=== PATIENT | male | born 1950 | race Two or more races ===

== ENCOUNTER 2021-01-03 12:56 | Emergency (ER) | payer MEDICARE, MEDICAID, SELFPAY ==
--- NOTE | 2021-01-03 | ECG_ITS ---
Test Reason : TACHY Blood Pressure : / mmHG Vent. Rate : 117 BPM Atrial Rate : 117 BPM P-R Int : 200 ms QRS Dur : 070 ms QT Int : 304 ms P-R-T Axes : 096 -73 033 degrees QTc Int : 424 ms Sinus tachycardia Left axis deviation Inferior-posterior infarct , age undetermined Anterolateral infarct , age undetermined Abnormal ECG No previous ECGs available Referred By: Shilpi Nielsen Electronically Signed By:CLEVELAND HARRIS
[2021-01-03 13:01] VITALS: BP 101/65; BP 124/78; PULSE 124; PULSE 125; RESP 18; TEMP 36.6; O2SAT 100; O2SAT 98; BMI 21.3
--- NOTE | 2021-01-03 13:14 | PC.NURSE ---
BG on arrival to ED 104. Patient Alert and oriented x 4. Some left sided weakness and some slurred speech at baseline from previous stroke per EMS. HR tachycardic. VSS.
[2021-01-03 13:18] LABS: Glucose, Whole Blood 104 mg/dL (60-115)
--- NOTE | 2021-01-03 13:43 | PC.NURSE ---
PT SENT HERE FROM [facility] DUE TO AMS, FOUND TO HAVE LOW BG FROM EMS GIVEN D10 BG HERE 94, PT IS AOX3 HERE KNOWS WHERE HE IS KNOW HIS NAME AND WAS SPEAKING TO DR MILES IN [place]. PT STATES HE HASN'T HAD ANY FOOD IN 4 DAYS AND WANTS TO EAT. DR MILES IS FINE WITH THAT PLAN
--- NOTE | 2021-01-03 13:58 | ED.AMS ---
HPI - Altered Mental Status General Chief Complaint: Altered Mental Status Stated Complaint: ams, poc 61 Time Seen by Provider: 01/03/21 13:38 History of Present Illness HPI narrative: Patient is a 70-year-old male with a history of stroke. Which left patient with left-sided weakness. Patient has slurred speech baseline. Presented today with having altered mental status. Patient was noted by EMS to have a low sugar in the 60s. Per him he had a sugar in the 50s with the group home. The EMS crew gave patient some D10 subsequently on arrival patient is able to speak to this provider without any difficulties. Patient is awake alert oriented. No distress. Patient remembers the events of today. Claims he has not been eating well the last few days. Unsure about his medications. Patient from group home. No coughing or congestion or upper respiratory symptoms. No diaphoresis. Related Data Allergies Allergy/AdvReac Type Severity Reaction Status Date / Time No Known Allergies Allergy Verified 01/03/21 13:38 Review of Systems Review of Systems: No fever no chills no nausea no vomiting. No chest pain All systems reviewed otherwise negative [facility] Past Medical History Attestation statement: The following information was validated with the patient. Social History Social History Advance Directives: No Advance Directives Information Provided: No Physical Exam Vital Signs: Vital Signs: Last Vital Signs Temp 98 F 01/03/21 13:01 Pulse 125 H 01/03/21 13:01 Resp 18 01/03/21 13:01 BP 101/65 01/03/21 13:01 Pulse Ox 100 01/03/21 13:01 Body Mass Index 21.3 Appearance: Alert. Oriented X3. No acute distress. Eyes: Pupils equal, round and reactive to light. ENT: Pharynx normal. Neck: Normal inspection. Neck supple. No lymph nodes noted. No crepitus CVS: Normal heart rate and rhythm. Pulses normal. Normal S1 and S2 Respiratory: No respiratory distress. Breath sounds normal. No Wheezing. No rales Abdomen: Soft and nontender. No rigidity. No distention. good BS x4 Skin: Skin warm and dry. Normal skin color. Normal skin turgor. Extremities: No lower extremity edema. Neurovascular intact to all extremities. No Lacerations. No Rash Neuro: Oriented X 3. Positive weakness in the left upper and left lower extremity. Unable to squeeze my hand unable to lift up against gravity. No sensory deficit. Positive slurred speech. MDM - Altered Mental Status MDM Narrative Medical decision making narrative: Patient's symptoms likely secondary to hypoglycemia. Will check patient's baseline electrolytes. Will discuss the case with the group home about medication changes. Patient is hungry and eating in the emergency department no distress. Lab Data Result diagrams: 01/03/21 13:59 01/03/21 13:59 Labs: Lab Results 01/03/21 01/03/21 01/03/21 Range/Units 13:13 13:59 13:59 WBC 5.8 (4.8-10.8) X10*3/uL RBC 5.04 (4.60-5.80) X10*6/uL Hgb 14.1 (14.0-18.0) g/dl Hct 42.7 (42-52) % MCV 84.7 (80-98) fL MCH 28.0 (27.0-33.0) pg MCHC 33.0 (31.0-36.0) g/dl RDW 12.2 (11.0-16.0) % Plt Count 213 (160-400) X10*3/uL MPV 8.5 L (9.4-12.4) fL Immature Gran % (Auto) 0.3 (0.0-0.4) % Neut % (Auto) 67.1 (45-73) % Lymph % (Auto) 26.3 (20-40) % Mills % (Auto) 5.7 (2-11) % Eos % (Auto) 0.3 (0-4) % Baso % (Auto) 0.3 (0-2) % Lymph # (Auto) 1.5 (1.2-4.9) X10*3/uL Mills # (Auto) 0.3 (0.1-1.2) X10*3/uL Eos # (Auto) 0.0 (0.0-0.4) X10*3/uL Baso # (Auto) 0.0 (0.0-0.2) X10*3/uL Abs Immat Gran (auto) 0.02 (0.00-0.03) X10*3/uL Absolute Neuts (auto) 3.9 (2.0-8.3) X10*3/uL Absolute Nucleated RBC 0.000 (0.0-0.012) X10*3/uL Nucleated RBC % (auto) 0.0 (0.0-0.2) /100WBC Sodium 142 (135-145) mmol/L Potassium 3.9 (3.3-5.1) mmol/L Chloride 104 (96-108) mmol/L Carbon Dioxide 24 (22-29) mmol/L Anion Gap 18 (12-20) BUN 26 H (9-16) mg/dL Creatinine 0.77 (0.5-1.4) mg/dL Estim Creat Clear Calc 87.4 Estimated GFR > 60 POC Glucose 104 (60-115) mg/dL Random Glucose 97 (60-115) mg/dL Calcium 9.3 (8.4-10.2) mg/dL Discharge Plan Discharge Clinical Impression: Hypoglycemia Patient Disposition: Home, Self-Care Referrals: Fabrice Marino DO [Primary Care Provider] - 2 days
[2021-01-03 14:00] VITALS: BP 121/80; PULSE 130
[2021-01-03 14:03] LABS: Basophils Percent Auto 0.3 % (0-2); Eosinophils Percent Auto 0.3 % (0-4); Hematocrit 42.7 % (42-52); Hemoglobin 14.1 g/dl (14.0-18.0); Imm Gran Abs Auto 0.02 X10*3/uL (0.00-0.03); Imm Gran Pct Auto 0.3 % (0.0-0.4); Lymphocytes Absolute Auto 1.5 X10*3/uL (1.2-4.9); Lymphocytes Percent Auto 26.3 % (20-40); MANUAL DIFF FLAG NO; Mean Corpuscular Volume 84.7 fL (80-98); Mean Platelet Volume 8.5 fL (9.4-12.4); Monocytes Absolute Auto 0.3 X10*3/uL (0.1-1.2); Monocytes Percent Auto 5.7 % (2-11); Neutrophils Absolute Auto 3.9 X10*3/uL (2.0-8.3); Neutrophils Percent Auto 67.1 % (45-73); Platelet Count 213 X10*3/uL (160-400); Red Blood Count 5.04 X10*6/uL (4.60-5.80); Red Cell Distribution Width 12.2 % (11.0-16.0); White Blood Count 5.8 X10*3/uL (4.8-10.8)
[2021-01-03 14:24] LABS: Anion Gap 18 (12-20); Blood Urea Nitrogen 26 mg/dL (9-16); Calcium 9.3 mg/dL (8.4-10.2); Carbon Dioxide 24 mmol/L (22-29); Chloride 104 mmol/L (96-108); Creatinine Clr Calc Pharmacy 87.4; Estimated Glomerular Filt Rate > 60; Glucose Random 97 mg/dL (60-115); Potassium 3.9 mmol/L (3.3-5.1); Sodium 142 mmol/L (135-145)
--- NOTE | 2021-01-03 15:09 | PC.NURSE ---
attempted to call report to [facility], was left on hold for 10 mins
[2021-01-03 15:14] VITALS: BP 152/86; PULSE 124; RESP 16; O2SAT 98
[2021-01-03 15:23] LABS: Glucose, Whole Blood 94 mg/dL (60-115)
--- NOTE | 2021-01-03 15:30 | PC.NURSE ---
PT TOLERATED PO, GIVING SOME IVF FOR TACHYCARDIA. WILL RECHECK BG IN 30 MINS
[2021-01-03 15:38] LABS: Appearance Urine CLEAR; Color Urine YELLOW; Glucose Urine UA NEG (NEG); Leukocyte Esterase Urine NEG (NEG); Nitrite Urine NEG (NEG); Specific Gravity - Urine >= 1.030 (1.005-1.025); Urine Blood NEG (NEG); Urine Ketones >=80 MG/DL (NEG); Urine Protein TRACE MG/DL (NEG-TRACE)
[2021-01-03] MEDS: 0.9 % Sodium Chloride 1,000 ML 999 ML IV (16:59)
== END 2021-01-03 18:13 | disposition home or self-care (01) ==
PROVIDERS: Emergency Provider Emergency Medicine Emergency Medical Services; PCP Hospitalist
DX: E11.649 Type 2 diabetes mellitus with hypoglycemia without coma (principal); Z79.899 Other long term (current) drug therapy
CPT/HCPCS: 36415; 80048; 81003; 82947; 85025; 93005; 96360; 99284

== ENCOUNTER 2021-10-29 13:07 | Inpatient (IN) | payer OTHER, MEDICAID, SELFPAY ==
--- NOTE | ~2021-10-29 | CT_ITS ---
EXAMINATION: CT ANGIOGRAM HEAD CT ANGIOGRAM NECK CLINICAL INFORMATION: Reason for Exam stroke eval , right upper extremity weakness COMPARISON: CT head without contrast 10/29/2021 TECHNIQUE: Initial noncontrast alteration tailor imaging of the head and neck was performed. Noncontrast head CT was also performed. Test bolus sequences followed by intravenous administration 70 mL of Omnipaque 350. Helical imaging was performed in the axial plane from the aortic arch to the skull vertex. Delayed postcontrast imaging of the head was also performed. The data was processed at the geospatial information technologist's workstation for generation of MIP sequences. Angled MIPs and volume rendered reformatted images were also generated at an offline 3D workstation. Stenoses are assessed in accordance with NASCET criteria unless otherwise indicated. DLP: 2448 mGy-cm This CT examination was performed using dose optimization techniques as appropriate, variously including the following: *Automated exposure control. *Adjustment of mA and/or kV according to patient size (this includes techniques or standardized protocols for targeted exams where dose is matched to indication/reason for exam; i.e. extremities or head). *Use of iterative reconstruction technique. FINDINGS: CT Head: There is a significant burden of chronic appearing infarct and white matter gliosis in the right MCA territory with mild ex vacuo dilatation of the right lateral ventricle. This is on a background of moderate microvascular ischemic white matter hypodensity as well as some lacunar infarcts involving the right amaya radiata and central sivakumar. Encephalomalacia involving the left greater than right anterior inferior frontal and anterior temporal lobes is likely posttraumatic in origin. There is no evidence of acute intracranial hemorrhage or edematous territorial infarction. No evidence for obstructive hydrocephalus. No abnormal mass effect or midline shift. No extra-axial fluid collections. No pathologic intra-axial enhancement or regional oligemia. No acute soft tissue or osseous abnormalities. The mastoid air cells and paranasal sinuses are clear. CT Neck: Multinodular thyroid. The remaining cervical soft tissues are within normal limits. Moderate multilevel cervical spondylosis. There are large bulky bridging anterior osteophytes throughout the cervical and upper thoracic spine, likely reflecting diffuse idiopathic skeletal hyperostosis. CT Upper Chest: The visualized lung apices and upper mediastinum are within normal limits. Neck CTA: Aortic Arch: Normal contour and caliber. Two vessel branching pattern of the arch with left common carotid artery arising from the brachiocephalic trunk. Great Vessel Origins: No significant stenosis of the branch origins. Right Common Carotid Artery: No focal stenosis or occlusion. Cervical Right Internal Carotid Artery: Severe stenosis of the right ICA origin (approximately 80% luminal narrowing), predominantly on the basis of soft atherosclerotic plaque. The remaining cervical right ICA is widely patent. Left Common Carotid Artery: No focal stenosis or occlusion. Cervical Left Internal Carotid Artery: Atherosclerotic disease of the carotid bulb and proximal internal carotid artery without significant stenosis Cervical Right Vertebral Artery: No focal stenosis or occlusion. Cervical Left Vertebral Artery: No focal stenosis or occlusion. Brain CTA: Intracranial Internal Carotid Arteries: Calcific atherosclerotic disease of the intracranial internal carotid arteries without occlusion or flow-limiting stenosis. Right Anterior Cerebral Artery: Normal A1 segment. Normal opacification of the distal TRA segments. Left Anterior Cerebral Artery: Normal A1 segment. Normal opacification of the distal TRA segments. Anterior Communicating Artery: Normal. Right Middle Cerebral Artery: Normal M1 segment of the MCA without focal stenosis or occlusion. Normal arborization of the distal segments. Left Middle Cerebral Artery: Normal M1 segment of the MCA without focal stenosis or occlusion. Normal arborization of the distal segments. Intradural vertebral arteries: Right greater than left calcified atherosclerotic disease with multifocal mild stenosis. Basilar Artery: Normal without focal stenosis or occlusion. Normal appearance of the proximal superior cerebellar arteries. Right Posterior Cerebral Artery: Normal P1 segment. Normal opacification of the distal RESEARCH EDITOR segments. Left Posterior Cerebral Artery: Normal P1 segment. Normal opacification of the distal RESEARCH EDITOR segments. There is a filling defect in the distal transverse and sigmoid sinus, which may reflect thrombus. The remaining dural venous sinuses opacify normally. CT/CT angio head neck IMPRESSION: 1. No acute intracranial hemorrhage, mass effect, hydrocephalus, or extra-axial collection. Evaluation for acute ischemia is somewhat limited given the presence of multiple lacunar infarcts, burden of microvascular ischemic white matter hypodensity, and chronic appearing right MCA territory infarct 2. Filling defect in the distal left transverse and sigmoid sinuses which may represent a dural sinus thrombosis. Recommend further evaluation with contrast-enhanced MRI of the brain and MRV. 3. Severe stenosis of the right ICA origin related to lipid rich atherosclerotic plaque. There is no other significant arterial high-grade stenosis or large vessel occlusion in the head or neck. Above impression was communicated to Danie ROBLEDO on 10/31/2021 at 1:30 PM.
--- NOTE | ~2021-10-29 | CT_ITS ---
EXAMINATION: CT HEAD WITHOUT CONTRAST (STROKE PROTOCOL) CLINICAL INFORMATION: Stroke protocol. Confusion/mental status change. COMPARISON: None. TECHNIQUE: Contiguous axial imaging was performed from the skull base to vertex without intravenous administration of contrast. This CT examination was performed using dose optimization techniques as appropriate, variously including the following: *Automated exposure control *Adjustment of mA and/or kV according to patient size (this includes techniques or standardized protocols for targeted exams where dose is matched to indication/reason for exam; i.e. extremities or head) *Use of iterative reconstruction technique DLP: 726 mGy-cm FINDINGS: There is no evidence of an extra-axial collection. There is no evidence of intra or extra-axial hemorrhage. Ventricles and extra-axial CSF spaces are prominent suggestive of generalized atrophy. There is nonspecific periventricular white matter disease. There is evidence of a left frontal subcortical white matter infarct. There is evidence of a right frontoparietal infarct. There is a right basal ganglia or internal capsule lacuna infarct. There is question of an infarct in the sivakumar. No mass or mass effect is seen. There is evidence of atherosclerotic disease. Review of bone windows is normal. No skull fracture is seen. Paranasal sinuses, mastoid air cells and middle ears are clear. CT/CT head for stroke IMPRESSION: Multiple infarcts. There are no old exams are available for comparison and these are age indeterminate. Generalized atrophy and nonspecific periventricular white matter disease. This critical result was discussed with Dr. You at 1325 hours on 10/29/2021. It was ascertained that the content and urgency of the report was understood at the time of direct communication.
--- NOTE | ~2021-10-29 | MR_ITS ---
EXAMINATION: MR BRAIN WITHOUT AND WITH CONTRAST CLINICAL INFORMATION: Possible sigmoid sinus thrombosis COMPARISON: Same day CTA head and neck TECHNIQUE: Multiplanar multisequence MR imaging of the brain was obtained on the high field 1.5 [facility] MRI unit without and following the administration of 10 mL Gadavist intravenous contrast. FINDINGS: Motion degraded examination There is no acute infarct on diffusion-weighted imaging. There is no hydrocephalus, extra-axial collection, or herniation. Confluent periventricular, deep white matter, and brainstem T2 FLAIR hyperintensities consistent with moderate to severe underlying microangiopathy. Chronic right MCA territory infarct with mild ex vacuo dilatation of the right lateral ventricle. Mild chronic hemosiderin staining in the right parietal lobe. Chronic lacunar infarct involving the right basal ganglia and posterior limb of the internal capsule. There is some wallerian degeneration along the right corticospinal tract with atrophy of the right cerebral peduncle. Chronic lacunar infarct in the right central sivakumar. Mild to moderate generalized cerebral volume loss with commensurate sulcal and ventricular prominence. Encephalomalacia involving the anterior inferior frontal and temporal lobes, likely posttraumatic. No abnormal parenchymal or extra-axial enhancement. The major flow voids at the skull base are preserved. The midline structures are normal. The cerebellar tonsils are normally positioned. The cerebellum and brainstem are normal. The craniocervical junction is normal. Marrow signal is within normal limits. The visualized soft tissues are without significant abnormality. No signal abnormality within the paranasal sinuses or within the mastoid air cells. Absent flow void and flow related enhancement in the distal left transverse and sigmoid sinus, concerning for thrombosis. The remaining dural venous sinuses appear patent. MR/MR venography head wo/w con IMPRESSION: 1. Absent flow void and flow related enhancement involving the distal left transverse and sigmoid sinuses, concerning for venous sinus thrombosis. No evidence of parenchymal edema or venous ischemia in this drainage territory. 2. No evidence of acute infarct or other acute intracranial abnormality. 3. Chronic findings including moderate to severe burden of microangiopathic white matter disease, chronic right MCA territory infarct, lacunar infarcts in the right posterior limb of the internal capsule and central sivakumar, and Wallerian degeneration along the right corticospinal tract
--- NOTE | 2021-10-29 13:14 | ECG_ITS ---
Test Reason : STROKE Blood Pressure : / mmHG Vent. Rate : 098 BPM Atrial Rate : 098 BPM P-R Int : 174 ms QRS Dur : 074 ms QT Int : 348 ms P-R-T Axes : 060 -11 027 degrees QTc Int : 444 ms Normal sinus rhythm Inferior infarct (cited on or before 03-JAN-2021) Abnormal ECG When compared with ECG of 03-JAN-2021 15:22, Criteria for Anterior infarct are no longer Present Criteria for Anterolateral infarct are no longer Present Nonspecific T wave abnormality no longer evident in Anterior leads Referred By: Yousuf You Electronically Signed By:LANETTE RAMIREZ MD
--- NOTE | 2021-10-29 13:17 | ED.AMS ---
HPI - Altered Mental Status General Chief Complaint: Stroke Stated Complaint: SUDDEN AMS,SLUR SPEECH,LKWT 30MIN,DBL VISION,+SA Time Seen by Provider: 10/29/21 13:13 Source: EMS Mode of arrival: EMS Limitations: altered mental status History of Present Illness HPI narrative: 70-year-old male came in for evaluation of sudden onset change mental status with slurred speech and possible stroke, patient last known normal was 30 minutes ago, patient with a history of stroke with residual of left-sided weakness, patient also has slurred speech baseline, presented with sudden onset of altered mental status noted by the nursing staff and the right upper extremities weakness as reported by EMS at the [place] [facility], patient had blood sugar of 88 by EMS, on arrival patient talking bizarre with slurred speech patient appear very emotional and cries and laughs for no clear reason. Related Data Allergies Allergy/AdvReac Type Severity Reaction Status Date / Time No Known Allergies Allergy Verified 01/03/21 13:38 Review of Systems Review of Systems: Yes Unobtainable due to mental status [facility] Social History Social History Advance Directives: No Advance Directives Information Provided: No Physical Exam ED Vital Signs: Vital Signs - 24 hr 10/29/21 14:23 Temperature 98.4 F Pulse Rate 97 Respiratory Rate 16 Blood Pressure 123/74 Pulse Oximetry 96 Oxygen Delivery Method Room Air Vital signs have been reviewed as appeared to be correct. Blood pressure normal. Heart rate normal. Respiration rate normal. Temperature normal. Oxygen saturation normal. Appearance: Alert. No acute distress. Head: Normal external exam. Normocephalic. Atraumatic. No Monzon signs noted. No raccoon eyes noted Eyes: PERRLA. EOMI. Conjunctiva and sclera normal. Eyelids normal. ENT: TM's Normal. Pharynx normal. Uvula midline. Moist mucous membranes. No trismus noted. No drooling noted. No muffled voice noted. Neck: Normal inspection. Neck supple. FROM. No adenopathy. Thyroid Normal. No meningeal signs. No neck mass noted. CVS: Normal heart rate and rhythm. Heart sound normal. No murmurs noted. Pulses normal throughout. Respiratory: No respiratory distress. Painless inspiration. Breath sounds normal. No wheezes/rales/rhonchi noted. Chest nontender. No accessory muscle usage noted or decreased air movement noted. Abdomen: Soft and nontender. Bowel sounds normal in all 4 quadrants. No distention noted. No organomegaly noted. No visible injury noted. Back: No CVA tenderness. Full range of motion noted. Skin: Skin warm and dry. Normal skin color. Normal skin turgor. No rashes/lesions/lacerations noted. Extremities: No lower extremity edema. Extremities exhibit normal range of motion. Extremities nontender. Neuro: Awake but disoriented due to change mental status. Cranial nerve exam: II-XII are grossly intact No motor deficit. No sensory deficit. Reflexes normal. NIH Stroke Scale Internal: Initial- Upon Arrival Time: 13:22 Level of Consciousness: Alert Level of Consciousness Questions: Answers neither question correctly Level of Consciousness Commands: Performs neither task correctly Best Gaze: Normal Visual: No visual loss Facial Palsy: Normal Motor Arm (Right): No drift Motor Arm (Left): No effort against gravity (Old, and spastic) Motor Leg (Right): No drift Motor Leg (Left): No movement (Old and spastic) Limb Ataxia: Absent Sensory: Normal Best Language: Mild to moderate aphasia Dysarthia: Mild to moderate dysarthria Extinction and Inattention: No abnormality Score: 13 Course Course Course Narrative: A 70-year-old male with history of stroke with residual left hemiparesis presented with TIA like symptoms of acute mental status change, slurred speech, right upper extremity weakness, patient's symptoms is resolving while he is in the emergency department, patient at his baseline now with baseline slurred speech. Patient is a DNR/DNI, ambiguous exam for acute stroke finding are mostly old, and patient clinically is improving making patient not a candidate for thrombolysis. Case was discussed with Dr. Christine who agreed on the plan. MDM - Altered Mental Status Lab Data Attestation: I reviewed the patient's lab results. Result diagrams: 10/29/21 13:52 10/29/21 14:09 Labs: Lab Results 10/29/21 10/29/21 10/29/21 Range/Units 13:16 13:23 13:50 WBC (4.8-10.8) X10*3/uL RBC (4.60-5.80) X10*6/uL Hgb (14.0-18.0) g/dl Hct (42.0-52.0) % MCV (80.0-98.0) fL MCH (27.0-33.0) pg MCHC (31.0-36.0) g/dl RDW (11.0-16.0) % Plt Count (160-400) X10*3/uL MPV (9.4-12.4) fL Immature Gran % (Auto) (0.0-0.4) % Neut % (Auto) (45-73) % Lymph % (Auto) (20-40) % Camp % (Auto) (2-11) % Eos % (Auto) (0-4) % Baso % (Auto) (0-2) % Lymph # (Auto) (1.2-4.9) X10*3/uL Camp # (Auto) (0.1-1.2) X10*3/uL Eos # (Auto) (0.0-0.4) X10*3/uL Baso # (Auto) (0.0-0.2) X10*3/uL Abs Immat Gran (auto) (0.00-0.03) X10*3/uL Absolute Neuts (auto) (2.0-8.3) x10*3/uL Absolute Nucleated RBC (0.0-0.012) X10*3/uL Nucleated RBC % (auto) (0.0-0.2) /100WBC PT (10.0-13.1) SEC Whole Blood PT 14.0 H (11.1-13.5) sec INR (0.9-1.1) Whole Blood INR 1.2 H (0.9-1.1) APTT (24.1-38.0) SEC Sodium (135-145) mmol/L Potassium (3.3-5.1) mmol/L Chloride (96-108) mmol/L Carbon Dioxide (22-29) mmol/L Anion Gap (12-20) BUN (9-16) mg/dL Creatinine (0.5-1.4) mg/dL Estim Creat Clear Calc Estimated GFR POC Glucose 84 (60-115) mg/dL Random Glucose (60-115) mg/dL Calcium (8.4-10.2) mg/dL Total Creatine Kinase (38-174) U/L Troponin I High Sens 6.4 (<3.5-35.0) ng/L 10/29/21 10/29/21 10/29/21 Range/Units 13:52 14:09 14:09 WBC 6.2 (4.8-10.8) X10*3/uL RBC 4.86 (4.60-5.80) X10*6/uL Hgb 13.7 L (14.0-18.0) g/dl Hct 41.1 L (42.0-52.0) % MCV 84.6 (80.0-98.0) fL MCH 28.2 (27.0-33.0) pg MCHC 33.3 (31.0-36.0) g/dl RDW 12.5 (11.0-16.0) % Plt Count 243 (160-400) X10*3/uL MPV 8.7 L (9.4-12.4) fL Immature Gran % (Auto) 0.2 (0.0-0.4) % Neut % (Auto) 62.2 (45-73) % Lymph % (Auto) 29.4 (20-40) % Camp % (Auto) 7.1 (2-11) % Eos % (Auto) 0.8 (0-4) % Baso % (Auto) 0.3 (0-2) % Lymph # (Auto) 1.8 (1.2-4.9) X10*3/uL Camp # (Auto) 0.4 (0.1-1.2) X10*3/uL Eos # (Auto) 0.1 (0.0-0.4) X10*3/uL Baso # (Auto) 0.0 (0.0-0.2) X10*3/uL Abs Immat Gran (auto) 0.01 (0.00-0.03) X10*3/uL Absolute Neuts (auto) 3.9 (2.0-8.3) x10*3/uL Absolute Nucleated RBC 0.000 (0.0-0.012) X10*3/uL Nucleated RBC % (auto) 0.0 (0.0-0.2) /100WBC PT 12.8 (10.0-13.1) SEC Whole Blood PT (11.1-13.5) sec INR 1.1 (0.9-1.1) Whole Blood INR (0.9-1.1) APTT 30.0 (24.1-38.0) SEC Sodium 142 (135-145) mmol/L Potassium 4.4 (3.3-5.1) mmol/L Chloride 105 (96-108) mmol/L Carbon Dioxide 27 (22-29) mmol/L Anion Gap 14 (12-20) BUN 15 (9-16) mg/dL Creatinine 0.75 (0.5-1.4) mg/dL Estim Creat Clear Calc TNP Estimated GFR > 60 POC Glucose (60-115) mg/dL Random Glucose 91 (60-115) mg/dL Calcium 9.3 (8.4-10.2) mg/dL Total Creatine Kinase 59 (38-174) U/L Troponin I High Sens (<3.5-35.0) ng/L Imaging Data CT scan - head: Attestation: I personally reviewed and interpreted this imaging study as follows: Radiologist's impression: Multiple infarcts. There are no old exams are available for comparison and these are age indeterminate. Generalized atrophy and nonspecific periventricular white matter disease. ? ECG Data ECG #1: Attestation: I personally reviewed and interpreted this ECG as follows: Interpretation: Normal sinus rhythm at 98 beats per minutes, normal intervals, no ST-T changes. Discharge Plan Discharge Clinical Impression: Transient cerebral ischemia Patient Disposition: Admitted As Inpatient
[2021-10-29 13:20] LABS: Glucose, Whole Blood 84 mg/dL (60-115)
[2021-10-29 13:26] LABS: ~PT, ~INR - Anti Coag Clinic 1.2 (0.9-1.1)
[2021-10-29 14:04] LABS: Basophils Percent Auto 0.3 % (0-2); Eosinophils Absolute Auto 0.1 X10*3/uL (0.0-0.4); Eosinophils Percent Auto 0.8 % (0-4); Hematocrit 41.1 % (42.0-52.0); Hemoglobin 13.7 g/dl (14.0-18.0); Imm Gran Abs Auto 0.01 X10*3/uL (0.00-0.03); Imm Gran Pct Auto 0.2 % (0.0-0.4); Lymphocytes Absolute Auto 1.8 X10*3/uL (1.2-4.9); Lymphocytes Percent Auto 29.4 % (20-40); Mean Corpuscular HGB Conc 33.3 g/dl (31.0-36.0); Mean Corpuscular Hemoglobin 28.2 pg (27.0-33.0); Mean Corpuscular Volume 84.6 fL (80.0-98.0); Mean Platelet Volume 8.7 fL (9.4-12.4); Monocytes Absolute Auto 0.4 X10*3/uL (0.1-1.2); Monocytes Percent Auto 7.1 % (2-11); Neutrophils Absolute Auto 3.9 x10*3/uL (2.0-8.3); Neutrophils Percent Auto 62.2 % (45-73); Platelet Count 243 X10*3/uL (160-400); Red Blood Count 4.86 X10*6/uL (4.60-5.80); Red Cell Distribution Width 12.5 % (11.0-16.0); White Blood Count 6.2 X10*3/uL (4.8-10.8)
[2021-10-29 14:14] LABS: Troponin-I High Sensitivity 6.4 ng/L (<3.5-35.0)
[2021-10-29 14:15] LABS: MANUAL DIFF FLAG NO
[2021-10-29 14:23] VITALS: BP 123/74; PULSE 97; RESP 16; TEMP 36.9; O2SAT 96
--- NOTE | 2021-10-29 14:26 | PC.NURSE ---
Pt used urinal, urinated 250 ml. sg
[2021-10-29 14:29] LABS: INTERNATIONAL NORM RATIO 1.1 (0.9-1.1); Prothrombin Time 12.8 SEC (10.0-13.1)
[2021-10-29 14:32] LABS: Anion Gap 14 (12-20); Blood Urea Nitrogen 15 mg/dL (9-16); Calcium 9.3 mg/dL (8.4-10.2); Carbon Dioxide 27 mmol/L (22-29); Chloride 105 mmol/L (96-108); Estimated Glomerular Filt Rate > 60; Glucose Random 91 mg/dL (60-115); Potassium 4.4 mmol/L (3.3-5.1); Sodium 142 mmol/L (135-145); Stroke Lab Use COMPLETE
--- NOTE | 2021-10-29 15:06 | MHC.STROKE ---
Addendum entered by Cecille Quintero RN 10/29/21 15:40: I performed Nursing Swallow Screen prior to any po, Patient passed although he holds his mouth open and will not close his lips, he wanted to hold the cup which he was able to do and he swallowed fine with only a slight delay. Original Note: 1302 EMS called in a Stroke Alert onset of AMS and Slurred speech. at approx, 1230. Patient arrived at 1307, examined and sent directly to CT, no bleed, prior strokes initial NIHSS = 13 although patient has residual symptoms on the left from from 2 prior strokes. I saw patient at 1345 and he was speaking clearly, speech difficulties almost resolved, he is very teary and emotional from prior right sided stroke, I tried to provide reassurance. he could tell me his daughters name, that he had 2 prior strokes. He is a DNR/DNI, discussed exclusions for tpa-alteplase with Dr. You: improvement of symptoms with multiple co-morbidities is the determination for no tpa. He also spoke with Dr. Christine.
[2021-10-29 15:15] VITALS: BP 120/80; PULSE 93; RESP 14; O2SAT 99
--- NOTE | 2021-10-29 15:19 | PHA.MEDREC ---
Pharmacy Consult ? Medication Reconciliation Pharmacy has completed the medication reconciliation.
[2021-10-29 15:37] LABS: COVID-19 Test Negative (Negative); IDNOW Serial# 16C4AD1C
[2021-10-29] MEDS: Aspirin Enteric Coated 81 MG TABLET.DR PO (15:42)
--- NOTE | 2021-10-29 16:34 | P.HPHOSP_ITS ---
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 The patient himself reports that he was sitting in his wheelchair and awaiting his lunch to arrive at which point he passed out. Per the ED provider there was sudden onset of altered mental status by the nursing staff at the nursing home facility as well as right upper extremity weakness as reported by the EMS. By the time the patient had come to the emergency room his mental status was reportedly at his baseline. Last given his prior stroke he will be admitted for further workup. The patient seen examined in the emergency room. He denies any weakness. He reports that he was not slurring his speech, any differently than he normally does. He reports that he ?passed out but does not how long. Review of Systems Review of Systems: negative except HPI PMFSH Social History Advance Directives: No Advance Directives Information Provided: No Meds Allergies Allergy/AdvReac Type Severity Reaction Status Date / Time No Known Allergies Allergy Verified 01/03/21 13:38 Active Medications: Current Medications Acetaminophen (Acetaminophen 325 Mg Tablet) 650 mg PO Q6H PRN PRN Reason: Pain, Mild (Pain Scale 1-3) Ondansetron HCl (Ondansetron Hcl 4 Mg/2 Ml Vial) 4 mg IVPUSH Q8H PRN PRN Reason: Nausea and Vomiting Pharmacy Consult (Consult Rx Perform Med Rec) 1 each MISCELLANE ONCE PRN PRN Reason: Consult order Sodium Chloride (0.9 % Sodium Chloride Flush 3 Ml Syringe) 3 ml IVFLUSH [facility] Home Medications Medication Instructions Recorded Confirmed Last Taken Type aspirin 325 mg tablet 325 mg PO DAILY 10/29/21 10/29/21 10/29/21 History atorvastatin 40 mg tablet 40 mg PO DAILY 10/29/21 10/29/21 10/29/21 History escitalopram oxalate 20 mg tablet 20 mg PO DAILY 10/29/21 10/29/21 10/29/21 History (Lexapro) lidocaine 4 % topical patch 1 patch topical DAILY PRN left 10/29/21 10/29/21 Unknown History shoulder pain multivitamin 1 tab PO DAILY 10/29/21 10/29/21 10/29/21 History polyethylene glycol 3350 17 gram 17 g PO DAILY PRN Constipation 10/29/21 10/29/21 Unknown History oral powder packet (Miralax) sennosides 8.6 mg tablet (senna) 8.6 mg PO DAILY PRN Constipation 10/29/21 0 10/29/21 Unknown History vitamin B complex 1 tab PO DAILY 10/29/21 10/29/21 10/29/21 History Physical Exam Vital Signs and Narrative: Vital Signs: Last Vital Signs Temp 98.4 F 10/29/21 14:23 Pulse 93 10/29/21 15:15 Resp 14 10/29/21 15:15 BP 120/80 10/29/21 15:15 Pulse Ox 99 10/29/21 15:15 O2 Del Method 10/29/21 15:15 Const: Other: Constitutional - Awake and Alert, No apparent distress Eyes - PERRLA, EOMI Cardiovascular - S1S2, RRR, No edema Respiratory - Normal lung expansion, Normal respiratory effort, No respiratory distress, CTA bilaterally Gastrointestinal - NT / ND; +BS; No rebound or guarding - No CVA tenderness Extremities - no calf tenderness bilaterally, no swelling Musculoskeletal - Normal inspection, normal ROM Skin - Warm/Dry Neurological - left hemiplegia, right upper extremity strength normal, no facial asymmetry, speech is slightly slurred but the patient reports that this is his baseline. Psychological - Appropriate affect Results Labs CBC and Chem 7: 10/29/21 13:52 10/29/21 14:09 Labs: Laboratory Results - last 24 hr 10/29/21 10/29/21 10/29/21 13:16 13:23 13:50 MCV MCH MCHC RDW Plt Count MPV Immature Gran % (Auto) Neut % (Auto) Lymph % (Auto) Porter % (Auto) Eos % (Auto) Baso % (Auto) Lymph # (Auto) Porter # (Auto) Eos # (Auto) Baso # (Auto) Abs Immat Gran (auto) Absolute Neuts (auto) Absolute Nucleated RBC Nucleated RBC % (auto) PT Whole Blood PT 14.0 H INR Whole Blood INR 1.2 H APTT Anion Gap Estim Creat Clear Calc Estimated GFR POC Glucose 84 Random Glucose Calcium Total Creatine Kinase Troponin I High Sens 6.4 COVID-19 (ANEL) COVID-19 Clin Com 10/29/21 10/29/21 10/29/21 13:52 14:09 14:09 MCV 84.6 MCH 28.2 MCHC 33.3 RDW 12.5 Plt Count 243 MPV 8.7 L Immature Gran % (Auto) 0.2 Neut % (Auto) 62.2 Lymph % (Auto) 29.4 Porter % (Auto) 7.1 Eos % (Auto) 0.8 Baso % (Auto) 0.3 Lymph # (Auto) 1.8 Porter # (Auto) 0.4 Eos # (Auto) 0.1 Baso # (Auto) 0.0 Abs Immat Gran (auto) 0.01 Absolute Neuts (auto) 3.9 Absolute Nucleated RBC 0.000 Nucleated RBC % (auto) 0.0 PT 12.8 Whole Blood PT INR 1.1 Whole Blood INR APTT 30.0 Anion Gap 14 Estim Creat Clear Calc TNP Estimated GFR > 60 POC Glucose Random Glucose 91 Calcium 9.3 Total Creatine Kinase 59 Troponin I High Sens COVID-19 (ANEL) COVID-19 Clin Com 10/29/21 15:16 MCV MCH MCHC RDW Plt Count MPV Immature Gran % (Auto) Neut % (Auto) Lymph % (Auto) Porter % (Auto) Eos % (Auto) Baso % (Auto) Lymph # (Auto) Porter # (Auto) Eos # (Auto) Baso # (Auto) Abs Immat Gran (auto) Absolute Neuts (auto) Absolute Nucleated RBC Nucleated RBC % (auto) PT Whole Blood PT INR Whole Blood INR APTT Anion Gap Estim Creat Clear Calc Estimated GFR POC Glucose Random Glucose Calcium Total Creatine Kinase Troponin I High Sens COVID-19 (ANEL) Negative COVID-19 Clin Com See Note Imaging Radiologist's Impressions: Impressions Head CT 10/29/21 13:20 IMPRESSION: Multiple infarcts. There are no old exams are available for comparison and these are age indeterminate. Generalized atrophy and nonspecific periventricular white matter disease. This critical result was discussed with Dr. You at 1325 hours on 10/29/2021. It was ascertained that the content and urgency of the report was understood at the time of direct communication. Assessment and Plan (1) Transient cerebral ischemia: Status: Acute Plan This is a 70-year-old male with multiple prior strokes who presents with sudden onset of neurological changes report at the nursing home facility versus syncope. It appears that he is now at baseline, however given his prior history he will be is admitted with Neurology consult. 1. TIA/Syncope Patient now at his baseline Will monitor on telemetry Continue his baseline aspirin and statin Neurology consult CT head with multiple infarcts, age undetermined 2. Mood continue lexapro DNR/DNI (per MOLST in chart) DVT pptx -- lovenox Quality Stroke Does the patient have a stroke diagnosis?: No VTE Prior VTE?: No VTE Risk Level:: Medical - moderate - high VTE Device Contraindication: N/A - Device Ordered VTE Drug Contraindication: N/A - Med Ordered
[2021-10-29 17:05] VITALS: BMI 20.5
[2021-10-29] MEDS: Enoxaparin Sodium 40 MG/0.4 ML SYRINGE SUBCUT (17:56)
--- NOTE | 2021-10-29 17:59 | PC.NURSE ---
pt difficult to understand when speaking. pt did report pain to his coccyx - repositioned with a pillow onto his left side.
--- NOTE | 2021-10-29 19:09 | PC.NURSE ---
Addendum entered by Jillian Clement 10/30/21 06:56: report given to BALBIR Schaefer Addendum entered by Jillian Clement 10/29/21 19:41: pt is alert and oriented. resting in bed. no signs of acute distress notice. breathing equally unlabored. pt on continuos cardiac monitoring Original Note: report received from BALBIR Gupta.
[2021-10-29 19:40] VITALS: BP 128/76; PULSE 76; RESP 20; TEMP 36.6; O2SAT 99
[2021-10-30 03:45] VITALS: BP 128/63; PULSE 68; RESP 12; O2SAT 96
[2021-10-30 06:01] VITALS: BP 111/60; PULSE 60; RESP 12; TEMP 36.4; O2SAT 98
[2021-10-30 07:04] LABS: Hematocrit 38.5 % (42.0-52.0); Hemoglobin 12.7 g/dl (14.0-18.0); Mean Platelet Volume 8.7 fL (9.4-12.4); Platelet Count 201 X10*3/uL (160-400); Red Blood Count 4.53 X10*6/uL (4.60-5.80); Red Cell Distribution Width 12.4 % (11.0-16.0); White Blood Count 5.2 X10*3/uL (4.8-10.8)
[2021-10-30 07:38] LABS: Anion Gap 12 (12-20); Blood Urea Nitrogen 15 mg/dL (9-16); Calcium 9.3 mg/dL (8.4-10.2); Carbon Dioxide 28 mmol/L (22-29); Chloride 105 mmol/L (96-108); Creatinine Clr Calc Pharmacy 93.7; Estimated Glomerular Filt Rate > 60; Glucose Random 89 mg/dL (60-115); Potassium 4.1 mmol/L (3.3-5.1); Sodium 141 mmol/L (135-145)
[2021-10-30] MEDS: Aspirin 325 MG TABLET PO (08:11)
[2021-10-30] MEDS: Multivitamin TABLET 1 TAB PO (08:12)
[2021-10-30] MEDS: Atorvastatin Calcium 40 MG TABLET PO (08:12)
[2021-10-30] MEDS: 0.9 % Sodium Chloride Flush 3 ML SYRINGE IVFLUSH ×2 (08:12→15:40)
[2021-10-30] MEDS: Escitalopram Oxalate 20 MG TABLET PO (08:12)
[2021-10-30 08:23] VITALS: BP 109/59; PULSE 87; RESP 16; O2SAT 100
--- NOTE | 2021-10-30 08:24 | PC.NURSE ---
Pt alert/oriented. Baseline neuros per pt, right sided weakness. Positioned to right side in position of comfort. NSR on tele. Ate 100% of breakfast
--- NOTE | 2021-10-30 10:26 | MHC.CM.PN ---
CM was unable to reach Brother/Guardian/Moy at listed # but was able to speak with Niece/Roxy @ [phone].Patient is a LTC Resident at [facility] and the goal is to return there once Patient is medically cleared. LA has initiated and will follow for dc planning. BAH addressed with Roxy and will mailed to Guardian, and a copy will be placed on the chart.
--- NOTE | 2021-10-30 11:54 | PM.EVENT ---
Event Note Date of Service: 10/30/21 Event Note: No further seizure/syncopal episode since arrival to the ED. Remained stable. Await Neurology input but if no further workup recommended, likely discharge back to [facility].
[2021-10-30 14:11] VITALS: BP 124/73; PULSE 77; RESP 16; O2SAT 97
[2021-10-30] MEDS: Enoxaparin Sodium 40 MG/0.4 ML SYRINGE SUBCUT (18:10)
[2021-10-31] MEDS: 0.9 % Sodium Chloride Flush 3 ML SYRINGE IVFLUSH ×3 (01:32→16:20)
[2021-10-31 09:53] VITALS: BP 122/58; PULSE 66; TEMP 36.5; O2SAT 97
[2021-10-31] MEDS: Multivitamin TABLET 1 TAB PO (09:55)
[2021-10-31] MEDS: Escitalopram Oxalate 20 MG TABLET PO (09:55)
[2021-10-31] MEDS: Atorvastatin Calcium 40 MG TABLET PO (09:55)
[2021-10-31] MEDS: Aspirin 325 MG TABLET PO (09:55)
--- NOTE | 2021-10-31 11:07 | P.CNNE_ITS ---
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 His exact past medical history or details were not known to us. Apparently he had left hemiparesis and he was noted to be either unresponsive or passed out. There was no witnessing of any convulsion. When I talked to him he said that he passed out. He said that he might have passed out in the past. His workup did not reveal any obvious reason for passing out. Review of Systems Review of Systems: No recent cold or flu-like illness PMFSH Social History Social History Advance Directives: No Advance Directives Information Provided: No service: No Current occupational status: disabled Meds Allergies Allergy/AdvReac Type Severity Reaction Status Date / Time No Known Allergies Allergy Verified 01/03/21 13:38 Active Medications: Current Medications Acetaminophen (Acetaminophen 325 Mg Tablet) 650 mg PO Q6H PRN PRN Reason: Pain, Mild (Pain Scale 1-3) Aspirin (Aspirin 325 Mg Tablet) 325 mg PO DAILY [facility] Last Admin: 10/31/21 09:55 Dose: 325 mg Atorvastatin Calcium (Atorvastatin Calcium 40 Mg Tablet) 40 mg PO DAILY [facility] Last Admin: 10/31/21 09:55 Dose: 40 mg Enoxaparin Sodium (Enoxaparin Sodium 40 Mg/0.4 Ml Syringe) 40 mg SUBCUT Q24H [facility] Last Admin: 10/30/21 18:10 Dose: 40 mg Escitalopram Oxalate (Escitalopram Oxalate 20 Mg Tablet) 20 mg PO DAILY [facility] Last Admin: 10/31/21 09:55 Dose: 20 mg Multivitamins/Vitamin C (Multivitamin Tablet) 1 tab PO DAILY [facility] Last Admin: 10/31/21 09:55 Dose: 1 tab Multivitamins/Vitamin C (Multivitamin Tablet) 1 tab PO DAILY [facility] Last Admin: 10/31/21 09:59 Dose: Not Given Ondansetron HCl (Ondansetron Hcl 4 Mg/2 Ml Vial) 4 mg IVPUSH Q8H PRN PRN Reason: Nausea and Vomiting Pharmacy Consult (Consult Rx Perform Med Rec) 1 each MISCELLANE ONCE PRN PRN Reason: Consult order Polyethylene Glycol (Polyethylene Glycol 3350 17 Gm Powd.Pack) 17 gm PO DAILY PRN PRN Reason: Constipation Senna (Sennosides 8.6 Mg Tablet) 8.6 mg PO DAILY PRN PRN Reason: Constipation Sodium Chloride (0.9 % Sodium Chloride Flush 3 Ml Syringe) 3 ml IVFLUSH [facility] Last Admin: 10/31/21 09:55 Dose: 3 ml Home Medications Medication Instructions Recorded Confirmed Last Taken Type aspirin 325 mg tablet 325 mg PO DAILY 10/29/21 10/29/21 10/29/21 History atorvastatin 40 mg tablet 40 mg PO DAILY 10/29/21 10/29/21 10/29/21 History escitalopram oxalate 20 mg tablet 20 mg PO DAILY 10/29/21 10/29/21 10/29/21 History (Lexapro) lidocaine 4 % topical patch 1 patch topical DAILY PRN left 10/29/21 10/29/21 Unknown History shoulder pain multivitamin 1 tab PO DAILY 10/29/21 10/29/21 10/29/21 History polyethylene glycol 3350 17 gram 17 g PO DAILY PRN Constipation 10/29/21 10/29/21 Unknown History oral powder packet (Miralax) sennosides 8.6 mg tablet (senna) 8.6 mg PO DAILY PRN Constipation 10/29/21 10/29/21 Unknown History vitamin B complex 1 tab PO DAILY 10/29/21 10/29/21 10/29/21 History Physical Exam Vital Signs: Vital Signs: Last Vital Signs Temp 97.7 F 10/31/21 09:53 Pulse 66 10/31/21 09:53 Resp 16 10/30/21 14:11 BP 122/58 L 10/31/21 09:53 Pulse Ox 97 10/31/21 09:53 O2 Del Method 10/31/21 09:53 BMI result Body Mass Index 20.5 Neuro: Other: He was alert and awake with normal spontaneity of speech fluency comprehension and affect. He has moderate to severe left hemiparesis. He also could not lift his right leg against gravity. He was moving his right hand and arm without difficulty. There was mild left-sided facial weakness. There was also left partial hemianopsia. There was no neglect. Plantars were bilaterally extensor Results Labs CBC & Chem 7: 10/30/21 06:57 10/30/21 06:57 Labs: His noncontrast head CT revealed extensive microvascular ischemic disease but also relatively large right middle cerebral artery chronic ischemic lesion. Hypodense signal abnormalities extended into frontal and temporal lobes. There was moderate atrophy. Assessment and Plan (1) Seizure: Status: Acute 70 years old man whose past medical in a specially neurological history is not known to us presented with underlying left hemiparesis attributed apparently to an old stroke with an episode of passing out or unresponsiveness. At this time he was alert and awake with reasonably good mental status and with left hemiparesis. His head CT revealed extensive abnormalities predominantly affecting white matter more so on the right side. He was not that much hypertensive. His exact cardiac status or cardiac output was not known at this time. If this was ischemic injury to his brain, its etiology was unclear. Severe cardiomyopathy or cardiac source of embolism can be considered but overall imaging picture was suggestive of an alternate etiology. Even intracranial atherosclerotic disease may not fully explain it. More likely cause was a genetic predisposition to microvascular disease. An example of that was CADASIL. Unless we have access to his previous medical records to clarify these issues, I recommend obtaining an MRI of brain with and without contrast and echocardiogram to assess his cardiac output. CTA of brain and neck are also recommended. Passing out episode was likely a seizure and a complication of underlying vascular pathology. An EEG is recommended. Procedures Date of Service Date of Service: 10/31/21
--- NOTE | 2021-10-31 11:36 | P.PNIM_ITS ---
Subjective Subjective Date of Service: 10/31/21 Interval History: seen and examined this AM has his sheets over his head denies any complaints, feels fine Review of Systems negative except HPI Physical Exam Vital Signs: Vital Signs: Last Vital Signs Temp 97.7 F 10/31/21 09:53 Pulse 66 10/31/21 09:53 Resp 16 10/30/21 14:11 BP 122/58 L 10/31/21 09:53 Pulse Ox 97 10/31/21 09:53 O2 Del Method 10/31/21 09:53 BMI result Body Mass Index 20.5 Const: Other: Constitutional - Awake and Alert, No apparent distress Eyes -? PERRLA, EOMI Cardiovascular -? S1S2, RRR, No edema Respiratory - Normal lung expansion, Normal respiratory effort, No respiratory distress, CTA bilaterally Gastrointestinal -? NT / ND; +BS; No rebound or guarding - No CVA tenderness Extremities - no calf tenderness bilaterally, no swelling Musculoskeletal - Normal inspection, normal ROM Skin - Warm/Dry Neurological -? left hemiplegia, right upper extremity strength normal, no facial asymmetry, speech is slightly slurred but the patient reports that this is his baseline. Psychological - Appropriate affect Objective Data Active Medications Acetaminophen (Acetaminophen 325 Mg Tablet) 650 mg PO Q6H PRN PRN Reason: Pain, Mild (Pain Scale 1-3) Aspirin (Aspirin 325 Mg Tablet) 325 mg PO DAILY [facility] Last Admin: 10/31/21 09:55 Dose: 325 mg Documented By: OJ Atorvastatin Calcium (Atorvastatin Calcium 40 Mg Tablet) 40 mg PO DAILY [facility] Last Admin: 10/31/21 09:55 Dose: 40 mg Documented By: OJ Enoxaparin Sodium (Enoxaparin Sodium 40 Mg/0.4 Ml Syringe) 40 mg SUBCUT Q24H [facility] Last Admin: 10/30/21 18:10 Dose: 40 mg Documented By: MARY Escitalopram Oxalate (Escitalopram Oxalate 20 Mg Tablet) 20 mg PO DAILY [facility] Last Admin: 10/31/21 09:55 Dose: 20 mg Documented By: OJ Multivitamins/Vitamin C (Multivitamin Tablet) 1 tab PO DAILY [facility] Last Admin: 10/31/21 09:55 Dose: 1 tab Documented By: OJ Multivitamins/Vitamin C (Multivitamin Tablet) 1 tab PO DAILY [facility] Last Admin: 10/31/21 09:59 Dose: Not Given Documented By: OJ Non-Admin Reason: Duplicate Order Ondansetron HCl (Ondansetron Hcl 4 Mg/2 Ml Vial) 4 mg IVPUSH Q8H PRN PRN Reason: Nausea and Vomiting Pharmacy Consult (Consult Rx Perform Med Rec) 1 each MISCELLANE ONCE PRN PRN Reason: Consult order Polyethylene Glycol (Polyethylene Glycol 3350 17 Gm Powd.Pack) 17 gm PO DAILY PRN PRN Reason: Constipation Senna (Sennosides 8.6 Mg Tablet) 8.6 mg PO DAILY PRN PRN Reason: Constipation Sodium Chloride (0.9 % Sodium Chloride Flush 3 Ml Syringe) 3 ml IVFLUSH [facility] Last Admin: 10/31/21 09:55 Dose: 3 ml Documented By: OJ Labs CBC & Chem 7: 11/01/21 07:36 10/30/21 06:57 Assessment and Plan (1) Transient cerebral ischemia: Status: Acute Plan This is a 70-year-old male with multiple prior strokes who presents with sudden onset of neurological changes report at the snf facility versus syncope.? It appears that he is now at baseline, however given his prior history he will be is admitted with Neurology consult. 1. TIA/Syncope seen by Neuro -- recommended to evaluate with MRI with and without contrast, CTA head and neck, 2D echo and EEG; all ordered 2. Mood continue lexapro DNR/DNI (per MOLST in chart) DVT pptx -- lovenox Quality Stroke Does the patient have a stroke diagnosis?: No VTE Prior VTE?: No VTE Risk Level:: Medical - moderate - high VTE Device Contraindication: N/A - Device Ordered VTE Drug Contraindication: N/A - Med Ordered
[2021-10-31] MEDS: iohexoL 350 MG/ML 100 ML INFUS..BTL IV (12:13)
--- NOTE | 2021-10-31 14:52 | PC.NURSE ---
pt of to mri
[2021-10-31 16:17] VITALS: BP 135/63; PULSE 63; O2SAT 98
--- NOTE | 2021-10-31 17:13 | PC.NURSE ---
pt had a large bowel movement, pt cleaned up and transferred in to the hospital bed pt denies pain at this, respirations even and unlabored, vs stable, pt at baseline has upper extremities contractions and wheelchair bound. no new neuro deficits at this
[2021-10-31] MEDS: Enoxaparin Sodium 40 MG/0.4 ML SYRINGE SUBCUT (18:44)
--- NOTE | 2021-10-31 18:53 | PM.EVENT ---
Event Note Date of Service: 10/31/21 Event Note: CTA and MRV demonstrate distal cerebral venous sinus thrombosis of left transverse and sigmoid sinuses. Will switch prophylactic enoxaparin to therapeutic dosing, 1 mg/kg q12h.
--- NOTE | 2021-10-31 19:29 | PC.NURSE ---
report received by Marybel borjas. pt sitting up comfortably on stecther eating dinner. no apparent distress. vital signs stable, call troncoso within reach. will continue to monitor
[2021-10-31] MEDS: Enoxaparin Sodium 30 MG/0.3 ML SYRINGE SUBCUT (20:15)
[2021-10-31 20:17] VITALS: BP 137/72; PULSE 80; RESP 16; TEMP 36.7; O2SAT 97
[2021-11-01 02:43] VITALS: PULSE 85; RESP 15; O2SAT 98
[2021-11-01] MEDS: 0.9 % Sodium Chloride Flush 3 ML SYRINGE IVFLUSH ×4 (05:01→19:32)
[2021-11-01 05:57] VITALS: BP 129/71; PULSE 64; RESP 16; O2SAT 97
[2021-11-01] MEDS: Enoxaparin Sodium 80 MG/0.8 ML SYRINGE 70 MG SUBCUT ×2 (06:56→18:30)
--- NOTE | 2021-11-01 07:00 | CA_ITS ---
Transthoracic Echocardiogram Patient (Last, First, Middle): Malachi Bullock, Gender: Male Date of : 1950 Age: 70 Procedure Date: 11/01/2021 Procedure Type: Transthoracic Echocardiogram Location: [facility] [place] Height: 182.88 cm Weight: 68.49 kg BSA: 1.89 m2 Heart Rate: bpm BP: 115 / 56 mmHg Lead Teacher: Referring MD: Skip Molina MD Symptoms: syncope Study Quality: Fair ECG Rhythm: Sinus Conclusions: - Normal left ventricular size and systolic function. There is mildly increased left ventricular wall thickness. The visually estimated ejection fraction is between 60-65%. - E/E prime ratio is between 8 and 15 consistent with indeterminate filling pressures. - Normal right ventricular cavity size and systolic function. - The left atrium is likely dilated. - There is no evidence of pericardial effusion. Findings Left Ventricle Normal left ventricular size and systolic function. There is mildly increased left ventricular wall thickness. The visually estimated ejection fraction is between 60-65%. There is no evidence of regional wall motion abnormalities. Abnormal diastolic function is noted. Spectral Doppler is indicative of an impaired relaxation filling pattern. E/E prime ratio is between 8 and 15 consistent with indeterminate filling pressures. Right Ventricle Normal right ventricular cavity size and systolic function. Atria The left atrium is likely dilated. Aortic Valve The aortic valve was not well visualized. There is mild calcification of the aortic valve. There is mild thickening of the aortic valve. There is no aortic valve stenosis. There is no aortic valve regurgitation. Mitral Valve There is mild anterior mitral leaflet thickening. There is no mitral valve regurgitation. There is no mitral valve stenosis. Mild calcification of the anterior mitral valve leaflet. Pulmonic Valve The pulmonic valve is likely normal. Tricuspid Valve Normal tricuspid valve structure and function. There is trace tricuspid valve regurgitation. Tricuspid regurgitation envelope is inadequate for calculation of right ventricular systolic pressure. Indeterminate right atrial pressure. Great Vessels The aorta was not well visualized. The pulmonary artery was not well visualized. Venous The inferior vena cava was not well visualized. Pericardium/Pleural There is no evidence of pericardial effusion. Prior Study Comparison No prior study available for comparison. Measurements 2D Linear Measurements IVSd: 1.16 0.6-0.9/0.6-1.0 cm LVIDd: 4.09 3.9-5.3/4.2-5.9 cm LVIDd Index: 2.16 2.4-3.2/2.2-3.1 cm/m2 LVIDs: 2.55 2.0-3.6 cm LVPWd: 1.13 0.7-1.1 cm Ao Root: 3.50 2.1-3.5 cm LA Diam: 3.10 2.7-3.8/3.0-4.0 cm LAIDs Index: 1.64 1.5-2.3 cm/m2 LV Mass: 198.93 67-162/88-224 g LV Mass Index: 105.25 43-95/49-115 g/m2 LVOT Diam: 2.10 3.0+(-)1.3 cm Mitral Valve MV VTI: 0.31 MV Pk Rod: 0.89 MV Mn Rod: 0.47 MV Pk Grad: 3.00 MV Mn Grad: 1.00 MV Pk E: 0.60 MV PK A: 0.83 MV Decel Time: 290.00 E/A: 0.70 E'Lateral: 6.53 E'Medial: 4.79 E/E' Med: 12.50 E/E' Lat: 9.20 PHT: 85.00 MVA PHT: 2.59 MVA Continuity: 2.48 Decel [place]: 2.07 Aortic Valve AoV Pk Rod: 1.55 AoV Mn Rod: 1.07 AoV VTI: 0.36 AoV Pk Grad: 10.00 Aov Mn Grad: 6.00 RIGO Cont.VTI: 2.13 LVOT LVOT Pk Rod: 0.81 LVOT Mn Rod: 0.57 LVOT VTI: 0.22 LVOT Pk Grad: 3.00 LVOT Mn Grad: 2.00 LVOT Diam: 2.10 LVOT Area: 3.46 Diastolic Function MV Pk E: 0.60 MV Pk A: 0.83 E/A: 0.70 E'Medial: 4.79 E/E' Med: 12.50 E' Laterial: 6.53 E/E' Lat: 9.20 Tricuspid Valve TR Pk Rod: 1.71 TR Pk Grad: 12.00 Great Vessels Aorta Ao Root-2D: 3.50 2.0-3.7 cm Pulmonary Valve PV Pk Rod: 1.06 Peak PV Grad: 4.00 Updated in Other Vendor System with Status of Final Willem Boyd MD electronically signed on 11/03/2021 9:32:46 AM with status of Final
[2021-11-01 07:45] LABS: Hematocrit 38.9 % (42.0-52.0); Mean Corpuscular HGB Conc 33.4 g/dl (31.0-36.0); Mean Corpuscular Hemoglobin 27.5 pg (27.0-33.0); Mean Corpuscular Volume 82.2 fL (80.0-98.0); Mean Platelet Volume 8.6 fL (9.4-12.4); Platelet Count 221 X10*3/uL (160-400); Red Blood Count 4.73 X10*6/uL (4.60-5.80); White Blood Count 6.1 X10*3/uL (4.8-10.8)
[2021-11-01] MEDS: Aspirin 325 MG TABLET PO (09:20)
[2021-11-01] MEDS: Atorvastatin Calcium 40 MG TABLET PO (09:20)
[2021-11-01] MEDS: Multivitamin TABLET 1 TAB PO (09:21)
[2021-11-01] MEDS: Escitalopram Oxalate 20 MG TABLET PO (09:21)
[2021-11-01 09:23] VITALS: BP 119/68; PULSE 67; RESP 17; O2SAT 97
--- NOTE | 2021-11-01 12:38 | P.PNIM_ITS ---
Subjective Subjective Date of Service: 11/01/21 Interval History: seen and examined this AM d/w him re: sinus thrombosis and he is not sure how that happened Review of Systems negative except HPI Physical Exam Vital Signs: Vital Signs: Last Vital Signs Temp 98.1 F 10/31/21 20:17 Pulse 67 11/01/21 09:23 Resp 17 11/01/21 09:23 BP 119/68 11/01/21 09:23 Pulse Ox 97 11/01/21 09:23 O2 Del Method 11/01/21 09:23 BMI result Body Mass Index 20.5 Const: Other: Constitutional - Awake and Alert, No apparent distress Eyes -? PERRLA, EOMI Cardiovascular -? S1S2, RRR, No edema Respiratory - Normal lung expansion, Normal respiratory effort, No respiratory distress, CTA bilaterally Gastrointestinal -? NT / ND; +BS; No rebound or guarding - No CVA tenderness Extremities - no calf tenderness bilaterally, no swelling Musculoskeletal - Normal inspection, normal ROM Skin - Warm/Dry Neurological -? left hemiplegia, right upper extremity strength normal, no facial asymmetry, speech is slightly slurred but the patient reports that this is his baseline. Psychological - Appropriate affect Objective Data Active Medications Acetaminophen (Acetaminophen 325 Mg Tablet) 650 mg PO Q6H PRN PRN Reason: Pain, Mild (Pain Scale 1-3) Aspirin (Aspirin 325 Mg Tablet) 325 mg PO DAILY [facility] Last Admin: 11/01/21 09:20 Dose: 325 mg Documented By: TALA Atorvastatin Calcium (Atorvastatin Calcium 40 Mg Tablet) 40 mg PO DAILY [facility] Last Admin: 11/01/21 09:20 Dose: 40 mg Documented By: TALA Enoxaparin Sodium (Enoxaparin Sodium 80 Mg/0.8 Ml Syringe) 70 mg 1 mg/kg (70 mg) SUBCUT Q12H [facility] Last Admin: 11/01/21 06:56 Dose: 70 mg Documented By: CURLY Escitalopram Oxalate (Escitalopram Oxalate 20 Mg Tablet) 20 mg PO DAILY [facility] Last Admin: 11/01/21 09:21 Dose: 20 mg Documented By: TALA Multivitamins/Vitamin C (Multivitamin Tablet) 1 tab PO DAILY [facility] Last Admin: 11/01/21 09:21 Dose: 1 tab Documented By: TALA Multivitamins/Vitamin C (Multivitamin Tablet) 1 tab PO DAILY [facility] Last Admin: 11/01/21 09:21 Dose: Not Given Documented By: TALA Non-Admin Reason: See Note Ondansetron HCl (Ondansetron Hcl 4 Mg/2 Ml Vial) 4 mg IVPUSH Q8H PRN PRN Reason: Nausea and Vomiting Pharmacy Consult (Consult Rx Perform Med Rec) 1 each MISCELLANE ONCE PRN PRN Reason: Consult order Polyethylene Glycol (Polyethylene Glycol 3350 17 Gm Powd.Pack) 17 gm PO DAILY PRN PRN Reason: Constipation Senna (Sennosides 8.6 Mg Tablet) 8.6 mg PO DAILY PRN PRN Reason: Constipation Sodium Chloride (0.9 % Sodium Chloride Flush 3 Ml Syringe) 3 ml IVFLUSH QSHIFT [facility] Last Admin: 11/01/21 09:20 Dose: 3 ml Documented By: TALA Labs CBC & Chem 7: 11/01/21 07:36 10/30/21 06:57 Labs: Laboratory Results - last 24 hr 11/01/21 07:36 MCV 82.2 MCH 27.5 MCHC 33.4 RDW 12.0 Plt Count 221 MPV 8.6 L Absolute Nucleated RBC 0.000 Nucleated RBC % (auto) 0.0 Assessment and Plan (1) Transient cerebral ischemia: Status: Acute Plan This is a 70-year-old male with multiple prior strokes who presents with sudden onset of neurological changes report at the snf facility versus syncope.? It appears that he is now at baseline, however given his prior history he will be is admitted with Neurology consult. 1. Transverse / sigmoid sinus thrombosis Lovenox 1mg/kg BID hematology consulted d/w Dr. Christine -- he will review the images, but for now treat the clot 2. Syncope vs seizure Favor seizure given his brain imaging EEG no further such episodes in the hospital 3. Mood continue lexapro 4. Prior CVA with L hemiplegia imaging without acute CVA asa, statin DNR/DNI (per [facility] in chart) DVT pptx -- treatment dose lovenox Pt requires continued hospitalization due to #1 which requires work up, treatment and specialty consultation. Quality Stroke Does the patient have a stroke diagnosis?: No VTE Prior VTE?: No VTE Risk Level:: Medical - moderate - high VTE Device Contraindication: N/A - Device Ordered VTE Drug Contraindication: N/A - Med Ordered
--- NOTE | 2021-11-01 13:27 | P.CNHO_ITS ---
Subjective - Subjective Chief complaint: none reported Patient: new to practice Consult date: 11/01/21 Primary Care Provider: Fabrice Marino DO HPI - Consult Narrative Reason for consult: cerebral venous sinus thrombosis Narrative: Malachi Bullock is a 70 year old male past medical history of CVA who presented with mental status changes that was noticed by nursing staff at [facility]. 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 Patient is a poor historian but he is awake and alert. He states that he lives alone wants to go home and not back to the jail. He denies any acute complaints at this time such as chest pain or shortness of breath. No headache or dizziness. Review of Systems - Constitutional Reports as per HPI Oncology Screenings - ECOG Performance Status ECOG Performance Status: 3 REPLACED BY [facility] Social History: Social History (Last Reviewed 10/29/21 @ 13:21 by Yousuf You MD) Occupation Assessmet: service: No Current occupational status: disabled Home Medications and Allergies Current Medications: Current Medications Acetaminophen (Acetaminophen 325 Mg Tablet) 650 mg PO Q6H PRN PRN Reason: Pain, Mild (Pain Scale 1-3) Aspirin (Aspirin 325 Mg Tablet) 325 mg PO DAILY [facility] Last Admin: 11/01/21 09:20 Dose: 325 mg Atorvastatin Calcium (Atorvastatin Calcium 40 Mg Tablet) 40 mg PO DAILY [facility] Last Admin: 11/01/21 09:20 Dose: 40 mg Enoxaparin Sodium (Enoxaparin Sodium 80 Mg/0.8 Ml Syringe) 70 mg 1 mg/kg (70 mg) SUBCUT Q12H [facility] Last Admin: 11/01/21 06:56 Dose: 70 mg Escitalopram Oxalate (Escitalopram Oxalate 20 Mg Tablet) 20 mg PO DAILY [facility] Last Admin: 11/01/21 09:21 Dose: 20 mg Multivitamins/Vitamin C (Multivitamin Tablet) 1 tab PO DAILY [facility] Last Admin: 11/01/21 09:21 Dose: 1 tab Multivitamins/Vitamin C (Multivitamin Tablet) 1 tab PO DAILY [facility] Last Admin: 11/01/21 09:21 Dose: Not Given Ondansetron HCl (Ondansetron Hcl 4 Mg/2 Ml Vial) 4 mg IVPUSH Q8H PRN PRN Reason: Nausea and Vomiting Pharmacy Consult (Consult Rx Perform Med Rec) 1 each MISCELLANE ONCE PRN PRN Reason: Consult order Polyethylene Glycol (Polyethylene Glycol 3350 17 Gm Powd.Pack) 17 gm PO DAILY PRN PRN Reason: Constipation Senna (Sennosides 8.6 Mg Tablet) 8.6 mg PO DAILY PRN PRN Reason: Constipation Sodium Chloride (0.9 % Sodium Chloride Flush 3 Ml Syringe) 3 ml IVFLUSH QSHIFT [facility] Last Admin: 11/01/21 09:20 Dose: 3 ml Home Medications Medication Instructions Recorded Confirmed Type aspirin 325 mg tablet 325 mg PO DAILY 10/29/21 10/29/21 History atorvastatin 40 mg tablet 40 mg PO DAILY 10/29/21 10/29/21 History escitalopram oxalate 20 mg tablet 20 mg PO DAILY 10/29/21 10/29/21 History (Lexapro) lidocaine 4 % topical patch 1 patch topical DAILY PRN left 10/29/21 10/29/21 History shoulder pain multivitamin 1 tab PO DAILY 10/29/21 10/29/21 History polyethylene glycol 3350 17 gram 17 g PO DAILY PRN Constipation 10/29/21 10/29/21 History oral powder packet (Miralax) sennosides 8.6 mg tablet (senna) 8.6 mg PO DAILY PRN Constipation 10/29/21 10/29/21 History vitamin B complex 1 tab PO DAILY 10/29/21 10/29/21 History Allergies Allergy/AdvReac Type Severity Reaction Status Date / Time No Known Allergies Allergy Verified 01/03/21 13:38 Physical Exam Vital signs: Vital Signs Temp 98.1 F 10/31/21 20:17 Pulse 67 11/01/21 09:23 Resp 17 11/01/21 09:23 BP 119/68 11/01/21 09:23 Pulse Ox 97 11/01/21 09:23 O2 Del Method 11/01/21 09:23 Intake & Output 10/31/21 11/01/21 11/01/21 18:59 06:59 18:59 Output Total 600 / 1100 500 / 1100 Balance -600 / -1100 -500 / -1100 Urine Output (Average ml/kg/hr) 0.73 0.61 Output: Output, Urine Amount 600 / 1100 500 / 1100 Other: Urine Urinal Weight 68.5 kg - Constitutional Present: no acute distress, thin - Routine Neck Exam Absent: lymphadenopathy - Routine Respiratory Exam Absent: accessory muscle use - Routine Cardiovascular Exam Cardiovascular: Present: S1, S2 - Routine Extremities Exam Present: normal inspection - Routine Skin Exam Present: intact. Absent: cyanosis - Routine Neurological Exam Present: alert Hem/Onc Consult Result - Labs CBC & Chem 7: 11/01/21 07:36 10/30/21 06:57 Labs: Short CBC 11/01/21 Range/Units 07:36 WBC 6.1 (4.8-10.8) X10*3/uL Hgb 13.0 L (14.0-18.0) g/dl Hct 38.9 L (42.0-52.0) % Plt Count 221 (160-400) X10*3/uL Assessment and Plan Patient Active problem list reviewed?: Yes (1) Cerebral venous thrombosis Status: Acute Assessment and plan: 1. This is a 70-year-old male with chronic right MCA infarct and previous lacunar infarcts in the right posterior limb now presenting with venous sinus thrombosis involving left transverse and sigmoid sinus. It is unclear if this is acute or chronic. Patient appears to have some mental status changes which apparently have now resolved. Neurological consultation has been done, he has been recommended anticoagulation. He is on Lovenox 1 mg/ kg b.i.d.. He warrants thrombophilia workup. If positive, he would be a candidate for long-term anticoagulation. I would recommend continuing with Lovenox for now, he can be switched to direct oral anticoagulant after the acute phase. I thank you for the consultation. - Time Spent With Patient Time Spent with Patient (in minutes): 15
[2021-11-01 17:30] VITALS: BP 120/68; PULSE 65; RESP 18; O2SAT 98
[2021-11-01 17:40] VITALS: TEMP 36.6
[2021-11-01 18:40] VITALS: BMI 18.7
[2021-11-01 20:00] VITALS: BP 143/63; PULSE 109; RESP 16; TEMP 36.3; O2SAT 100
[2021-11-02] VITALS (7 sets, daily range): BP systolic 104–141; BP diastolic 59–69; PULSE 61–89; RESP 15–20; TEMP 36.1–37.1; O2SAT 94–99; BMI 20.5
--- NOTE | 2021-11-02 | EEG_ITS ---
Waking background activity consists of low voltage fast frequencies seen diffusely, intermixed with a poorly defined 7 to 8 hertz low-voltage theta and some slower 5 to 6 hertz theta is seen over the right hemisphere. No paroxysmal discharges were seen. Photic stimulation is without activation. Hyperventilation was omitted. IMPRESSION: This EEG is considered mildly abnormal due to mild diffuse background slowing with some greater slowing seen over the right hemisphere that may indicate an underlying structural abnormality in the right hemisphere and a diffuse encephalopathic process. No epileptiform discharges seen. MD BONNIE Rashid/ZOEY / [phone]
[2021-11-02] MEDS: Enoxaparin Sodium 80 MG/0.8 ML SYRINGE 70 MG SUBCUT ×2 (06:26→18:24)
--- NOTE | 2021-11-02 09:37 | P.PNIM_ITS ---
Subjective Subjective Date of Service: 11/02/21 Interval History: seen and examined this AM no new complaints Review of Systems negative except HPI Physical Exam Vital Signs: Vital Signs: Last Vital Signs Temp 97 F 11/02/21 07:30 Pulse 89 11/02/21 07:30 Resp 18 11/02/21 07:30 BP 104/62 11/02/21 07:30 Pulse Ox 99 11/02/21 07:30 O2 Del Method 11/02/21 07:30 BMI result Body Mass Index 18.7 Const: Other: Constitutional - Awake and Alert, No apparent distress Eyes -? PERRLA, EOMI Cardiovascular -? S1S2, RRR, No edema Respiratory - Normal lung expansion, Normal respiratory effort, No respiratory distress, CTA bilaterally Gastrointestinal -? NT / ND; +BS; No rebound or guarding - No CVA tenderness Extremities - no calf tenderness bilaterally, no swelling Musculoskeletal - Normal inspection, normal ROM Skin - Warm/Dry Neurological -? left hemiplegia, right upper extremity strength normal, no facial asymmetry, speech is slightly slurred but the patient reports that this is his baseline. Psychological - Appropriate affect Objective Data Active Medications Acetaminophen (Acetaminophen 325 Mg Tablet) 650 mg PO Q6H PRN PRN Reason: Pain, Mild (Pain Scale 1-3) Aspirin (Aspirin 325 Mg Tablet) 325 mg PO DAILY [facility] Last Admin: 11/01/21 09:20 Dose: 325 mg Documented By: TALA Atorvastatin Calcium (Atorvastatin Calcium 40 Mg Tablet) 40 mg PO DAILY [facility] Last Admin: 11/01/21 09:20 Dose: 40 mg Documented By: TALA Enoxaparin Sodium (Enoxaparin Sodium 80 Mg/0.8 Ml Syringe) 70 mg 1 mg/kg (70 mg) SUBCUT Q12H [facility] Last Admin: 11/02/21 06:26 Dose: 70 mg Documented By: JAME Escitalopram Oxalate (Escitalopram Oxalate 20 Mg Tablet) 20 mg PO DAILY [facility] Last Admin: 11/01/21 09:21 Dose: 20 mg Documented By: TALA Multivitamins/Vitamin C (Multivitamin Tablet) 1 tab PO DAILY [facility] Last Admin: 11/01/21 09:21 Dose: 1 tab Documented By: TALA Multivitamins/Vitamin C (Multivitamin Tablet) 1 tab PO DAILY [facility] Last Admin: 11/01/21 09:21 Dose: Not Given Documented By: TALA Non-Admin Reason: See Note Ondansetron HCl (Ondansetron Hcl 4 Mg/2 Ml Vial) 4 mg IVPUSH Q8H PRN PRN Reason: Nausea and Vomiting Pharmacy Consult (Consult Rx Perform Med Rec) 1 each MISCELLANE ONCE PRN PRN Reason: Consult order Polyethylene Glycol (Polyethylene Glycol 3350 17 Gm Powd.Pack) 17 gm PO DAILY PRN PRN Reason: Constipation Senna (Sennosides 8.6 Mg Tablet) 8.6 mg PO DAILY PRN PRN Reason: Constipation Sodium Chloride (0.9 % Sodium Chloride Flush 3 Ml Syringe) 3 ml IVFLUSH QSHIFT [facility] Last Admin: 11/01/21 19:32 Dose: 3 ml Documented By: JAME Labs CBC & Chem 7: 11/01/21 07:36 10/30/21 06:57 Assessment and Plan (1) Transient cerebral ischemia: Status: Acute Plan This is a 70-year-old male with multiple prior strokes who presents with sudden onset of [facility].? It appears that he is now at baseline, however given his prior history he will be is admitted with Neurology consult. 1. Transverse / sigmoid sinus thrombosis Lovenox 1mg/kg BID hematology consulted --hypercoag work up ordered d/w Dr. Christine -- he will review the images, but for now treat the clot will attempt to obtain prior records to see if this is and old or new clot 2. Syncope vs seizure Favor seizure given his brain imaging EEG pending no further such episodes in the hospital echo ordered and pending 3. Mood continue lexapro 4. Prior CVA with L hemiplegia imaging without acute CVA asa, statin DNR/DNI (per [facility] in chart) DVT pptx -- treatment dose lovenox Pt requires continued hospitalization due to #1 which requires work up, treatment and specialty consultation. Quality Stroke Does the patient have a stroke diagnosis?: No VTE Prior VTE?: No VTE Risk Level:: Medical - moderate - high VTE Device Contraindication: N/A - Device Ordered VTE Drug Contraindication: N/A - Med Ordered
[2021-11-02] MEDS: Aspirin 325 MG TABLET PO (09:41)
[2021-11-02] MEDS: 0.9 % Sodium Chloride Flush 3 ML SYRINGE IVFLUSH ×2 (09:41→17:33)
[2021-11-02] MEDS: Atorvastatin Calcium 40 MG TABLET PO (09:42)
[2021-11-02] MEDS: Multivitamin TABLET 1 TAB PO (09:42)
[2021-11-02] MEDS: Escitalopram Oxalate 20 MG TABLET PO (09:42)
[2021-11-02 12:59] LABS: Hematocrit 37.6 % (42.0-52.0); Hemoglobin 12.7 g/dl (14.0-18.0); Mean Corpuscular HGB Conc 33.8 g/dl (31.0-36.0); Mean Corpuscular Hemoglobin 27.9 pg (27.0-33.0); Mean Corpuscular Volume 82.6 fL (80.0-98.0); Mean Platelet Volume 8.7 fL (9.4-12.4); Platelet Count 215 X10*3/uL (160-400); Red Blood Count 4.55 X10*6/uL (4.60-5.80); White Blood Count 4.9 X10*3/uL (4.8-10.8)
[2021-11-02 13:20] LABS: Anion Gap 11 (12-20); Blood Urea Nitrogen 15 mg/dL (9-16); Calcium 8.9 mg/dL (8.4-10.2); Carbon Dioxide 27 mmol/L (22-29); Chloride 99 mmol/L (96-108); Creatinine Clr Calc Pharmacy 92.4; Estimated Glomerular Filt Rate > 60; Glucose Random 113 mg/dL (60-115); Potassium 4.1 mmol/L (3.3-5.1); Sodium 133 mmol/L (135-145)
--- NOTE | 2021-11-02 13:52 | MHC.CM.PN ---
emr reviewed, per hospitalist antic pt may be cleared for d/c back to [facility] tomorrow 11/03, liaison notified via [facility] and updated clinicals sent, c will cont to monitor d/c needs.
[2021-11-03 04:00] VITALS: BP 110/67; PULSE 64; RESP 18; TEMP 36.8; O2SAT 95
[2021-11-03] MEDS: Enoxaparin Sodium 80 MG/0.8 ML SYRINGE 70 MG SUBCUT (06:32)
[2021-11-03 08:00] VITALS: BP 116/69; PULSE 71; RESP 19; TEMP 36.7; O2SAT 97
[2021-11-03] MEDS: 0.9 % Sodium Chloride Flush 3 ML SYRINGE IVFLUSH (09:48)
[2021-11-03] MEDS: Escitalopram Oxalate 20 MG TABLET PO (09:48)
[2021-11-03] MEDS: Atorvastatin Calcium 40 MG TABLET PO (09:48)
[2021-11-03] MEDS: Aspirin 325 MG TABLET PO (09:49)
[2021-11-03] MEDS: Multivitamin TABLET 1 TAB PO (09:50)
[2021-11-03 12:00] VITALS: BP 112/62; PULSE 64; RESP 18; TEMP 36.5; O2SAT 98
--- NOTE | 2021-11-03 13:26 | PM.DS ---
DS: Providers Provider Date of Service: 11/03/21 Date of admission: 10/29/21 16:20 Primary care physician: Fabrice Marino DO Consults: 10/29/21 16:44 Consult to Neurology Routine Consulting Provider: [facility] Reason for consultation: stroke/tia 10/31/21 07:22 Consult to Neurology Routine Consulting Provider: [facility] Reason for consultation: tia/stroke 11/01/21 08:04 Consult to Hematology / Oncology Routine Consulting Provider: 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 The patient himself reports that he was sitting in his wheelchair and awaiting his lunch to arrive at which point he passed out.? Per the ED provider there was sudden onset of altered mental status by the nursing staff at the assisted facility as well as right upper extremity weakness as reported by the EMS.? By the time the patient had come to the emergency room his mental status was reportedly at his baseline.? Last given his prior stroke he will be admitted for further workup. The patient seen examined in the emergency room.? He denies any weakness.? He reports that he was not slurring his speech, any differently than he normally does.? He reports that he ?passed out but does not how long. Hospital course The patient was admitted to the hospital for evaluation of sudden onset of neurological changes at the nursing facility with suspicion of a syncope which resolved at time of presentation. Evaluated in the emergency by CT scan which showed multiple Chronic infarcts. urologist recommended MRI, CTA an echo. MRI showed an evidence of cerebral venous thrombosis as a CT VRE was done confirming the findings as reported above. Started on full-dose Lovenox. hematology team evaluated the patient for blood disc EF Res. Workup still pending at time of discharge. Dr. Manuel recommended anticoagulation therapy and definitely. To be followed at the office as outpatient. echo was done showing EF of 60 65% with no wall motion abnormality. there was no evidence of seizure during the hospital stay as an EEG was done showing no seizure activity. Neurology recommended against starting seizure medication at this point . Continue home medications Start Eliquis 10 mg twice daily for 1 week then 5 mg twice Daily To follow-up with Dr. Manuel for work up of blood clotting problem and to decide on the length of treatment Time Spent with Patient Time attestation: Total time spent providing and/or coordinating discharge services: Discharge coordination time: Greater than 30 minutes Quality: Safe Use of Opioids Does Pt have an Active Cancer Diagnosis on the Problem List?: No Quality: Stroke Does the patient have a stroke diagnosis?: No Physical Exam Vital Signs: Vital Signs: Last Vital Signs Temp 97.7 F 11/03/21 12:00 Pulse 64 11/03/21 12:00 Resp 18 11/03/21 12:00 BP 112/62 11/03/21 12:00 Pulse Ox 98 11/03/21 12:00 O2 Del Method 11/03/21 12:00 BMI result Body Mass Index 20.5 Const: Other: Constitutional - Awake and Alert, No apparent distress Eyes -? PERRLA, EOMI Cardiovascular -? S1S2, RRR, No edema Respiratory - Normal lung expansion, Normal respiratory effort Gastrointestinal -? No rebound or guarding - No CVA tenderness Extremities - no calf tenderness bilaterally, no swelling Musculoskeletal - Normal inspection, normal ROM Skin - Warm/Dry Neurological -? left hemiplegia, right upper extremity strength normal, no facial asymmetry, speech is slightly slurred but the patient reports that this is his baseline. Psychological - Appropriate affect DS: Data Data Completed and Pending Labs on day of discharge: Laboratory Results - last 24 hr 11/02/21 12:47 LA PTT Screen Cancelled LA Thrombin Time Cancelled dRVV Screen Cancelled dRVVT Confirm Interp Cancelled dRVVT Mixing Study Cancelled dRVVT Mix Interpret Cancelled Hexagon Phase Neutraliz Cancelled Lupus Anticoag Interp Cancelled Protein C Antigen Cancelled Protein C Activity Cancelled Protein S Activity Cancelled Total Protein S Ag Cancelled Free Protein S Antigen Cancelled Antithrombin III Ag Cancelled Factor V Leiden Cancelled Factor V Leiden Interp Cancelled Prothrombin [id number] Mut Cancelled Prothrombin Mut Interp Cancelled Imaging MRI - head: Radiologist's impression: ITS Impressions Head CT 10/29/21 13:20 IMPRESSION: Multiple infarcts. There are no old exams are available for comparison and these are age indeterminate. Generalized atrophy and nonspecific periventricular white matter disease. This critical result was discussed with Dr. You at 1325 hours on 10/29/2021. It was ascertained that the content and urgency of the report was understood at the time of direct communication. Head/Neck CTA 10/31/21 12:31 IMPRESSION: 1. No acute intracranial hemorrhage, mass effect, hydrocephalus, or extra-axial collection. Evaluation for acute ischemia is somewhat limited given the presence of multiple lacunar infarcts, burden of microvascular ischemic white matter hypodensity, and chronic appearing right MCA territory infarct 2. Filling defect in the distal left transverse and sigmoid sinuses which may represent a dural sinus thrombosis. Recommend further evaluation with contrast-enhanced MRI of the brain and MRV. 3. Severe stenosis of the right ICA origin related to lipid rich atherosclerotic plaque. There is no other significant arterial high-grade stenosis or large vessel occlusion in the head or neck. Above impression was communicated to Danie ROBLEDO on 10/31/2021 at 1:30 PM. Brain MRI 10/31/21 16:15 IMPRESSION: 1. Absent flow void and flow related enhancement involving the distal left transverse and sigmoid sinuses, concerning for venous sinus thrombosis. No evidence of parenchymal edema or venous ischemia in this drainage territory. 2. No evidence of acute infarct or other acute intracranial abnormality. 3. Chronic findings including moderate to severe burden of microangiopathic white matter disease, chronic right MCA territory infarct, lacunar infarcts in the right posterior limb of the internal capsule and central sivakumar, and Wallerian degeneration along the right corticospinal tract Head/Brain Mag Res Venography 10/31/21 16:15 IMPRESSION: 1. Absent flow void and flow related enhancement involving the distal left transverse and sigmoid sinuses, concerning for venous sinus thrombosis. No evidence of parenchymal edema or venous ischemia in this drainage territory. 2. No evidence of acute infarct or other acute intracranial abnormality. 3. Chronic findings including moderate to severe burden of microangiopathic white matter disease, chronic right MCA territory infarct, lacunar infarcts in the right posterior limb of the internal capsule and central sivakumar, and Wallerian degeneration along the right corticospinal tract Discharge Plan Discharge Patient Disposition: Xfer SNF Discharge Diagnosis: cerebral venous thrombosis Syncope Referrals: [facility] [Other] - 1 Week Fabrice Marino DO [Primary Care Provider] - 1 Week Discharge Medications: New Eliquis 5 mg tablet 10 mg PO BID Qty: 14 0RF Eliquis 5 mg tablet 5 mg PO BID Qty: 60 0RF Continued atorvastatin 40 mg Tablet 40 mg PO DAILY lidocaine 4 % Adhesive Patch,Medicated 1 patch TOPICAL DAILY PRN (Reason: left shoulder pain) aspirin 325 mg Tablet 325 mg PO DAILY vitamin B complex Tablet 1 tab PO DAILY escitalopram oxalate [Lexapro] 20 mg Tablet 20 mg PO DAILY multivitamin Tablet 1 tab PO DAILY sennosides [senna] 8.6 mg Tablet 8.6 mg PO DAILY PRN (Reason: Constipation) polyethylene glycol 3350 [Miralax] 17 gram Powder In Packet 17 g PO DAILY PRN (Reason: Constipation) Discharge Orders: Discharge Order (Routine); Ordered 11/03/21 Ordered By: Manfred Fuentes Diet: Advance to usual diet Activity on Discharge: As tolerated Stand Alone Forms: Patient Portal Discharge page Care Plan Goals: Read below Health Concerns: Read below Plan of Treatment: Read below Assessment: you were admitted to the hospital for evaluation of a syncopal episode. Admitted to the hospital and evaluated by neurologist as a CT scan, MRI were done showing any evidence of chronic ischemic changes to your brain with MRI confirming clot to your venous sinus. Treated with blood thinners. Evaluated by blood doctor for blood disc ER ease. Blood work still pending at time of discharge. Continue home medications Start Eliquis 10 mg twice daily for 1 week then 5 mg twice Daily To follow-up with Dr. Manuel for work up of blood clotting problem and to decide on the length of treatment Discharge Date/Time: 11/03/21 15:30
--- NOTE | 2021-11-03 14:07 | MHC.CM.PN ---
met with pt who wants to be moves to another facility i explined to pt that the sw at [facility] can assist with finding him another facility t/w contacted dain hartley sw at [facility] who says that they have been working with family on finding another facility for him and she will alert the staff to be aware of pts distress
[2021-11-03 14:32] LABS: COVID-19 Test Negative (Negative); IDNOW Serial# 55D5AD1C
[2021-11-03 14:57] VITALS: BP 128/58; PULSE 66; RESP 18; TEMP 36.7; O2SAT 97
[2021-11-04 17:47] LABS: Cardiolipin IgG Ab <2.0 GPL-U/mL; Cardiolipin IgM Ab <2.0 MPL-U/mL
== END 2021-11-03 15:30 | disposition skilled nursing facility (03) | DRG 92 ==
LOC: HO.ED 15:16 → HO.EDOVER 10-31 17:47 → HO.IMC 11-01 15:20
PROVIDERS: Family Medicine; Admitting Provider Family Medicine; Emergency Provider Emergency Medicine; PCP Hospitalist; Visit Provider Student in an Organized Health Care Education/Training Program
DX: I67.6 Nonpyogenic thrombosis of intracranial venous system (principal); I69.354 Hemiplegia and hemiparesis following cerebral infarction affecting left non-dominant side; Z66 Do not resuscitate; Z20.822 Contact with and (suspected) exposure to COVID-19; Z87.891 Personal history of nicotine dependence; Z79.82 Long term (current) use of aspirin; Z79.899 Other long term (current) drug therapy
CPT/HCPCS: 36415; 70450; 70496; 70498; 70546; 70553; 80048; 81240; 81241; 82550; 82947; 83090; 84484; 85025; 85027; 85301; 85302; 85303; 85305; 85306; 85597; 85610; 85613; 85730; 86147; 87635; 93005; 93306; 95816; 96374; 99219; 99285; A9585; J1650; Q9967

== ENCOUNTER → 2022-05-09 10:12 | Outpatient (BNVA) | payer OTHER, MEDICAID, SELFPAY | PROVIDERS: PCP Hospitalist; Visit Provider Nurse Practitioner Family | DX: Z13.89 Encounter for screening for other disorder (principal) ==

== ENCOUNTER 2023-03-16 12:04 | Emergency (ER) | payer MEDICARE, MEDICAID, SELFPAY ==
--- NOTE | 2023-03-16 12:34 | ECG_ITS ---
Test Reason : MED CLEARENCE Blood Pressure : / mmHG Vent. Rate : 074 BPM Atrial Rate : 074 BPM P-R Int : 190 ms QRS Dur : 070 ms QT Int : 362 ms P-R-T Axes : 033 001 020 degrees QTc Int : 401 ms Normal sinus rhythm Inferior infarct , age undetermined Abnormal ECG When compared to the previous EKG of No significant changes seen Referred By: Generic ED Physician Electronically Signed By:LANETTE RAMIREZ MD
[2023-03-16 12:35] VITALS: BP 130/62; PULSE 72; O2SAT 96
--- NOTE | 2023-03-16 12:56 | ED_ITS ---
HPI - Psych General Chief Complaint: General Medical Stated Complaint: CRISIS,SI Time Seen by Provider: 03/16/23 12:53 Source: patient Mode of arrival: EMS Limitations: other (poor historian) History of Present Illness HPI Narrative: 72 yo male with PMH of CVA L sided hemiparesis, HLD, who has been at [facility] for 1 year and [facility] and [facility]. He denies SI/HI but was sent in for reported SI complaints. He states they never got him glasses so he cannot read, he is miserable there and wants a new place to live. MD complaint: feels depressed and other Onset (ago): month(s) Duration: getting worse History of same: Yes Relieving factors: none Exacerbating factors: other Context: significant life stressor Associated psychiatric symptoms: depression Associated symptoms: denies other symptoms Treatments prior to arrival: none Related Data Home Medications Medication Instructions Recorded Confirmed aspirin 325 mg tablet 325 mg PO DAILY 10/29/21 10/29/21 atorvastatin 40 mg tablet 40 mg PO DAILY 10/29/21 10/29/21 escitalopram oxalate 20 mg tablet 20 mg PO DAILY 10/29/21 10/29/21 (Lexapro) lidocaine 4 % topical patch 1 patch topical DAILY PRN left 10/29/21 10/29/21 shoulder pain multivitamin 1 tab PO DAILY 10/29/21 10/29/21 polyethylene glycol 3350 17 gram 17 g PO DAILY PRN Constipation 10/29/21 10/29/21 oral powder packet (Miralax) sennosides 8.6 mg tablet (senna) 8.6 mg PO DAILY PRN Constipation 10/29/21 10/29/21 vitamin B complex 1 tab PO DAILY 10/29/21 10/29/21 Previous Rx's Medication Instructions Recorded apixaban 5 mg tablet (Eliquis) 5 mg PO BID #60 tabs 11/03/21 apixaban 5 mg tablet (Eliquis) 10 mg (2 x 5 mg) PO BID #14 tabs 11/03/21 Allergies Allergy/AdvReac Type Severity Reaction Status Date / Time No Known Allergies Allergy Verified 05/09/22 10:25 Review of Systems 2 Review of Systems: Constitutional : No Fever, No Chills ENT/Mouth : No Ear Pain, No Nasal Congestion, No sore throat Eyes: No Eye Pain, No Swelling, No Redness Cardiovascular : No Chest Pain, No SOB Respiratory : No Cough, No Sputum, No Dyspnea Gastrointestinal : No Nausea, No Vomiting, No Diarrhea, No Hematochezia, No Melena Genitourinary : No Dysuria, No Urinary Frequency, No Hematuria Musculoskeletal : No Myalgias Skin : No Skin Lesions, No rash Neuro : No Weakness, No Numbness, No Paresthesias, No Dizziness, No Headache Psych : no Anxiety, positive Depression, no SI/HI Heme/Lymph: No Lymphadenopathy Endocrine : No Polyuria, No Polydipsia All other systems reviewed and are negative [facility] Past Medical History Attestation statement: The following information was validated with the patient. Source: old records reviewed Medical History Cerebral venous thrombosis Transient cerebral ischemia Social History Social History Household Members: Caregiver Housing: Assisted Living Facility Patient Tobacco Use Status: Former Tobacco user Quit Date: 1981 Tobacco use type: Cigarette Advance Directives: No Advance Directives Information Provided: No service: No Current occupational status: disabled Physical Exam 2 Vital Signs: Vital Signs: Last Vital Signs Temp 98.1 F 03/16/23 13:28 Pulse 74 03/16/23 13:28 Resp 18 03/16/23 13:28 BP 103/53 L 03/16/23 13:28 Pulse Ox 100 03/16/23 13:28 O2 Del Method Room Air 03/16/23 13:28 BMI result Body Mass Index 18.3 Appearance: Alert. Oriented X3. No acute distress. Eyes: Pupils equal, round and reactive to light. ENT: Pharynx normal. Neck: Normal inspection. Neck supple. CVS: Normal heart rate and rhythm. Pulses normal. Respiratory: No respiratory distress. Breath sounds normal. Abdomen: Soft and nontender. Skin: Skin warm and dry. Normal skin color. Normal skin turgor. Extremities: No lower extremity edema. No calf ttp Neuro: Oriented X 3. L sided hemiparesis No sensory deficit. Course Course Course Narrative: Physician observation started at 248pm. Patient placed in physician observation because the patient needed more time for CM to help with his complaint about SNF. At the time observation was started the patient's vitals were stable, patient is alert and at baseline. Neuro: l sided hemiparesis CV RRR, Lungs clear Reevaluation(s) Reevaluation #1: Physician observation ended at 7pm Patient seen and cleared by CARE team. Plan is to follow up with provider at [facility]. Disposition is for home. Medical Decision Making Medical Decision Making [facility] Narrative: 72 yo male with PMH of CVA L sided hemiparesis, HLD, who has been at [facility] for 1 year here with c/o hating living at [facility] and asking for new placement - he denies medical complaints or concerns. will involve CM at this time. He denies SI/HI. Differential Diagnosis Differential Diagnoses: The differential diagnosis associated with the presentation includes depression, poor social situation Admission/Observation Consideration of admission/observation: Escalation of care including admission/observation considered discussed with [facility] will DC back at 7pm Consult Healthcare Provider Management of the patient was discussed with: Lace Tearing Supervisor ([place]) Lab Data [facility] Lab Attestation statement: I reviewed the patient's lab results. 03/16/23 13:49 03/16/23 13:49 Labs: Lab Results 03/16/23 Range/Units 13:49 WBC 6.2 (4.8-10.8) X10*3/uL RBC 4.80 (4.60-5.80) X10*6/uL Hgb 13.8 L (14.0-18.0) g/dl Hct 41.7 L (42.0-52.0) % MCV 86.9 (80.0-98.0) fL MCH 28.8 (27.0-33.0) pg MCHC 33.1 (31.0-36.0) g/dl RDW 13.0 (11.0-16.0) % Plt Count 193 (160-400) X10*3/uL MPV 9.0 L (9.4-12.4) fL Immature Gran % (Auto) 0.2 (0.0-0.4) % Neut % (Auto) 70.2 (45-73) % Lymph % (Auto) 18.2 L (20-40) % [place] % (Auto) 8.9 (2-11) % Eos % (Auto) 2.0 (0-4) % Baso % (Auto) 0.5 (0-2) % Lymph # (Auto) 1.1 L (1.2-4.9) X10*3/uL [place] # (Auto) 0.6 (0.1-1.2) X10*3/uL Eos # (Auto) 0.1 (0.0-0.4) X10*3/uL Baso # (Auto) 0.0 (0.0-0.2) X10*3/uL Abs Immat Gran (auto) 0.01 (0.00-0.03) X10*3/uL Absolute Neuts (auto) 4.3 (2.0-8.3) x10*3/uL Absolute Nucleated RBC 0.000 (0.0-0.012) X10*3/uL Nucleated RBC % (auto) 0.0 (0.0-0.2) /100WBC Sodium 139 (135-145) mmol/L Potassium 3.8 (3.3-5.1) mmol/L Chloride 106 (96-108) mmol/L Carbon Dioxide 27 (22-29) mmol/L Anion Gap 10 L (12-20) BUN 17 H (9-16) mg/dL Creatinine 0.68 (0.5-1.4) mg/dL Estim Creat Clear Calc 82.5 Estimated GFR > 60 Random Glucose 110 (60-115) mg/dL Calcium 9.5 D (8.4-10.2) mg/dL Independent Interpretation I performed an independent interpretation of an: EKG Interpretation: Rate: 74 Rhythm: NSR [place]: left Normal P waves. Normal MADAY. Normal QRS complex. ST T wave : normal no SHRAVAN qTC: normal prior studies: no acute ischemia The study has been interpreted contemporaneously by me. . Independent Historian Clinical information obtained from an independent historian. History obtained from or confirmed by: EMS External Record Review External record reviewed: Inpatient record Discharge Plan Discharge Clinical Impression: Depression Qualifiers: Depression Type: unspecified Qualified Code(s): F32.A - Depression, unspecified Patient Disposition: Home, Self-Care Instructions: Depression (ED) Additional Instructions: return for worsening symptoms or any other concerns. Prescriptions: No Action atorvastatin 40 mg Tablet 40 mg PO DAILY lidocaine 4 % Adhesive Patch,Medicated 1 patch TOPICAL DAILY PRN (Reason: left shoulder pain) aspirin 325 mg Tablet 325 mg PO DAILY vitamin B complex Tablet 1 tab PO DAILY escitalopram oxalate [Lexapro] 20 mg Tablet 20 mg PO DAILY multivitamin Tablet 1 tab PO DAILY sennosides [senna] 8.6 mg Tablet 8.6 mg PO DAILY PRN (Reason: Constipation) polyethylene glycol 3350 [Miralax] 17 gram Powder In Packet 17 g PO DAILY PRN (Reason: Constipation) Eliquis 5 mg tablet 10 mg PO BID Qty: 14 0RF Eliquis 5 mg tablet 5 mg PO BID Qty: 60 0RF Referrals: [facility] [Outside]
[2023-03-16 13:28] VITALS: BP 103/53; PULSE 74; RESP 18; TEMP 36.7; O2SAT 100; BMI 18.3
[2023-03-16 13:54] LABS: MANUAL DIFF FLAG NO
[2023-03-16 13:58] LABS: Basophils Percent Auto 0.5 % (0-2); Eosinophils Absolute Auto 0.1 X10*3/uL (0.0-0.4); Hematocrit 41.7 % (42.0-52.0); Hemoglobin 13.8 g/dl (14.0-18.0); Imm Gran Abs Auto 0.01 X10*3/uL (0.00-0.03); Imm Gran Pct Auto 0.2 % (0.0-0.4); Lymphocytes Absolute Auto 1.1 X10*3/uL (1.2-4.9); Lymphocytes Percent Auto 18.2 % (20-40); Mean Corpuscular HGB Conc 33.1 g/dl (31.0-36.0); Mean Corpuscular Hemoglobin 28.8 pg (27.0-33.0); Mean Corpuscular Volume 86.9 fL (80.0-98.0); Monocytes Absolute Auto 0.6 X10*3/uL (0.1-1.2); Monocytes Percent Auto 8.9 % (2-11); Neutrophils Absolute Auto 4.3 x10*3/uL (2.0-8.3); Neutrophils Percent Auto 70.2 % (45-73); Platelet Count 193 X10*3/uL (160-400); White Blood Count 6.2 X10*3/uL (4.8-10.8)
[2023-03-16 14:08] LABS: Anion Gap 10 (12-20); Blood Urea Nitrogen 17 mg/dL (9-16); Calcium 9.5 mg/dL (8.4-10.2); Carbon Dioxide 27 mmol/L (22-29); Chloride 106 mmol/L (96-108); Creatinine Clr Calc Pharmacy 82.5; Estimated Glomerular Filt Rate > 60; Glucose Random 110 mg/dL (60-115); Potassium 3.8 mmol/L (3.3-5.1); Sodium 139 mmol/L (135-145)
--- NOTE | 2023-03-16 15:35 | MHC.CM.ED ---
Received case management consult from Dr Watt. Patient is a assisted care resident of [facility]. Patient has a guardian, Saba Anna. Patient states he doesn't want to live at [facility] and [facility] . Work up is negative. Patient will return to [facility] via BLS at 7pm. Patient is upset that he only has over the counter cheater eye glasses, not prescription glasses. Dr Marino is patient's provider at [facility]. He is aware of patient's visit. He mentioned that their eye doctor tried to see patient and he refused. Dr Marino will meet with patient at the facility. Dr Watt aware. Saba Anna, guardian, aware and agreeable to d/c back to [facility]. Continue to monitor for d/c needs.
[2023-03-16 21:18] VITALS: BP 111/87; PULSE 101; RESP 16; TEMP 36.7; O2SAT 96
--- NOTE | 2023-03-16 21:19 | PC.NURSE ---
ems at bedside to transport pt back to [facility].
--- NOTE | 2023-03-16 21:21 | PC.NURSE ---
report given to [facility] nurse.
== END 2023-03-16 21:23 | disposition home or self-care (01) ==
PROVIDERS: Emergency Provider Emergency Medicine
DX: F33.1 Major depressive disorder, recurrent, moderate (principal); R45.851 Suicidal ideations; R94.31 Abnormal electrocardiogram [ECG] [EKG]; Z79.899 Other long term (current) drug therapy
CPT/HCPCS: 36415; 80048; 85025; 93005; 99284

== ENCOUNTER → 2023-03-16 12:34 | Outpatient (BNV) | payer MEDICARE, MEDICAID, SELFPAY | PROVIDERS: Emergency Provider Emergency Medicine; Visit Provider Internal Medicine Cardiovascular Disease | DX: R94.31 Abnormal electrocardiogram [ECG] [EKG] (principal) | CPT/HCPCS: 93010 ==

== ENCOUNTER 2023-05-10 14:49 | Outpatient (REF) | payer MEDICARE, MEDICAID, SELFPAY ==
--- NOTE | ~2023-05-10 | XR_ITS ---
EXAMINATION: XR FOOT, LEFT CLINICAL INFORMATION: Pain COMPARISON: None available. TECHNIQUE: AP, lateral, and oblique views of the left foot. FINDINGS: No periosteal new bone formation grossly. No deformity. Bones appear mottled consistent with presumably osteopenia. Monckeberg calcifications suggesting diabetes. Calcaneal plantar spurring. Degeneration of the first metatarsophalangeal joint. Dorsal talar beaking without evidence for any osseous coalition. XR/XR foot LT min 3V IMPRESSION: No evidence of any focal lesion acutely. Chronic findings as above..
== END 2023-05-10 14:50 | disposition home or self-care (01) ==
LOC: HO.XRAY 14:49
PROVIDERS: PCP Hospitalist; Visit Provider Hospitalist
DX: M79.672 Pain in left foot (principal)
CPT/HCPCS: 73630

== ENCOUNTER 2023-05-30 16:29 | Inpatient (IN) | payer OTHER, MEDICARE, MEDICAID, SELFPAY ==
--- NOTE | ~2023-05-30 | NM_ITS ---
EXAMINATION: THREE PHASE BONE SCAN CLINICAL INFORMATION: 72-year-old male with suspected left great toe osteomyelitis.. COMPARISON: Radiographs of the left foot done on 05/10/2023 and 05/30/2023.. TECHNIQUE: Initial rapid sequence images were obtained over the feet during the bolus injection of 25 mCi Tc-99m MDP. Static images of the feet and both legs were then obtained 2 hours post injection. FINDINGS: Left foot: Asymmetric increased flow and blood pool activity centering over the left great toe and corresponding linear increased tracer avidity on the delayed images are suspicious for left great toe osteomyelitis. Incidental note is made of mild increased tracer avidity within the left mid foot and around left ankle likely represent degenerative arthritic changes. The right foot appears unremarkable.. NM/NM bone 3 phase IMPRESSION: Abnormal three-phase bone scan centering over the left great toe, suspicious for osteomyelitis. Follow-up MRI and/or limited F-18 FDG PET/CT study as appropriate may be considered for further clarification.
--- NOTE | ~2023-05-30 | US_ITS ---
EXAMINATION: US ARTERIAL DUPLEX LEFT LOWER EXTREMITY CLINICAL INFORMATION: Nonhealing left foot ulcer. COMPARISON: Radiographs of the foot from 05/30/2023. TECHNIQUE: Grayscale and duplex Doppler imaging of the major left lower extremity arteries is performed from the level of the common femoral artery to the dorsalis pedis artery. FINDINGS: There is atherosclerotic calcification of femoral, popliteal and lower leg arteries. Common femoral artery is widely patent with normal systolic upstroke and peak systolic velocity of 111 cm/s. The visualized proximal profunda femoris artery is widely patent with peak systolic velocity of 101 cm cm/s. There is no sonographic evidence of any focal high-grade stenosis in the femoral or popliteal arteries. Proximal, mid and distal SFA have biphasic to triphasic waveforms with peak systolic velocities of 45 cm/s, 56 cm/s and 47 cm/s respectively. Popliteal artery also exhibits biphasic to triphasic waveforms with normal systolic upstroke and peak systolic velocities of 49 cm/s proximally and 65 cm/s, distally. Within the examined mid leg, the peroneal artery has abnormal, predominantly above baseline monophasic flow pattern, peak velocity of 48 cm/s. Although mild flow is detected within some of the posterior tibial artery, there is also vessel occlusion without any perceptible flow in the mid to lower third of the posterior tibial artery. The anterior tibial artery has an abnormal monophasic waveform, peak velocity of 77 cm/s. Dorsalis pedis artery has an abnormal monophasic waveform with delayed systolic upstroke and peak velocity of 60 cm/s. US/US arterial duplex LE LT IMPRESSION: There is Doppler imaging evidence of hemodynamically significant atherosclerotic peripheral vascular disease. This is primarily observed below the level of the knee. The most significant Doppler imaging finding is occlusion of the posterior tibial artery in the [id number] third of the leg. The anterior tibial, dorsalis pedis and peroneal arteries have abnormal monophasic waveforms.
--- NOTE | ~2023-05-30 | XR_ITS ---
EXAMINATION: XR FOOT, LEFT CLINICAL INFORMATION: Possible Osteo COMPARISON: None available. TECHNIQUE: 2 views of frontal and lateral of the left foot. FINDINGS: Mild cortical irregularity of the tuft of the distal phalanx great toe raising the possibility of erosion, cannot rule out osteomyelitis. There is soft tissue swelling of the great toe. Interphalangeal joint is intact. There are degenerative osteoarthritic changes of the first metatarsophalangeal joint. There is a small posterior calcaneal spur, there are heavy vascular calcifications. Degenerative arthritic changes of the intertarsal and tarsometatarsal level. XR/XR foot LT 2V IMPRESSION: 1. Mild cortical irregularity of the tuft of the distal phalanx great toe raising the possibility of mild early erosion, in the setting of cellulitis, cannot rule out osteomyelitis. Please correlate with area of tenderness. This can be confirmed by bone scan or MRI with contrast. 2. Underlying degenerative osteoarthritis. 3. Heavy vascular calcifications.
[2023-05-30 16:32] VITALS: BP 148/50; PULSE 86; O2SAT 96
[2023-05-30 16:58] VITALS: BP 98/59; PULSE 96; RESP 18; TEMP 36.9; O2SAT 99; BMI 21.0
--- NOTE | 2023-05-30 16:59 | ED_ITS ---
HPI - General Adult General Chief complaint: Wound/Laceration Stated complaint: wound of L big toe becoming infected & necrotic Time Seen by Provider: 05/30/23 16:37 Source: patient and EMS Mode of arrival: EMS Limitations: no limitations History of Present Illness HPI narrative: Patient comes to the emergency room complaining of left toes infection. Patient states he does not know how long it has been going on, patient estimates a few days but does not know exactly. Patient states that the pain in his toes is gradually getting worse. Patient states that he has been applying Betadine to his foot. However, his family became more concerned today as the toes are starting to turn black. Patient denies fever or chills. Patient complaining only of localized pain. Related Data Home Medications Medication Instructions Recorded Confirmed aspirin 325 mg tablet 325 mg PO DAILY 10/29/21 05/30/23 sennosides 8.6 mg tablet (senna) 8.6 mg PO DAILY PRN Constipation 10/29/21 05/30/23 acetaminophen 325 mg tablet 650 mg PO Q6H PRN Pain 05/30/23 05/30/23 ibuprofen 200 mg tablet 800 mg PO Q6H PRN Pain (Scale 05/30/23 05/30/23 Score 4-6) oxycodone-acetaminophen 5 mg-325 1 tab PO Q6H PRN Severe Pain 05/30/23 05/30/23 mg tablet (Scale Score 7-10) tramadol 50 mg tablet 50 mg PO Q8H PRN Severe Pain 05/30/23 05/30/23 (Scale Score 7-10) Allergies Allergy/AdvReac Type Severity Reaction Status Date / Time No Known Allergies Allergy Verified 05/09/22 10:25 Review of Systems 2 Review of Systems: Constitutional : No Weight loss, No Fever, No Chills, No Night Sweats, No Fatigue, No Malaise ENT/Mouth : No Hearing loss, No Ear Pain, No Nasal Congestion, No Sinus Pain, No Hoarseness, No sore throat, No Rhinorrhea, No Swallowing Difficulty Eyes: No Eye Pain, No Swelling, No Redness, No Foreign Body, No Discharge, No Vision Changes Cardiovascular : No Chest Pain, No SOB, No Dyspnea on Exertion, No Orthopnea, No Edema, No Palpitations Respiratory : No Cough, No Sputum, No Wheezing, No Smoke Exposure, No Dyspnea Gastrointestinal : No Nausea, No Vomiting, No Diarrhea, No Constipation, No abdominal Pain, No Hematochezia, No Melena Genitourinary : no irregular bleeding, No Dysuria, No Urinary Frequency, No Hematuria, No Urinary Incontinence, No Urgency, No Flank Pain, No Urinary Flow Changes, No Hesitancy Musculoskeletal : No joint pain, No Myalgias, No Joint Swelling Skin : Complaining of blackening skin around the 1st and 2nd toes on the left foot Neuro : No Weakness, No Numbness, No Paresthesias, No Loss of Consciousness, No Dizziness, No Headache Psych : No Anxiety/Panic, No Depression, No SI/HI/AH/VH, No Social Issues, Heme/Lymph: No Bruising, No Bleeding,No Lymphadenopathy Endocrine : No Polyuria, No Polydipsia, No Temperature Intolerance [facility] Past Medical History Medical History (Updated 05/30/23 @ 17:15 by Criselda Jason MD) 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 Oriented X3. No acute distress. Eyes: Pupils equal, round and reactive to light. ENT: Pharynx normal. Neck: Normal inspection. Neck supple. No lymph nodes noted. No crepitus CVS: Normal heart rate and rhythm. Pulses normal. Normal S1 and S2 Respiratory: No respiratory distress. Breath sounds normal. No Wheezing. No rales Abdomen: Soft and nontender. No rigidity. No distention. Skin: Skin warm and dry. Normal skin color. Normal skin turgor. See extremities below Extremities: No lower extremity edema. No Lacerations. No Rash, patient has necrotic toes on the dorsal aspect of the toes 1st and 2nd toe of the left foot. See pictures below Neuro: Oriented X 3. No motor deficit. No sensory deficit. Moving all extremities. No slurred speech. CN 2 through 12 grossly intact Psych: calm, cooperative, normal affect Course Course Course Narrative: -labs and imaging pending -patient receiving IV fluids, Zosyn and vancomycin. -vital stable, sepsis not suspected Medications Administered Discontinued Medications Generic Name Dose Route Start Last Admin Trade Name Freq PRN Reason Stop Dose Admin Sodium Chloride 1,000 mls @ 999 mls/hr 05/30/23 16:49 05/30/23 18:05 Ns IVCONT 05/30/23 17:49 999 mls/hr .Q1H1M ONE Administration Piperacillin Sod/Tazobactam 50 mls @ 100 mls/hr 05/30/23 17:12 05/30/23 18:04 Sod 3.375 gm/ Sodium Chloride IV 05/30/23 17:41 100 mls/hr ONCE ONE Administration Medical Decision Making Medical Decision Making [facility] Narrative: -my interpretation of x-ray of the foot: No obvious abnormality. Radiology report: Early erosion of the distal phalanx, can not rule out osteomyelitis -my interpretation of labs: Normal hematology, ESR slightly elevated, minimal, chemistry within normal limits -patient's vital stable, sepsis not suspected -patient has fluids and antibiotics running. -discussed the patient with Dr. Hudson from the medicine team, patient being admitted Differential Diagnosis Differential Diagnoses: The differential diagnosis associated with the presentation includes (Osteomyelitis, cellulitis, onychomycosis) Admission/Observation Consideration of admission/observation: Escalation of care including admission/observation considered Consult Healthcare Provider Management of the patient was discussed with: Hospitalist Lab Data [facility] Lab Attestation statement: I reviewed the patient's lab results. 05/30/23 17:35 05/30/23 17:35 Labs: Lab Results 05/30/23 Range/Units 17:35 WBC 7.0 (4.8-10.8) X10*3/uL RBC 4.85 (4.60-5.80) X10*6/uL Hgb 13.8 L (14.0-18.0) g/dl Hct 41.2 L (42.0-52.0) % MCV 84.9 (80.0-98.0) fL MCH 28.5 (27.0-33.0) pg MCHC 33.5 (31.0-36.0) g/dl RDW 12.8 (11.0-16.0) % Plt Count 233 (160-400) X10*3/uL MPV 9.3 L (9.4-12.4) fL Immature Gran % (Auto) 0.4 (0.0-0.4) % Neut % (Auto) 68.9 (45-73) % Lymph % (Auto) 21.6 (20-40) % Imperial % (Auto) 7.3 (2-11) % Eos % (Auto) 1.1 (0-4) % Baso % (Auto) 0.7 (0-2) % Lymph # (Auto) 1.5 (1.2-4.9) X10*3/uL Imperial # (Auto) 0.5 (0.1-1.2) X10*3/uL Eos # (Auto) 0.1 (0.0-0.4) X10*3/uL Baso # (Auto) 0.1 (0.0-0.2) X10*3/uL Abs Immat Gran (auto) 0.03 (0.00-0.03) X10*3/uL Absolute Neuts (auto) 4.8 (2.0-8.3) x10*3/uL Absolute Nucleated RBC 0.000 (0.0-0.012) X10*3/uL Nucleated RBC % (auto) 0.0 (0.0-0.2) /100WBC ESR 17 H (0-15) MM/HR Sodium 139 (135-145) mmol/L Potassium 4.9 (3.3-5.1) mmol/L Chloride 106 (96-108) mmol/L Carbon Dioxide 26 (22-29) mmol/L Anion Gap 12 (12-20) BUN 16 (9-16) mg/dL Creatinine 0.76 (0.5-1.4) mg/dL Estim Creat Clear Calc 84.9 Estimated GFR > 60 Random Glucose 99 (60-115) mg/dL Lactic Acid 1.3 (0.5-2.0) mmol/L Calcium 9.3 (8.4-10.2) mg/dL Total Bilirubin 0.3 (0.0-1.0) mg/dL Direct Bilirubin 0.1 (0.0-0.5) mg/dL AST 24 (5-37) U/L ALT 20 (0-40) U/L Alkaline Phosphatase 107 (39-117) U/L C-Reactive Protein 0.44 (< or = 0.50) mg/dL Total Protein 7.5 (6.5-8.0) g/dL Albumin 3.6 (3.5-5.0) g/dL Independent Interpretation I performed an independent interpretation of an: Plain X-Ray Radiology Impression Discussion of test interpretation with radiology: I have reviewed the radiologist's reading. Radiologist Impression: Mild cortical irregularity of the tuft of the distal phalanx great toe raising the possibility of erosion, cannot rule out osteomyelitis. There is soft tissue swelling of the great toe. Interphalangeal joint is intact. There are degenerative osteoarthritic changes of the first metatarsophalangeal joint. There is a small posterior calcaneal spur, there are heavy vascular calcifications. Degenerative arthritic changes of the intertarsal and tarsometatarsal level. XR/XR foot LT 2V IMPRESSION: 1. Mild cortical irregularity of the tuft of the distal phalanx great toe raising the possibility of mild early erosion, in the setting of cellulitis, cannot rule out osteomyelitis. Please correlate with area of tenderness. This can be confirmed by bone scan or MRI with contrast. 2. Underlying degenerative osteoarthritis. 3. Heavy vascular calcifications. Critical Care Time Critical Care Time Critical Care Time: Yes Total Critical Care Time: 60 Attestation: I have personally provided critical care time. Time includes review of lab data, radiology results, discussion with consultants, and monitoring for potential decompensation. Intervention performed as documented. Discharge Plan Discharge Clinical Impression: Necrosis of toe Patient Disposition: Admitted As Inpatient
[2023-05-30 17:41] LABS: MANUAL DIFF FLAG NO
[2023-05-30 17:51] LABS: Lactic Acid 1.3 mmol/L (0.5-2.0)
[2023-05-30 17:57] LABS: Alanine Aminotransferase 20 U/L (0-40); Albumin Level 3.6 g/dL (3.5-5.0); Alkaline Phosphatase 107 U/L (39-117); Anion Gap 12 (12-20); Aspartate Amino Transferase 24 U/L (5-37); Bilirubin Direct 0.1 mg/dL (0.0-0.5); Bilirubin Total 0.3 mg/dL (0.0-1.0); Blood Urea Nitrogen 16 mg/dL (9-16); C Reactive Protein 0.44 mg/dL (< or = 0.50); Calcium 9.3 mg/dL (8.4-10.2); Carbon Dioxide 26 mmol/L (22-29); Chloride 106 mmol/L (96-108); Creatinine Clr Calc Pharmacy 84.9; Estimated Glomerular Filt Rate > 60; Glucose Random 99 mg/dL (60-115); Potassium 4.9 mmol/L (3.3-5.1); Sodium 139 mmol/L (135-145); Total Protein 7.5 g/dL (6.5-8.0)
[2023-05-30 18:01] LABS: Basophils Absolute Auto 0.1 X10*3/uL (0.0-0.2); Basophils Percent Auto 0.7 % (0-2); Eosinophils Absolute Auto 0.1 X10*3/uL (0.0-0.4); Eosinophils Percent Auto 1.1 % (0-4); Hematocrit 41.2 % (42.0-52.0); Hemoglobin 13.8 g/dl (14.0-18.0); Imm Gran Abs Auto 0.03 X10*3/uL (0.00-0.03); Imm Gran Pct Auto 0.4 % (0.0-0.4); Lymphocytes Absolute Auto 1.5 X10*3/uL (1.2-4.9); Lymphocytes Percent Auto 21.6 % (20-40); Mean Corpuscular HGB Conc 33.5 g/dl (31.0-36.0); Mean Corpuscular Hemoglobin 28.5 pg (27.0-33.0); Mean Corpuscular Volume 84.9 fL (80.0-98.0); Mean Platelet Volume 9.3 fL (9.4-12.4); Monocytes Absolute Auto 0.5 X10*3/uL (0.1-1.2); Monocytes Percent Auto 7.3 % (2-11); Neutrophils Absolute Auto 4.8 x10*3/uL (2.0-8.3); Neutrophils Percent Auto 68.9 % (45-73); Platelet Count 233 X10*3/uL (160-400); Red Blood Count 4.85 X10*6/uL (4.60-5.80); Red Cell Distribution Width 12.8 % (11.0-16.0)
--- NOTE | 2023-05-30 18:01 | PHA.MEDREC ---
Pharmacy Consult ? Medication Reconciliation Pharmacy has completed the medication reconciliation. Patient came with list from [facility]. Rochelle Riley, JohnnyD
[2023-05-30] MEDS: Piperacillin Sodium/Tazobactam 3.375 GM in 0.9 % Sodium Chloride 50 ML IV (18:04)
[2023-05-30] MEDS: 0.9 % Sodium Chloride 1,000 ML 999 ML IVCONT (18:05)
[2023-05-30 18:29] LABS: Erythrocyte Sedimentation Rate 17 MM/HR (0-15)
[2023-05-30] MEDS: vancomycin HCL 1,000 MG, vancomycin HCL 750 MG in 0.9 % Sodium Chloride 500 ML 267.5 MG IV (18:47)
[2023-05-30 18:50] VITALS: BP 129/57; PULSE 81; RESP 16; TEMP 37; O2SAT 97
--- NOTE | 2023-05-30 19:39 | P.HPHOSP_ITS ---
History of Present Illness Date of Service: 05/30/23 Attending physician on admission: Sarahy Gallegos Chief Complaint: foot infection 72-year-old male with history of cerebral venous thrombosis, history of CVA with sequela of left-sided hemiparesis, unspecified mood disorder with history of suicidal ideation, repeated falls, [id number]-[id number] type 2 diabetes, unspecified cognitive impairment secondary to CVA, spastic hemiplegia, osteopenia who is a former smoker who quit about 30 years ago presents to the ED via EMS from [facility] for evaluation of infection of the left toes. He reports he has had wounds on the left toes ongoing for about 2 weeks. Denies any injury. Per [facility] staff, there was concern for necrosis and he was initially treated with oral antibiotics at the facility was transferred to the ED for further evaluation. He has been afebrile. He is complaining of pain in the left foot as well as swelling. On arrival, VSS. Hematology studies unremarkable. Renal function normal, electrolyte levels normal. Lactic acid 1.3. Hepatic function normal. CRP 0.44, ESR 17. X-ray of the left foot shows mild cortical irregularity of the tuft of the distal phalanx of the great toe raising concern for possible early erosion, possibly osteomyelitis. There is also heavy vascular calcifications. In the ED, has been given 1 L IV NS, 3.375 g Zosyn, and 1 g vancomycin. Review of Systems 2 Review of Systems: General: No fevers, malaise, unintentional weight loss HEENT: No blurred vision, diplopia. No sore throat, nasal congestion, rhinorrhea, sinus pain, ear pain Cardiovascular: No chest pain, palpitations, or leg edema Respiratory: No shortness of breath, wheezing, cough GI: No abdominal pain, nausea, vomiting, diarrhea, constipation, melena, hematochezia : No dysuria, hematuria, increased urinary frequency, decreased urinary output MSK: No myalgia, back pain Neuro: No headaches, weakness, paresthesias Skin: No rashes or lesions. 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 Cerebral venous thrombosis Transient cerebral ischemia Social History Household Members: Caregiver Housing: Assisted Living Facility Patient Tobacco Use Status: Former Tobacco user Quit Date: 1981 Tobacco use type: Cigarette Smoked in Last 30 Days: No Use of substances other than those prescribed or required for medical reasons: No Advance Directives: No Advance Directives Information Provided: No service: No Current occupational status: disabled Meds Allergies Allergy/AdvReac Type Severity Reaction Status Date / Time No Known Allergies Allergy Verified 05/09/22 10:25 Active Medications: Current Medications Acetaminophen (Acetaminophen 325 Mg Tablet) 650 mg PO Q6H PRN PRN Reason: Pain, Mild (Pain Scale 1-3) Heparin Sodium (Porcine) (Heparin Sodium,Porcine 5,000 Unit/Ml Vial) 5,000 unit SUBCUT Q12H REPLACED BY [facility] Piperacillin Sod/Tazobactam (Sod 3.375 gm/ Sodium Chloride) 50 mls @ 100 mls/hr IV Q6H REPLACED BY [facility] Insulin Human Lispro (Insulin Lispro 100 Unit/Ml 3 Ml Vial) 0 unit SUBCUT QIDACHS REPLACED BY [facility]; Protocol Ondansetron HCl (Ondansetron Hcl 4 Mg/2 Ml Vial) 4 mg IVPUSH Q8H PRN PRN Reason: Nausea and Vomiting Pharmacy Consult (Consult Rx Vancomycin Dosing) 1 each MISCELLANE DAILY PRN PRN Reason: Consult order Senna (Sennosides 8.6 Mg Tablet) 17.2 mg PO BEDTIME PRN PRN Reason: Constipation Sodium Chloride (0.9 % Sodium Chloride Flush 3 Ml Syringe) 3 ml IVFLUSH [facility] Home Medications Medication Instructions Recorded Confirmed Last Taken Type aspirin 325 mg tablet 325 mg PO DAILY 10/29/21 05/30/23 10/29/21 History sennosides 8.6 mg tablet (senna) 8.6 mg PO DAILY PRN Constipation 10/29/21 05/30/23 Unknown History acetaminophen 325 mg tablet 650 mg PO Q6H PRN Pain 05/30/23 05/30/23 Unknown History ibuprofen 200 mg tablet 800 mg PO Q6H PRN Pain (Scale 05/30/23 05/30/23 Unknown History Score 4-6) oxycodone-acetaminophen 5 mg-325 1 tab PO Q6H PRN Severe Pain 05/30/23 05/30/23 Unknown History mg tablet (Scale Score 7-10) tramadol 50 mg tablet 50 mg PO Q8H PRN Severe Pain 05/30/23 05/30/23 Unknown History (Scale Score 7-10) Physical Exam 2 Vital Signs and Narrative: Vital Signs: Last Vital Signs Temp 98.6 F 05/30/23 18:50 Pulse 81 05/30/23 18:50 Resp 16 05/30/23 18:50 BP 129/57 L 05/30/23 18:50 Pulse Ox 97 05/30/23 18:50 O2 Del Method Room Air 05/30/23 18:50 BMI result Body Mass Index 21.0 Constitutional - Awake and Alert, No apparent distress Eyes - PERRLA, EOMI Cardiovascular - S1S2, RRR, No edema Respiratory - Normal lung expansion, Normal respiratory effort, No respiratory distress, CTA bilaterally Gastrointestinal - NT / ND; +BS; No rebound or guarding Extremities - no calf tenderness bilaterally, no swelling Skin - Warm/Dry. shallow ulceration of distal tuft of great toe with necrosis of skin and lifting of nail bed. There is also a shallow necrotic ulceration of the dorsal aspect of the left 2nd toe Neurological - Alert & oriented x3 Psychological - Appropriate affect Results Labs 05/30/23 17:35 05/30/23 17:35 Labs: Laboratory Results - last 24 hr 05/30/23 17:35 MCV 84.9 MCH 28.5 MCHC 33.5 RDW 12.8 Plt Count 233 MPV 9.3 L Immature Gran % (Auto) 0.4 Neut % (Auto) 68.9 Lymph % (Auto) 21.6 [place]eman % (Auto) 7.3 Eos % (Auto) 1.1 Baso % (Auto) 0.7 Lymph # (Auto) 1.5 [place]eman # (Auto) 0.5 Eos # (Auto) 0.1 Baso # (Auto) 0.1 Abs Immat Gran (auto) 0.03 Absolute Neuts (auto) 4.8 Absolute Nucleated RBC 0.000 Nucleated RBC % (auto) 0.0 ESR 17 H Anion Gap 12 Estim Creat Clear Calc 84.9 Estimated GFR > 60 Random Glucose 99 Lactic Acid 1.3 Calcium 9.3 Total Bilirubin 0.3 Direct Bilirubin 0.1 AST 24 ALT 20 Alkaline Phosphatase 107 C-Reactive Protein 0.44 Total Protein 7.5 Albumin 3.6 Imaging Radiologist's Impressions: Impressions Foot X-Ray 05/30/23 17:12 IMPRESSION: 1. Mild cortical irregularity of the tuft of the distal phalanx great toe raising the possibility of mild early erosion, in the setting of cellulitis, cannot rule out osteomyelitis. Please correlate with area of tenderness. This can be confirmed by bone scan or MRI with contrast. 2. Underlying degenerative osteoarthritis. 3. Heavy vascular calcifications. Assessment and Plan (1) Necrosis of toe: Status: Acute (2) Cellulitis of left toe: Status: Acute Plan 72-year-old male with history of cerebral venous thrombosis, history of CVA with sequela of left-sided hemiparesis, unspecified mood disorder with history of suicidal ideation, repeated falls, rid-fwhwwlf-ehywpsqnx type 2 diabetes, unspecified cognitive impairment secondary to CVA, spastic hemiplegia, osteopenia who is a former smoker who quit about 30 years ago admitted for further management of cellulitis of left great toe with necrotic wounds of the left great and 2nd toes. #Acute cellulitis and necrotic ulceration left toes -Xr shows possible early osteomyelitis -no leukocytosis, no sepsis. CRP 0.44, ESR 17 -MRI foot ordered -arterial duplex LUE pending -IV vancomycin and Zosyn (initiated 05/30) -vascular surgery consult -admit to med/surg # [id number] type 2 diabetes -hemoglobin A1c pending -POC glucose, diabetic diet -Humalog on sliding scale # history of CVA/cerebral venous thrombosis -no longer on Eliquis. Continue aspirin 325 mg daily # chronic normocytic anemia -H/H baseline, above transfusion threshold DVT prophylaxis-heparin DNR/DNI per [facility], confirmed with [facility] patient- Saba Anna [phone] Patient requires inpatient stay at least 2 midnights for management of acute cellulitis with necrotic ulceration of the toes requiring IV antibiotics, further imaging studies, expert consultation, possible amputation versus long- term antibiotics if confirmed osteomyelitis Quality Stroke Does the patient have a stroke diagnosis?: No VTE Prior VTE?: Yes VTE Risk Level:: Medical - moderate - high VTE Device Contraindication: Treatment Not Indicated VTE Drug Contraindication: N/A - Med Ordered
--- NOTE | 2023-05-30 19:52 | PHA.PROG ---
Admission Date/Time: May 30, 2023 19:29 Indication: Nectrotic toe Weight in k.4 kg Adjusted body weight in K kg Economy body weight in K.6 kg Obesity Dosing Indication % IBW: n/a Serum Creatinine - Last 168 Hours 05/30/23 17:35 Creatinine 0.76 Estimated CrCl and GFR - Last 168 Hours 05/30/23 17:35 Estim Creat Clear Calc 84.9 Estimated GFR > 60 Vancomycin Loading Dose: 1750 mg Current Vancomycin Dosing Regimen: 1000 mg Q12H Date and Time for next Vancomycin Level to be drawn: 06/01 @ 0500 Pharmacist Comments on Vancomycin Plan: Patient received an adequate load dose in the ER on 05/30 @ 1847 Maintenance dose vancomycin 1000 mg Q12H is scheduled to start 05/31 @ 0700. Predicted AUC 579 with a trough of 18.4. Level will be drawn prior to 4th dose Pharmacy will monitor renal function daily. Rochelle Riley, Luna Vancomycin dosing will take advantage of [employer] as a clinical decision support tool that uses Bayesian modeling to calculate individual patient's pharmacokinetic parameters and forecast the patient's drug concentration time course with the target goal AUC 24 range of 400 - 600 mg/L/hr.
[2023-05-30 20:00] VITALS: BP 119/62; PULSE 91
[2023-05-30 21:58] LABS: Glucose, Whole Blood 97 mg/dL (60-115)
--- NOTE | 2023-05-31 00:10 | PC.NURSE ---
this rn assumed care of pt @ 1900. pt brought down to mri. mri called back stating pt in too much pain for mri. mri staff brought pt back to room. this rn attempted to medicated pt with oxycodone. pt refused medication states I want ibuprofen this rn discussed with eric reyes about placing prn order for ibuprofen per pt request. this rn attempted to medicate pt with ibuprofen per request. pt refused medication because [facility] [place]up[place]fen [place] and ibuprofen pt has at home is brown.
--- NOTE | 2023-05-31 00:20 | PC.NURSE ---
pt noted to have self removed iv placed in R FA. when this rn asked pt how this happened pt states I don't want it thiss rn educated pt on need for IV placement due to admission status. replacement iv placed in R FA 20g. pt notes to be verbally aggressive with this rn during pt education process
[2023-05-31] MEDS: 0.9 % Sodium Chloride Flush 3 ML SYRINGE IVFLUSH ×3 (03:01→20:02)
[2023-05-31] MEDS: Piperacillin Sodium/Tazobactam 3.375 GM in 0.9 % Sodium Chloride 50 ML IV ×4 (03:01→20:01)
[2023-05-31 05:19] LABS: Estimated Average Glucose 100 mg/dL; Hemoglobin A1c % 5.1 % (<6.0)
[2023-05-31 06:00] VITALS: BP 135/81; PULSE 91; TEMP 36.7; O2SAT 98
[2023-05-31 07:48] LABS: Glucose, Whole Blood 83 mg/dL (60-115)
--- NOTE | 2023-05-31 08:09 | PM.HPGS ---
History of Present Illness History of Present Illness Date of Service: 06/06/23 Chief complaint: infected foot ulcer Narrative: Malachi Streeter is a 72 year old male, with multiple medical problems including previous CVA, with left-sided hemiparesis, mood is order with tidal ideations, diabetes, cognitive impairment, ex-smoker, [facility] because of cellulitis with ulcers of the 1st and 2nd toes. He also says that he has had pain on these toes for 2-3 weeks now. He had been recently on antibiotics because of redness on the area. He is generally nonambulatory and is bed-bound. He denies any trauma to the area. Review of Systems Constitutional: Constitutional: Denies fever(s) Cardiovascular: Cardiovascular: Denies chest pain Respiratory: Respiratory: Denies cough Gastrointestinal: Gastrointestinal: Denies abdominal pain Genitourinary: Genitourinary: Denies difficulty urinating Musculoskeletal: Comments: Bed-bound, with hemiplegia Neurologic: Comments: Hemiplegic PMFSH Past Medical History Medical History Toe ulcer Spastic hemiplegia Cognitive impairment Type 2 diabetes mellitus CVA (cerebral vascular accident) Hemiparesis affecting left side as late effect of cerebrovascular accident Hx of prison use of blood thinners Cerebral venous thrombosis Transient cerebral ischemia Social History Social History Household Members: None Housing: Senior Living Do you presently have visiting nurse or other home services: No Patient Tobacco Use Status: Former Tobacco user Quit Date: 1981 Tobacco use type: Cigarette service: Yes Current occupational status: disabled Meds Allergies Allergy/AdvReac Type Severity Reaction Status Date / Time No Known Allergies Allergy Verified 05/09/22 10:25 Active Medications: Current Medications Acetaminophen (Acetaminophen 325 Mg Tablet) 650 mg PO Q6H PRN PRN Reason: Pain, Mild (Pain Scale 1-3) Aspirin (Aspirin 325 Mg Tablet) 325 mg PO DAILY [facility] Dextrose (Dextrose 50 % 25 Gm/50 Ml Syringe) 25 gm IVPUSH Q15M PRN; Protocol PRN Reason: per Hypoglycemia Standing Ord. Glucose (Glucose Gel 15 Gm Gel..Gram.) 15 gm PO Q15M PRN; Protocol PRN Reason: per Hypoglycemia Standing Ord. Heparin Sodium (Porcine) (Heparin Sodium,Porcine 5,000 Unit/Ml Vial) 5,000 unit SUBCUT Q12H [facility] Last Admin: 05/30/23 21:45 Dose: Not Given Vancomycin HCl 1,000 mg/ (Sodium Chloride) 270 mls @ 270 mls/hr IV Q12H [facility] Piperacillin Sod/Tazobactam (Sod 3.375 gm/ Sodium Chloride) 50 mls @ 100 mls/hr IV Q6H [facility] Ibuprofen (Ibuprofen 600 Mg Tablet) 600 mg PO Q6H PRN PRN Reason: Pain (Scale Score 4-6) Insulin Human Lispro (Insulin Lispro 100 Unit/Ml 3 Ml Vial) 0 unit SUBCUT QIDACHS [facility]; Protocol Last Admin: 05/30/23 22:22 Dose: Not Given Ondansetron HCl (Ondansetron Hcl 4 Mg/2 Ml Vial) 4 mg IVPUSH Q8H PRN PRN Reason: Nausea and Vomiting Oxycodone HCl (Oxycodone Hcl Immed Release 5 Mg Tablet) 5 mg PO Q6H PRN PRN Reason: Severe Pain (Scale Score 7-10) Pharmacy Consult (Consult Rx Vancomycin Dosing) 1 each MISCELLANE DAILY PRN PRN Reason: Consult order Senna (Sennosides 8.6 Mg Tablet) 17.2 mg PO BEDTIME PRN PRN Reason: Constipation Sodium Chloride (0.9 % Sodium Chloride Flush 3 Ml Syringe) 3 ml IVFLUSH QSHIFT [facility] Last Admin: 05/31/23 03:01 Dose: 3 ml Home Medications Medication Instructions Recorded Confirmed Last Taken Type aspirin 325 mg tablet 325 mg PO DAILY 10/29/21 05/30/23 10/29/21 History sennosides 8.6 mg tablet (senna) 8.6 mg PO DAILY PRN Constipation 10/29/21 05/30/23 Unknown History acetaminophen 325 mg tablet 650 mg PO Q6H PRN Pain 05/30/23 05/30/23 Unknown History ibuprofen 200 mg tablet 800 mg PO Q6H PRN Pain (Scale 05/30/23 05/30/23 Unknown History Score 4-6) oxycodone-acetaminophen 5 mg-325 1 tab PO Q6H PRN Severe Pain 05/30/23 05/30/23 Unknown History mg tablet (Scale Score 7-10) tramadol 50 mg tablet 50 mg PO Q8H PRN Severe Pain 05/30/23 05/30/23 Unknown History (Scale Score 7-10) Physical Exam Vital Signs: Vital Signs: Last Vital Signs Temp 98.0 F 05/31/23 06:00 Pulse 91 05/31/23 06:00 Resp 16 05/30/23 18:50 BP 135/81 05/31/23 06:00 Pulse Ox 98 05/31/23 06:00 O2 Del Method Room Air 05/31/23 06:00 BMI result Body Mass Index 21.0 Const: Other: Answers questions General: comfortable and no acute distress Resp: Effort & Inspection: normal respiratory effort Cardio: Rate: regular rate GI: Palpation (GI): Soft to palpation, not firm and nontender Extrem: Other: Chronic trophic changes on both legs; superficial ulceration on the tip of the toe on the left, about 1 x 1.5 cm, dry, mild cellulitis; on the 2nd toe dorsal aspect is a similar superficial ulcer, dry, about 1 x 2 cm, also with mild cellulitic surrounding skin Results Results Labs: Short CBC 05/30/23 Range/Units 17:35 WBC 7.0 (4.8-10.8) X10*3/uL Hgb 13.8 L (14.0-18.0) g/dl Hct 41.2 L (42.0-52.0) % Plt Count 233 (160-400) X10*3/uL BMP 05/30/23 17:35 Sodium 139 Potassium 4.9 Chloride 106 Carbon Dioxide 26 BUN 16 Creatinine 0.76 Calcium 9.3 Liver Function 05/30/23 Range/Units 17:35 Total Bilirubin 0.3 (0.0-1.0) mg/dL Direct Bilirubin 0.1 (0.0-0.5) mg/dL AST 24 (5-37) U/L ALT 20 (0-40) U/L Alkaline Phosphatase 107 (39-117) U/L Albumin 3.6 (3.5-5.0) g/dL Laboratory Results WBC 7.0 X10*3/uL (4.8-10.8) 05/30/23 17:35 RBC 4.85 X10*6/uL (4.60-5.80) 05/30/23 17:35 Hgb 13.8 g/dl (14.0-18.0) L 05/30/23 17:35 Hct 41.2 % (42.0-52.0) L 05/30/23 17:35 MCV 84.9 fL (80.0-98.0) 05/30/23 17:35 MCH 28.5 pg (27.0-33.0) 05/30/23 17:35 MCHC 33.5 g/dl (31.0-36.0) 05/30/23 17:35 RDW 12.8 % (11.0-16.0) 05/30/23 17:35 Plt Count 233 X10*3/uL (160-400) 05/30/23 17:35 MPV 9.3 fL (9.4-12.4) L 05/30/23 17:35 Immature Gran % (Auto) 0.4 % (0.0-0.4) 05/30/23 17:35 Neut % (Auto) 68.9 % (45-73) 05/30/23 17:35 Lymph % (Auto) 21.6 % (20-40) 05/30/23 17:35 [place] % (Auto) 7.3 % (2-11) 05/30/23 17:35 Eos % (Auto) 1.1 % (0-4) 05/30/23 17:35 Baso % (Auto) 0.7 % (0-2) 05/30/23 17:35 Lymph # (Auto) 1.5 X10*3/uL (1.2-4.9) 05/30/23 17:35 [place] # (Auto) 0.5 X10*3/uL (0.1-1.2) 05/30/23 17:35 Eos # (Auto) 0.1 X10*3/uL (0.0-0.4) 05/30/23 17:35 Baso # (Auto) 0.1 X10*3/uL (0.0-0.2) 05/30/23 17:35 Abs Immat Gran (auto) 0.03 X10*3/uL (0.00-0.03) 05/30/23 17:35 Absolute Neuts (auto) 4.8 x10*3/uL (2.0-8.3) 05/30/23 17:35 Absolute Nucleated RBC 0.000 X10*3/uL (0.0-0.012) 05/30/23 17:35 Nucleated RBC % (auto) 0.0 /100WBC (0.0-0.2) 05/30/23 17:35 ESR 17 MM/HR (0-15) H 05/30/23 17:35 Sodium 139 mmol/L (135-145) 05/30/23 17:35 Potassium 4.9 mmol/L (3.3-5.1) 05/30/23 17:35 Chloride 106 mmol/L (96-108) 05/30/23 17:35 Carbon Dioxide 26 mmol/L (22-29) 05/30/23 17:35 Anion Gap 12 (12-20) 05/30/23 17:35 BUN 16 mg/dL (9-16) 05/30/23 17:35 Creatinine 0.76 mg/dL (0.5-1.4) 05/30/23 17:35 Estim Creat Clear Calc 84.9 05/30/23 17:35 Estimated GFR > 60 05/30/23 17:35 POC Glucose 83 mg/dL (60-115) 05/31/23 07:42 Random Glucose 99 mg/dL (60-115) 05/30/23 17:35 Estimat Average Glucose 100 mg/dL 05/30/23 17:35 Hemoglobin A1c % 5.1 % (<6.0) 05/30/23 17:35 Lactic Acid 1.3 mmol/L (0.5-2.0) 05/30/23 17:35 Calcium 9.3 mg/dL (8.4-10.2) 05/30/23 17:35 Total Bilirubin 0.3 mg/dL (0.0-1.0) 05/30/23 17:35 Direct Bilirubin 0.1 mg/dL (0.0-0.5) 05/30/23 17:35 AST 24 U/L (5-37) 05/30/23 17:35 ALT 20 U/L (0-40) 05/30/23 17:35 Alkaline Phosphatase 107 U/L (39-117) 05/30/23 17:35 C-Reactive Protein 0.44 mg/dL (< or = 0.50) 05/30/23 17:35 Total Protein 7.5 g/dL (6.5-8.0) 05/30/23 17:35 Albumin 3.6 g/dL (3.5-5.0) 05/30/23 17:35 Impressions Foot X-Ray 05/30/23 17:12 IMPRESSION: 1. Mild cortical irregularity of the tuft of the distal phalanx great toe raising the possibility of mild early erosion, in the setting of cellulitis, cannot rule out osteomyelitis. Please correlate with area of tenderness. This can be confirmed by bone scan or MRI with contrast. 2. Underlying degenerative osteoarthritis. 3. Heavy vascular calcifications. Duplex Scan Lower Extremity Artery 05/30/23 20:03 IMPRESSION: There is Doppler imaging evidence of hemodynamically significant atherosclerotic peripheral vascular disease. This is primarily observed below the level of the knee. The most significant Doppler imaging finding is occlusion of the posterior tibial artery in the [id number] third of the leg. The anterior tibial, dorsalis pedis and peroneal arteries have abnormal monophasic waveforms. Assessment and Plan (1) Toe ulcer: Status: Acute Plan He has toe ulcers described above, on the 1st and 2nd toes of the left foot. These are dry without any pus. Doppler studies does confirm presence of peripheral vascular disease with occlusion of the posterior tibial artery mid to distal leg, with monophasic waveforms on the anterior tibial, dorsalis pedis and peroneal arteries. He does have cellulitic changes on both toes. I agree with IV antibiotic coverage for now. He has a MOLST form stating a DNR DNI order. He may need an angiogram to define extent of arterial disease so goals and extend of treatment have to be discussed with him. He may benefit with pain management for now. Dr. Davidson is out of town but I will let him know about the case as soon as he gets back. Quality Stroke Does the patient have a stroke diagnosis?: No VTE Prior VTE?: Yes VTE Risk Level:: Medical - moderate - high VTE Device Contraindication: Treatment Not Indicated VTE Drug Contraindication: N/A - Med Ordered Procedures Date of Service Date of Service: 06/06/23
--- NOTE | 2023-05-31 08:48 | MHC.CM.PN ---
Patient is a LTC Resident of [facility] and returning there is the goal. CM has initiated and will follow for dc planning.
[2023-05-31] MEDS: vancomycin HCL 1,000 MG in 0.9 % Sodium Chloride 250 ML 270 MG IV ×2 (08:53→18:06)
[2023-05-31] MEDS: Aspirin 325 MG TABLET PO (09:59)
--- NOTE | 2023-05-31 11:02 | PC.NURSE ---
Pt spilled while using urinal. Rossy care provided, pt changed into clean linens and repositioned.
--- NOTE | 2023-05-31 11:30 | HE.PHANOTE ---
METHADONE CONFIRMATION FORM PATIENT TAKE 145 MG FROM [facility] LAST DOSE 05/29
--- NOTE | 2023-05-31 12:00 | HO.PM.IMPN ---
Subjective Subjective Date of Service: 05/31/23 Review of Systems Follow up toe necrosis c/o pain to right foot/great toe Physical Exam Vital Signs: Vital Signs: Last Vital Signs Temp 98.0 F 05/31/23 06:00 Pulse 91 05/31/23 06:00 Resp 16 05/30/23 18:50 BP 135/81 05/31/23 06:00 Pulse Ox 98 05/31/23 06:00 O2 Del Method Room Air 05/31/23 06:00 BMI result Body Mass Index 21.0 Objective Data Active Medications Acetaminophen (Acetaminophen 325 Mg Tablet) 650 mg PO Q6H PRN PRN Reason: Pain, Mild (Pain Scale 1-3) Aspirin (Aspirin 325 Mg Tablet) 325 mg PO DAILY [facility] Last Admin: 05/31/23 09:59 Dose: 325 mg Documented By: NEY Dextrose (Dextrose 50 % 25 Gm/50 Ml Syringe) 25 gm IVPUSH Q15M PRN; Protocol PRN Reason: per Hypoglycemia Standing Ord. Glucose (Glucose Gel 15 Gm Gel..Gram.) 15 gm PO Q15M PRN; Protocol PRN Reason: per Hypoglycemia Standing Ord. Heparin Sodium (Porcine) (Heparin Sodium,Porcine 5,000 Unit/Ml Vial) 5,000 unit SUBCUT Q12H [facility] Last Admin: 05/31/23 09:58 Dose: Not Given Documented By: NEY Non-Admin Reason: Patient Refused Vancomycin HCl 1,000 mg/ (Sodium Chloride) 270 mls @ 270 mls/hr IV Q12H [facility] Last Infusion: 05/31/23 10:56 Dose: Infused Documented By: ALIA Piperacillin Sod/Tazobactam (Sod 3.375 gm/ Sodium Chloride) 50 mls @ 100 mls/hr IV Q6H [facility] Last Admin: 05/31/23 10:30 Dose: 100 mls/hr Documented By: MAUREEN Ibuprofen (Ibuprofen 600 Mg Tablet) 600 mg PO Q6H PRN PRN Reason: Pain (Scale Score 4-6) Insulin Human Lispro (Insulin Lispro 100 Unit/Ml 3 Ml Vial) 0 unit SUBCUT QIDACHS [facility]; Protocol Last Admin: 05/31/23 08:41 Dose: Not Given Documented By: MAUREEN Non-Admin Reason: See Note Comments: Glucose 83, below sliding scale. Insulin not given. Ondansetron HCl (Ondansetron Hcl 4 Mg/2 Ml Vial) 4 mg IVPUSH Q8H PRN PRN Reason: Nausea and Vomiting Oxycodone HCl (Oxycodone Hcl Immed Release 5 Mg Tablet) 5 mg PO Q6H PRN PRN Reason: Severe Pain (Scale Score 7-10) Pharmacy Consult (Consult Rx Vancomycin Dosing) 1 each MISCELLANE DAILY PRN PRN Reason: Consult order Senna (Sennosides 8.6 Mg Tablet) 17.2 mg PO BEDTIME PRN PRN Reason: Constipation Sodium Chloride (0.9 % Sodium Chloride Flush 3 Ml Syringe) 3 ml IVFLUSH QSHIFT [facility] Last Admin: 05/31/23 09:58 Dose: Not Given Documented By: NEY Non-Admin Reason: IV Running Labs 05/30/23 17:35 05/30/23 17:35 Labs: Laboratory Results - last 24 hr 05/30/23 05/30/23 05/31/23 17:35 21:54 07:42 MCV 84.9 MCH 28.5 MCHC 33.5 RDW 12.8 Plt Count 233 MPV 9.3 L Immature Gran % (Auto) 0.4 Neut % (Auto) 68.9 Lymph % (Auto) 21.6 [place] % (Auto) 7.3 Eos % (Auto) 1.1 Baso % (Auto) 0.7 Lymph # (Auto) 1.5 [place] # (Auto) 0.5 Eos # (Auto) 0.1 Baso # (Auto) 0.1 Abs Immat Gran (auto) 0.03 Absolute Neuts (auto) 4.8 Absolute Nucleated RBC 0.000 Nucleated RBC % (auto) 0.0 ESR 17 H Anion Gap 12 Estim Creat Clear Calc 84.9 Estimated GFR > 60 POC Glucose 97 83 Random Glucose 99 Estimat Average Glucose 100 Hemoglobin A1c % 5.1 Lactic Acid 1.3 Calcium 9.3 Total Bilirubin 0.3 Direct Bilirubin 0.1 AST 24 ALT 20 Alkaline Phosphatase 107 C-Reactive Protein 0.44 Total Protein 7.5 Albumin 3.6 Assessment and Plan (1) Toe ulcer: Status: Acute (2) Cellulitis of left toe: Status: Acute Plan 72-year-old male with history of cerebral venous thrombosis, history of CVA with sequela of left-sided hemiparesis, unspecified mood disorder with history of suicidal ideation, repeated falls, [id number] type 2 diabetes, unspecified cognitive impairment secondary to CVA, spastic hemiplegia, osteopenia who is a former smoker who quit about 30 years ago admitted for further management of cellulitis of left great toe with necrotic wounds of the left great and 2nd toes. Acute cellulitis and necrotic ulceration left toes Xr shows possible early osteomyelitis no leukocytosis, no sepsis. CRP 0.44, ESR 17 MRI foot ordered but unable to keep still, bone scan tomorrow Seen by general surgery>arterial duplex LUE PVD with occlusion to post tibial artery, ? angiogram when vascular surgeon available IV vancomycin and Zosyn (initiated 05/30) History of CVA/cerebral venous thrombosis no longer on Eliquis. Continue aspirin 325 mg daily Diabetes mellitus 2 A1C 5.1 no need for POC or ss at this time chronic normocytic anemia H/H baseline above transfusion threshold DVT prophylaxis-heparin Attending Dr. Molina DNR/DNI per [facility], confirmed with [facility] patient- Saba Anna [phone] continued inpatient stay for management of acute cellulitis with necrotic ulceration of the toes requiring IV antibiotics, further imaging studies, expert consultation, possible amputation versus long-term antibiotics if confirmed osteomyelitis Quality Stroke Does the patient have a stroke diagnosis?: No VTE Prior VTE?: Yes VTE Risk Level:: Medical - moderate - high VTE Device Contraindication: Treatment Not Indicated VTE Drug Contraindication: N/A - Med Ordered
[2023-05-31 12:16] VITALS: BP 131/63; PULSE 80; RESP 16; TEMP 36.6; O2SAT 94
[2023-05-31] MEDS: Acetaminophen 325 MG TABLET 650 MG PO (12:50)
--- NOTE | 2023-05-31 12:52 | PC.NURSE ---
this RN resumed care of pt at this time. vss and up to date. pt c/o 12/25 left toe pain. pt denying all forms of medication aside from tylenol. prn tylenol administered per provider order. pt transitioned to hospital bed to provide comfort. new 20gIV placed in the left right forearm/wrist d/t previous IV not being patent. IV abx completely infused/administered at this time. repositioned in bed. no sob/wob noted. respirations even and unlabored. pt waiting for bed upstairs at this time. call troncoso placed within reach.
[2023-05-31 13:43] LABS: Glucose, Whole Blood 96 mg/dL (60-115)
--- NOTE | 2023-05-31 13:52 | PC.NURSE ---
POC obtained = 96mg/dL. no insulin coverage needed at this time. pt sitting upright eating lunch at this time. pt verbalizes Tylenol administration was slightly effective - states that his pain decreased to an 8/10 at this time. respirations remain even and unlabored. call troncoso placed within reach.
--- NOTE | 2023-05-31 14:16 | PC.NURSE ---
admission worksheet complete. transport notified.
--- NOTE | 2023-05-31 14:23 | PC.NURSE ---
pt being transported upstairs at this time.
[2023-05-31 14:45] VITALS: BP 122/59; PULSE 76; RESP 16; TEMP 36.1; O2SAT 96
[2023-05-31 14:46] VITALS: BMI 20.8
[2023-05-31 15:31] VITALS: BP 100/53; PULSE 72; RESP 18; TEMP 36.2; O2SAT 98
[2023-05-31 16:06] LABS: Glucose, Whole Blood 129 mg/dL (60-115)
[2023-05-31 19:14] VITALS: BP 128/79; PULSE 76; RESP 16; TEMP 36.6; O2SAT 97
[2023-05-31] MEDS: Heparin Sodium,Porcine 5,000 UNIT/ML VIAL 5000 UNIT SUBCUT (20:00)
[2023-05-31] MEDS: Ibuprofen 600 MG TABLET PO (20:00)
[2023-05-31 21:34] LABS: Glucose, Whole Blood 86 mg/dL (60-115)
--- NOTE | 2023-05-31 22:02 | PC.NURSE ---
pt has been refusing labs all day, attempted again tonight and he refused again, Dr. Gallegos aware.
--- NOTE | 2023-06-01 02:44 | PC.NURSE ---
pt refused 0300 scheduled IV Ted, Dr. Gallegos aware.
[2023-06-01 03:10] VITALS: BP 141/67; PULSE 71; RESP 14; TEMP 36.3; O2SAT 97
--- NOTE | 2023-06-01 06:28 | PC.NURSE ---
pt refused 0500 vanco trough and then 0700 scheduled IV vanco, Dr. Gallegos is aware.
[2023-06-01 07:19] LABS: Glucose, Whole Blood 78 mg/dL (60-115)
[2023-06-01 07:21] VITALS: BP 121/66; PULSE 69; RESP 16; TEMP 36; O2SAT 97
[2023-06-01] MEDS: Aspirin 325 MG TABLET PO (07:47)
[2023-06-01] MEDS: Piperacillin Sodium/Tazobactam 3.375 GM in 0.9 % Sodium Chloride 50 ML IV ×3 (07:49→20:29)
[2023-06-01] MEDS: Heparin Sodium,Porcine 5,000 UNIT/ML VIAL 5000 UNIT SUBCUT ×2 (07:50→19:26)
[2023-06-01] MEDS: 0.9 % Sodium Chloride Flush 3 ML SYRINGE IVFLUSH ×3 (07:52→19:26)
[2023-06-01 07:55] LABS: Vancomycin Trough 13.4 mcg/mL (10.0-20.0)
[2023-06-01 07:58] LABS: Creatinine Clr Calc Pharmacy 98.1; Estimated Glomerular Filt Rate > 60
--- NOTE | 2023-06-01 08:19 | HE.PHANOTE ---
Vanco Dosing Based on SCr and trough of 13.4, current dose is continued at 1,000mg Q12H, next trough 06/02 at 0500.
[2023-06-01 11:49] LABS: Glucose, Whole Blood 102 mg/dL (60-115)
[2023-06-01] MEDS: traMADoL HCL 50 MG TABLET PO (11:55)
--- NOTE | 2023-06-01 12:44 | PM.PNGS ---
Subjective Subjective Date of Service: 06/06/23 Interval history: Says he feels well today Denies foot pain Denies other complaints Physical Exam Vital Signs: Vital Signs: Last Vital Signs Temp 96.8 F 06/01/23 07:21 Pulse 69 06/01/23 07:21 Resp 16 06/01/23 07:21 BP 121/66 06/01/23 07:21 Pulse Ox 97 06/01/23 07:21 O2 Del Method Room Air 06/01/23 07:21 BMI result Body Mass Index 20.8 Const: Other: Alert General: comfortable and no acute distress Resp: Effort & Inspection: normal respiratory effort Cardio: Rate: regular rate GI: Palpation (GI): Soft to palpation Extrem: Other: Ulcers on the 1st toe and the 2nd toe, dry, cellulitis much improved Objective Data Active Medications Acetaminophen (Acetaminophen 325 Mg Tablet) 650 mg PO Q6H PRN PRN Reason: Pain, Mild (Pain Scale 1-3) Last Admin: 05/31/23 12:50 Dose: 650 mg Documented By: SEAN Aspirin (Aspirin 325 Mg Tablet) 325 mg PO DAILY [facility] Last Admin: 06/01/23 07:47 Dose: 325 mg Documented By: KAREN Dextrose (Dextrose 50 % 25 Gm/50 Ml Syringe) 25 gm IVPUSH Q15M PRN; Protocol PRN Reason: per Hypoglycemia Standing Ord. Glucose (Glucose Gel 15 Gm Gel..Gram.) 15 gm PO Q15M PRN; Protocol PRN Reason: per Hypoglycemia Standing Ord. Heparin Sodium (Porcine) (Heparin Sodium,Porcine 5,000 Unit/Ml Vial) 5,000 unit SUBCUT Q12H [facility] Last Admin: 06/01/23 07:50 Dose: 5,000 unit Documented By: KAREN Vancomycin HCl 1,000 mg/ (Sodium Chloride) 270 mls @ 270 mls/hr IV Q12H [facility] Last Admin: 06/01/23 06:30 Dose: Not Given Documented By: JANE Non-Admin Reason: Patient Refused Piperacillin Sod/Tazobactam (Sod 3.375 gm/ Sodium Chloride) 50 mls @ 100 mls/hr IV Q6H [facility] Last Infusion: 06/01/23 08:43 Dose: Infused Documented By: KAREN Insulin Human Lispro (Insulin Lispro 100 Unit/Ml 3 Ml Vial) 0 unit SUBCUT QIDACHS [facility]; Protocol Last Admin: 06/01/23 11:52 Dose: Not Given Documented By: KAREN Non-Admin Reason: No Insulin Coverage Ondansetron HCl (Ondansetron Hcl 4 Mg/2 Ml Vial) 4 mg IVPUSH Q8H PRN PRN Reason: Nausea and Vomiting Oxycodone HCl (Oxycodone Hcl Immed Release 5 Mg Tablet) 5 mg PO Q6H PRN PRN Reason: Severe Pain (Scale Score 7-10) Pharmacy Consult (Consult Rx Vancomycin Dosing) 1 each MISCELLANE DAILY PRN PRN Reason: Consult order Senna (Sennosides 8.6 Mg Tablet) 17.2 mg PO BEDTIME PRN PRN Reason: Constipation Sodium Chloride (0.9 % Sodium Chloride Flush 3 Ml Syringe) 3 ml IVFLUSH [facility] Last Admin: 06/01/23 07:52 Dose: 3 ml Documented By: KAREN Tramadol HCl (Tramadol Hcl 50 Mg Tablet) 50 mg PO Q4H PRN PRN Reason: Pain, Moderate(Pain Scale 4-6) Last Admin: 06/01/23 11:55 Dose: 50 mg Documented By: KAREN Labs 06/02/23 10:08 06/03/23 11:13 Labs: Laboratory Results - last 24 hr 05/31/23 05/31/23 05/31/23 13:40 16:02 21:30 Estim Creat Clear Calc Estimated GFR POC Glucose 96 129 H 86 Vancomycin Trough 06/01/23 06/01/23 06/01/23 07:10 07:12 11:45 Estim Creat Clear Calc 98.1 Estimated GFR > 60 POC Glucose 78 102 Vancomycin Trough 13.4 Microbiology Microbiology Results: Microbiology 05/30/23 17:56 Blood Culture - Preliminary Blood - Venous No growth after 24 hours. 05/30/23 17:35 Blood Culture - Preliminary Blood - Venous No growth after 24 hours. Procedures Date of Service Date of Service: 06/06/23 Progress Note: A&P Assessment and plan (1) Toe ulcer: Status: Acute Assessment and Plan: Toe ulcers with significant peripheral arterial disease [id number] Cellulitis much improved Pain has resolved Await input from Dr. Davidson - he will be back tomorrow Goals of care and treatment should be defined as the patient has DNR DNI order in effect Time Spent With Patient Time: Total time managing care of this patient today ____ minutes. Quality Stroke Does the patient have a stroke diagnosis?: No VTE Prior VTE?: Yes VTE Risk Level:: Medical - moderate - high VTE Device Contraindication: Treatment Not Indicated VTE Drug Contraindication: N/A - Med Ordered
--- NOTE | 2023-06-01 13:37 | P.PNIM_ITS ---
Subjective Subjective Date of Service: 06/01/23 Interval History: seen and examined this morning follow up for foot wound no fever or chills mild pain in right foot Review of Systems Review of Systems: Yes all other systems are reviewed and are negative Constitutional Constitutional: Denies chills and Denies fever(s) Cardiovascular Cardiovascular: Denies chest pain Physical Exam 2 Vital Signs: Vital Signs: Last Vital Signs Temp 96.8 F 06/01/23 07:21 Pulse 69 06/01/23 07:21 Resp 16 06/01/23 07:21 BP 121/66 06/01/23 07:21 Pulse Ox 97 06/01/23 07:21 O2 Del Method Room Air 06/01/23 07:21 BMI result Body Mass Index 20.8 Const: General: cooperative, comfortable, no acute distress, alert and awake Nutritional Appearance: thin Orientation/consciousness: patient oriented x3 Resp: Effort & Inspection: normal respiratory effort, able to speak in complete sentences, no respiratory distress and no use of accessory muscles Cardio: Rate: regular rate GI: Inspection: No distended Palpation (GI): Soft to palpation and nontender Skin: Other: left foot Neuro: Other: left arm contracture General: patient oriented x3 Extrem: General: Yes no pedal edema Objective Data Active Medications Acetaminophen (Acetaminophen 325 Mg Tablet) 650 mg PO Q6H PRN PRN Reason: Pain, Mild (Pain Scale 1-3) Last Admin: 05/31/23 12:50 Dose: 650 mg Documented By: SEAN Aspirin (Aspirin 325 Mg Tablet) 325 mg PO DAILY [facility] Last Admin: 06/01/23 07:47 Dose: 325 mg Documented By: KAREN Dextrose (Dextrose 50 % 25 Gm/50 Ml Syringe) 25 gm IVPUSH Q15M PRN; Protocol PRN Reason: per Hypoglycemia Standing Ord. Glucose (Glucose Gel 15 Gm Gel..Gram.) 15 gm PO Q15M PRN; Protocol PRN Reason: per Hypoglycemia Standing Ord. Heparin Sodium (Porcine) (Heparin Sodium,Porcine 5,000 Unit/Ml Vial) 5,000 unit SUBCUT Q12H [facility] Last Admin: 06/01/23 07:50 Dose: 5,000 unit Documented By: KAREN Vancomycin HCl 1,000 mg/ (Sodium Chloride) 270 mls @ 270 mls/hr IV Q12H [facility] Last Admin: 06/01/23 06:30 Dose: Not Given Documented By: GIANFRANCOQC Non-Admin Reason: Patient Refused Piperacillin Sod/Tazobactam (Sod 3.375 gm/ Sodium Chloride) 50 mls @ 100 mls/hr IV Q6H [facility] Last Infusion: 06/01/23 08:43 Dose: Infused Documented By: KAREN Insulin Human Lispro (Insulin Lispro 100 Unit/Ml 3 Ml Vial) 0 unit SUBCUT QIDACHS [facility]; Protocol Last Admin: 06/01/23 11:52 Dose: Not Given Documented By: KAREN Non-Admin Reason: No Insulin Coverage Ondansetron HCl (Ondansetron Hcl 4 Mg/2 Ml Vial) 4 mg IVPUSH Q8H PRN PRN Reason: Nausea and Vomiting Oxycodone HCl (Oxycodone Hcl Immed Release 5 Mg Tablet) 5 mg PO Q6H PRN PRN Reason: Severe Pain (Scale Score 7-10) Pharmacy Consult (Consult Rx Vancomycin Dosing) 1 each MISCELLANE DAILY PRN PRN Reason: Consult order Senna (Sennosides 8.6 Mg Tablet) 17.2 mg PO BEDTIME PRN PRN Reason: Constipation Sodium Chloride (0.9 % Sodium Chloride Flush 3 Ml Syringe) 3 ml IVFLUSH QSHIFT [facility] Last Admin: 06/01/23 07:52 Dose: 3 ml Documented By: KAREN Tramadol HCl (Tramadol Hcl 50 Mg Tablet) 50 mg PO Q4H PRN PRN Reason: Pain, Moderate(Pain Scale 4-6) Last Admin: 06/01/23 11:55 Dose: 50 mg Documented By: KAREN Labs 05/30/23 17:35 06/01/23 07:12 Labs: Laboratory Results - last 24 hr 05/31/23 05/31/23 05/31/23 13:40 16:02 21:30 Estim Creat Clear Calc Estimated GFR POC Glucose 96 129 H 86 Vancomycin Trough 06/01/23 06/01/23 06/01/23 07:10 07:12 11:45 Estim Creat Clear Calc 98.1 Estimated GFR > 60 POC Glucose 78 102 Vancomycin Trough 13.4 Microbiology Microbiology Results: Microbiology 05/30/23 17:56 Blood Culture - Preliminary Blood - Venous No growth after 24 hours. 05/30/23 17:35 Blood Culture - Preliminary Blood - Venous No growth after 24 hours. Assessment and Plan (1) Cellulitis of left toe: Status: Acute Plan 72-year-old male with history of cerebral venous thrombosis, history of CVA with sequela of left-sided hemiparesis, unspecified mood disorder with history of suicidal ideation, repeated falls, [id number] type 2 diabetes, unspecified cognitive impairment secondary to CVA, spastic hemiplegia, osteopenia who is a former smoker who quit about 30 years ago admitted for further management of cellulitis of left great toe with necrotic wounds of the left great and 2nd toes. Acute cellulitis and necrotic ulceration left toes Xr shows possible early osteomyelitis no leukocytosis, no sepsis. 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 angiogram when vascular surgeon available IV vancomycin and Zosyn (initiated 05/30) History of CVA/cerebral venous thrombosis no longer on Eliquis. Continue aspirin 325 mg daily Diabetes mellitus 2 A1C 5.1 diabetic diet no need for POC or ss at this time chronic normocytic anemia H/H baseline above transfusion threshold DVT prophylaxis-heparin Attending Dr. Molina DNR/DNI per [facility], confirmed with [facility] patient- Saba Anna [phone] continued inpatient stay for management of acute cellulitis with necrotic ulceration of the toes requiring IV antibiotics, further imaging studies, expert consultation, possible amputation versus long-term antibiotics if confirmed osteomyelitis Quality Stroke Does the patient have a stroke diagnosis?: No VTE Prior VTE?: Yes VTE Risk Level:: Medical - moderate - high VTE Device Contraindication: Treatment Not Indicated VTE Drug Contraindication: N/A - Med Ordered
--- NOTE | 2023-06-01 13:48 | HO.WOUND ---
Wound Consult: Initial 72yr old?M admitted to [facility] [place] on 05/30 - See progress notes and H&P for detailed history.? Wound consult placed for Left Foot / Toes.? Arrival to bedside patient was off unit will attempt assessment at future date and or time.
[2023-06-01 15:10] VITALS: BP 130/66; PULSE 65; RESP 18; TEMP 36.2; O2SAT 98
[2023-06-01 16:14] LABS: Glucose, Whole Blood 84 mg/dL (60-115)
[2023-06-01] MEDS: vancomycin HCL 1,000 MG in 0.9 % Sodium Chloride 250 ML 270 MG IV (19:25)
[2023-06-01 19:34] VITALS: BP 154/78; PULSE 71; RESP 19; TEMP 36.4; O2SAT 98
[2023-06-01 20:33] LABS: Glucose, Whole Blood 101 mg/dL (60-115)
[2023-06-02] MEDS: Piperacillin Sodium/Tazobactam 3.375 GM in 0.9 % Sodium Chloride 50 ML IV ×4 (03:56→20:30)
[2023-06-02 03:57] VITALS: BP 132/65; PULSE 70; RESP 18; TEMP 36.3; O2SAT 92
--- NOTE | 2023-06-02 06:08 | PC.NURSE ---
Addendum entered by Linda Huertas RN 06/02/23 06:12: per pharmacist - because pt refused labs, 0700 Vanco not given. Original Note: pt refused morning labs including Vanco trough, Dr. Gallegos aware.
[2023-06-02 07:32] VITALS: BP 113/57; PULSE 78; RESP 16; TEMP 36.2; O2SAT 96
[2023-06-02 08:02] LABS: Glucose, Whole Blood 75 mg/dL (60-115)
[2023-06-02] MEDS: Aspirin 325 MG TABLET PO (09:22)
[2023-06-02] MEDS: 0.9 % Sodium Chloride Flush 3 ML SYRINGE IVFLUSH ×3 (09:22→20:31)
[2023-06-02] MEDS: Heparin Sodium,Porcine 5,000 UNIT/ML VIAL 5000 UNIT SUBCUT ×2 (09:22→20:31)
--- NOTE | 2023-06-02 09:26 | HO.WOUND ---
Wound Consult: Initial 72yr old? M admitted to [facility] [place] on 05/30/23 - See progress notes and H&P for detailed history.? Wound consult placed for Left Great and 2nd toe wounds.? Patient agreeable to assessment and photo documentation.? Chart review reveals patient was seen by Dr. Montero and following up with Dr. Davidson. Imaging suggestive of Osteo and will continue follow up with appropriate medical / surgical teams. Left Great toe and 2nd Toe Etiology: ??Suspect Arterial Wounds - Present on Admission Measurements: Great Toe 2cm x 0.8cm x 0.1cm 2nd Toe 1.6cm x 1cm x 0.1cm Wound Bed: dry stable black necrotic tissue Drainage / Odor: None Edges: ? defined and irregular [place] wound: ?-DP found, Cool to touch, erythema noted, thickened toe nails, hairless toes and legs, No Induration, Fluctuance noted Pain: Pain present and spasms noted Goals of Treatment: ? [place] with Betadine and defer to Dr. Davidson. Bilateral Heels are red and tender - they remain intact and are slow to sandy. Preventative measure should be in place as patient is at risk for pressure injury development. Recommendations: 1. Turn and Reposition every 2 hours and as needed for patient comfort.? Use pillows or wedges to support off loading positions. 2. Off Load all bony prominences with use of pillows and heel boots if needed.? Apply Preventative foams where needed. ? 3. Monitor for incontinence and moisture control, use barrier creams when needed for prevention and treatment. 4. Provide adequate and supplemental nutrition.? Nutrition consult in place. 5. Order low air loss mattress. 6. When applicable maintain blood glucose levels per Providers order. 7. Bilateral Heels - Elevate off of surface of bed with pillows or heel boot protectors. Apply Foam dressing to protect from friction and aid in pressure redistribution. Peel back and assess Q shift and change every 3 days. 8. Left Great toe and 2nd Toe - Cleanse with Betadine swab allow to dry. Cover with dry gauze wrap. Change daily. Re-consult wound care Nurse for wound deterioration or wound changes.
[2023-06-02 10:15] LABS: Hematocrit 40.4 % (42.0-52.0); Hemoglobin 13.6 g/dl (14.0-18.0); Mean Corpuscular HGB Conc 33.7 g/dl (31.0-36.0); Mean Corpuscular Hemoglobin 28.1 pg (27.0-33.0); Mean Corpuscular Volume 83.5 fL (80.0-98.0); Mean Platelet Volume 8.6 fL (9.4-12.4); Platelet Count 244 X10*3/uL (160-400); Red Blood Count 4.84 X10*6/uL (4.60-5.80); Red Cell Distribution Width 12.8 % (11.0-16.0); White Blood Count 6.1 X10*3/uL (4.8-10.8)
--- NOTE | 2023-06-02 10:25 | P.CONGS_ITS ---
History of Present Illness Consult details Consult date: 06/02/23 Reason for consult: wound care Narrative: Very pleasant 72-year-old gentleman presents for evaluation regarding nonhealing left ulcer. He presented to the hospital a few days ago with cellulitis and pain of the left foot from [facility]. Of note he does have a prior history of CVA with left-sided hemiparesis. In addition he is a diabetic. It was difficult to ascertain his true ambulatory status but it does appear prior to this when he was at the [place] he was ambulatory. According to [facility] he is mostly in the wheelchair. Now presents to us for vascular evaluation. Review of Systems 2 Review of Systems: Yes all other systems are reviewed and are negative Constitutional: Constitutional: Reports no additional constitutional complaints ENT: Reports Normal hearing present Cardiovascular: Cardiovascular: Denies chest pain, Denies chest pain at rest, Denies chest pain with activity and Denies pedal edema Respiratory: Respiratory: Denies cough Gastrointestinal: Gastrointestinal: Denies abdominal pain Musculoskeletal: Musculoskeletal: Denies abnormal gait, Denies muscle cramps and Denies radiating pain into limb Integumentary/Breasts: Skin/Breast: Denies skin ulcer and Denies wounds Neurologic: Reports Normal hearing present and Denies abnormal gait Psychiatric: Psychiatric: Reports no additional psychiatric complaints PMFSH Past Medical History Medical History (Updated 05/31/23 @ 08:15 by Georges Montero MD) Toe ulcer Spastic hemiplegia Cognitive impairment Type 2 diabetes mellitus CVA (cerebral vascular accident) Hemiparesis affecting left side as late effect of cerebrovascular accident 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 Cerebral venous thrombosis Transient cerebral ischemia Social History Social History Household Members: None Housing: Shelter Do you presently have visiting nurse or other home services: No Patient Tobacco Use Status: Former Tobacco user Quit Date: 1981 Tobacco use type: Cigarette service: Yes Current occupational status: disabled Meds Allergies Allergy/AdvReac Type Severity Reaction Status Date / Time No Known Allergies Allergy Verified 05/09/22 10:25 Active Medications: Current Medications Acetaminophen (Acetaminophen 325 Mg Tablet) 650 mg PO Q6H PRN PRN Reason: Pain, Mild (Pain Scale 1-3) Last Admin: 05/31/23 12:50 Dose: 650 mg Aspirin (Aspirin 325 Mg Tablet) 325 mg PO DAILY [facility] Last Admin: 06/02/23 09:22 Dose: 325 mg Dextrose (Dextrose 50 % 25 Gm/50 Ml Syringe) 25 gm IVPUSH Q15M PRN; Protocol PRN Reason: per Hypoglycemia Standing Ord. Glucose (Glucose Gel 15 Gm Gel..Gram.) 15 gm PO Q15M PRN; Protocol PRN Reason: per Hypoglycemia Standing Ord. Heparin Sodium (Porcine) (Heparin Sodium,Porcine 5,000 Unit/Ml Vial) 5,000 unit SUBCUT Q12H [facility] Last Admin: 06/02/23 09:22 Dose: 5,000 unit Piperacillin Sod/Tazobactam (Sod 3.375 gm/ Sodium Chloride) 50 mls @ 100 mls/hr IV Q6H [facility] Last Admin: 06/02/23 09:22 Dose: 100 mls/hr Insulin Human Lispro (Insulin Lispro 100 Unit/Ml 3 Ml Vial) 0 unit SUBCUT QIDACHS [facility]; Protocol Last Admin: 06/02/23 08:04 Dose: Not Given Ondansetron HCl (Ondansetron Hcl 4 Mg/2 Ml Vial) 4 mg IVPUSH Q8H PRN PRN Reason: Nausea and Vomiting Oxycodone HCl (Oxycodone Hcl Immed Release 5 Mg Tablet) 5 mg PO Q6H PRN PRN Reason: Severe Pain (Scale Score 7-10) Pharmacy Consult (Consult Rx Vancomycin Dosing) 1 each MISCELLANE DAILY PRN PRN Reason: Consult order Senna (Sennosides 8.6 Mg Tablet) 17.2 mg PO BEDTIME PRN PRN Reason: Constipation Sodium Chloride (0.9 % Sodium Chloride Flush 3 Ml Syringe) 3 ml IVFLUSH QSHIFT [facility] Last Admin: 06/02/23 09:22 Dose: 3 ml Tramadol HCl (Tramadol Hcl 50 Mg Tablet) 50 mg PO Q4H PRN PRN Reason: Pain, Moderate(Pain Scale 4-6) Last Admin: 06/01/23 11:55 Dose: 50 mg Home Medications Medication Instructions Recorded Confirmed Last Taken Type aspirin 325 mg tablet 325 mg PO DAILY 10/29/21 05/30/23 10/29/21 History sennosides 8.6 mg tablet (senna) 8.6 mg PO DAILY PRN Constipation 10/29/21 05/30/23 Unknown History acetaminophen 325 mg tablet 650 mg PO Q6H PRN Pain 02/13/24 02/13/24 Unknown History ibuprofen 200 mg tablet 800 mg PO Q6H PRN Pain (Scale 05/30/23 05/30/23 Unknown History Score 4-6) oxycodone-acetaminophen 5 mg-325 1 tab PO Q6H PRN Severe Pain 05/30/23 05/30/23 Unknown History mg tablet (Scale Score 7-10) tramadol 50 mg tablet 50 mg PO Q8H PRN Severe Pain 05/30/23 05/30/23 Unknown History (Scale Score 7-10) Physical Exam 2 Vital Signs: Vital Signs: Last Vital Signs Temp 97.2 F 06/02/23 07:32 Pulse 78 06/02/23 07:32 Resp 16 06/02/23 07:32 BP 113/57 L 06/02/23 07:32 Pulse Ox 96 06/02/23 07:32 O2 Del Method Room Air 06/02/23 07:32 BMI result Body Mass Index 20.8 Const: General: cooperative, healthy appearing and comfortable O rientation/consciousness: oriented to person, oriented to place and oriented to time HEENT: Head: Yes normal to inspection Neck: Neck: Yes normal visual inspection Carotids: no bruits Chest: Chest palpation & inspection: normal inspection of the chest Resp: Effort & Inspection: normal respiratory effort and able to speak in complete sentences Auscultation: clear to auscultation bilaterally, no crackles, no rales, no rhonchi and no wheezes Cardio: Other: Bilateral DP signals Rate: regular rate Rhythm: regular rhythm Heart sounds: S1 normal heart sound present and S2 normal heart sound present Bruits: no carotid bruits Peripheral pulses: Peripheral pulses 2+ throughout GI: Inspection: Yes normal to inspection Skin: Other: Left great toe and 2nd toe ulcer Wounds: no wounds Hair: normal Neuro: General: oriented to person, oriented to place and oriented to time Cranial nerves: Yes CN's II-XII intact bilaterally and Yes Normal hearing present Cognition (Neuro): normal cognition Motor exam (neuro): 5/5 motor strength present throughout Extrem: Other: venous exam: No significant superficial varicosities or spider telangiectasias, minimal edema General: No clubbing, No cyanosis and No edema Psych: Appearance: grossly normal Mental Status: mental status grossly normal Speech and movement: Normal speech and movement present Results Labs 06/02/23 10:08 06/01/23 07:12 Labs: Abnormal lab results 06/02/23 Range/Units 10:08 Hgb 13.6 L (14.0-18.0) g/dl Hct 40.4 L (42.0-52.0) % MPV 8.6 L (9.4-12.4) fL Short CBC 06/02/23 Range/Units 10:08 WBC 6.1 (4.8-10.8) X10*3/uL Hgb 13.6 L (14.0-18.0) g/dl Hct 40.4 L (42.0-52.0) % Plt Count 244 (160-400) X10*3/uL All other labs normal. Assessment and Plan (1) Cellulitis of left toe: Status: Acute Plan In short patient has nonhealing left foot ulcers. I do believe some of this may be secondary to his diabetes. He does have an element of below-knee vessel disease. The question becomes how ambulatory is it really and how much of an intervention would really be required. At the current time would like to treat this as conservatively as possible with antibiotics. If it continues to be nonhealing may need endovascular intervention. We can schedule that as an outpatient. Thank you for allowing us to assist in his care. If there are any questions or concerns please do not hesitate to contact us Procedures Date of Service Date of Service: 06/02/23
[2023-06-02 10:35] LABS: Anion Gap 11 (12-20); Blood Urea Nitrogen 13 mg/dL (9-16); Calcium 9.6 mg/dL (8.4-10.2); Carbon Dioxide 27 mmol/L (22-29); Chloride 106 mmol/L (96-108); Creatinine Clr Calc Pharmacy 88.6; Estimated Glomerular Filt Rate > 60; Glucose Random 106 mg/dL (60-115); Potassium 3.9 mmol/L (3.3-5.1); Sodium 140 mmol/L (135-145)
[2023-06-02] MEDS: Acetaminophen 325 MG TABLET 650 MG PO ×2 (10:38→20:37)
--- NOTE | 2023-06-02 11:02 | HE.PHANOTE ---
Mary Patient has refused two doses and one trough. Spoke with Catracho about considering to switch to daptomycin or linezolid, she will consult with ID. Patient's level returned today 11.0, five hours late. Continue 1,000mg q12h with predicted AUC 523, 16.7. Next level at 19:00.
[2023-06-02] MEDS: vancomycin HCL 1,000 MG in 0.9 % Sodium Chloride 250 ML 270 MG IV ×2 (11:18→23:01)
--- NOTE | 2023-06-02 11:30 | PC.NURSE ---
after dressing applied to left foot by cold mill operator Winnie Reece. Pt complaining of increased pain. PRN pain medication given. Pt stated it didn't help and it still hurt. Pt removed dressing and boot and threw across room. telemetry technician made aware.
[2023-06-02 11:49] LABS: Glucose, Whole Blood 112 mg/dL (60-115)
--- NOTE | 2023-06-02 15:29 | P.PNIM_ITS ---
Subjective Subjective Date of Service: 06/02/23 Interval History: seen and examined this morning follow up for foot wound - bone scan + for osteo patient upset about new dressing, wants the boot removed. otherwise doing well Review of Systems Review of Systems: Yes all other systems are reviewed and are negative Constitutional Constitutional: Denies chills and Denies fever(s) Physical Exam 2 Vital Signs: Vital Signs: Last Vital Signs Temp 97.2 F 06/02/23 07:32 Pulse 78 06/02/23 07:32 Resp 16 06/02/23 07:32 BP 113/57 L 06/02/23 07:32 Pulse Ox 96 06/02/23 07:32 O2 Del Method Room Air 06/02/23 07:32 BMI result Body Mass Index 20.8 Const: General: cooperative, comfortable, no acute distress, alert and awake Nutritional Appearance: thin Orientation/consciousness: patient oriented x3 Resp: Effort & Inspection: normal respiratory effort, able to speak in complete sentences, no respiratory distress and no use of accessory muscles Cardio: Rate: regular rate GI: Inspection: No distended Palpation (GI): Soft to palpation and nontender Skin: Other: left foot c/d/i dressing with offloading boot Neuro: Other: left arm contracture General: patient oriented x3 Extrem: General: Yes no pedal edema Objective Data Active Medications Acetaminophen (Acetaminophen 325 Mg Tablet) 650 mg PO Q6H PRN PRN Reason: Pain, Mild (Pain Scale 1-3) Last Admin: 06/02/23 10:38 Dose: 650 mg Documented By: ANGELY Aspirin (Aspirin 325 Mg Tablet) 325 mg PO DAILY [facility] Last Admin: 06/02/23 09:22 Dose: 325 mg Documented By: KATJA Dextrose (Dextrose 50 % 25 Gm/50 Ml Syringe) 25 gm IVPUSH Q15M PRN; Protocol PRN Reason: per Hypoglycemia Standing Ord. Glucose (Glucose Gel 15 Gm Gel..Gram.) 15 gm PO Q15M PRN; Protocol PRN Reason: per Hypoglycemia Standing Ord. Heparin Sodium (Porcine) (Heparin Sodium,Porcine 5,000 Unit/Ml Vial) 5,000 unit SUBCUT Q12H [facility] Last Admin: 06/02/23 09:22 Dose: 5,000 unit Documented By: KATJA Piperacillin Sod/Tazobactam (Sod 3.375 gm/ Sodium Chloride) 50 mls @ 100 mls/hr IV Q6H [facility]CLUD[facility] Last Infusion: 06/02/23 10:35 Dose: Infused Documented By: ANGELY Vancomycin HCl 1,000 mg/ (Sodium Chloride) 270 mls @ 270 mls/hr IV Q12H COUNT [facility]CLUD[facility] Last Infusion: 06/02/23 12:53 Dose: Infused Documented By: KATJA Insulin Human Lispro (Insulin Lispro 100 Unit/Ml 3 Ml Vial) 0 unit SUBCUT QIDACHS [facility]; Protocol Last Admin: 06/02/23 11:58 Dose: Not Given Documented By: KATJA Non-Admin Reason: No Insulin Coverage Ondansetron HCl (Ondansetron Hcl 4 Mg/2 Ml Vial) 4 mg IVPUSH Q8H PRN PRN Reason: Nausea and Vomiting Oxycodone HCl (Oxycodone Hcl Immed Release 5 Mg Tablet) 5 mg PO Q6H PRN PRN Reason: Severe Pain (Scale Score 7-10) Pharmacy Consult (Consult Rx Vancomycin Dosing) 1 each MISCELLANE DAILY PRN PRN Reason: Consult order Senna (Sennosides 8.6 Mg Tablet) 17.2 mg PO BEDTIME PRN PRN Reason: Constipation Sodium Chloride (0.9 % Sodium Chloride Flush 3 Ml Syringe) 3 ml IVFLUSH [facility] Last Admin: 06/02/23 09:22 Dose: 3 ml Documented By: KATJA Tramadol HCl (Tramadol Hcl 50 Mg Tablet) 50 mg PO Q4H PRN PRN Reason: Pain, Moderate(Pain Scale 4-6) Last Admin: 06/01/23 11:55 Dose: 50 mg Documented By: ABIGAILA Labs 06/02/23 10:08 06/02/23 10:08 Labs: Laboratory Results - last 24 hr 06/01/23 06/01/23 06/02/23 16:11 20:29 07:58 MCV MCH MCHC RDW Plt Count MPV Absolute Nucleated RBC Nucleated RBC % (auto) Anion Gap Estim Creat Clear Calc Estimated GFR POC Glucose 84 101 75 Random Glucose Calcium Random Vancomycin 06/02/23 06/02/23 06/02/23 10:08 10:12 11:44 MCV 83.5 MCH 28.1 MCHC 33.7 RDW 12.8 Plt Count 244 MPV 8.6 L Absolute Nucleated RBC 0.000 Nucleated RBC % (auto) 0.0 Anion Gap 11 L Estim Creat Clear Calc 88.6 Estimated GFR > 60 POC Glucose 112 Random Glucose 106 Calcium 9.6 Random Vancomycin 11.0 L Microbiology Microbiology Results: Microbiology 05/30/23 17:56 Blood Culture - Preliminary Blood - Venous No growth after 48 hours. 05/30/23 17:35 Blood Culture - Preliminary Blood - Venous No growth after 48 hours. Assessment and Plan (1) Osteomyelitis: Status: Acute Plan 72-year-old male with history of cerebral venous thrombosis, history of CVA with sequela of left-sided hemiparesis, unspecified mood disorder with history of suicidal ideation, repeated falls, [id number] type 2 diabetes, unspecified cognitive impairment secondary to CVA, spastic hemiplegia, osteopenia who is a former smoker who quit about 30 years ago admitted for further management of cellulitis of left great toe with necrotic wounds of the left great and 2nd toes. 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 Continue aspirin 325 mg daily Diabetes mellitus 2 A1C 5.1 diabetic diet no need for POC or ss at this time chronic normocytic anemia H/H baseline above transfusion threshold DVT prophylaxis-heparin Attending Dr. Molina DNR/DNI per [facility], confirmed with [facility] patient- Saba Anna [phone] continued inpatient stay for management of acute cellulitis with necrotic ulceration of the toes requiring IV antibiotics, further imaging studies, expert consultation, long-term antibiotics for osteomyelitis Quality Stroke Does the patient have a stroke diagnosis?: No VTE Prior VTE?: Yes VTE Risk Level:: Medical - moderate - high VTE Device Contraindication: Treatment Not Indicated VTE Drug Contraindication: N/A - Med Ordered
--- NOTE | 2023-06-02 15:49 | P.PICC_ITS ---
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 Following completion of [place] Protocol the skin and soft tissues were anesthetized with 1% Lidocaine plain. Using ultrasound guidance, RIGHT BRACHIAL vein access was obtained by JOSE ROBLEDO. Over an 0.018 wire through peel-away sheath, a 4FR SINGLE PASV PICC line was positioned. Catheter length is 38CM internal length, 0CM external length, for a total trimmed length of 38CM. The procedure was performed in RM 272. Tip verification was performed by Yadi Parker with Sherlock 3CG. Tip located in SVC. Ultrasound was used to document vein patency and for needle entry. A formal ul trasound picture and cardiac rhythm strip was recorded. Vascular [employer] Dry Press Helper has released the line for use and it is currently dressed with a StatLock, Tegaderm, and CHG disc. Verification has been performed for blood return and line patency. Arm Circumference: 27CM Equipment: [email or web address] SOLO CATHETER WITH SHERLOCK 3CG TIP Catheter Type: 4FR SINGLE LUMEN PASV PICC LINE Lot #: [id number]
[2023-06-02 16:00] VITALS: BP 138/71; PULSE 77; RESP 16; TEMP 36.7; O2SAT 97
--- NOTE | 2023-06-02 16:25 | MHC.CM.PN ---
PT WILL NEED ERTEPENEM AT DC PICC LINE NOW IN PLACE UPDATES SENT TO [facility] [place], THEY HAVE NOT YET RESPONDED PT WILL DC BACK TO SNF TOMORROW MORNING VIA BLS
--- NOTE | 2023-06-02 16:27 | W.PM.IDCN ---
History of Present Illness Data of Consult Service Date: 06/02/23 Requesting physician: Madeline Hayden Primary Care Provider: Fabrice Marino DO HPI Reason for consult: OM left foot He presents with left foot redness for last week. He had wound with left great toe infected/necrotic He has no fever or chills. 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 Cerebral venous thrombosis Transient cerebral ischemia Family History Family history: reviewed and not pertinent Social History Social History Household Members: None Housing: Half-Way Do you presently have visiting nurse or other home services: No Patient Tobacco Use Status: Former Tobacco user Quit Date: 1981 Tobacco use type: Cigarette service: Yes Current occupational status: disabled Meds Allergies Allergy/AdvReac Type Severity Reaction Status Date / Time No Known Allergies Allergy Verified 05/09/22 10:25 Active Medications: Current Medications Acetaminophen (Acetaminophen 325 Mg Tablet) 650 mg PO Q6H PRN PRN Reason: Pain, Mild (Pain Scale 1-3) Last Admin: 06/02/23 10:38 Dose: 650 mg Aspirin (Aspirin 325 Mg Tablet) 325 mg PO DAILY COUNTS INCLUDE 234 BEDS AT THE [facility] Last Admin: 06/02/23 09:22 Dose: 325 mg Dextrose (Dextrose 50 % 25 Gm/50 Ml Syringe) 25 gm IVPUSH Q15M PRN; Protocol PRN Reason: per Hypoglycemia Standing Ord. Glucose (Glucose Gel 15 Gm Gel..Gram.) 15 gm PO Q15M PRN; Protocol PRN Reason: per Hypoglycemia Standing Ord. Heparin Sodium (Porcine) (Heparin Sodium,Porcine 5,000 Unit/Ml Vial) 5,000 unit SUBCUT Q12H COUNTS INCLUDE 234 BEDS AT THE [facility] Last Admin: 06/02/23 09:22 Dose: 5,000 unit Piperacillin Sod/Tazobactam (Sod 3.375 gm/ Sodium Chloride) 50 mls @ 100 mls/hr IV Q6H COUNTS INCLUDE 234 BEDS AT THE [facility] Last Admin: 06/02/23 15:56 Dose: 100 mls/hr Vancomycin HCl 1,000 mg/ (Sodium Chloride) 270 mls @ 270 mls/hr IV Q12H COUNTS INCLUDE 234 BEDS AT THE [facility] Last Infusion: 06/02/23 12:53 Dose: Infused Insulin Human Lispro (Insulin Lispro 100 Unit/Ml 3 Ml Vial) 0 unit SUBCUT QIDACHS COUNTS INCLUDE 234 BEDS AT THE [facility]; Protocol Last Admin: 06/02/23 11:58 Dose: Not Given Ondansetron HCl (Ondansetron Hcl 4 Mg/2 Ml Vial) 4 mg IVPUSH Q8H PRN PRN Reason: Nausea and Vomiting Oxycodone HCl (Oxycodone Hcl Immed Release 5 Mg Tablet) 5 mg PO Q6H PRN PRN Reason: Severe Pain (Scale Score 7-10) Pharmacy Consult (Consult Rx Vancomycin Dosing) 1 each MISCELLANE DAILY PRN PRN Reason: Consult order Senna (Sennosides 8.6 Mg Tablet) 17.2 mg PO BEDTIME PRN PRN Reason: Constipation Sodium Chloride (0.9 % Sodium Chloride Flush 3 Ml Syringe) 3 ml IVFLUSH QSHIFT COUNTS INCLUDE 234 BEDS AT THE [facility] Last Admin: 06/02/23 15:59 Dose: 3 ml Sodium Chloride (0.9 % Sodium Chloride Flush 10 Ml Syringe) 5 ml IVFLUSH TID SENIA Tramadol HCl (Tramadol Hcl 50 Mg Tablet) 50 mg PO Q4H PRN PRN Reason: Pain, Moderate(Pain Scale 4-6) Last Admin: 06/01/23 11:55 Dose: 50 mg Home Medications Medication Instructions Recorded Confirmed Last Taken Type aspirin 325 mg tablet 325 mg PO DAILY 10/29/21 05/30/23 10/29/21 History sennosides 8.6 mg tablet (senna) 8.6 mg PO DAILY PRN Constipation 10/29/21 05/30/23 Unknown History acetaminophen 325 mg tablet 650 mg PO Q6H PRN Pain 05/30/23 05/30/23 Unknown History ibuprofen 200 mg tablet 800 mg PO Q6H PRN Pain (Scale 05/30/23 05/30/23 Unknown History Score 4-6) oxycodone-acetaminophen 5 mg-325 1 tab PO Q6H PRN Severe Pain 05/30/23 05/30/23 Unknown History mg tablet (Scale Score 7-10) tramadol 50 mg tablet 50 mg PO Q8H PRN Severe Pain 05/30/23 05/30/23 Unknown History (Scale Score 7-10) Physical Exam Vital Signs: Vital Signs: Last Vital Signs Temp 97.2 F 06/02/23 07:32 Pulse 78 06/02/23 07:32 Resp 16 06/02/23 07:32 BP 113/57 L 06/02/23 07:32 Pulse Ox 96 06/02/23 07:32 O2 Del Method Room Air 06/02/23 07:32 BMI result Body Mass Index 20.8 Extrem: Other: tip left great toe necrotic appearing Results Labs 06/02/23 10:08 06/02/23 10:08 Labs: Short CBC 06/02/23 Range/Units 10:08 WBC 6.1 (4.8-10.8) X10*3/uL Hgb 13.6 L (14.0-18.0) g/dl Hct 40.4 L (42.0-52.0) % Plt Count 244 (160-400) X10*3/uL BMP 06/02/23 10:08 Sodium 140 Potassium 3.9 D Chloride 106 Carbon Dioxide 27 BUN 13 Creatinine 0.72 Calcium 9.6 Microbiology Microbiology Results: Microbiology 05/30/23 17:56 Blood - Venous Blood Culture - Preliminary No growth after 48 hours. 05/30/23 17:35 Blood - Venous Blood Culture - Preliminary No growth after 48 hours. Assessment and Plan (1) Osteomyelitis: Status: Acute No MRSA seen OM great toe,left (2) Toe ulcer: Status: Acute Plan Six weeks IV Ertapenem Weekly CBC,creatinine. Goal to close wound,not likely curative. Follow Surgery or Wound Care
[2023-06-02 16:36] LABS: Glucose, Whole Blood 103 mg/dL (60-115)
[2023-06-02 19:36] VITALS: BP 123/66; PULSE 76; RESP 17; TEMP 36.3; O2SAT 98
[2023-06-02 20:34] LABS: Glucose, Whole Blood 114 mg/dL (60-115)
[2023-06-02] MEDS: 0.9 % Sodium Chloride Flush 10 ML SYRINGE 5 ML IVFLUSH (23:00)
[2023-06-03] MEDS: Piperacillin Sodium/Tazobactam 3.375 GM in 0.9 % Sodium Chloride 50 ML IV ×2 (02:56→08:29)
[2023-06-03 04:00] VITALS: BP 122/73; PULSE 77; RESP 19; TEMP 36.7; O2SAT 95
[2023-06-03 07:19] VITALS: BP 129/72; PULSE 80; RESP 17; TEMP 36.4; O2SAT 97
--- NOTE | 2023-06-03 07:22 | P.DS_ITS ---
DS: Providers Provider Date of Service: 06/03/23 Date of admission: 05/30/23 19:29 Primary care physician: Fabrice Marino DO Consults: 05/30/23 19:49 Consult to Vascular Surgery Routine Consulting Provider[place] [facility] Reason for consultation: necrotic ulcers L great and 2nd toes 05/31/23 07:34 Consult to General Surgery Routine Consulting Provider: Georges Montero Reason for consultation: necrotic ulcers L great and 2nd toes 05/31/23 15:37 Consult to Wound Care Routine Reason for consultation: left foot , black tissue to toes Has provider been notified: Yes 05/31/23 16:25 Consult to Infectious Diseases Routine Consulting Provider: [facility] Reason for consultation: osteomyelitis DS: Diagnosis Discharge Diagnosis (1) Osteomyelitis: Status: Acute (2) Toe ulcer: Status: Acute DS: Summary Hospital Course Hospital Course: Physical as per admitting provider. 72-year-old male with history of cerebral venous thrombosis, history of CVA with sequela of left-sided hemiparesis, unspecified mood disorder with history of suicidal ideation, repeated falls, [id number] type 2 diabetes, unspecified cognitive impairment secondary to CVA, spastic hemiplegia, osteopenia who is a former smoker who quit about 30 years ago [facility] evaluation of infection of the left toes. He reports he has had wounds on the left toes ongoing for about 2 weeks. Denies any injury. Per [facility] staff, there was concern for necrosis and he was initially treated with oral antibiotics at the facility was transferred to the ED for further evaluation. He has been afebrile. He is complaining of pain in the left foot as well as swelling. On arrival, VSS. Hematology studies unremarkable. Renal function normal, electrolyte levels normal. Lactic acid 1.3. Hepatic function normal. CRP 0.44, ESR 17. X-ray of the left foot shows mild cortical irregularity of the tuft of the distal phalanx of the great toe raising concern for possible early erosion, possibly osteomyelitis. There is also heavy vascular calcifications. In the ED, has been given 1 L IV NS, 3.375 g Zosyn, and 1 g vancomycin. 72-year-old man treated for acute cellulitis and necrotic ulceration to left toe and osteomyelitis. Initially treated with vancomycin and Zosyn, seen and evaluated by Infectious Disease provider with recommendation to start ertapenem for 6 weeks, end date 07/04/2023. PICC line was placed during hospitalization. Blood cultures have remained negative. Plan [facility] urine Wound care Recommendations: 1. Turn and Reposition every 2 hours and as needed for patient comfort.? Use pillows or wedges to support off loading positions. 2. Off Load all bony prominences with use of pillows and heel boots if needed.? Apply Preventative foams where needed. ? 3. Monitor for incontinence and moisture control, use barrier creams when needed for prevention and treatment. 4. Provide adequate and supplemental nutrition. 5. Order low air loss mattress. 6. When applicable maintain blood glucose levels per Providers order. 7. Bilateral Heels - Elevate off of surface of bed with pillows or heel boot protectors. Apply Foam dressing to protect from friction and aid in pressure redistribution. Peel back and assess Q shift and change every 3 days. 8. Left Great toe and 2nd Toe - Cleanse with Betadine swab allow to dry. Cover with dry gauze wrap. Change daily. Diabetes mellitus type 2. A1c 5.1. Did not require a point of care sliding scale insulin during hospitalization Chronic normocytic anemia. H&H remained at baseline and above transfusion threshold Time Attestation Discharge coordination time: Greater than 30 minutes Quality: Safe Use of Opioids Does Pt have an Active Cancer Diagnosis on the Problem List?: No Quality: Stroke Does the patient have a stroke diagnosis?: No Physical Exam Vital Signs: Vital Signs: Last Vital Signs Temp 97.5 F 06/03/23 07:19 Pulse 80 06/03/23 07:19 Resp 17 06/03/23 07:19 BP 129/72 06/03/23 07:19 Pulse Ox 97 06/03/23 07:19 O2 Del Method Room Air 06/03/23 07:19 BMI result Body Mass Index 20.8 Appearing in no acute distress head is normocephalic atraumatic eyes pupils are PERRLA sclera is anicteric mouth throat mucous membranes are intact and moist neck is supple no lymphadenopathy, no JVD noted lung sounds are clear to auscultation heart regular rate rhythm, clear S1, S2 positive bowel sounds, abdomen is soft, nontender neuro patient is alert x3, no focal deficits Necrotic right great toe, follow wound daughters DS: Data Data Completed and Pending Labs on day of discharge: Laboratory Results - last 24 hr 06/02/23 06/02/23 06/02/23 07:58 10:08 10:12 WBC 6.1 RBC 4.84 Hgb 13.6 L Hct 40.4 L MCV 83.5 MCH 28.1 MCHC 33.7 RDW 12.8 Plt Count 244 MPV 8.6 L Absolute Nucleated RBC 0.000 Nucleated RBC % (auto) 0.0 Sodium 140 Potassium 3.9 D Chloride 106 Carbon Dioxide 27 Anion Gap 11 L BUN 13 Creatinine 0.72 Estim Creat Clear Calc 88.6 Estimated GFR > 60 POC Glucose 75 Random Glucose 106 Calcium 9.6 Random Vancomycin 11.0 L 06/02/23 06/02/23 06/02/23 11:44 16:27 20:30 WBC RBC Hgb Hct MCV MCH MCHC RDW Plt Count MPV Absolute Nucleated RBC Nucleated RBC % (auto) Sodium Potassium Chloride Carbon Dioxide Anion Gap BUN Creatinine Estim Creat Clear Calc Estimated GFR POC Glucose 112 103 114 Random Glucose Calcium Random Vancomycin Preliminary micro results at discharge 05/30/23 17:56 Blood Culture - Preliminary Blood - Venous No growth after 48 hours. 05/30/23 17:35 Blood Culture - Preliminary Blood - Venous No growth after 48 hours. Discharge Plan Discharge Anticipated Discharge Date/Time: 06/03/23 10:57 Patient Disposition: Xfer [facility] Discharge Diagnosis: osteomyelitis cellulitis left toe necrosis Referrals: Fabrice Marino DO [Primary Care Provider] - 1 Week Discharge Medications: New ertapenem 1 gram recon soln 1 g IM DAILY 42 Days Qty: 5 0RF Continued aspirin 325 mg Tablet 325 mg PO DAILY sennosides [senna] 8.6 mg Tablet 8.6 mg PO DAILY PRN (Reason: Constipation) acetaminophen 325 mg Tablet 650 mg PO Q6H PRN (Reason: Pain) tramadol 50 mg Tablet 50 mg PO Q8H PRN (Reason: Severe Pain (Scale Score 7-10)) oxycodone-acetaminophen 5-325 mg Tablet 1 tab PO Q6H PRN (Reason: Severe Pain (Scale Score 7-10)) ibuprofen 200 mg Tablet 800 mg PO Q6H PRN (Reason: Pain (Scale Score 4-6)) Discharge Orders: Discharge Order (Routine); Ordered 06/03/23 Ordered By: Becca Ferdinand Diet: Advance to usual diet Activity on Discharge: As tolerated Stand Alone Forms: Patient Portal Discharge page Care Plan Goals: Ertapenem for 6 weeks, end date 07/04/23. RN to remove PICC line after last dose Wound care Recommendations: 1. Turn and Reposition every 2 hours and as needed for patient comfort.? Use pillows or wedges to support off loading positions. 2. Off Load all bony prominences with use of pillows and heel boots if needed.? Apply Preventative foams where needed. ? 3. Monitor for incontinence and moisture control, use barrier creams when needed for prevention and treatment. 4. Provide adequate and supplemental nutrition. 5. Order low air loss mattress. 6. When applicable maintain blood glucose levels per Providers order. 7. Bilateral Heels - Elevate off of surface of bed with pillows or heel boot protectors. Apply Foam dressing to protect from friction and aid in pressure redistribution. Peel back and assess Q shift and change every 3 days. 8. Left Great toe and 2nd Toe - Cleanse with Betadine swab allow to dry. Cover with dry gauze wrap. Change daily. Health Concerns: Osteomyelitis cellulitis left toe necrosis Plan of Treatment: Follow up with vascular surgery as needed Take all medications as prescribed Assessment: See discharge summary
[2023-06-03 07:28] LABS: Glucose, Whole Blood 95 mg/dL (60-115)
[2023-06-03] MEDS: Heparin Sodium,Porcine 5,000 UNIT/ML VIAL 5000 UNIT SUBCUT (08:28)
[2023-06-03] MEDS: 0.9 % Sodium Chloride Flush 3 ML SYRINGE IVFLUSH (08:28)
[2023-06-03] MEDS: Aspirin 325 MG TABLET PO (08:31)
[2023-06-03] MEDS: 0.9 % Sodium Chloride Flush 10 ML SYRINGE 5 ML IVFLUSH (08:31)
[2023-06-03 11:16] LABS: Glucose, Whole Blood 102 mg/dL (60-115)
[2023-06-03] MEDS: vancomycin HCL 1,000 MG in 0.9 % Sodium Chloride 250 ML 270 MG IV (11:32)
[2023-06-03 11:41] LABS: Creatinine Clr Calc Pharmacy 89.8; Estimated Glomerular Filt Rate > 60
--- NOTE | 2023-06-03 12:45 | MHC.CM.PN ---
PT CLEARED TO DC TODAY, BACK [facility] LEFT FOR PTS GUARDIAN, BREONNA LASSITER [phone] MEDICARE RIGHTS FAXED TO HER AT [phone] [facility] TRANSPORT ARRANGED VIA [facility]
--- NOTE | 2023-06-06 15:15 | P.CONGS_ITS ---
History of Present Illness Consult details Consult date: 05/31/23 Narrative: Malachi Streeter is a 72 year old male, with multiple medical problems including previous CVA, with left-sided hemiparesis, mood is order with tidal ideations, diabetes, cognitive impairment, ex-smoker, brought to the ER from the [facility] because of cellulitis with ulcers of the 1st and 2nd toes. He also says that he has had pain on these toes for 2-3 weeks now. He had been recently on antibiotics because of redness on the area. He is generally nonambulatory and is bed-bound. He denies any trauma to the area. Review of Systems 2 Constitutional: Constitutional: Denies chills and Denies fever(s) Cardiovascular: Cardiovascular: Denies chest pain, Denies dyspnea and Denies dyspnea on exertion Respiratory: Respiratory: Denies cough, Denies dyspnea and Denies dyspnea on exertion Gastrointestinal: Gastrointestinal: Denies hematochezia and Denies change in bowel habits Genitourinary: Genitourinary: Denies hematuria and Denies difficulty urinating Musculoskeletal: Musculoskeletal: Denies back pain and Denies limited range of motion Neurologic: Denies focal weakness and Denies convulsions Psychiatric: Psychiatric: Denies depression and Denies mood swings PMFSH Past Medical History Medical History Toe ulcer Spastic hemiplegia Cognitive impairment Type 2 diabetes mellitus CVA (cerebral vascular accident) Hemiparesis affecting left side as late effect of cerebrovascular accident 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 Cerebral venous thrombosis Transient cerebral ischemia Family History Family history: reviewed and not pertinent Social History Social History Household Members: None Housing: [facility] Do you presently have visiting nurse or other home services: No Patient Tobacco Use Status: Former Tobacco user Quit Date: 1981 Tobacco use type: Cigarette service: Yes Current occupational status: disabled Meds Allergies Allergy/AdvReac Type Severity Reaction Status Date / Time No Known Allergies Allergy Verified 05/09/22 10:25 Home Medications Medication Instructions Recorded Confirmed Last Taken Type aspirin 325 mg tablet 325 mg PO DAILY 10/29/21 05/30/23 10/29/21 History sennosides 8.6 mg tablet (senna) 8.6 mg PO DAILY PRN Constipation 10/29/21 05/30/23 Unknown History acetaminophen 325 mg tablet 650 mg PO Q6H PRN Pain 05/30/23 05/30/23 Unknown History ibuprofen 200 mg tablet 800 mg PO Q6H PRN Pain (Scale 05/30/23 05/30/23 Unknown History Score 4-6) oxycodone-acetaminophen 5 mg-325 1 tab PO Q6H PRN Severe Pain 05/30/23 05/30/23 Unknown History mg tablet (Scale Score 7-10) tramadol 50 mg tablet 50 mg PO Q8H PRN Severe Pain 05/30/23 05/30/23 Unknown History (Scale Score 7-10) Physical Exam 2 Vital Signs: Vital Signs: Last Vital Signs Temp 97.5 F 06/03/23 07:19 Pulse 80 06/03/23 07:19 Resp 17 06/03/23 07:19 BP 129/72 06/03/23 07:19 Pulse Ox 97 06/03/23 07:19 O2 Del Method Room Air 06/03/23 07:19 BMI result Body Mass Index 20.8 Extrem: Other: Chronic trophic changes on both legs; superficial ulceration on the tip of the toe on the left, about 1 x 1.5 cm, dry, mild cellulitis; on the 2nd toe dorsal aspect is a similar superficial ulcer, dry, about 1 x 2 cm, also with mild cellulitic surrounding skin Results Labs 06/02/23 10:08 06/03/23 11:13 Labs: All other labs normal. Laboratory Results WBC 6.1 X10*3/uL (4.8-10.8) 06/02/23 10:08 RBC 4.84 X10*6/uL (4.60-5.80) 06/02/23 10:08 Hgb 13.6 g/dl (14.0-18.0) L 06/02/23 10:08 Hct 40.4 % (42.0-52.0) L 06/02/23 10:08 MCV 83.5 fL (80.0-98.0) 06/02/23 10:08 MCH 28.1 pg (27.0-33.0) 06/02/23 10:08 MCHC 33.7 g/dl (31.0-36.0) 06/02/23 10:08 RDW 12.8 % (11.0-16.0) 06/02/23 10:08 Plt Count 244 X10*3/uL (160-400) 06/02/23 10:08 MPV 8.6 fL (9.4-12.4) L 06/02/23 10:08 Immature Gran % (Auto) 0.4 % (0.0-0.4) 05/30/23 17:35 Neut % (Auto) 68.9 % (45-73) 05/30/23 17:35 Lymph % (Auto) 21.6 % (20-40) 05/30/23 17:35 [place] % (Auto) 7.3 % (2-11) 05/30/23 17:35 Eos % (Auto) 1.1 % (0-4) 05/30/23 17:35 Baso % (Auto) 0.7 % (0-2) 05/30/23 17:35 Lymph # (Auto) 1.5 X10*3/uL (1.2-4.9) 05/30/23 17:35 [place] # (Auto) 0.5 X10*3/uL (0.1-1.2) 05/30/23 17:35 Eos # (Auto) 0.1 X10*3/uL (0.0-0.4) 05/30/23 17:35 Baso # (Auto) 0.1 X10*3/uL (0.0-0.2) 05/30/23 17:35 Abs Immat Gran (auto) 0.03 X10*3/uL (0.00-0.03) 05/30/23 17:35 Absolute Neuts (auto) 4.8 x10*3/uL (2.0-8.3) 05/30/23 17:35 Absolute Nucleated RBC 0.000 X10*3/uL (0.0-0.012) 06/02/23 10:08 Nucleated RBC % (auto) 0.0 /100WBC (0.0-0.2) 06/02/23 10:08 ESR 17 MM/HR (0-15) H 05/30/23 17:35 Sodium 140 mmol/L (135-145) 06/02/23 10:08 Potassium 3.9 mmol/L (3.3-5.1) D 06/02/23 10:08 Chloride 106 mmol/L (96-108) 06/02/23 10:08 Carbon Dioxide 27 mmol/L (22-29) 06/02/23 10:08 Anion Gap 11 (12-20) L 06/02/23 10:08 BUN 13 mg/dL (9-16) 06/02/23 10:08 Creatinine 0.71 mg/dL (0.5-1.4) 06/03/23 11:13 Estim Creat Clear Calc 89.8 06/03/23 11:13 Estimated GFR > 60 06/03/23 11:13 POC Glucose 102 mg/dL (60-115) 06/03/23 11:13 Random Glucose 106 mg/dL (60-115) 06/02/23 10:08 Estimat Average Glucose 100 mg/dL 05/30/23 17:35 Hemoglobin A1c % 5.1 % (<6.0) 05/30/23 17:35 Lactic Acid 1.3 mmol/L (0.5-2.0) 05/30/23 17:35 Calcium 9.6 mg/dL (8.4-10.2) 06/02/23 10:08 Total Bilirubin 0.3 mg/dL (0.0-1.0) 05/30/23 17:35 Direct Bilirubin 0.1 mg/dL (0.0-0.5) 05/30/23 17:35 AST 24 U/L (5-37) 05/30/23 17:35 ALT 20 U/L (0-40) 05/30/23 17:35 Alkaline Phosphatase 107 U/L (39-117) 05/30/23 17:35 C-Reactive Protein 0.44 mg/dL (< or = 0.50) 05/30/23 17:35 Total Protein 7.5 g/dL (6.5-8.0) 05/30/23 17:35 Albumin 3.6 g/dL (3.5-5.0) 05/30/23 17:35 Vancomycin Trough 13.4 mcg/mL (10.0-20.0) 06/01/23 07:12 Random Vancomycin 11.0 mcg/mL (15-20) L 06/02/23 10:12 Impressions Foot X-Ray 05/30/23 17:12 IMPRESSION: 1. Mild cortical irregularity of the tuft of the distal phalanx great toe raising the possibility of mild early erosion, in the setting of cellulitis, cannot rule out osteomyelitis. Please correlate with area of tenderness. This can be confirmed by bone scan or MRI with contrast. 2. Underlying degenerative osteoarthritis. 3. Heavy vascular calcifications. Duplex Scan Lower Extremity Artery 05/30/23 20:03 IMPRESSION: There is Doppler imaging evidence of hemodynamically significant atherosclerotic peripheral vascular disease. This is primarily observed below the level of the knee. The most significant Doppler imaging finding is occlusion of the posterior tibial artery in the [id number] third of the leg. The anterior tibial, dorsalis pedis and peroneal arteries have abnormal monophasic waveforms. Bone Scan Nuclear Medicine 06/01/23 14:30 IMPRESSION: Abnormal three-phase bone scan centering over the left great toe, suspicious for osteomyelitis. Follow-up MRI and/or limited F-18 FDG PET/CT study as appropriate may be considered for further clarification. Procedures Date of Service Date of Service: 06/06/23
== END 2023-06-03 13:06 | DRG 300 ==
LOC: HO.ED 17:47 → HO.EDOVER 19:47 → HO.S3 05-31 13:54
PROVIDERS: Physician Assistant Medical; Student in an Organized Health Care Education/Training Program; Admitting Provider Physician Assistant; Emergency Provider Emergency Medicine; PCP Hospitalist; Visit Provider Nurse Practitioner Acute Care
PROC: 02HV33Z Insertion of Infusion Device into Superior Vena Cava, Percutaneous Approach (ICD-10-PCS; principal; 2023-06-02 13:30)
DX: E11.52 Type 2 diabetes mellitus with diabetic peripheral angiopathy with gangrene (principal); I69.354 Hemiplegia and hemiparesis following cerebral infarction affecting left non-dominant side; I70.262 Atherosclerosis of native arteries of extremities with gangrene, left leg; M86.9 Osteomyelitis, unspecified; L97.529 Non-pressure chronic ulcer of other part of left foot with unspecified severity; E11.69 Type 2 diabetes mellitus with other specified complication; Z66 Do not resuscitate; L03.032 Cellulitis of left toe; D64.9 Anemia, unspecified; F39 Unspecified mood [affective] disorder; I69.319 Unspecified symptoms and signs involving cognitive functions following cerebral infarction; Z87.891 Personal history of nicotine dependence; Z79.82 Long term (current) use of aspirin; Z79.899 Other long term (current) drug therapy
CPT/HCPCS: 36415; 36573; 73620; 78315; 80048; 80076; 80202; 82565; 82947; 83036; 83605; 85025; 85027; 85652; 86140; 87040; 93926; 99285; A9503; C1751; C1894; J1644; J2543; J3370

== ENCOUNTER → 2023-05-30 19:29 | Outpatient (BNV) | payer OTHER, SELFPAY | PROVIDERS: Admitting Provider Physician Assistant; Emergency Provider Emergency Medicine; PCP Hospitalist; Visit Provider Internal Medicine | DX: M86.9 Osteomyelitis, unspecified (principal); L97.509 Non-pressure chronic ulcer of other part of unspecified foot with unspecified severity | CPT/HCPCS: 99222 ==

== ENCOUNTER → 2023-05-30 19:29 | Outpatient (BNV) | payer OTHER, SELFPAY | PROVIDERS: Admitting Provider Physician Assistant; Emergency Provider Emergency Medicine; PCP Hospitalist; Visit Provider Surgery | DX: L97.509 Non-pressure chronic ulcer of other part of unspecified foot with unspecified severity (principal) | CPT/HCPCS: 99222; 99232 ==

== ENCOUNTER → 2023-05-30 19:29 | Outpatient (BNV) | payer OTHER, SELFPAY | PROVIDERS: Admitting Provider Physician Assistant; Emergency Provider Emergency Medicine; PCP Hospitalist; Visit Provider Surgery Vascular Surgery | DX: L03.032 Cellulitis of left toe (principal) | CPT/HCPCS: 99222 ==

== ENCOUNTER → 2023-05-30 19:29 | Outpatient (BNV) | payer OTHER, MEDICAID, SELFPAY | PROVIDERS: Admitting Provider Physician Assistant; Emergency Provider Emergency Medicine; Visit Provider Physician Assistant | DX: M86.172 Other acute osteomyelitis, left ankle and foot (principal); L97.524 Non-pressure chronic ulcer of other part of left foot with necrosis of bone; E11.69 Type 2 diabetes mellitus with other specified complication | CPT/HCPCS: 99223; 99232; 99233; 99238 ==

== ENCOUNTER 2023-07-11 14:22 | Outpatient (AMB) | payer OTHER, MEDICAID, SELFPAY ==
--- NOTE | 2023-07-11 14:27 | A.OFFVIS_ITS ---
Intake Vital Signs 07/11/23 14:29 Height 6 ft Weight 163 lb BMI 22.1 Intake Visit Reasons: Hospital F/U toe cellulitis Intake Note: Pt here for Hospital Follow up left toe cellulitis. 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 Currently a resident at [facility]. He has a prior history of CVA with left-sided hemiparesis. In addition he is a diabetic. For the most part it appears that he is nonambulatory. He now presents to us for follow-up evaluation. Of note he has had noninvasive arterial testing. [facility] Medical History Toe ulcer Spastic hemiplegia Cognitive impairment Type 2 diabetes mellitus CVA (cerebral vascular accident) Hemiparesis affecting left side as late effect of cerebrovascular accident Hx of group home use of blood thinners Cerebral venous thrombosis Transient cerebral ischemia Social History Household Members: None Housing: Care Home Do you presently have visiting nurse or other home services: No Patient Tobacco Use Status: Former Tobacco user Quit Date: 1981 Tobacco use type: Cigarette service: Yes Current occupational status: disabled Review of Systems Const All systems reviewed & are unremarkable except as noted in HPI and below Reports no additional complaints ENT Reports Normal hearing present Card Denies chest pain, Denies chest pain at rest, Denies chest pain with activity and Denies pedal edema Resp Denies cough GI Denies abdominal pain Musc Denies abnormal gait, Denies muscle cramps and Denies radiating pain into limb Skin/Breast Denies skin ulcer and Denies wounds Neuro Reports Normal hearing present and Denies abnormal gait Psych Reports no additional complaints Physical Exam Vital Signs: BMI result Body Mass Index 22.1 Const General: cooperative, healthy appearing and comfortable Orientation/consciousness: oriented to person, oriented to place and oriented to time HEENT Head: Yes normal to inspection Neck Neck: Yes normal visual inspection Carotids: no bruits Chest Chest palpation & inspection: normal inspection of the chest Resp Effort & Inspection: normal respiratory effort and able to speak in complete sentences Auscultation: clear to auscultation bilaterally, no crackles, no rales, no rhonchi and no wheezes Cardio Rate: regular rate Rhythm: regular rhythm Heart sounds: S1 normal heart sound present and S2 normal heart sound present Bruits: no carotid bruits Peripheral pulses: Peripheral pulses 2+ throughout GI Inspection: Yes normal to inspection Skin Wounds: no wounds Hair: normal Neuro General: oriented to person, oriented to place and oriented to time Cranial nerves: Yes CN's II-XII intact bilaterally and Yes Normal hearing present Cognition (Neuro): normal cognition Motor exam (neuro): 5/5 motor strength present throughout Extrem Other: venous exam: No significant superficial varicosities or spider telangiectasias, minimal edema General: No clubbing, No cyanosis and No edema Psych Appearance: grossly normal Mental Status: mental status grossly normal Speech and movement: Normal speech and movement present Results Reviewed Results Reviewed: Noninvasive arterial testing dated 05/30/2023 demonstrates significant peripheral vascular disease with the majority of disease being below-knee. Written report and images were reviewed. Assessment & Plan Assessment & Plan (1) Toe ulcer: Code(s): L97.509 - Non-pressure chronic ulcer of other part of unspecified foot with unspecified severity Qualifiers: Laterality: unspecified laterality Non-pressure ulcer stage: unspecified non-pressure ulcer stage Qualified Code(s): L97.509 - Non-pressure chronic ulcer of other part of unspecified foot with unspecified severity Plan: In short patient has nonhealing ulcer. At the current time it looks dry and stable. I would not intervene on this gentleman. He is mostly nonambulatory. Should this progress are go further would recommend amputations only. Will follow up with us on an as-needed basis. Thank you for allowing us to assist in his care. Coding Level of Care Code Est Pt Level 4 (71605) Diagnoses Ulcer of toe, unspecified laterality, unspecified ulcer stage L97.509 Laterality: unspecified laterality Non-pressure ulcer stage: unspecified non-pressure ulcer stage
[2023-07-11 14:29] VITALS: BMI 22.1
== END 2023-07-11 15:16 | disposition home or self-care (01) ==
PROVIDERS: PCP Hospitalist; Visit Provider Surgery Vascular Surgery
DX: E11.621 Type 2 diabetes mellitus with foot ulcer (principal); L97.509 Non-pressure chronic ulcer of other part of unspecified foot with unspecified severity
CPT/HCPCS: 99213

== ENCOUNTER → 2023-07-11 14:22 | Outpatient (BNVA) | payer OTHER, MEDICARE, MEDICAID, SELFPAY | PROVIDERS: PCP Hospitalist; Visit Provider Surgery Vascular Surgery | DX: E11.621 Type 2 diabetes mellitus with foot ulcer (principal); L97.529 Non-pressure chronic ulcer of other part of left foot with unspecified severity; E11.51 Type 2 diabetes mellitus with diabetic peripheral angiopathy without gangrene | CPT/HCPCS: 99212 ==

== ENCOUNTER 2023-07-15 01:39 | Inpatient (IN) | payer OTHER, MEDICARE, MEDICAID, SELFPAY ==
[2023-07-15] VITALS (7 sets, daily range): BP systolic 109–149; BP diastolic 50–76; PULSE 69–125; RESP 12–19; TEMP 36.2–37.2; O2SAT 95–97; BMI 20.7
--- NOTE | ~2023-07-15 | CT_ITS ---
EXAMINATION: CT abdomen pelvis w IV con CLINICAL INFORMATION: Reason for Exam abd pain, vomiting, leukocytosis COMPARISON: No prior CT available for comparison. TECHNIQUE: Multidetector volumetric imaging was performed from the superior aspect of the liver through the pubic symphysis 85 mL of Omnipaque 350 injected Sagittal and coronal reformatted images were obtained on the technologist's workstation. This CT examination was performed using dose optimization techniques as appropriate, variously including the following: *Automated exposure control *Adjustment of mA and/or kV according to patient size (this includes techniques or standardized protocols for targeted exams where dose is matched to indication/reason for exam; i.e. extremities or head) *Use of iterative reconstruction technique DLP: 747 mGy-cm FINDINGS: LOWER THORAX: Included lung bases are clear. HEPATOBILIARY: Diffusely hypodense liver suggesting hepatic steatosis. No focal hepatic lesions. No biliary ductal dilatation. GALLBLADDER: Gallbladder unremarkable. SPLEEN: Spleen is normal in size. PANCREAS: No focal mass or ductal dilatation. STOMACH AND GASTROINTESTINAL TRACT: Stomach is distended, there is air-fluid level, Raising concern for possible gastric outlet obstruction due to mechanical and/or neoplastic process versus functional paralysis. There is excess amount of stool in the colon especially the rectum suggesting fecal impaction, constipation. No CT evidence of appendicitis. ADRENALS: No adrenal nodules. KIDNEYS/URETERS: No hydronephrosis, stones or solid mass lesions. URINARY BLADDER: Partially decompressed. PELVIC VISCERA: Prostate is enlarge 4.7 x 4.5 cm indenting on the urinary bladder floor. PERITONEUM: No free air or fluid. LYMPH NODES: No lymphadenopathy. VASCULAR:There is fusiform infrarenal abdominal aortic aneurysm 4.6 x 4.7 cm transversely and about 6.7 cm craniocaudally, the lumen of which is partially thrombosed, the patent lumen is about 6 2.4 x 1.9 cm. The wall of the aorta is heavily calcified. The aneurysm is approximately 3 cm from the aortic bifurcation and 2 cm below the origin of the renal arteries. BONES, ABDOMINAL WALL AND SOFT TISSUES: Advanced degenerative disease of the lumbar spine, dextroscoliosis, degenerative arthritis of hip joints, symphysis pubis and SI joints. CT/CT abdomen pelvis w IV con IMPRESSION: 1. Markedly dilated distended gastric lumen, there is air-fluid level, Raising concern for possible gastric outlet obstruction, this could be due to mechanical and/or neoplastic process causing obstruction versus neurological functional paralysis. I do not see large obstructing mass, consider GI consultation, Gastrografin and/or upper GI barium study could be useful for further assessment. 2. Excess amount of stool in the colon especially the rectum suggesting fecal impaction, constipation. 3. Fusiform infrarenal abdominal aortic aneurysm 4.6 x 4.7 cm transversely and 6.7 cm craniocaudally, the lumen of which is partially thrombosed, the patent lumen is about 2.4 x 1.9 cm. Based on published guidelines in J Am Cheri Radiol 2013; 10(10):789-794 and J Vasc Surg. 2018; 67:2-77, the recommendation for an abdominal aortic aneurysm with diameter 4.5-5.4 cm is vascular consultation and subsequent follow-up every 6 months. 4. Prostatomegaly. 5. Other noncritical findings as above.
--- NOTE | ~2023-07-15 | FL_ITS ---
EXAMINATION: XR FLUOROSCOPY UPPER GI CLINICAL INFORMATION: Concern for gastric outlet obstruction COMPARISON: CT scan 07/15/23 TECHNIQUE: Fluoroscopic air contrast upper GI examination was performed utilizing standard techniques with thin barium. Numerous spot images were obtained. FINDINGS: Exam extremely limited as the patient was unable to position or tilt for optimal images of the upper GI structures, due to prior stroke. Particularly, the patient could not tilt to move the barium out of the fundus of the stomach to the antrum. Limited single contrast images of the esophagus demonstrate normal caliber, contour, and mucosal pattern. No evidence of stricture, mass, or ulcerations identified. Esophageal peristalsis was normal. No obvious hiatal hernia is present. No significant gastroesophageal reflux was seen during the course of this limited examination. Evaluation of the stomach is limited due to patient's inability to tolerate additional contrast and inability to be adequately positioned due to contractures from prior stroke. The contrast remains in the fundus the stomach. Multiple films were taken 30 minutes and 60 minutes after the examination, which demonstrates the contrast still located in the fundus the stomach. Review of the recent CT examination 07/15/2023 shows no mass or definite etiology for gastric outlet obstruction. Abundant stool seen throughout the colon and rectum on that examination. Aortic aneurysm incidentally noted as previously described. FLUOROSCOPY TIME: 1 minute 41 second Number of Spot Images: 3 Number of Cine: 2 DOSE AREA PRODUCT: 693.5 uGy-m2 (microgray-meter squared) FL/FL upper GI series IMPRESSION: 1. Very limited study. Contrast remains in the fundus of the stomach 1 hour after the examination. A gastric outlet obstruction cannot be ruled out. 2. Review of recent CT abdomen and pelvis 07/15/2023 demonstrates no mass or other definite etiology for gastric outlet obstruction at that time. This procedure was performed by Pravin Smith PA-C, and supervised by Dr. Alicia
--- NOTE | ~2023-07-15 | XR_ITS ---
EXAMINATION: XR ABDOMEN KUB CLINICAL INDICATION: Gastric outlet obstruction COMPARISON: None available. TECHNIQUE: AP view of the abdomen. FINDINGS: Patient is contracted and rotated on the study. Stool and air seen throughout colon to the rectum. Scattered air-filled loops of small bowel are noted. No significant gastric distention. Prominent vascular calcification seen with abdominal aortic aneurysm better demonstrated on the recent CT scan. XR/XR KUB IMPRESSION: Scattered air-filled loops of small bowel. Stool and air seen throughout colon to the rectum.
--- NOTE | ~2023-07-15 | XR_ITS ---
EXAMINATION: XR CHEST CLINICAL INFORMATION: Leukocytosis. Vomiting. COMPARISON: None available. TECHNIQUE: Frontal view of the chest was obtained. Today's examination is mildly limited due to difficulties with patient positioning. FINDINGS: Cardiac silhouette is normal in size. Atherosclerotic disease of the aortic arch. Right upper extremity PICC line with catheter tip terminating within the mid SVC. The lungs are adequately aerated. No gross lobar consolidation. No large pleural effusion. No pneumothorax. Moderate degenerative changes of the spine. XR/XR chest 1V IMPRESSION: No acute pulmonary pathology.
--- NOTE | 2023-07-15 04:23 | ED_ITS ---
HPI - Nausea/Vomiting/Diarrhea General Chief complaint: Nausea/Vomiting/Diarrhea Stated complaint: brown vomit Time Seen by Provider: 07/15/23 04:07 Source: patient Mode of arrival: ambulatory Limitations: no limitations History of Present Illness HPI Narrative: Patient comes to the emergency room from [facility] by ambulance. According to the staff, patient vomited ?brown stuff . Patient denies any abdominal pain. Patient is currently being treated with p.o. ertapenem for osteomyelitis. Related Data Home Medications Medication Instructions Recorded Confirmed aspirin 325 mg tablet 325 mg PO DAILY 10/29/21 05/30/23 sennosides 8.6 mg tablet (senna) 8.6 mg PO DAILY PRN Constipation 10/29/21 05/30/23 acetaminophen 325 mg tablet 650 mg PO Q6H PRN Pain 05/30/23 05/30/23 ibuprofen 200 mg tablet 800 mg PO Q6H PRN Pain (Scale 05/30/23 05/30/23 Score 4-6) oxycodone-acetaminophen 5 mg-325 1 tab PO Q6H PRN Severe Pain 05/30/23 05/30/23 mg tablet (Scale Score 7-10) tramadol 50 mg tablet 50 mg PO Q8H PRN Severe Pain 05/30/23 05/30/23 (Scale Score 7-10) Previous Rx's Medication Instructions Recorded ertapenem 1 gram solution for 1 g IM DAILY 6 weeks #5 ea 06/03/23 injection ondansetron 4 mg disintegrating 4 mg PO Q6H PRN nausea and 07/15/23 tablet vomiting #14 tabs pantoprazole 40 mg tablet,delayed 40 mg PO DAILY #14 tabs 07/15/23 release (Protonix) Allergies Allergy/AdvReac Type Severity Reaction Status Date / Time No Known Allergies Allergy Verified 07/15/23 01:55 Review of Systems 2 Review of Systems: Constitutional : No Weight loss, No Fever, No Chills, No Night Sweats, No Fatigue, No Malaise ENT/Mouth : No Hearing loss, No Ear Pain, No Nasal Congestion, No Sinus Pain, No Hoarseness, No sore throat, No Rhinorrhea, No Swallowing Difficulty Eyes: No Eye Pain, No Swelling, No Redness, No Foreign Body, No Discharge, No Vision Changes Cardiovascular : No Chest Pain, No SOB, No Dyspnea on Exertion, No Orthopnea, No Edema, No Palpitations Respiratory : No Cough, No Sputum, No Wheezing, No Smoke Exposure, No Dyspnea Gastrointestinal : No Nausea, 1 episode of Vomiting, No Diarrhea, No Constipation, No abdominal Pain, No Hematochezia, No Melena Genitourinary : no irregular bleeding, No Dysuria, No Urinary Frequency, No Hematuria, No Urinary Incontinence, No Urgency, No Flank Pain, No Urinary Flow Changes, No Hesitancy Musculoskeletal : No joint pain, No Myalgias, No Joint Swelling Skin : No Skin Lesions, No rash Neuro : No Weakness, No Numbness, No Paresthesias, No Loss of Consciousness, No Dizziness, No Headache Psych : No Anxiety/Panic, No Depression, No SI/HI/AH/VH, No Social Issues, Heme/Lymph: No Bruising, No Bleeding,No Lymphadenopathy Endocrine : No Polyuria, No Polydipsia, No Temperature Intolerance PMFSH Past Medical History Medical History Toe ulcer Spastic hemiplegia Cognitive impairment Type 2 diabetes mellitus CVA (cerebral vascular accident) Hemiparesis affecting left side as late effect of cerebrovascular accident 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 Cerebral venous thrombosis Transient cerebral ischemia Social History Social History Household Members: None Housing: [facility] Do you presently have visiting nurse or other home services: No Patient Tobacco Use Status: Former Tobacco user Quit Date: 1981 Tobacco use type: Cigarette Advance Directives: Yes Advance Directives on File: Yes Advance Directives Date on File: 11/04/21 service: Yes Current occupational status: disabled Physical Exam 2 Vital Signs: Vital Signs: Last Vital Signs Temp 97.9 F 07/15/23 06:33 Pulse 108 H 07/15/23 06:33 Resp 15 07/15/23 06:33 BP 123/76 07/15/23 06:33 Pulse Ox 97 07/15/23 06:33 O2 Del Method Room Air 07/15/23 06:33 BMI result Body Mass Index 20.7 Const: Other: Appearance: Alert. Oriented X3. No acute distress. Eyes: Pupils equal, round and reactive to light. ENT: Pharynx normal. Neck: Normal inspection. Neck supple. No lymph nodes noted. No crepitus CVS: Normal heart rate and rhythm. Pulses normal. Normal S1 and S2 Respiratory: No respiratory distress. Breath sounds normal. No Wheezing. No rales Abdomen: Soft and nontender. No rigidity. No distention. Digital rectal exam shows brown stool Skin: Skin warm and dry. Normal skin color. Normal skin turgor. Healing ulcers in the feet, no signs of worsening infection Extremities: No lower extremity edema. No Lacerations. No Rash Neuro: Oriented X 3. No motor deficit. No sensory deficit. Moving all extremities. No slurred speech. CN 2 through 12 grossly intact Psych: calm, cooperative, normal affect Course Course Course Narrative: Labs and guaiac test pending Patient has no complaint Vitals stable Medications Administered Discontinued Medications Generic Name Dose Route Start Last Admin Trade Name Freq PRN Reason Stop Dose Admin Sodium Chloride 1,000 mls @ 999 mls/hr 07/15/23 05:15 07/15/23 06:40 Ns IVCONT 07/15/23 06:15 Infused .Q1H1M ONE Infusion Pantoprazole Sodium 80 mg 07/15/23 05:15 07/15/23 05:34 Pantoprazole Sodium 40 Mg/10 Ml Vial IVPUSH 07/15/23 05:16 80 mg ONCE ONE Administration Medical Decision Making Medical Decision Making [facility] Narrative: -my interpretation of EKG: Sinus tachycardia, heart rate 132, no ST segment depression or elevation, no T-wave inversion, QTC 521 -my interpretation of labs, white blood cell count 50.6, patient being currently treated for osteomyelitis, chemistry within normal limits, gastric occult test positive but blood in the stool was negative. -GI bleed likely secondary from retching. Patient has not had bright red blood vomiting in the ED. after nausea medication was given to the patient, patient has not vomited. -patient receiving IV fluids, patient came in slightly tachycardic, no fever, normal blood pressure, sepsis not suspected -we will obtain another hematology level 2 hours from the previous 1, if stable, likely to be discharged, GI bleed secondary to retching. Patient is not on blood thinners. It is expected that the hemoglobin count will be lower than the 1st 1 since patient is getting IV fluids CBC has been drawn, results pending -since patient received IV fluids, hemoglobin expected to dropped to approximately 13 -patient remained stable, no complaints, no vomiting in the ED. -sign out given to my colleage VENKAT Pappas Differential Diagnosis Differential Diagnoses: The differential diagnosis associated with the presentation includes (Medication side effect, gastritis, gastroenteritis) Admission/Observation Consideration of admission/observation: Escalation of care including admission/observation considered (Given patient's recent admissions and past medical history, admission considered) Lab Data MDM Lab Attestation statement: I reviewed the patient's lab results. 07/15/23 04:45 07/15/23 04:45 Labs: Lab Results 07/15/23 07/15/23 07/15/23 Range/Units 04:37 04:45 04:54 WBC 15.6 H (4.8-10.8) X10*3/uL RBC 5.36 (4.60-5.80) X10*6/uL Hgb 15.2 (14.0-18.0) g/dl Hct 44.8 (42.0-52.0) % MCV 83.6 (80.0-98.0) fL MCH 28.4 (27.0-33.0) pg MCHC 33.9 (31.0-36.0) g/dl RDW 12.6 (11.0-16.0) % Plt Count 212 (160-400) X10*3/uL MPV 9.1 L (9.4-12.4) fL Immature Gran % (Auto) 0.3 (0.0-0.4) % Neut % (Auto) 89.7 H (45-73) % Lymph % (Auto) 5.8 L (20-40) % [place] % (Auto) 4.0 (2-11) % Eos % (Auto) 0.1 (0-4) % Baso % (Auto) 0.1 (0-2) % Lymph # (Auto) 0.9 L (1.2-4.9) X10*3/uL [place] # (Auto) 0.6 (0.1-1.2) X10*3/uL Eos # (Auto) 0.0 (0.0-0.4) X10*3/uL Baso # (Auto) 0.0 (0.0-0.2) X10*3/uL Abs Immat Gran (auto) 0.04 H (0.00-0.03) X10*3/uL Absolute Neuts (auto) 14.0 H (2.0-8.3) x10*3/uL Absolute Nucleated RBC 0.000 (0.0-0.012) X10*3/uL Nucleated RBC % (auto) 0.0 (0.0-0.2) /100WBC Sodium 142 (135-145) mmol/L Potassium 3.9 (3.3-5.1) mmol/L Chloride 102 (96-108) mmol/L Carbon Dioxide 27 (22-29) mmol/L Anion Gap 17 (12-20) BUN 26 H (9-16) mg/dL Creatinine 0.79 (0.5-1.4) mg/dL Estim Creat Clear Calc 80.2 Estimated GFR > 60 Random Glucose 161 H (60-115) mg/dL Calcium 10.1 (8.4-10.2) mg/dL Total Bilirubin 0.6 (0.0-1.0) mg/dL Direct Bilirubin 0.3 (0.0-0.5) mg/dL AST 21 (5-37) U/L ALT 32 (0-40) U/L Alkaline Phosphatase 155 H (39-117) U/L Total Protein 7.9 (6.5-8.0) g/dL Albumin 3.7 (3.5-5.0) g/dL Lipase 15 (8-78) U/L Gastric Occult Blood POSITIVE (NEG) Stool Occult Blood NEGATIVE (NEGATIVE) Critical Care Time Critical Care Time Critical Care Time: Yes Total Critical Care Time: 45 Attestation: I have personally provided critical care time. Time includes review of lab data, radiology results, discussion with consultants, and monitoring for potential decompensation. Intervention performed as documented. Discharge Plan Discharge Clinical Impression: Vomiting Patient Disposition: Home, Self-Care Instructions: Acute Nausea and Vomiting (ED) Additional Instructions: Please follow-up with your primary care physician tomorrow. If you have any worsening or new symptoms, please return to the emergency room or call 911 Prescriptions: New ondansetron 4 mg tablet,disintegrating 4 mg PO Q6H PRN (Reason: nausea and vomiting) Qty: 14 0RF pantoprazole [Protonix] 40 mg tablet,delayed release (DR/EC) 40 mg PO DAILY Qty: 14 0RF No Action aspirin 325 mg Tablet 325 mg PO DAILY sennosides [senna] 8.6 mg Tablet 8.6 mg PO DAILY PRN (Reason: Constipation) acetaminophen 325 mg Tablet 650 mg PO Q6H PRN (Reason: Pain) tramadol 50 mg Tablet 50 mg PO Q8H PRN (Reason: Severe Pain (Scale Score 7-10)) oxycodone-acetaminophen 5-325 mg Tablet 1 tab PO Q6H PRN (Reason: Severe Pain (Scale Score 7-10)) ibuprofen 200 mg Tablet 800 mg PO Q6H PRN (Reason: Pain (Scale Score 4-6)) ertapenem 1 gram recon soln 1 g IM DAILY 42 Days Qty: 5 0RF
--- NOTE | 2023-07-15 04:27 | ECG_ITS ---
Test Reason : TACHY Blood Pressure : / mmHG Vent. Rate : 132 BPM Atrial Rate : 132 BPM P-R Int : 164 ms QRS Dur : 080 ms QT Int : 352 ms P-R-T Axes : 037 -78 000 degrees QTc Int : 521 ms Sinus tachycardia Left axis deviation Inferior-posterior infarct (cited on or before 03-JAN-2021) Anterolateral infarct , age undetermined Abnormal ECG When compared with ECG of 16-MAR-2023 13:25, Vent. rate has increased BY 58 BPM Anterior infarct is now Present Anterolateral infarct is now Present ST now depressed in Anterolateral leads Referred By: Blas Hudson Electronically Signed By:Willem Boyd
[2023-07-15 04:49] LABS: Basophils Percent Auto 0.1 % (0-2); Eosinophils Percent Auto 0.1 % (0-4); Hematocrit 44.8 % (42.0-52.0); Hemoglobin 15.2 g/dl (14.0-18.0); Imm Gran Abs Auto 0.04 X10*3/uL (0.00-0.03); Imm Gran Pct Auto 0.3 % (0.0-0.4); Lymphocytes Absolute Auto 0.9 X10*3/uL (1.2-4.9); Lymphocytes Percent Auto 5.8 % (20-40); MANUAL DIFF FLAG NO; Mean Corpuscular HGB Conc 33.9 g/dl (31.0-36.0); Mean Corpuscular Hemoglobin 28.4 pg (27.0-33.0); Mean Corpuscular Volume 83.6 fL (80.0-98.0); Mean Platelet Volume 9.1 fL (9.4-12.4); Monocytes Absolute Auto 0.6 X10*3/uL (0.1-1.2); Neutrophils Percent Auto 89.7 % (45-73); Platelet Count 212 X10*3/uL (160-400); Red Blood Count 5.36 X10*6/uL (4.60-5.80); Red Cell Distribution Width 12.6 % (11.0-16.0); White Blood Count 15.6 X10*3/uL (4.8-10.8)
[2023-07-15 04:52] LABS: OBS Int Ctl Valid YES; OBS1 NEGATIVE (NEGATIVE)
[2023-07-15 05:03] LABS: GASOB Int Neg Ctl Valid YES; GASOB Int Pos Ctl Valid YES; Occult Blood Gastric POSITIVE (NEG)
[2023-07-15 05:07] LABS: Alanine Aminotransferase 32 U/L (0-40); Albumin Level 3.7 g/dL (3.5-5.0); Alkaline Phosphatase 155 U/L (39-117); Anion Gap 17 (12-20); Aspartate Amino Transferase 21 U/L (5-37); Bilirubin Direct 0.3 mg/dL (0.0-0.5); Bilirubin Total 0.6 mg/dL (0.0-1.0); Blood Urea Nitrogen 26 mg/dL (9-16); Calcium 10.1 mg/dL (8.4-10.2); Carbon Dioxide 27 mmol/L (22-29); Chloride 102 mmol/L (96-108); Creatinine Clr Calc Pharmacy 80.2; Estimated Glomerular Filt Rate > 60; Glucose Random 161 mg/dL (60-115); Lipase 15 U/L (8-78); Potassium 3.9 mmol/L (3.3-5.1); Sodium 142 mmol/L (135-145); Total Protein 7.9 g/dL (6.5-8.0)
[2023-07-15] MEDS: Pantoprazole Sodium 40 MG/10 ML VIAL 80 MG IVPUSH (05:34)
[2023-07-15] MEDS: 0.9 % Sodium Chloride 1,000 ML 999 ML IVCONT (05:34)
[2023-07-15 07:37] LABS: Hematocrit 43.9 % (42.0-52.0); Hemoglobin 14.1 g/dl (14.0-18.0); Mean Corpuscular HGB Conc 32.1 g/dl (31.0-36.0); Mean Corpuscular Hemoglobin 27.6 pg (27.0-33.0); Mean Corpuscular Volume 85.9 fL (80.0-98.0); Mean Platelet Volume 9.1 fL (9.4-12.4); Platelet Count 186 X10*3/uL (160-400); Red Blood Count 5.11 X10*6/uL (4.60-5.80); Red Cell Distribution Width 12.5 % (11.0-16.0)
--- NOTE | 2023-07-15 08:07 | PC.NURSE ---
Assumed care of this patient at 0700, patient resting quietly in bed at this time.
[2023-07-15 09:20] LABS: Appearance Urine Clear; Color Urine Dark Yellow; Glucose Urine UA Negative (Negative); Leukocyte Esterase Urine Trace (Negative); Nitrite Urine Negative (Negative); PH 6.5 (5.0-9.0); Specific Gravity - Urine 1.025 (1.005-1.025); UMIC TRIGGER UACC YES; Urine Blood Negative (Negative); Urine Ketones Trace mg/dL (Negative); Urine Protein 30 (1+) mg/dL (Neg-Trace)
[2023-07-15 09:23] LABS: Bacteria Urine None Seen (None Seen); Hyaline Casts Urine 0-2 /LPF (0-2); RBC Urine 0-2 /HPF (0-2); Squamous Epithelial Cell Urine 0-2 /HPF (0-2); UACC Culture Trigger YES
[2023-07-15] MEDS: iohexoL 350 MG/ML 100 ML INFUS..BTL 85 ML IV (09:59)
--- NOTE | 2023-07-15 12:11 | P.HPHOSP_ITS ---
History of Present Illness Date of Service: 07/15/23 Attending physician on admission: Blas Hudson Chief Complaint: vomiting, hematemesis 72-year-old male with history of cerebral venous thrombosis, history of CVA with sequela of left-sided hemiparesis, unspecified mood disorder with history of suicidal ideation, repeated falls, ali-vtujpox-gldahwmto type 2 diabetes, unspecified cognitive impairment secondary to CVA, spastic hemiplegia, osteopenia, and osteomyelitis of the left toes on po ertapenam who is a former smoker who quit about 30 years ago presents to the ED via EMS from [facility] for evaluation of brown vomitus. The patient has no complaints. Apparently he was briefly nausea in the ED but no further episodes of vomiting. No fevers or chills. He denies abd pain. On arrival, pt initially tachycardic to 125, improved to 95 on admission following IVF. Vitals otherwise stable. There is a leukocytosis of 18 on recheck. Initial h/h 15.2/44.8 repeat 14.1/43.9%. Renal function and lytes normal. Lipase 15. UA unremarkable. CXR unremarkable. CT of the abdomen/pelvis shows markedly dilated distended gastric lumen with air-fluid level raising concern for possible gastric outlet obstruction possibly mechanical versus neoplastic in etiology versus neurological functional paralysis. No obvious obstructing mass seen. There is also excess amount of stool in the colon especially the rectum suggestive of fecal impaction. Incidentally seen is a fusiform infrarenal abdominal aortic aneurysm measuring 4.6 x 4.7 cm transversely and 6.7 cm craniocaudally the lumen of which is partially thrombosed measuring about 2.4 x 1.9 cm. In the ED, as received 1 L IV NS, 80 mg IV pantoprazole Review of Systems 2 Review of Systems: General: No fevers, malaise, unintentional weight loss GI: No abd, nausea. +vomiting, +hematemesis ROS otherwise limited, but no further complaints reported by staff [facility] Medical History Toe ulcer Spastic hemiplegia Cognitive impairment Type 2 diabetes mellitus CVA (cerebral vascular accident) Hemiparesis affecting left side as late effect of cerebrovascular accident Hx of prison use of blood thinners Cerebral venous thrombosis Transient cerebral ischemia Social History Household Members: None Housing: Other Housing Other:: [facility] [place] Do you presently have visiting nurse or other home services: No Unable to assess alcohol history related to: Unable to respond Patient Tobacco Use Status: Former Tobacco user Quit Date: 1981 Tobacco use type: Cigarette Smoked in Last 30 Days: No Use of substances other than those prescribed or required for medical reasons: No Currently Displaying Signs/Symptoms of Drug Intoxication Withdrawal: No Sabianism Healthcare Practices: Mormonism. Advance Directives: Yes Advance Directives on File: Yes Advance Directives Date on File: 11/04/21 Do you have thoughts of harming others: None Do you have a plan to hurt others: No Plan Recently lost weight without trying: Unsure Eating poorly because of decreased appetite: No Nutrition Risks: On aspiration precautions Poor oral hygiene: No service: Yes Current occupational status: [employer] Allergies Allergy/AdvReac Type Severity Reaction Status Date / Time No Known Allergies Allergy Verified 07/15/23 01:55 Active Medications: Current Medications Acetaminophen (Acetaminophen 325 Mg Tablet) 650 mg PO Q6H PRN PRN Reason: Pain, Mild (Pain Scale 1-3) Ondansetron HCl (Ondansetron Hcl 4 Mg/2 Ml Vial) 4 mg IVPUSH Q8H PRN PRN Reason: Nausea and Vomiting Senna (Sennosides 8.6 Mg Tablet) 17.2 mg PO BEDTIME PRN PRN Reason: Constipation Home Medications Medication Instructions Recorded Confirmed Last Taken Type aspirin 325 mg tablet 325 mg PO DAILY 10/29/21 07/15/23 10/29/21 History sennosides 8.6 mg tablet (senna) 8.6 mg PO DAILY PRN Constipation 10/29/21 07/15/23 Unknown History acetaminophen 325 mg tablet 650 mg PO Q6H PRN Fever Or Pain 05/30/23 07/15/23 Unknown History ibuprofen 200 mg tablet 800 mg PO Q6H PRN Pain 05/30/23 07/15/23 Unknown History oxycodone-acetaminophen 5 mg-325 1 tab PO Q6H PRN Severe Pain 05/30/23 07/15/23 Unknown History mg tablet (Scale Score 7-10) baclofen 5 mg tablet 5 mg PO TID 07/15/23 07/15/23 Unknown History ertapenem 1 gram solution for 1 g IV DAILY osteomyelitis 07/15/23 07/15/23 Unknown History injection heparin lock flush (porcine) 10 50 unit IV DAILY 07/15/23 07/15/23 Unknown History unit/mL intravenous solution heparin lock flush (porcine) 10 50 unit IV DAILY PRN IV use 07/15/23 07/15/23 Unknown History unit/mL intravenous solution heparin lock flush (porcine) 10 50 unit IV TID 07/15/23 07/15/23 Unknown History unit/mL intravenous solution sodium chloride 0.9 % (flush) 10 ml IV BID 07/15/23 07/15/23 Unknown History sodium chloride 0.9 % (flush) 10 ml IV DAILY PRN flush 07/15/23 07/15/23 Unknown History sodium chloride 0.9 % (flush) 10 ml IV TID 07/15/23 07/15/23 Unknown History Physical Exam 2 Vital Signs and Narrative: Vital Signs: Last Vital Signs Temp 98.4 F 07/15/23 09:12 Pulse 95 07/15/23 09:12 Resp 12 07/15/23 09:12 BP 109/68 07/15/23 09:12 Pulse Ox 97 07/15/23 09:12 O2 Del Method Room Air 07/15/23 09:12 BMI result Body Mass Index 20.7 Constitutional - Awake and Alert, No apparent distress Eyes - PERRLA, EOMI Cardiovascular - S1S2, RRR, No edema Respiratory - Normal lung expansion, Normal respiratory effort, No respiratory distress, CTA bilaterally Gastrointestinal - NT / ND; +BS; No rebound or guarding Extremities - no calf tenderness bilaterally, no swelling. Contracture BLE Skin - Warm/Dry Neurological - Alert & oriented to self Psychological - Appropriate affect Results Labs 07/16/23 05:06 07/16/23 05:06 Labs: Laboratory Results - last 24 hr 07/15/23 07/15/23 07/15/23 04:37 04:45 04:54 MCV 83.6 MCH 28.4 MCHC 33.9 RDW 12.6 Plt Count 212 MPV 9.1 L Immature Gran % (Auto) 0.3 Neut % (Auto) 89.7 H Lymph % (Auto) 5.8 L [place] % (Auto) 4.0 Eos % (Auto) 0.1 Baso % (Auto) 0.1 Lymph # (Auto) 0.9 L [place] # (Auto) 0.6 Eos # (Auto) 0.0 Baso # (Auto) 0.0 Abs Immat Gran (auto) 0.04 H Absolute Neuts (auto) 14.0 H Absolute Nucleated RBC 0.000 Nucleated RBC % (auto) 0.0 Anion Gap 17 Estim Creat Clear Calc 80.2 Estimated GFR > 60 Random Glucose 161 H Calcium 10.1 Total Bilirubin 0.6 Direct Bilirubin 0.3 AST 21 ALT 32 Alkaline Phosphatase 155 H Total Protein 7.9 Albumin 3.7 Lipase 15 Urine Color Urine Appearance Urine pH Ur Specific [place] Urine Protein Urine Glucose (UA) Urine Ketones Urine Blood Urine Nitrite Ur Leukocyte Esterase Urine RBC Urine WBC Ur Squamous Epith Cells Urine Bacteria Hyaline Casts Gastric Occult Blood POSITIVE Stool Occult Blood NEGATIVE 07/15/23 07/15/23 07:29 09:09 MCV 85.9 MCH 27.6 MCHC 32.1 RDW 12.5 Plt Count 186 MPV 9.1 L Immature Gran % (Auto) Neut % (Auto) Lymph % (Auto) [place] % (Auto) Eos % (Auto) Baso % (Auto) Lymph # (Auto) [place] # (Auto) Eos # (Auto) Baso # (Auto) Abs Immat Gran (auto) Absolute Neuts (auto) Absolute Nucleated RBC 0.000 Nucleated RBC % (auto) 0.0 Anion Gap Estim Creat Clear Calc Estimated GFR Random Glucose Calcium Total Bilirubin Direct Bilirubin AST ALT Alkaline Phosphatase Total Protein Albumin Lipase Urine Color Dark Yellow Urine Appearance Clear Urine pH 6.5 Ur Specific [place] 1.025 Urine Protein 30 (1+) H Urine Glucose (UA) Negative Urine Ketones Trace Urine Blood Negative Urine Nitrite Negative Ur Leukocyte Esterase Trace H Urine RBC 0-2 Urine WBC 6-10 H Ur Squamous Epith Cells 0-2 Urine Bacteria None Seen Hyaline Casts 0-2 Gastric Occult Blood Stool Occult Blood Imaging Radiologist's Impressions: Impressions Chest X-Ray 07/15/23 08:19 IMPRESSION: No acute pulmonary pathology. Abdomen/Pelvis CT 07/15/23 10:10 IMPRESSION: 1. Markedly dilated distended gastric lumen, there is air-fluid level, Raising concern for possible gastric outlet obstruction, this could be due to mechanical and/or neoplastic process causing obstruction versus neurological functional paralysis. I do not see large obstructing mass, consider GI consultation, Gastrografin and/or upper GI barium study could be useful for further assessment. 2. Excess amount of stool in the colon especially the rectum suggesting fecal impaction, constipation. 3. Fusiform infrarenal abdominal aortic aneurysm 4.6 x 4.7 cm transversely and 6.7 cm craniocaudally, the lumen of which is partially thrombosed, the patent lumen is about 2.4 x 1.9 cm. Based on published guidelines in J Am Cheri Radiol 2013; 10(10):789-794 and J Vasc Surg. 2018; 67:2-77, the recommendation for an abdominal aortic aneurysm with diameter 4.5-5.4 cm is vascular consultation and subsequent follow-up every 6 months. 4. Prostatomegaly. 5. Other noncritical findings as above. Assessment and Plan (1) Gastric outlet obstruction: Status: Acute (2) Fecal impaction: Status: Acute Plan 72-year-old male with history of cerebral venous thrombosis, history of CVA with sequela of left-sided hemiparesis, unspecified mood disorder with history of suicidal ideation, repeated falls, jaq-kjoedfu-qtarkngvb type 2 diabetes, unspecified cognitive impairment secondary to CVA, spastic hemiplegia, osteopenia, and osteomyelitis of the left toes on po ertapenam who is a former smoker who quit about 30 years ago admitted for further management of gastrict outlet obstruction with vomiting and hematemesis #Gastric outlet obstruction with hematemesis -NGT decompression per GI. Pt not tolerating NGT. No active vomiting, will continue to observe for now -Keep npo -barium swallow Monday per GI -iv ppi -GI consult -H/H slight drop hct 44.8% --> 43.9% when repeated in ED. No significant anemia -follow h/h #Osteomyelitis left toes -continue IV ertapenam 1g daily, end date 07/15 -discontinue PICC once completed #Fecal impaction -enemas prn, miralax per gi #Abdominal aortic aneurysm -4.6 x 4.7 cm transversely and 6.7cm craniocaudally with partial thrombosis -hold asa given ugib -vascular surgery consult # sup-xpfzzto-bfdecvbyo type 2 diabetes -POC glucose, npo for now, advance to diabetic diet as appropriate -Hold lispo for now while npo # history of CVA/cerebral venous thrombosis -no longer on Eliquis. Continue aspirin 325 mg daily # chronic normocytic anemia -H/H baseline, above transfusion threshold DVT prophylaxis-heparin DNR/DNI per [facility], confirmed with [facility] patient- Saba Anna [phone] Patient requires inpatient stay at least 2 midnights for management of acute cellulitis with necrotic ulceration of the toes requiring IV antibiotics, further imaging studies, expert consultation, possible amputation versus long- term antibiotics if confirmed osteomyelitis Quality Stroke Does the patient have a stroke diagnosis?: No VTE Prior VTE?: No VTE Risk Level:: Medical - moderate - high VTE Device Contraindication: N/A - Device Ordered VTE Drug Contraindication: Treatment Not Indicated
--- NOTE | 2023-07-15 13:00 | PC.NURSE ---
NGT WAS SUCCESSFULLY PLACE AFTER MULTIPLE ATTEMPTS TO INSERT, PT RESISTIVE, NOT FOLLOWING COMMANDS TO SWALLOW, PULLING AT THE TUBE. TUBE WAS EVENTUALLY INSERTED INTO R NARE, AND THROUGHLY SECURED. UPON TAKING CXR FOR CONFIRMATION OF PLACEMENT, PT PULLED THE NGT OUT. VENKAT SMITH ALERTED TO THIS, T/W RECEIVED INSTRUCTIONS TO REATTEMPT.
--- NOTE | 2023-07-15 13:25 | PHA.MEDREC ---
Pharmacy Consult ? Medication Reconciliation Pharmacy has completed the medication reconciliation. Used list from [facility]
[2023-07-15] MEDS: 0.9 % Sodium Chloride 1,000 ML 100 ML IVCONT ×2 (13:27→19:59)
--- NOTE | 2023-07-15 14:15 | PC.NURSE ---
PT REFUSING REINSERTION OF NGT AT THIS TIME. HE IS A&OX4. WAS EXPLAINED THE PURPOSE OF THE NGT, THOUGH HE CONTINUES TO REFUSE. HE HAS NOT HAD ANY EPISODES OF VOMITING SINCE 0700 THIS AM. HOSPITALIST MADE AWARE. PT TO BE TRANSPORTED UPSTAIRS SHORTLY.
[2023-07-15] MEDS: Pantoprazole Sodium 40 MG/10 ML VIAL IVPUSH (16:36)
[2023-07-15] MEDS: Baclofen 10 MG TABLET 5 MG PO (16:37)
[2023-07-15 17:32] LABS: Glucose, Whole Blood 90 mg/dL (60-115)
--- NOTE | 2023-07-15 18:32 | HO.SKINPHOTO ---
Location: Right foot Category: Stage: Length: Width: Depth: cm Location: Right foot Category: Stage: Length: Width: Depth: cm Location: Left foot Category: Stage: Length: Width: Depth: cm Location: Left foot Category: Stage: Length: Width: Depth: cm Location: Category: Stage: Length: Width: Depth: cm Location: Category: Stage: Length: Width: Depth: cm
[2023-07-15 20:27] LABS: Glucose, Whole Blood 82 mg/dL (60-115)
--- NOTE | 2023-07-16 | ECG_ITS ---
Test Reason : chest pain Blood Pressure : / mmHG Vent. Rate : 082 BPM Atrial Rate : 082 BPM P-R Int : 172 ms QRS Dur : 066 ms QT Int : 370 ms P-R-T Axes : 000 -22 000 degrees QTc Int : 432 ms Normal sinus rhythm Inferior infarct , age undetermined Possible Anterolateral infarct , age undetermined Abnormal ECG When compared to the previous EKG of Anterolateral ST depressions have improved. Referred By: Blas Hudson Electronically Signed By:Willem Boyd
[2023-07-16] MEDS: Dextrose 50 % 25 GM/50 ML SYRINGE IVPUSH ×2 (03:38→10:31)
[2023-07-16 03:46] LABS: Glucose, Whole Blood 67 mg/dL (60-115)
[2023-07-16 03:53] VITALS: BP 111/45; PULSE 100; RESP 16; TEMP 36.2; O2SAT 96
--- NOTE | 2023-07-16 03:56 | ECG_ITS ---
Test Reason : CHEST PAIN Blood Pressure : / mmHG Vent. Rate : 112 BPM Atrial Rate : 112 BPM P-R Int : 188 ms QRS Dur : 078 ms QT Int : 298 ms P-R-T Axes : 080 -03 187 degrees QTc Int : 406 ms Sinus tachycardia Inferior infarct (cited on or before 03-JAN-2021) Anterior infarct (cited on or before 03-JAN-2021) ACUTE AK / STEMI Consider right ventricular involvement in acute inferior infarct Abnormal ECG When compared with ECG of 15-JUL-2023 04:27, Inferior ST elevations present Diffuse anterolateral ST depressions present Referred By: Blas Hudson Electronically Signed By:Willem Boyd
[2023-07-16 04:00] LABS: Glucose, Whole Blood 176 mg/dL (60-115)
--- NOTE | 2023-07-16 04:58 | PC.NURSE ---
Upon assuming care of pt at 19:00, pt was agitated & upset about his current NPO diet. This RN tried to educate the pt, but the pt became more agitated and started yelling he doesn't want anything from this place. During the same time, th pt refused his SENIA bedtime medications and the PRN fleet enema that was ordered from previous shift for his fecal impaction. MD Gallegos was notified of the situation. No new orders were given. Pt did allowed this RN and CILNICAL SCIENTIST to provide incontinence care and repositioning. Will continue to monitor the pt's behavior. Pt's bed in lowest position with call troncoso within reach and bed alarm intact.
--- NOTE | 2023-07-16 05:04 | PC.NURSE ---
Approximately around 03:30, pt's POC was 67. MD Gallegos was notified of the low POC. PRN Dextrose IVPush was given to pt per MAR with good effect. Repeat POC was 176. During the same time pt complained of 9/10 chest pain. MD Gallegos was notified again and stat EKG was ordered. Pt was emotional, crying out loud about his chest hurting. No other orders were given after the EKG. Soon after the pt started to settle down and had less chest pain. Will continue to monitor the pt's POC and pain. Pt's bed in the lowest position with call troncoso within reach and bed alarm intact.
[2023-07-16] MEDS: 0.9 % Sodium Chloride 1,000 ML 100 ML IVCONT ×2 (05:32→18:43)
[2023-07-16 05:49] LABS: MANUAL DIFF FLAG NO
[2023-07-16 05:59] LABS: Basophils Percent Auto 0.3 % (0-2); Eosinophils Percent Auto 0.2 % (0-4); Hematocrit 35.9 % (42.0-52.0); Hemoglobin 11.7 g/dl (14.0-18.0); Imm Gran Abs Auto 0.06 X10*3/uL (0.00-0.03); Imm Gran Pct Auto 0.5 % (0.0-0.4); Lymphocytes Absolute Auto 0.8 X10*3/uL (1.2-4.9); Mean Corpuscular HGB Conc 32.6 g/dl (31.0-36.0); Mean Corpuscular Hemoglobin 28.1 pg (27.0-33.0); Mean Corpuscular Volume 86.3 fL (80.0-98.0); Mean Platelet Volume 8.9 fL (9.4-12.4); Monocytes Absolute Auto 0.8 X10*3/uL (0.1-1.2); Monocytes Percent Auto 6.8 % (2-11); Neutrophils Absolute Auto 10.7 x10*3/uL (2.0-8.3); Neutrophils Percent Auto 86.2 % (45-73); Platelet Count 192 X10*3/uL (160-400); Red Blood Count 4.16 X10*6/uL (4.60-5.80); Red Cell Distribution Width 12.8 % (11.0-16.0); White Blood Count 12.4 X10*3/uL (4.8-10.8)
[2023-07-16] MEDS: Pantoprazole Sodium 40 MG/10 ML VIAL IVPUSH ×2 (06:07→17:29)
[2023-07-16 06:19] LABS: Anion Gap 10 (12-20); Blood Urea Nitrogen 28 mg/dL (9-16); Calcium 8.6 mg/dL (8.4-10.2); Carbon Dioxide 25 mmol/L (22-29); Chloride 111 mmol/L (96-108); Creatinine Clr Calc Pharmacy 97.5; Estimated Glomerular Filt Rate > 60; Glucose Random 114 mg/dL (60-115); Sodium 143 mmol/L (135-145)
[2023-07-16 06:25] LABS: Troponin-I High Sensitivity 157.3 ng/L (<3.5-35.0)
--- NOTE | 2023-07-16 06:28 | PM.EVENT ---
Event Note Date of Service: 07/16/23 Event Note: Patient reported chest discomfort. Troponin was found to be elevated. Can not anticoagulate as patient presents with hematemesis. Obtaining echocardiogram and consulting Cardiology. Trend troponin Time Spent With Patient Time: Total time managing care of this patient today ____ minutes.
--- NOTE | 2023-07-16 07:03 | PC.NURSE ---
0655- patient transferred to Med-Tele by RN supervisor refining. Report given to BALBIR Treadwell.
[2023-07-16 08:00] VITALS: BP 114/48; PULSE 81; RESP 17; TEMP 36.6; O2SAT 96
--- NOTE | 2023-07-16 08:23 | MHC.CM.PN ---
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 ([facility]); returning there is the goal. CM has initiated and will follow for dc planning.CM has asked SNF to fax a copy of the HCP or Guardianship to CM .
--- NOTE | 2023-07-16 08:29 | MHC.CM.PN ---
LA spoke with Guardian/Saba Tai @ [phone] and informed her of Patient's admission.LA has requested a copy of the Guardianship from [facility].
[2023-07-16 10:06] LABS: Glucose, Whole Blood 68 mg/dL (60-115)
--- NOTE | 2023-07-16 10:31 | PM.GICN ---
History of Present Illness Data of Consult Service Date: 07/16/23 Requesting physician: Blas Hudson Primary Care Provider: Fabrice Marino DO HPI Reason for consult: abn imaging, emesis 72-year-old male with history of cerebral venous thrombosis, history of CVA with sequela of left-sided hemiparesis, unspecified mood disorder with history of suicidal ideation, repeated falls, [id number] type 2 diabetes, unspecified cognitive impairment secondary to CVA, spastic hemiplegia, osteopenia, and osteomyelitis who I am seeing for assessment of emesis Patient lives in [facility], and was noted to have an episode of nausea with brown colored emesis but this was after he ate breakfast which included coffee, toast and eggd, but after that he apparently had no other symptoms. He denies abdominal pain, diarrhea, fevers or chills. Before this isolated event he said he felt fine and had no issues CT imaging revealed dilated stomach, xs stool burden and partially thrombosed infrarenal AAA Since admission he had an episode of chest pain and troponin was markedly elevated with abn ECG with anterior lateral ischemic changes. Review of Systems Review of Systems: Constitutional : No Weight loss, No Fever, No Chills ENT/Mouth : No sore throat, No Rhinorrhea Eyes: No Swelling, No Redness Cardiovascular : + Chest Pain, No SOB, No Edema Respiratory : No Cough, No Sputum, No Wheezing Gastrointestinal : see HPI Genitourinary : NO Dysuria, No Urinary Frequency, No Hematuria, No Urgency Musculoskeletal : + joint pain, No Myalgias, No Joint Swelling Skin : No Skin Lesions, No rash Neuro : + Weakness, No Numbness, No Dizziness, No Headache Psych : No Anxiety/Panic, No Depression Heme/Lymph: No Bruising, No Lymphadenopathy Endocrine : No Polyuria, No Polydipsia All other systems reviewed and are negative. 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 Cerebral venous thrombosis Transient cerebral ischemia Family History Pertinent family history: no FH of stomah ulcers or cancer Social History Social History Household Members: None Housing: Other Housing Other:: [facility] Do you presently have visiting nurse or other home services: No Unable to assess alcohol history related to: Unable to respond Patient Tobacco Use Status: Former Tobacco user Quit Date: 1981 Tobacco use type: Cigarette Smoked in Last 30 Days: No Use of substances other than those prescribed or required for medical reasons: No Currently Displaying Signs/Symptoms of Drug Intoxication Withdrawal: No [employer] Healthcare Practices: Rastafarian. Advance Directives: Yes Advance Directives on File: Yes Advance Directives Date on File: 11/04/21 Do you have thoughts of harming others: None Do you have a plan to hurt others: No Plan Recently lost weight without trying: Unsure Eating poorly because of decreased appetite: No Nutrition Risks: On aspiration precautions Poor oral hygiene: No service: Yes Current occupational status: disabled [employer] Allergies Allergy/AdvReac Type Severity Reaction Status Date / Time No Known Allergies Allergy Verified 07/15/23 01:55 Active Medications: Current Medications Acetaminophen (Acetaminophen 325 Mg Tablet) 650 mg PO Q6H PRN PRN Reason: Pain, Mild (Pain Scale 1-3) Baclofen (Baclofen 10 Mg Tablet) 5 mg PO TID [facility] Last Admin: 07/16/23 09:14 Dose: Not Given Dextrose (Dextrose 50 % 25 Gm/50 Ml Syringe) 25 gm IVPUSH Q15M PRN; Protocol PRN Reason: per Hypoglycemia Standing Ord. Last Admin: 07/16/23 03:38 Dose: 25 gm Glucose (Glucose Gel 15 Gm Gel..Gram.) 15 gm PO Q15M PRN; Protocol PRN Reason: per Hypoglycemia Standing Ord. Heparin Sodium (Porcine) (Heparin Sodium,Porcine Flush 50 Units/5 Ml Syringe) 50 units IVFLUSH DAILY PRN PRN Reason: IV use Heparin Sodium (Porcine) (Heparin Sodium,Porcine Flush 50 Units/5 Ml Syringe) 50 units IVFLUSH DAILY [facility] Last Admin: 07/16/23 09:11 Dose: Not Given Heparin Sodium (Porcine) (Heparin Sodium,Porcine Flush 50 Units/5 Ml Syringe) 50 units IVFLUSH TID [facility] Last Admin: 07/16/23 09:11 Dose: Not Given Sodium Chloride (Ns) 1,000 mls @ 100 mls/hr IVCONT .Q10H [facility] Last Admin: 07/16/23 09:11 Dose: Not Given Ertapenem 1 gm/ Sodium (Chloride) 50 mls @ 100 mls/hr IV ONCE [facility] Stop: 07/16/23 15:14 Ondansetron HCl (Ondansetron Hcl 4 Mg/2 Ml Vial) 4 mg IVPUSH Q8H PRN PRN Reason: Nausea and Vomiting Oxycodone HCl (Oxycodone Hcl Immed Release 5 Mg Tablet) 5 mg PO Q6H PRN PRN Reason: Severe Pain (Scale Score 7-10) Pantoprazole Sodium (Pantoprazole Sodium 40 Mg/10 Ml Vial) 40 mg IVPUSH BID@0630,1630 [facility] Last Admin: 07/16/23 06:07 Dose: 40 mg Polyethylene Glycol (Polyethylene Glycol 3350 17 Gm Powd.Pack) 17 gm PO DAILY [facility] Last Admin: 07/16/23 09:16 Dose: Not Given Senna (Sennosides 8.6 Mg Tablet) 17.2 mg PO BEDTIME PRN PRN Reason: Constipation Senna (Sennosides 8.6 Mg Tablet) 8.6 mg PO DAILY PRN PRN Reason: Constipation Sodium Biphosphate/Sodium Phosphate (Sodium Phosphate,[place]-Dibasic 133 Ml Enema) 133 ml MT ONCE PRN PRN Reason: fecal impaction Home Medications Medication Instructions Recorded Confirmed Last Taken Type aspirin 325 mg tablet 325 mg PO DAILY 10/29/21 07/15/23 10/29/21 History sennosides 8.6 mg tablet (senna) 8.6 mg PO DAILY PRN Constipation 10/29/21 07/15/23 Unknown History acetaminophen 325 mg tablet 650 mg PO Q6H PRN Fever Or Pain 05/30/23 07/15/23 Unknown History ibuprofen 200 mg tablet 800 mg PO Q6H PRN Pain 05/30/23 07/15/23 Unknown History oxycodone-acetaminophen 5 mg-325 1 tab PO Q6H PRN Severe Pain 05/30/23 07/15/23 Unknown History mg tablet (Scale Score 7-10) baclofen 5 mg tablet 5 mg PO TID 07/15/23 07/15/23 Unknown History ertapenem 1 gram solution for 1 g IV DAILY osteomyelitis 07/15/23 07/15/23 Unknown History injection heparin lock flush (porcine) 10 50 unit IV DAILY 07/15/23 07/15/23 Unknown History unit/mL intravenous solution heparin lock flush (porcine) 10 50 unit IV DAILY PRN IV use 07/15/23 07/15/23 Unknown History unit/mL intravenous solution heparin lock flush (porcine) 10 50 unit IV TID 07/15/23 07/15/23 Unknown History unit/mL intravenous solution sodium chloride 0.9 % (flush) 10 ml IV BID 07/15/23 07/15/23 Unknown History sodium chloride 0.9 % (flush) 10 ml IV DAILY PRN flush 07/15/23 07/15/23 Unknown History sodium chloride 0.9 % (flush) 10 ml IV TID 07/15/23 07/15/23 Unknown History Physical Exam Vital Signs: Vital Signs: Last Vital Signs Temp 97.9 F 07/16/23 08:00 Pulse 81 07/16/23 08:00 Resp 17 07/16/23 08:00 BP 114/48 L 07/16/23 08:00 Pulse Ox 96 07/16/23 08:00 O2 Del Method Room Air 07/16/23 08:00 BMI result Body Mass Index 20.7 EXAM: GENERAL: The patient is frail. VITAL SIGNS:see workflow HEENT: Nonicteric sclerae, PERRLA, EOMI. Oropharynx clear. Moist mucous membranes. Conjunctivae appear well perfused. No thyroid mass. CHEST: Chest wall is nontender. HEART: Regular rate and rhythm without murmurs. LUNGS: Clear to auscultation bilaterally. ABDOMEN: Soft, positive bowel sounds, nontender, no organomegaly.no flank tenderness SKIN: No rash, no excessive bruising, petechiae, or purpura. NEUROLOGIC: Cranial nerves II-XII intact---left sided hemiparesis Psych: normal affect Results Labs 07/17/23 06:44 07/17/23 06:44 Labs: Short CBC 07/16/23 Range/Units 05:06 WBC 12.4 H (4.8-10.8) X10*3/uL Hgb 11.7 L (14.0-18.0) g/dl Hct 35.9 L (42.0-52.0) % Plt Count 192 (160-400) X10*3/uL BMP 07/16/23 05:06 Sodium 143 Potassium 3.0 L D Chloride 111 H Carbon Dioxide 25 BUN 28 H Creatinine 0.[address] scan - abdomen: Attestation: I personally reviewed and interpreted this imaging study as follows: (constipation, dilated stomach, aneurysm ) Assessment and Plan (1) Gastric outlet obstruction: Status: Acute (2) Fecal impaction: Status: Acute Plan 1/ anemia with isolated episode of emesis (brown but had coffee), he feels hungry, has no clinical sx of GOO at this time, now complicated by NSTEMI. HGB has been stable. PLAN: 1/ Would anticoagulate since benefits outweigh risks at this time and he has no clinical signs of active GIB. 2/ Commence PPI, nausea meds, advance diet as tolerated 3/ Ba swallow with follow thru--possible EGD if cleared by cardiology now or later date if not urgent 4/ check hematinics, hemolysis markers, Procedures Date of Service Date of Service: 07/17/23
--- NOTE | 2023-07-16 10:46 | PM.CNCAR ---
History of Present Illness History of Present Illness Date of Service: 07/16/23 Requesting physician: Blas Hudson Chief complaint: Vomiting, NSTEMI Narrative: 72-year-old gentleman presenting for vomiting and gastric outlet obstruction on CT scan. He is in [facility]. He had previous stroke with left-sided hemiparesis. He does not recall having any old infarct although his EKG at baseline has inferior Q-waves consistent with old inferior infarct. He was tachycardic on admission and his EKG did have inferior ST elevations with reciprocal changes as well as diffuse depressions the precordial leads. He is denying any chest discomfort or shortness of breath. He just wants to eat something. He previously had cerebral venous thrombosis and was on aspirin but given the fact that he has hematemesis aspirin is on hold. He also had osteomyelitis and is finishing course of ertapenem. Labs, EKG and imaging reviewed. 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 Advance Directives: Yes Advance Directives on File: Yes Advance Directives Date on File: 11/04/21 Do you have thoughts of harming others: None Do you have a plan to hurt others: No Plan Recently lost weight without trying: Unsure Eating poorly because of decreased appetite: No Nutrition Risks: On aspiration precautions Poor oral hygiene: No service: Yes Current occupational status: disabled Meds Allergies Allergy/AdvReac Type Severity Reaction Status Date / Time No Known Allergies Allergy Verified 07/15/23 01:55 Active Medications: Current Medications Acetaminophen (Acetaminophen 325 Mg Tablet) 650 mg PO Q6H PRN PRN Reason: Pain, Mild (Pain Scale 1-3) Baclofen (Baclofen 10 Mg Tablet) 5 mg PO TID [facility] Last Admin: 07/16/23 09:14 Dose: Not Given Dextrose (Dextrose 50 % 25 Gm/50 Ml Syringe) 25 gm IVPUSH Q15M PRN; Protocol PRN Reason: per Hypoglycemia Standing Ord. Last Admin: 07/16/23 10:31 Dose: 25 gm Glucose (Glucose Gel 15 Gm Gel..Gram.) 15 gm PO Q15M PRN; Protocol PRN Reason: per Hypoglycemia Standing Ord. Heparin Sodium (Porcine) (Heparin Sodium,Porcine Flush 50 Units/5 Ml Syringe) 50 units IVFLUSH DAILY PRN PRN Reason: IV use Heparin Sodium (Porcine) (Heparin Sodium,Porcine Flush 50 Units/5 Ml Syringe) 50 units IVFLUSH DAILY [facility] Last Admin: 07/16/23 09:11 Dose: Not Given Heparin Sodium (Porcine) (Heparin Sodium,Porcine Flush 50 Units/5 Ml Syringe) 50 units IVFLUSH TID [facility] Last Admin: 07/16/23 09:11 Dose: Not Given Sodium Chloride (Ns) 1,000 mls @ 100 mls/hr IVCONT .Q10H [facility] Last Admin: 07/16/23 09:11 Dose: Not Given Ertapenem 1 gm/ Sodium (Chloride) 50 mls @ 100 mls/hr IV ONCE [facility] Stop: 07/16/23 15:14 Ondansetron HCl (Ondansetron Hcl 4 Mg/2 Ml Vial) 4 mg IVPUSH Q8H PRN PRN Reason: Nausea and Vomiting Oxycodone HCl (Oxycodone Hcl Immed Release 5 Mg Tablet) 5 mg PO Q6H PRN PRN Reason: Severe Pain (Scale Score 7-10) Pantoprazole Sodium (Pantoprazole Sodium 40 Mg/10 Ml Vial) 40 mg IVPUSH BID@0630,1630 [facility] Last Admin: 07/16/23 06:07 Dose: 40 mg Polyethylene Glycol (Polyethylene Glycol 3350 17 Gm Powd.Pack) 17 gm PO DAILY [facility] Last Admin: 07/16/23 09:16 Dose: Not Given Senna (Sennosides 8.6 Mg Tablet) 17.2 mg PO BEDTIME PRN PRN Reason: Constipation Senna (Sennosides 8.6 Mg Tablet) 8.6 mg PO DAILY PRN PRN Reason: Constipation Sodium Biphosphate/Sodium Phosphate (Sodium Phosphate,[place]-Dibasic 133 Ml Enema) 133 ml IN ONCE PRN PRN Reason: fecal impaction Home Medications Medication Instructions Recorded Confirmed Last Taken Type aspirin 325 mg tablet 325 mg PO DAILY 10/29/21 07/15/23 10/29/21 History sennosides 8.6 mg tablet (senna) 8.6 mg PO DAILY PRN Constipation 10/29/21 07/15/23 Unknown History acetaminophen 325 mg tablet 650 mg PO Q6H PRN Fever Or Pain 05/30/23 07/15/23 Unknown History ibuprofen 200 mg tablet 800 mg PO Q6H PRN Pain 05/30/23 07/15/23 Unknown History oxycodone-acetaminophen 5 mg-325 1 tab PO Q6H PRN Severe Pain 05/30/23 07/15/23 Unknown History mg tablet (Scale Score 7-10) baclofen 5 mg tablet 5 mg PO TID 07/15/23 07/15/23 Unknown History ertapenem 1 gram solution for 1 g IV DAILY osteomyelitis 07/15/23 07/15/23 Unknown History injection heparin lock flush (porcine) 10 50 unit IV DAILY 07/15/23 07/15/23 Unknown History unit/mL intravenous solution heparin lock flush (porcine) 10 50 unit IV DAILY PRN IV use 07/15/23 07/15/23 Unknown History unit/mL intravenous solution heparin lock flush (porcine) 10 50 unit IV TID 07/15/23 07/15/23 Unknown History unit/mL intravenous solution sodium chloride 0.9 % (flush) 10 ml IV BID 07/15/23 07/15/23 Unknown History sodium chloride 0.9 % (flush) 10 ml IV DAILY PRN flush 07/15/23 07/15/23 Unknown History sodium chloride 0.9 % (flush) 10 ml IV TID 07/15/23 07/15/23 Unknown History Physical Exam Vital Signs: Vital Signs: Last Vital Signs Temp 97.9 F 07/16/23 08:00 Pulse 81 07/16/23 08:00 Resp 17 07/16/23 08:00 BP 114/48 L 07/16/23 08:00 Pulse Ox 96 03/31/24 08:00 O2 Del Method Room Air 07/16/23 08:00 BMI result Body Mass Index 20.7 GENERAL APPEARANCE: in no acute distress. SKIN: no suspicious lesions, warm and dry. HEART: no murmurs, regular rate and rhythm. LUNGS: clear to auscultation bilaterally. ABDOMEN: soft, nontender. EXTREMITIES: no edema. PERIPHERAL PULSES: equal. NEUROLOGIC: Left-sided hemiparesis. Awake and alert. Objective Labs and Meds 07/16/23 05:06 07/16/23 05:06 Lab results: Laboratory Results - last 24 hr 07/15/23 07/15/23 07/16/23 17:28 20:19 03:30 WBC RBC Hgb Hct MCV MCH MCHC RDW Plt Count MPV Immature Gran % (Auto) Neut % (Auto) Lymph % (Auto) [place] % (Auto) Eos % (Auto) Baso % (Auto) Lymph # (Auto) [place] # (Auto) Eos # (Auto) Baso # (Auto) Abs Immat Gran (auto) Absolute Neuts (auto) Absolute Nucleated RBC Nucleated RBC % (auto) Sodium Potassium Chloride Carbon Dioxide Anion Gap BUN Creatinine Estim Creat Clear Calc Estimated GFR POC Glucose 90 82 67 Random Glucose Calcium Troponin I High Sens 07/16/23 07/16/23 07/16/23 03:55 05:06 08:47 WBC 12.4 H RBC 4.16 L Hgb 11.7 L Hct 35.9 L MCV 86.3 MCH 28.1 MCHC 32.6 RDW 12.8 Plt Count 192 MPV 8.9 L Immature Gran % (Auto) 0.5 H Neut % (Auto) 86.2 H Lymph % (Auto) 6.0 L [place] % (Auto) 6.8 Eos % (Auto) 0.2 Baso % (Auto) 0.3 Lymph # (Auto) 0.8 L [place] # (Auto) 0.8 Eos # (Auto) 0.0 Baso # (Auto) 0.0 Abs Immat Gran (auto) 0.06 H Absolute Neuts (auto) 10.7 H Absolute Nucleated RBC 0.000 Nucleated RBC % (auto) 0.0 Sodium 143 Potassium 3.0 L D Chloride 111 H Carbon Dioxide 25 Anion Gap 10 L BUN 28 H Creatinine 0.65 Estim Creat Clear Calc 97.5 Estimated GFR > 60 POC Glucose 176 H Random Glucose 114 Calcium 8.6 D Troponin I High Sens 157.3 H* 1234.8 H* D 07/16/23 10:02 WBC RBC Hgb Hct MCV MCH MCHC RDW Plt Count MPV Immature Gran % (Auto) Neut % (Auto) Lymph % (Auto) [place] % (Auto) Eos % (Auto) Baso % (Auto) Lymph # (Auto) [place] # (Auto) Eos # (Auto) Baso # (Auto) Abs Immat Gran (auto) Absolute Neuts (auto) Absolute Nucleated RBC Nucleated RBC % (auto) Sodium Potassium Chloride Carbon Dioxide Anion Gap BUN Creatinine Estim Creat Clear Calc Estimated GFR POC Glucose 68 Random Glucose Calcium Troponin I High Sens Imaging Radiologist's impression: Impressions Abdomen/Pelvis CT 07/15/23 10:10 IMPRESSION: 1. Markedly dilated distended gastric lumen, there is air-fluid level, Raising concern for possible gastric outlet obstruction, this could be due to mechanical and/or neoplastic process causing obstruction versus neurological functional paralysis. I do not see large obstructing mass, consider GI consultation, Gastrografin and/or upper GI barium study could be useful for further assessment. 2. Excess amount of stool in the colon especially the rectum suggesting fecal impaction, constipation. 3. Fusiform infrarenal abdominal aortic aneurysm 4.6 x 4.7 cm transversely and 6.7 cm craniocaudally, the lumen of which is partially thrombosed, the patent lumen is about 2.4 x 1.9 cm. Based on published guidelines in J Am Cheri Radiol 2013; 10(10):789-794 and J Vasc Surg. 2018; 67:2-77, the recommendation for an abdominal aortic aneurysm with diameter 4.5-5.4 cm is vascular consultation and subsequent follow-up every 6 months. 4. Prostatomegaly. 5. Other noncritical findings as above. Assessment and Plan (1) NSTEMI (non-ST elevated myocardial infarction): Status: Acute (2) Gastric outlet obstruction: Status: Acute (3) Hematemesis: Status: Acute Plan [age] year gentleman with multiple medical comorbidities who presented from [facility] with hematemesis. He has been diagnosed with gastric outlet obstruction by CT scan. He previously had cerebral dural venous thrombosis and was on full-dose aspirin. Given hematemesis aspirin has been held. He can not get heparin also. He clearly had dynamic ECG changes while he was here but was quite tachycardic. His old EKGs are showing inferior infarct. Quite frequently with see ST-elevation in leads with Q-waves during stress testing when the patient gets tachycardic. It is possible that these changes are due to tachycardia. He did have dynamic ST changes in the precordial leads. He definitely has risk factors for coronary disease but unfortunately is here with hematemesis and gastric outlet obstruction at this point. Can not get heparin currently. Blood pressure reasonably controlled currently. We will check an echocardiogram tomorrow to assess LV function. I think he is not a candidate for any aggressive measures with his current medical issues. Thank you for allowing me to participate in the care of your patient. Please feel free to contact me if you have any questions. Procedures Date of Service Date of Service: 07/16/23
--- NOTE | 2023-07-16 11:11 | HO.PM.IMPN ---
Subjective Subjective Date of Service: 07/16/23 Interval History: did not tolerate NGT x 2 yesterday denies abd pain, no further vomiting episodes this AM had brief episode of chest pain. EKG showed inferior ST elevations with reciprocal ST depressions. Hs-Tn-I elevated now completely denies any chest pain. Review of Systems Review of Systems: Yes all other systems are reviewed and are negative Physical Exam Vital Signs: Vital Signs: Last Vital Signs Temp 97.9 F 07/16/23 08:00 Pulse 81 07/16/23 08:00 Resp 17 07/16/23 08:00 BP 114/48 L 07/16/23 08:00 Pulse Ox 96 07/16/23 08:00 O2 Del Method Room Air 07/16/23 08:00 BMI result Body Mass Index 20.7 Gen: in no acute distress HEENT: sclera anicteric, moist mucus membranes Neck: supple Lungs: clear to auscultation bilaterally Heart: regular rate and rhythm, no murmurs Abd: soft, non-tender, non-distended Ext: no edema, RUE PICC Skin: warm/well-perfused, ulcers on L foot in various stages of healing Neuro: alert and oriented x3, L hemiparesis Psych: appropriate affect Objective Data Active Medications Acetaminophen (Acetaminophen 325 Mg Tablet) 650 mg PO Q6H PRN PRN Reason: Pain, Mild (Pain Scale 1-3) Baclofen (Baclofen 10 Mg Tablet) 5 mg PO TID [facility] Last Admin: 07/16/23 09:14 Dose: Not Given Documented By: KAVEH Non-Admin Reason: Patient Refused Dextrose (Dextrose 50 % 25 Gm/50 Ml Syringe) 25 gm IVPUSH Q15M PRN; Protocol PRN Reason: per Hypoglycemia Standing Ord. Last Admin: 07/16/23 10:31 Dose: 25 gm Documented By: KAVEH Glucose (Glucose Gel 15 Gm Gel..Gram.) 15 gm PO Q15M PRN; Protocol PRN Reason: per Hypoglycemia Standing Ord. Heparin Sodium (Porcine) (Heparin Sodium,Porcine Flush 50 Units/5 Ml Syringe) 50 units IVFLUSH DAILY PRN PRN Reason: IV use Heparin Sodium (Porcine) (Heparin Sodium,Porcine Flush 50 Units/5 Ml Syringe) 50 units IVFLUSH DAILY [facility] Last Admin: 07/16/23 09:11 Dose: Not Given Documented By: KAVEH Non-Admin Reason: IV Running Heparin Sodium (Porcine) (Heparin Sodium,Porcine Flush 50 Units/5 Ml Syringe) 50 units IVFLUSH TID [facility] Last Admin: 07/16/23 09:11 Dose: Not Given Documented By: KAVEH Non-Admin Reason: IV Running Sodium Chloride (Ns) 1,000 mls @ 100 mls/hr IVCONT .Q10H [facility] Last Admin: 07/16/23 09:11 Dose: Not Given Documented By: KAVEH Non-Admin Reason: IV Running Ertapenem 1 gm/ Sodium (Chloride) 50 mls @ 100 mls/hr IV ONCE [facility] Stop: 07/16/23 15:14 Ondansetron HCl (Ondansetron Hcl 4 Mg/2 Ml Vial) 4 mg IVPUSH Q8H PRN PRN Reason: Nausea and Vomiting Oxycodone HCl (Oxycodone Hcl Immed Release 5 Mg Tablet) 5 mg PO Q6H PRN PRN Reason: Severe Pain (Scale Score 7-10) Pantoprazole Sodium (Pantoprazole Sodium 40 Mg/10 Ml Vial) 40 mg IVPUSH BID@0630,1630 [facility] Last Admin: 07/16/23 06:07 Dose: 40 mg Documented By: JIMENEZ Polyethylene Glycol (Polyethylene Glycol 3350 17 Gm Powd.Pack) 17 gm PO DAILY [facility] Last Admin: 07/16/23 09:16 Dose: Not Given Documented By: KAVEH Non-Admin Reason: Patient Refused Senna (Sennosides 8.6 Mg Tablet) 17.2 mg PO BEDTIME PRN PRN Reason: Constipation Senna (Sennosides 8.6 Mg Tablet) 8.6 mg PO DAILY PRN PRN Reason: Constipation Sodium Biphosphate/Sodium Phosphate (Sodium Phosphate,Vernon-Dibasic 133 Ml Enema) 133 ml UT ONCE PRN PRN Reason: fecal impaction Labs 07/16/23 05:06 07/16/23 05:06 Labs: Laboratory Results - last 24 hr 07/15/23 07/15/23 07/16/23 17:28 20:19 03:30 MCV MCH MCHC RDW Plt Count MPV Immature Gran % (Auto) Neut % (Auto) Lymph % (Auto) Vernon % (Auto) Eos % (Auto) Baso % (Auto) Lymph # (Auto) Vernon # (Auto) Eos # (Auto) Baso # (Auto) Abs Immat Gran (auto) Absolute Neuts (auto) Absolute Nucleated RBC Nucleated RBC % (auto) Anion Gap Estim Creat Clear Calc Estimated GFR POC Glucose 90 82 67 Random Glucose Calcium Troponin I High Sens 07/16/23 07/16/23 07/16/23 03:55 05:06 08:47 MCV 86.3 MCH 28.1 MCHC 32.6 RDW 12.8 Plt Count 192 MPV 8.9 L Immature Gran % (Auto) 0.5 H Neut % (Auto) 86.2 H Lymph % (Auto) 6.0 L Vernon % (Auto) 6.8 Eos % (Auto) 0.2 Baso % (Auto) 0.3 Lymph # (Auto) 0.8 L Vernon # (Auto) 0.8 Eos # (Auto) 0.0 Baso # (Auto) 0.0 Abs Immat Gran (auto) 0.06 H Absolute Neuts (auto) 10.7 H Absolute Nucleated RBC 0.000 Nucleated RBC % (auto) 0.0 Anion Gap 10 L Estim Creat Clear Calc 97.5 Estimated GFR > 60 POC Glucose 176 H Random Glucose 114 Calcium 8.6 D Troponin I High Sens 157.3 H* 1234.8 H* D 07/16/23 10:02 MCV MCH MCHC RDW Plt Count MPV Immature Gran % (Auto) Neut % (Auto) Lymph % (Auto) Vernon % (Auto) Eos % (Auto) Baso % (Auto) Lymph # (Auto) Vernon # (Auto) Eos # (Auto) Baso # (Auto) Abs Immat Gran (auto) Absolute Neuts (auto) Absolute Nucleated RBC Nucleated RBC % (auto) Anion Gap Estim Creat Clear Calc Estimated GFR POC Glucose 68 Random Glucose Calcium Troponin I High Sens Assessment and Plan (1) Hematemesis: Status: Acute Plan d2 72yo M LTC resident of [facility]. Hx cerebral venous thrombosis, CVA with L-sided hemiparesis/spastic hemiplegia, mood disorder with hx SI, repeated falls, DM2, cognitive impairment s/p CVA, osteomyelitis of L toe on IV ertapenem [end date 07/15] presenting after having brown vomitus that was occult-blood positive. Admitted for concern for gastric outlet obstruction. Had chest pain with ST changes 07/15 am. NSTEMI - per Cardiology likely old inferior Q-wave inversion with ST changes related to tachycardia. TTE pending. Not an anticoagulation candidate given UGIB. Cardiology continuing to follow. Currently free of all chest pain. gastric outlet obstruction hematemesis - did not tolerate NGT. NPO, barium swallow 07/16. IV PPI. GI consultation. Follow H+H. hypoK - replete, recheck level tomorrow osteomyelitis L toes - finish 6 wk of ertapenem today. Has PICC line. fecal impaction - enemas, Miralax partially thrombosed AAA, 4.7 cm diameter [6.7 cm long] - Vasc Surg consult though likely surveillance at this point DM2 - correction-dose lispro hx CVA/dural venous thrombosis - hold ASA for now VTE ppx - SCDs dispo - eventual return to [facility] for LTC In my clinical judgment, the patient requires continued inpatient hospitalization for the following reasons: GI bleed, NSTEMI Total time managing care of this patient today: 50 minutes. Quality Stroke Does the patient have a stroke diagnosis?: No VTE Prior VTE?: No VTE Risk Level:: Medical - moderate - high VTE Device Contraindication: N/A - Device Ordered VTE Drug Contraindication: Treatment Not Indicated
[2023-07-16 11:16] LABS: Glucose, Whole Blood 145 mg/dL (60-115)
[2023-07-16 11:44] VITALS: BP 115/53; PULSE 80; RESP 20; TEMP 36.1; O2SAT 96
[2023-07-16] MEDS: Potassium Chloride/H20 10 MEQ/100 ML PIGGYBACK 100 MEQ IV ×2 (12:01→13:05)
[2023-07-16 12:12] LABS: Magnesium 1.8 mg/dL (1.6-2.6)
[2023-07-16 12:38] VITALS: BMI 21.2
[2023-07-16 12:50] LABS: Hemoglobin 11.1 g/dl (14.0-18.0); Mean Corpuscular HGB Conc 33.6 g/dl (31.0-36.0); Mean Corpuscular Hemoglobin 28.2 pg (27.0-33.0); Mean Platelet Volume 8.5 fL (9.4-12.4); Platelet Count 178 X10*3/uL (160-400); Red Blood Count 3.93 X10*6/uL (4.60-5.80); Red Cell Distribution Width 12.5 % (11.0-16.0); White Blood Count 13.1 X10*3/uL (4.8-10.8)
[2023-07-16 12:57] LABS: INTERNATIONAL NORM RATIO 1.1 (0.9-1.1); Prothrombin Time 13.7 SEC (11.1-13.3)
[2023-07-16 12:59] LABS: PTT Heparin Drip 26.7 SEC (53-77.9)
[2023-07-16] MEDS: Aspirin 325 MG TABLET PO (14:09)
[2023-07-16] MEDS: Heparin Sodium,Porcine/1/2NS 25,000 UNIT/250 ML IV.SOLN 8.52 UNIT IVCONT (14:12)
[2023-07-16 15:23] VITALS: BP 105/60; PULSE 83; RESP 20; TEMP 36.7; O2SAT 99
[2023-07-16 16:04] LABS: Glucose, Whole Blood 90 mg/dL (60-115)
--- NOTE | 2023-07-16 18:48 | PC.NURSE ---
Patient refused all PO meds with exception of Aspirin. Patient upset that he was not able to eat breakfast, did get clear liquids tray for lunch but still would not take any PO meds.
[2023-07-16 18:53] VITALS: BP 133/60; PULSE 88; RESP 20; TEMP 36.3; O2SAT 97
[2023-07-16 19:45] LABS: Glucose, Whole Blood 74 mg/dL (60-115)
--- NOTE | 2023-07-16 21:19 | PC.NURSE ---
Went in to assess pt at shift change. Pt was very resistive to care and labs were due to be drawn at 20:00, patient refused the lab draw, then swore at me and told me to get out. Lab attempted to try again, only to be turned away again. I attempted to have a conversation with the patient to explain the importance of complying with care, he once again swore at me, swung his arm up to get me away and pulled his covers over his head. Dr. Gallegos was then notified, I was instructed to pause the heparin drip, as we need accurate bloodwork to adjust the heparin dose appropriately. Pharmacy was called and spoke to Rochelle to advise, and stated that it is not safe to just let the pump run without knowing PT/INR. Was told by Dr. Gallegos that upon reading the cardiology note it is advised against Lovenox. He told me to pause the pump for the time being and that the morning MD should be notified to reassess the situation.
[2023-07-16 23:29] VITALS: BP 129/59; PULSE 77; RESP 18; TEMP 36.9; O2SAT 96
[2023-07-17] MEDS: Pantoprazole Sodium 40 MG/10 ML VIAL IVPUSH ×2 (03:55→15:50)
[2023-07-17] MEDS: 0.9 % Sodium Chloride 1,000 ML 100 ML IVCONT (03:55)
[2023-07-17 04:00] VITALS: BP 118/57; PULSE 87; RESP 19; TEMP 36.7; O2SAT 96
[2023-07-17 04:21] LABS: Glucose, Whole Blood 84 mg/dL (60-115)
[2023-07-17 06:57] LABS: Hematocrit 33.7 % (42.0-52.0); Hemoglobin 11.4 g/dl (14.0-18.0); Mean Corpuscular HGB Conc 33.8 g/dl (31.0-36.0); Mean Corpuscular Hemoglobin 28.2 pg (27.0-33.0); Mean Corpuscular Volume 83.4 fL (80.0-98.0); Mean Platelet Volume 8.7 fL (9.4-12.4); Platelet Count 176 X10*3/uL (160-400); Red Blood Count 4.04 X10*6/uL (4.60-5.80); Red Cell Distribution Width 12.4 % (11.0-16.0); White Blood Count 9.5 X10*3/uL (4.8-10.8)
--- NOTE | 2023-07-17 07:00 | CA_ITS ---
Transthoracic Echocardiogram Patient (Last, First, Middle): Malachi Owens, Gender: Male Date of : 1950 Age: 72 Procedure Date: 07/17/2023 Procedure Type: Transthoracic Echocardiogram Location: [facility] [place] Height: 182.88 cm Weight: 70.76 kg BSA: 1.92 m2 Heart Rate: bpm BP: 118 / 57 mmHg Environmental Engineering Assistant: ARTHUR Referring MD: Sarahy Gallegos MD Control Chemist: José Luis North MD Symptoms: NSTEMI Study Quality: Adequate ECG Rhythm: Sinus Conclusions: - 1. Normal LV ejection fraction 55-60% with impaired relaxation filling pattern 2. Early mild aortic stenosis 3. No gross pericardial effusion Findings Left Ventricle Normal left ventricular size, thickness, and systolic function. The visually estimated ejection fraction is between 55-60%. Regional wall motion abnormalities can not be excluded due to suboptimal endocardial definition. Spectral Doppler is indicative of an impaired relaxation filling pattern. E/E prime ratio is between 8 and 15 consistent with indeterminate filling pressures. Right Ventricle Normal right ventricular cavity size and systolic function. Atria The left atrium is likely dilated. Interatrial shunt cannot be excluded. The right atrium is normal in size. Aortic Valve There is mild calcification of the aortic valve. There is mild thickening of the aortic valve. There is mild aortic valve stenosis. The peak aortic velocity is 1.75 m/s with a calculated peak gradient of 12 mmHg. The mean gradient is 7 mmHg. There is no aortic valve regurgitation. Mitral Valve There is moderate anterior and posterior mitral leaflet thickening. There is moderate mitral annular calcification. There is trace mitral valve regurgitation. There is no mitral valve stenosis. Pulmonic Valve The pulmonic valve was not well visualized. Tricuspid Valve Likely normal tricuspid valve structure and function. Tricuspid regurgitation envelope is inadequate for calculation of right ventricular systolic pressure. Normal right atrial pressure. Great Vessels The aorta was not well visualized. The pulmonary artery was not well visualized. Venous The inferior vena cava is normal in size and collapses greater than 50% with inspiration. Pericardium/Pleural There is no evidence of pericardial effusion. Measurements 2D Linear Measurements IVSd: 1.05 0.6-0.9/0.6-1.0 cm LVIDd: 4.65 3.9-5.3/4.2-5.9 cm LVIDd Index: 2.42 2.4-3.2/2.2-3.1 cm/m2 LVIDs: 3.42 2.0-3.6 cm LVPWd: 1.04 0.7-1.1 cm LA Diam: 3.50 2.7-3.8/3.0-4.0 cm LAIDs Index: 1.82 1.5-2.3 cm/m2 LV Mass: 213.86 67-162/88-224 g LV Mass Index: 111.39 43-95/49-115 g/m2 LVOT Diam: 2.20 3.0+(-)1.3 cm 2D Systolic Function EF 4C: 58.80 >55% EF 2C: 55.10 >55% EF BiP: 55.70 >55% Mitral Valve MV Pk E: 0.63 MV PK A: 1.11 MV Decel Time: 292.00 E/A: 0.60 E'Lateral: 6.64 E'Medial: 5.22 E/E' Med: 12.10 E/E' Lat: 9.50 PHT: 86.00 MVA PHT: 2.56 Decel Sequoyah: 2.16 Aortic Valve AoV Pk Rod: 1.75 AoV Mn Rod: 1.21 AoV VTI: 0.34 AoV Pk Grad: 12.00 Aov Mn Grad: 7.00 RIGO Cont.VTI: 2.43 LVOT LVOT Pk Rod: 1.00 LVOT Mn Rod: 0.63 LVOT VTI: 0.22 LVOT Pk Grad: 4.00 LVOT Mn Grad: 2.00 LVOT Diam: 2.20 LVOT Area: 3.80 Diastolic Function MV Pk E: 0.63 MV Pk A: 1.11 E/A: 0.60 E'Medial: 5.22 E/E' Med: 12.10 E' Laterial: 6.64 E/E' Lat: 9.50 Right Ventricle TAPSE (mm): 24.30 TVS' Rod: 14.80 Great Vessels Aorta Sinus of Valsalva: 3.76 2.0-3.[address] Ridge: 2.75 1.7-3.4 cm Updated in Other Vendor System with Status of Final José Luis North MD electronically signed on 07/17/2023 3:14:09 PM with status of Final
[2023-07-17 07:07] LABS: INTERNATIONAL NORM RATIO 1.1 (0.9-1.1); Prothrombin Time 13.9 SEC (11.1-13.3)
[2023-07-17 07:21] LABS: Anion Gap 10 (12-20); Blood Urea Nitrogen 11 mg/dL (9-16); Calcium 8.3 mg/dL (8.4-10.2); Carbon Dioxide 25 mmol/L (22-29); Chloride 111 mmol/L (96-108); Creatinine Clr Calc Pharmacy 122.7; Estimated Glomerular Filt Rate > 60; Glucose Random 73 mg/dL (60-115); Magnesium 1.8 mg/dL (1.6-2.6); Potassium 3.3 mmol/L (3.3-5.1); Sodium 143 mmol/L (135-145)
[2023-07-17 07:31] VITALS: BP 109/49; PULSE 78; RESP 20; TEMP 36.9; O2SAT 98
[2023-07-17 10:19] LABS: Glucose, Whole Blood 65 mg/dL (60-115)
[2023-07-17] MEDS: Aspirin 81 MG TAB.CHEW PO (10:20)
[2023-07-17] MEDS: Heparin Sodium,Porcine Flush 50 UNITS/5 ML SYRINGE IVFLUSH ×2 (10:22→15:50)
[2023-07-17] MEDS: Dextrose 50 % 25 GM/50 ML SYRINGE IVPUSH ×2 (10:33→16:03)
--- NOTE | 2023-07-17 10:35 | P.PNCA_ITS ---
Subjective Subjective Date of Service: 07/17/23 Principal diagnosis: Acute [place] Interval history: No symptoms reported. Review of Systems Review of Systems Yes Unobtainable due to mental status Physical Exam Vital Signs: Last Vital Signs Temp 98.5 F 07/17/23 07:31 Pulse 78 07/17/23 07:31 Resp 20 07/17/23 07:31 BP 109/49 L 07/17/23 07:31 Pulse Ox 98 07/17/23 07:31 O2 Del Method Room Air 07/17/23 07:31 BMI result Body Mass Index 21.2 GENERAL APPEARANCE: in no acute distress. SKIN: no suspicious lesions, warm and dry. HEART: no murmurs, regular rate and rhythm. LUNGS: clear to auscultation bilaterally. ABDOMEN: soft, nontender. EXTREMITIES: no edema. PERIPHERAL PULSES: equal. NEUROLOGIC: Left-sided hemiparesis. Awake and alert. Objective Labs and Meds 07/17/23 06:44 07/17/23 06:44 Lab results: Laboratory Results - last 24 hr 07/16/23 07/16/23 07/16/23 05:06 11:02 12:35 WBC 13.1 H RBC 3.93 L Hgb 11.1 L Hct 33.0 L MCV 84.0 MCH 28.2 MCHC 33.6 RDW 12.5 Plt Count 178 MPV 8.5 L Absolute Nucleated RBC 0.000 Nucleated RBC % (auto) 0.0 PT 13.7 H INR 1.1 aPTT Heparin Protocol 26.7 L Sodium Potassium Chloride Carbon Dioxide Anion Gap BUN Creatinine Estim Creat Clear Calc Estimated GFR POC Glucose 145 H Random Glucose Calcium Magnesium 1.8 07/16/23 07/16/23 07/17/23 15:59 19:40 04:05 WBC RBC Hgb Hct MCV MCH MCHC RDW Plt Count MPV Absolute Nucleated RBC Nucleated RBC % (auto) PT INR aPTT Heparin Protocol Sodium Potassium Chloride Carbon Dioxide Anion Gap BUN Creatinine Estim Creat Clear Calc Estimated GFR POC Glucose 90 74 84 Random Glucose Calcium Magnesium 07/17/23 07/17/23 06:44 10:13 WBC 9.5 RBC 4.04 L Hgb 11.4 L Hct 33.7 L MCV 83.4 MCH 28.2 MCHC 33.8 RDW 12.4 Plt Count 176 MPV 8.7 L Absolute Nucleated RBC 0.000 Nucleated RBC % (auto) 0.0 PT 13.9 H INR 1.1 aPTT Heparin Protocol Sodium 143 Potassium 3.3 Chloride 111 H Carbon Dioxide 25 Anion Gap 10 L BUN 11 Creatinine 0.53 Estim Creat Clear Calc 122.7 Estimated GFR > 60 POC Glucose 65 Random Glucose 73 Calcium 8.3 L Magnesium 1.8 Imaging Radiologist's impression: Impressions KUB X-Ray 07/16/23 13:10 IMPRESSION: Scattered air-filled loops of small bowel. Stool and air seen throughout colon to the rectum. Progress Note: A&P Assessment and plan (1) Acute myocardial infarction: Status: Acute Assessment and Plan: Acute myocardial infarction high likelihood of underlying obstructive coronary artery disease with inferior Q-waves and ST elevation. However given his overall medical condition as well as presentation with hematemesis and gastric outlet obstruction patient will be manage conservatively and medically. Blood pressure is on the low side. Continue high-intensity statin therapy. Was started on low-dose aspirin therapy after consultation with GI. Consider low- dose metoprolol 12.5 mg q.6 hours. No further interventions required from cardiac perspective. Echocardiogram can be requested. Will follow-up if need be Time Spent With Patient Time: Total time managing care of this patient today ____ minutes. Progress Note: Quality Stroke Does the patient have a stroke diagnosis?: No Procedures Date of Service Date of Service: 07/17/23
[2023-07-17 10:47] VITALS: BP 138/62; PULSE 75; RESP 20; TEMP 37; O2SAT 97
[2023-07-17 11:03] LABS: Glucose, Whole Blood 140 mg/dL (60-115)
--- NOTE | 2023-07-17 12:18 | P.CONGS_ITS ---
History of Present Illness Consult details Consult date: 07/17/23 Reason for consult: other (Abdominal aortic aneurysm without rupture) Narrative: 72-year-old gentleman with a prior history of CVA and left-sided hemiparesis was brought in and worked up for vomiting and hematemesis. There was concern of gastric outlet obstruction. And he was being worked up for that. In addition he had fecal impaction. He has been treated for that as well. Upon workup and CT scan he was discovered to have an abdominal aortic aneurysm. Now presents to us for vascular evaluation of note he had been seen in consultation on June 02 for nonhealing left foot ulcers Review of Systems 2 Review of Systems: Yes all other systems are reviewed and are negative Constitutional: Constitutional: Reports no additional constitutional complaints ENT: Reports Normal hearing present Cardiovascular: Cardiovascular: Denies chest pain, Denies chest pain at rest, Denies chest pain with activity and Denies pedal edema Respiratory: Respiratory: Denies cough Gastrointestinal: Gastrointestinal: Denies abdominal pain Musculoskeletal: Musculoskeletal: Denies abnormal gait, Denies muscle cramps and Denies radiating pain into limb Integumentary/Breasts: Skin/Breast: Denies skin ulcer and Denies wounds Neurologic: Reports Normal hearing present and Denies abnormal gait Psychiatric: Psychiatric: Reports no additional psychiatric complaints PMFSH Past Medical History Medical History Toe ulcer Spastic hemiplegia Cognitive impairment Type 2 diabetes mellitus CVA (cerebral vascular accident) Hemiparesis affecting left side as late effect of cerebrovascular accident Hx of half-way use of blood thinners Cerebral venous thrombosis Transient cerebral ischemia Social History Social History Household Members: None Housing: Other Housing Other:: [facility] [place] Do you presently have visiting nurse or other home services: No Unable to assess alcohol history related to: Unable to respond Patient Tobacco Use Status: Former Tobacco user Quit Date: 1981 Tobacco use type: Cigarette Smoked in Last 30 Days: No Use of substances other than those prescribed or required for medical reasons: No Currently Displaying Signs/Symptoms of Drug Intoxication Withdrawal: No Christianity Healthcare Practices: Oriental Orthodox. Advance Directives: Yes Advance Directives on File: Yes Advance Directives Date on File: 11/04/21 Do you have thoughts of harming others: None Do you have a plan to hurt others: No Plan Recently lost weight without trying: Unsure Eating poorly because of decreased appetite: No Nutrition Risks: On aspiration precautions Poor oral hygiene: No service: Yes Current occupational status: disabled Meds Allergies Allergy/AdvReac Type Severity Reaction Status Date / Time No Known Allergies Allergy Verified 07/15/23 01:55 Active Medications: Current Medications Acetaminophen (Acetaminophen 325 Mg Tablet) 650 mg PO Q6H PRN PRN Reason: Pain, Mild (Pain Scale 1-3) Aspirin (Aspirin 81 Mg Tab.Chew) 81 mg PO DAILY [facility] Last Admin: 07/17/23 10:20 Dose: 81 mg Atorvastatin Calcium (Atorvastatin Calcium 80 Mg Tablet) 80 mg PO DAILY [facility] Last Admin: 07/17/23 10:23 Dose: Not Given Baclofen (Baclofen 10 Mg Tablet) 5 mg PO TID [facility] Last Admin: 07/17/23 10:23 Dose: Not Given Dextrose (Dextrose 50 % 25 Gm/50 Ml Syringe) 25 gm IVPUSH Q15M PRN; Protocol PRN Reason: per Hypoglycemia Standing Ord. Last Admin: 07/17/23 10:33 Dose: 25 gm Glucose (Glucose Gel 15 Gm Gel..Gram.) 15 gm PO Q15M PRN; Protocol PRN Reason: per Hypoglycemia Standing Ord. Heparin Sodium (Porcine) (Heparin Sodium,Porcine Flush 50 Units/5 Ml Syringe) 50 units IVFLUSH DAILY PRN PRN Reason: IV use Heparin Sodium (Porcine) (Heparin Sodium,Porcine Flush 50 Units/5 Ml Syringe) 50 units IVFLUSH DAILY [facility] Last Admin: 07/17/23 10:22 Dose: Not Given Heparin Sodium (Porcine) (Heparin Sodium,Porcine Flush 50 Units/5 Ml Syringe) 50 units IVFLUSH TID [facility] Last Admin: 07/17/23 10:22 Dose: 50 units Heparin Sodium (Porcine) (Heparin Sodium,Porcine 5,000 Unit/Ml Vial) 2,800 unit 40 unit/kg (2800 unit) IVPUSH PROTOCOL BOLUS PRN; Protocol PRN Reason: 40 unit/kg - Heparin Protocol Heparin Sodium (Porcine) (Heparin Sodium,Porcine 5,000 Unit/Ml Vial) 5,700 unit 80 unit/kg (5700 unit) IVPUSH PROTOCOL BOLUS PRN; Protocol PRN Reason: 80 unit/kg - Heparin Protocol Sodium Chloride (Ns) 1,000 mls @ 100 mls/hr IVCONT .Q10H [facility] Last Admin: 07/17/23 03:55 Dose: 100 mls/hr Heparin Sodium/Sodium Chloride (Heparin Sodium,Porcine/1/2ns) 25,000 unit in 250 mls @ 0 mls/hr IVCONT .Q0M [facility]; Protocol Last Titration: 07/16/23 20:30 Dose: 0 units/kg/hr, 0 mls/hr Lactulose (Lactulose 20 Gm/30 Ml Solution) 20 gm PO BID [facility] Last Admin: 07/17/23 10:23 Dose: Not Given Ondansetron HCl (Ondansetron Hcl 4 Mg/2 Ml Vial) 4 mg IVPUSH Q8H PRN PRN Reason: Nausea and Vomiting Oxycodone HCl (Oxycodone Hcl Immed Release 5 Mg Tablet) 5 mg PO Q6H PRN PRN Reason: Severe Pain (Scale Score 7-10) Pantoprazole Sodium (Pantoprazole Sodium 40 Mg/10 Ml Vial) 40 mg IVPUSH BID@0630,1630 [facility] Last Admin: 07/17/23 03:55 Dose: 40 mg Polyethylene Glycol (Polyethylene Glycol 3350 17 Gm Powd.Pack) 17 gm PO DAILY [facility] Last Admin: 07/17/23 10:23 Dose: Not Given Senna (Sennosides 8.6 Mg Tablet) 17.2 mg PO BEDTIME PRN PRN Reason: Constipation Senna (Sennosides 8.6 Mg Tablet) 8.6 mg PO DAILY PRN PRN Reason: Constipation Sodium Biphosphate/Sodium Phosphate (Sodium Phosphate,[place]-Dibasic 133 Ml Enema) 133 ml ND ONCE PRN PRN Reason: fecal impaction Home Medications Medication Instructions Recorded Confirmed Last Taken Type aspirin 325 mg tablet 325 mg PO DAILY 10/29/21 07/15/23 10/29/21 History sennosides 8.6 mg tablet (senna) 8.6 mg PO DAILY PRN Constipation 10/29/21 07/15/23 Unknown History acetaminophen 325 mg tablet 650 mg PO Q6H PRN Fever Or Pain 05/30/23 07/15/23 Unknown History ibuprofen 200 mg tablet 800 mg PO Q6H PRN Pain 05/30/23 07/15/23 Unknown History oxycodone-acetaminophen 5 mg-325 1 tab PO Q6H PRN Severe Pain 05/30/23 07/15/23 Unknown History mg tablet (Scale Score 7-10) baclofen 5 mg tablet 5 mg PO TID 07/15/23 07/15/23 Unknown History ertapenem 1 gram solution for 1 g IV DAILY osteomyelitis 07/15/23 07/15/23 Unknown History injection heparin lock flush (porcine) 10 50 unit IV DAILY 07/15/23 07/15/23 Unknown History unit/mL intravenous solution heparin lock flush (porcine) 10 50 unit IV DAILY PRN IV use 07/15/23 07/15/23 Unknown History unit/mL intravenous solution heparin lock flush (porcine) 10 50 unit IV TID 07/15/23 07/15/23 Unknown History unit/mL intravenous solution sodium chloride 0.9 % (flush) 10 ml IV BID 07/15/23 07/15/23 Unknown History sodium chloride 0.9 % (flush) 10 ml IV DAILY PRN flush 07/15/23 07/15/23 Unknown History sodium chloride 0.9 % (flush) 10 ml IV TID 07/15/23 07/15/23 Unknown History Physical Exam 2 Vital Signs: Vital Signs: Last Vital Signs Temp 98.6 F 07/17/23 10:47 Pulse 75 07/17/23 10:47 Resp 20 07/17/23 10:47 BP 138/62 07/17/23 10:47 Pulse Ox 97 07/17/23 10:47 O2 Del Method Room Air 07/17/23 10:47 BMI result Body Mass Index 21.2 Const: General: cooperative, healthy appearing and comfortable O rientation/consciousness: oriented to person, oriented to place and oriented to time HEENT: Head: Yes normal to inspection Neck: Neck: Yes normal visual inspection Carotids: no bruits Chest: Chest palpation & inspection: normal inspection of the chest Resp: Effort & Inspection: normal respiratory effort and able to speak in complete sentences Auscultation: clear to auscultation bilaterally, no crackles, no rales, no rhonchi and no wheezes Cardio: Rate: regular rate Rhythm: regular rhythm Heart sounds: S1 normal heart sound present and S2 normal heart sound present Bruits: no carotid bruits Peripheral pulses: Peripheral pulses 2+ throughout GI: Inspection: Yes normal to inspection Skin: Other: Left foot ulcers Wounds: wounds noted Hair: normal Neuro: General: oriented to person, oriented to place and oriented to time Cranial nerves: Yes CN's II-XII intact bilaterally and Yes Normal hearing present Cognition (Neuro): normal cognition Motor exam (neuro): 5/5 motor strength present throughout Extrem: Other: venous exam: No significant superficial varicosities or spider telangiectasias, minimal edema General: No clubbing, No cyanosis and No edema Psych: Appearance: grossly normal Mental Status: mental status grossly normal Speech and movement: Normal speech and movement present Results Labs 07/17/23 06:44 07/17/23 06:44 Labs: Abnormal lab results 07/16/23 07/17/23 07/17/23 Range/Units 12:35 06:44 10:50 WBC 13.1 H (4.8-10.8) X10*3/uL RBC 3.93 L 4.04 L (4.60-5.80) X10*6/uL Hgb 11.1 L 11.4 L (14.0-18.0) g/dl Hct 33.0 L 33.7 L (42.0-52.0) % MPV 8.5 L 8.7 L (9.4-12.4) fL PT 13.7 H 13.9 H (11.1-13.3) SEC aPTT Heparin Protocol 26.7 L (53-77.9) SEC Chloride 111 H (96-108) mmol/L Anion Gap 10 L (12-20) POC Glucose 140 H (60-115) mg/dL Calcium 8.3 L (8.4-10.2) mg/dL Short CBC 07/16/23 07/17/23 Range/Units 12:35 06:44 WBC 13.1 H 9.5 (4.8-10.8) X10*3/uL Hgb 11.1 L 11.4 L (14.0-18.0) g/dl Hct 33.0 L 33.7 L (42.0-52.0) % Plt Count 178 176 (160-400) X10*3/uL BMP 07/17/23 06:44 Sodium 143 Potassium 3.3 Chloride 111 H Carbon Dioxide 25 BUN 11 Creatinine 0.53 Calcium 8.3 L Urine 07/15/23 Range/Units 09:09 Urine Color Dark Yellow Urine Appearance Clear Urine pH 6.5 (5.0-9.0) Ur Specific [place] 1.025 (1.005-1.025) Urine Protein 30 (1+) H (Neg-Trace) mg/dL Urine Glucose (UA) Negative (Negative) mg/dL All other labs normal. Assessment and Plan (1) Abdominal aortic aneurysm without rupture: Qualifiers: Abdominal aorta location: infrarenal aorta Qualified Code(s): I71.43 - Infrarenal abdominal aortic aneurysm, without rupture Status: Acute Plan In short patient has an incidental finding of an abdominal aortic aneurysm with thrombus on CT scan. I did have an opportunity to review the written report and images of CT scan. At the current time it does appear stable and not at risk of rupture. He is already on aspirin. Would not increase this at the current time for concern of GI bleed. Continue medical management for his current medical issues. He can see us as an outpatient in regards to his abdominal aortic aneurysm. Thank you for allowing us to assist in his care. If there are any questions or concerns please do not hesitate to contact us. Procedures Date of Service Date of Service: 07/17/23
[2023-07-17 15:03] VITALS: BP 131/87; PULSE 61; RESP 20; TEMP 36.7; O2SAT 98
[2023-07-17 16:02] LABS: Glucose, Whole Blood 64 mg/dL (60-115)
--- NOTE | 2023-07-17 16:03 | HO.PM.IMPN ---
Subjective Subjective Date of Service: 07/17/23 Interval History: No acute issues overnight. Appears at baseline. Sugars labile Review of Systems Unable to obtain Physical Exam Vital Signs: Vital Signs: Last Vital Signs Temp 98.1 F 07/17/23 15:03 Pulse 61 07/17/23 15:03 Resp 20 07/17/23 15:03 BP 131/87 07/17/23 15:03 Pulse Ox 98 07/17/23 15:03 O2 Del Method Room Air 07/17/23 15:03 BMI result Body Mass Index 21.2 Const: Other: Awake alert oriented x3 no acute distress Resp: Other: Clear to auscultation bilaterally no rales rhonchi or wheezes Cardio: Other: No S4; positive S1-S2; no S3 murmurs rubs or gallops GI: Other: Soft nontender nondistended normoactive bowel sounds Extrem: Other: No edema bilaterally Objective Data Active Medications Acetaminophen (Acetaminophen 325 Mg Tablet) 650 mg PO Q6H PRN PRN Reason: Pain, Mild (Pain Scale 1-3) Aspirin (Aspirin 81 Mg Tab.Chew) 81 mg PO DAILY [facility] Last Admin: 07/17/23 10:20 Dose: 81 mg Documented By: ADELINA Atorvastatin Calcium (Atorvastatin Calcium 80 Mg Tablet) 80 mg PO DAILY [facility] Last Admin: 07/17/23 10:23 Dose: Not Given Documented By: ADELINA Non-Admin Reason: Patient Refused Baclofen (Baclofen 10 Mg Tablet) 5 mg PO TID [facility] Last Admin: 07/17/23 15:51 Dose: Not Given Documented By: ADELINA Non-Admin Reason: Patient Refused Dextrose (Dextrose 50 % 25 Gm/50 Ml Syringe) 25 gm IVPUSH Q15M PRN; Protocol PRN Reason: per Hypoglycemia Standing Ord. Last Admin: 07/17/23 16:03 Dose: 25 gm Documented By: ADELINA Glucose (Glucose Gel 15 Gm Gel..Gram.) 15 gm PO Q15M PRN; Protocol PRN Reason: per Hypoglycemia Standing Ord. Heparin Sodium (Porcine) (Heparin Sodium,Porcine Flush 50 Units/5 Ml Syringe) 50 units IVFLUSH DAILY PRN PRN Reason: IV use Heparin Sodium (Porcine) (Heparin Sodium,Porcine Flush 50 Units/5 Ml Syringe) 50 units IVFLUSH DAILY [facility] Last Admin: 07/17/23 10:22 Dose: Not Given Documented By: ADELINA Non-Admin Reason: Duplicate Order Heparin Sodium (Porcine) (Heparin Sodium,Porcine Flush 50 Units/5 Ml Syringe) 50 units IVFLUSH TID [facility] Last Admin: 07/17/23 15:50 Dose: 50 units Documented By: ADELINA Heparin Sodium (Porcine) (Heparin Sodium,Porcine 5,000 Unit/Ml Vial) 2,800 unit 40 unit/kg (2800 unit) IVPUSH PROTOCOL BOLUS PRN; Protocol PRN Reason: 40 unit/kg - Heparin Protocol Heparin Sodium (Porcine) (Heparin Sodium,Porcine 5,000 Unit/Ml Vial) 5,700 unit 80 unit/kg (5700 unit) IVPUSH PROTOCOL BOLUS PRN; Protocol PRN Reason: 80 unit/kg - Heparin Protocol Heparin Sodium/Sodium Chloride (Heparin Sodium,Porcine/1/2ns) 25,000 unit in 250 mls @ 0 mls/hr IVCONT .Q0M [facility]; Protocol Last Titration: 07/16/23 20:30 Dose: 0 units/kg/hr, 0 mls/hr Documented By: VICKY Co-signed By: YAMILETH Dextrose/Lactated Ringer's (D5lr) 1,000 mls @ 100 mls/hr IVCONT .Q10H [facility] Lactulose (Lactulose 20 Gm/30 Ml Solution) 20 gm PO BID [facility] Last Admin: 07/17/23 10:23 Dose: Not Given Documented By: ADELINA Non-Admin Reason: Patient Refused Ondansetron HCl (Ondansetron Hcl 4 Mg/2 Ml Vial) 4 mg IVPUSH Q8H PRN PRN Reason: Nausea and Vomiting Oxycodone HCl (Oxycodone Hcl Immed Release 5 Mg Tablet) 5 mg PO Q6H PRN PRN Reason: Severe Pain (Scale Score 7-10) Pantoprazole Sodium (Pantoprazole Sodium 40 Mg/10 Ml Vial) 40 mg IVPUSH BID@0630,1630 [facility] Last Admin: 07/17/23 15:50 Dose: 40 mg Documented By: ADELINA Polyethylene Glycol (Polyethylene Glycol 3350 17 Gm Powd.Pack) 17 gm PO DAILY [facility] Last Admin: 07/17/23 10:23 Dose: Not Given Documented By: ADELINA Non-Admin Reason: Patient Refused Senna (Sennosides 8.6 Mg Tablet) 17.2 mg PO BEDTIME PRN PRN Reason: Constipation Senna (Sennosides 8.6 Mg Tablet) 8.6 mg PO DAILY PRN PRN Reason: Constipation Sodium Biphosphate/Sodium Phosphate (Sodium Phosphate,[place]-Dibasic 133 Ml Enema) 133 ml IA ONCE PRN PRN Reason: fecal impaction Labs 07/17/23 06:44 07/17/23 06:44 Labs: Laboratory Results - last 24 hr 07/16/23 07/16/23 07/17/23 15:59 19:40 04:05 MCV MCH MCHC RDW Plt Count MPV Absolute Nucleated RBC Nucleated RBC % (auto) PT INR Anion Gap Estim Creat Clear Calc Estimated GFR POC Glucose 90 74 84 Random Glucose Calcium Magnesium 07/17/23 07/17/23 07/17/23 06:44 10:13 10:50 MCV 83.4 MCH 28.2 MCHC 33.8 RDW 12.4 Plt Count 176 MPV 8.7 L Absolute Nucleated RBC 0.000 Nucleated RBC % (auto) 0.0 PT 13.9 H INR 1.1 Anion Gap 10 L Estim Creat Clear Calc 122.7 Estimated GFR > 60 POC Glucose 65 140 H Random Glucose 73 Calcium 8.3 L Magnesium 1.8 07/17/23 15:55 MCV MCH MCHC RDW Plt Count MPV Absolute Nucleated RBC Nucleated RBC % (auto) PT INR Anion Gap Estim Creat Clear Calc Estimated GFR POC Glucose 64 Random Glucose Calcium Magnesium Microbiology Microbiology Results: Microbiology 07/15/23 Unknown Urine Culture - Final Urine Catheterized - Straight Catheter No growth. Assessment and Plan (1) NSTEMI (non-ST elevated myocardial infarction): Status: Acute (2) Abdominal aortic aneurysm without rupture: Status: Acute (3) Gastric outlet obstruction: Status: Acute Plan 72yo M LTC resident [facility]. Hx cerebral venous thrombosis, CVA with L-sided hemiparesis/spastic hemiplegia, mood disorder with hx SI, repeated falls, DM2, cognitive impairment s/p CVA, osteomyelitis of L toe on IV ertapenem [end date 07/15] presenting after having brown vomitus that was occult-blood positive. Admitted for concern for gastric outlet obstruction. Had chest pain with ST changes 07/15 am. 1.NSTEMI - per Cardiology likely old inferior Q-wave inversion with ST changes related to tachycardia. -echo pending however given comorbidities likely conservative management at this time 2.Gastric outlet obstruction -upper GI can not rule out gastric outlet obstruction -will discuss with GI question endoscopy now or in future -does not feel this is GI bleed 3.Partially thrombosed AAA, 4.7 cm diameter [6.7 cm long] - Vasc Surg recommends conservative therapy -appreciate GI recommendation for anticoagulation given no obvious GI bleed however given fall risk. . . Risk far outweighs benefit at this stage 4.DM2 with hypoglycemia - correction-dose lispro if needed -D5 LR until taking orals 5.HxCVA/dural venous thrombosis - hold ASA for now SCDs DNR DNI dispo - eventual return to [facility] for LTC Needs ongoing hospitalization for IV volume repletion pending workup for gastric outlet obstruction Quality Stroke Does the patient have a stroke diagnosis?: No VTE Prior VTE?: No VTE Risk Level:: Medical - moderate - high VTE Device Contraindication: N/A - Device Ordered VTE Drug Contraindication: Treatment Not Indicated
[2023-07-17] MEDS: Dextrose 5 % and Lactated Ring 1,000 ML 100 ML IVCONT (16:05)
--- NOTE | 2023-07-17 16:21 | MHC.CM.PN ---
Pt is not yet ready for DC, his DC plan is to return to [facility] [place].
[2023-07-17 16:24] LABS: Glucose, Whole Blood 171 mg/dL (60-115)
[2023-07-17 20:00] VITALS: BP 142/63; PULSE 87; RESP 20; TEMP 37; O2SAT 96
[2023-07-17 20:54] LABS: Glucose, Whole Blood 97 mg/dL (60-115)
[2023-07-17 23:38] VITALS: BP 153/67; PULSE 80; RESP 20; TEMP 36.6; O2SAT 96
[2023-07-18] MEDS: Dextrose 5 % and Lactated Ring 1,000 ML 100 ML IVCONT (03:55)
[2023-07-18 04:00] VITALS: BP 140/63; PULSE 80; RESP 20; TEMP 36.7; O2SAT 93
[2023-07-18 05:10] LABS: Glucose, Whole Blood 102 mg/dL (60-115)
[2023-07-18 06:07] LABS: Alanine Aminotransferase 19 U/L (0-40); Albumin Level 2.8 g/dL (3.5-5.0); Alkaline Phosphatase 101 U/L (39-117); Anion Gap 10 (12-20); Aspartate Amino Transferase 23 U/L (5-37); Bilirubin Total 0.7 mg/dL (0.0-1.0); Blood Urea Nitrogen 5 mg/dL (9-16); Calcium 8.6 mg/dL (8.4-10.2); Carbon Dioxide 26 mmol/L (22-29); Chloride 109 mmol/L (96-108); Creatinine Clr Calc Pharmacy 122.7; Estimated Glomerular Filt Rate > 60; Glucose Fasting 115 mg/dL (60-99); Potassium 2.9 mmol/L (3.3-5.1); Sodium 142 mmol/L (135-145); Total Protein 6.1 g/dL (6.5-8.0)
[2023-07-18 07:40] VITALS: BP 130/56; PULSE 82; RESP 20; TEMP 36.8; O2SAT 95
[2023-07-18] MEDS: KCl 40 mEq in 5% Dex/0.45% Sod 40 MEQ/1,000 ML IV.SOLN 125 MEQ IVCONT (08:14)
[2023-07-18] MEDS: Aspirin 81 MG TAB.CHEW PO (08:19)
--- NOTE | 2023-07-18 08:46 | PC.NURSE ---
Pt can refused repo and pillows at times despite education on importance and wound prevention. Cont to re-edu
--- NOTE | 2023-07-18 10:18 | P.CDIM_ITS ---
PROVIDER RESPONSE TEXT: To clarify, the appropriate diagnosis supported by the clinical indicators: Subacute osteomyelitis QUERY TEXT: PHYSICIAN'S DOCUMENTATION REQUEST Date of Query: 07/18/2023 07:38 AM EDT Patient Name: Malachi Owens Admit Date: 07/15/2023 Dear Fabrice Marino, A review of the medical record indicates additional documentation may be needed. Please review below and update the documentation accordingly. Clinical Indicators: Progress note dated 07/15 - Ulcers on left foot in various stages of healing. Osteomyelitis left toes, finish 6 weeks of ertapenem today. Has PICC line. Based on the above, please clarify in the Progress Notes further specificity regarding the acuity of the documented Osteomyelitis. Acute osteomyelitis left toes Subacute osteomyelitis Chronic osteomyelitis Chronic multifocal osteomyelitis Other (explain) Clinically unable to determine (explain) Thank you, Eugenie House, CCS, CDIS Use of terms such as suspected, likely, concern for, or probable (associated with a specific diagnosi s that is being evaluated, monitored, or treated as if it exists) are acceptable and can be coded in the inpatient se tting, when documented at the time of discharge. Please use your independent medical judgment in providing your response. THIS QUERY IS PART OF THE PERMANENT MEDICAL RECORD
[2023-07-18 10:33] LABS: Glucose, Whole Blood 136 mg/dL (60-115)
[2023-07-18 11:34] VITALS: BP 147/64; PULSE 83; RESP 20; TEMP 36.8; O2SAT 95
--- NOTE | 2023-07-18 11:53 | HO.WOUND ---
Wound Consult: Initial 72yr old? M admitted to [facility] on 07/15/23 - See progress notes and H&P for detailed history.? Wound consult placed for Great and 2nd toe wounds.? Patient agreeable to assessment and photo documentation.? Chart review reveals patient was seen by Dr. Davidson and follows with him outpatient. Imaging suggestive of Osteo and will continue follow up with appropriate medical / surgical teams. Left 2nd toe Left Great Toe Right great and 2nd Toe Great toe and 2nd Toe Etiology: ??Diabetic Wounds Wound Bed: dry stable black necrotic tissue Drainage / Odor: None Edges: ? defined and irregular [place] wound: ?No PP found, Cool to touch, thickened toe nails, hairless toes and legs, No Induration, Fluctuance noted Pain: Pain present and spasms noted Goals of Treatment: ? [place] with Betadine and defer to Dr. Davidson. Recommendations: 1. Turn and Reposition every 2 hours and as needed for patient comfort.? Use pillows or wedges to support off loading positions. 2. Off Load all bony prominences with use of pillows and heel boots if needed.? Apply Preventative foams where needed. ? 3. Monitor for incontinence and moisture control, use barrier creams when needed for prevention and treatment. 4. Provide adequate and supplemental nutrition.? Nutrition consult in place. 5. Order low air loss mattress. 6. When applicable maintain blood glucose levels per Providers order. 7. Great toes and 2nd Toes - Cleanse with Betadine swab allow to dry. Cover with dry gauze wrap. Change daily. Re-consult wound care Nurse for wound deterioration or wound changes.
--- NOTE | 2023-07-18 12:56 | MHC.CM.PN ---
Per MD, Patient is medically cleared for dc to return to LTC today. Patient will return to LTC @ [facility] today at 4PM, via [facility]. [place] spoke with Guardian/Saba @ [phone] and informed her of the dc plan.
--- NOTE | 2023-07-18 13:54 | PM.DS ---
DS: Providers Provider Date of Service: 07/18/23 Date of admission: 07/15/23 12:08 Date of discharge: 07/18/23 Primary care physician: Fabrice Marino DO Consults: 07/15/23 11:49 Consult to Gastroenterology Stat Consulting Provider: Ted Garsia Reason for consultation: goo Has provider been notified: Yes 07/15/23 12:07 Consult to Gastroenterology Routine Consulting Provider: Ted Garsia Reason for consultation: ugib, hematemesis 07/15/23 12:10 Consult to Vascular Surgery Routine Consulting Provider: [facility] [place] Vascular Services Reason for consultation: abd aortic aneurysm with thrombosis 07/16/23 01:46 Consult to Wound Care Routine Reason for consultation: osteo to R & L toes Has provider been notified: Yes 07/16/23 06:29 Consult to Cardiology Routine Consulting Provider: [facility] [place] Cardiovascular Services Reason for consultation: Elevated troponin Has provider been notified: Yes DS: Diagnosis Discharge Diagnosis (1) NSTEMI (non-ST elevated myocardial infarction): Status: Acute (2) Abdominal aortic aneurysm without rupture: Status: Acute (3) Gastric outlet obstruction: Status: Acute DS: Summary Hospital Course Hospital Course: 72-year-old male with history of cerebral venous thrombosis, history of CVA with sequela of left-sided hemiparesis, unspecified mood disorder with history of suicidal ideation, repeated falls, [id number] type 2 diabetes, unspecified cognitive impairment secondary to CVA, spastic hemiplegia, osteopenia, and osteomyelitis of the left toes on po ertapenam who is a former smoker who quit about 30 years ago presents to the ED via EMS from [facility] for evaluation of brown vomitus. The patient has no complaints. Apparently he was briefly nausea in the ED but no further episodes of vomiting. No fevers or chills. He denies abd pain. On arrival, pt initially tachycardic to 125, improved to 95 on admission following IVF. Vitals otherwise stable. There is a leukocytosis of 18 on recheck. Initial h/h 15.2/44.8 repeat 14.1/43.9%. Renal function and lytes normal. Lipase 15. UA unremarkable. CXR unremarkable. CT of the abdomen/pelvis shows markedly dilated distended gastric lumen with air-fluid level raising concern for possible gastric outlet obstruction possibly mechanical versus neoplastic in etiology versus neurological functional paralysis. No obvious obstructing mass seen. There is also excess amount of stool in the colon especially the rectum suggestive of fecal impaction. Incidentally seen is a fusiform infrarenal abdominal aortic aneurysm measuring 4.6 x 4.7 cm transversely and 6.7 cm craniocaudally the lumen of which is partially thrombosed measuring about 2.4 x 1.9 cm. In the ED, as received 1 L IV NS, 80 mg IV pantoprazole Hospital Course Patient admitted to telemetry where monitor failed to demonstrate a pathological rhythms. Was seen by Cardiology who felt that there was a definite myocardial infarction however given comorbidities and presentation further workup was contraindicated. He was seen in consultation by GI for possible gastric outlet obstruction by upper GI series. Patient tolerated diet and GI felt that this could be addressed at a later date if patient was not tolerating solids. EGD was not attempted this hospitalization. Incidental finding of abdominal aortic aneurysm with thrombus was noted on CT. Patient was consulted by vascular surgery who stated that the aneurysm look stable and aspirin would be adequate given the question of recurrent GI bleeds not ruled out. Patient's hemoglobin has been stable however he is a poor candidate for anticoagulation at this time. Will readdress at a later date. During this hospitalization he completed his antibiotics for osteomyelitis and PICC line was removed. He will be followed at [facility]; will redraw his potassium in a.m. and replete as indicated. I will follow him there Time Attestation Discharge Coordination Time (in mins): 35 Quality: Safe Use of Opioids Does Pt have an Active Cancer Diagnosis on the Problem List?: No Quality: Stroke Does the patient have a stroke diagnosis?: No Physical Exam Vital Signs: Vital Signs: Last Vital Signs Temp 98.2 F 07/18/23 11:34 Pulse 83 07/18/23 11:34 Resp 20 07/18/23 11:34 BP 147/64 H 07/18/23 11:34 Pulse Ox 95 07/18/23 11:34 O2 Del Method Room Air 07/18/23 11:34 BMI result Body Mass Index 21.2 Const: Other: Awake alert oriented x3 no acute distress Resp: Other: Clear to auscultation bilaterally no rales rhonchi or wheezes Cardio: Other: No S4; positive S1-S2; no S3 murmurs rubs or gallops GI: Other: Soft nontender nondistended normoactive bowel sounds Extrem: Other: No edema bilaterally DS: Data Data Completed and Pending Completed studies during hospitalization [Text1]: Procedures Insertion of Infusion Device into Superior Vena Cava, Percutaneous Approach (05/30/23) Ultrasonography of Superior Vena Cava, Guidance (05/30/23) Labs on day of discharge: Laboratory Results - last 24 hr 07/17/23 07/17/23 07/17/23 15:55 16:21 20:40 Hold Purple Top Sodium Potassium Chloride Carbon Dioxide Anion Gap BUN Creatinine Estim Creat Clear Calc Estimated GFR POC Glucose 64 171 H 97 Fasting Glucose Calcium Total Bilirubin AST ALT Alkaline Phosphatase Total Protein Albumin 07/18/23 07/18/23 07/18/23 04:44 05:22 10:29 Hold Purple Top SEE NOTE Sodium 142 Potassium 2.9 L* Chloride 109 H Carbon Dioxide 26 Anion Gap 10 L BUN 5 L Creatinine 0.53 Estim Creat Clear Calc 122.7 Estimated GFR > 60 POC Glucose 102 136 H Fasting Glucose 115 H Calcium 8.6 Total Bilirubin 0.7 AST 23 ALT 19 Alkaline Phosphatase 101 Total Protein 6.1 L Albumin 2.8 L Discharge Plan Discharge Anticipated Discharge Date/Time: 07/18/23 13:49 Patient Disposition: Xfer LTC Discharge Diagnosis: Vomiting Referrals: [facility] [Outside] - 1 Week Fabrice Marino DO [Primary Care Provider] - 1 Week Discharge Medications: New aspirin 81 mg Tablet,Chewable 81 mg PO DAILY Qty: 30 0RF Continued aspirin 325 mg Tablet 325 mg PO DAILY sennosides [senna] 8.6 mg Tablet 8.6 mg PO DAILY PRN (Reason: Constipation) acetaminophen 325 mg Tablet 650 mg PO Q6H PRN (Reason: Fever Or Pain) oxycodone-acetaminophen 5-325 mg Tablet 1 tab PO Q6H PRN (Reason: Severe Pain (Scale Score 7-10)) ibuprofen 200 mg Tablet 800 mg PO Q6H PRN (Reason: Pain) Rx Instructions: moderate - severe pain baclofen 5 mg Tablet 5 mg PO TID heparin lock flush (porcine) 10 unit/mL Solution 50 unit IV DAILY Rx Instructions: administer after IV drug administration as part of [facility] protocol heparin lock flush (porcine) 10 unit/mL Solution 50 unit IV DAILY PRN (Reason: IV use) Rx Instructions: administer after IV drug administration as part of [facility] protocol heparin lock flush (porcine) 10 unit/mL Solution 50 unit IV TID Rx Instructions: administer after IV drug administration as part of [facility] protocol sodium chloride 0.9 % (flush) Syringe 10 ml IV DAILY PRN (Reason: flush) Rx Instructions: administer before and after IV drug administration as part of [facility] protocol sodium chloride 0.9 % (flush) Syringe 10 ml IV TID Rx Instructions: administer before and after IV drug administration as part of [facility] protocol sodium chloride 0.9 % (flush) Syringe 10 ml IV BID Rx Instructions: administer before and after IV drug administration as part of [facility] protocol Discontinued ertapenem 1 gram recon soln 1 g IV DAILY Rx Instructions: for 40 days Start Date: 06/06/23 Discharge Orders: Discharge Order (Routine); Ordered 07/18/23 Ordered By: Fabrice Marino Diet: Advance to usual diet Activity on Discharge: As tolerated Stand Alone Forms: Patient Portal Discharge page Care Plan Goals: Resume all pre-hospital medication. Aspirin and Protonix have been added to your regimen Health Concerns: Advance diet as tolerated. Plan of Treatment: Resume all therapies and treatment as prior to hospitalization Assessment: See discharge summary Patient Instructions: Acute Nausea and Vomiting (ED)
[2023-07-18 14:58] VITALS: BP 138/78; PULSE 101; RESP 20; TEMP 36.7; O2SAT 98
--- NOTE | 2023-07-18 15:11 | HO.REMOVAL ---
Removal of PICC/Midline Removal of PICC/Midline: Removal of Midline 1. Date: 07/18/2023 2. Reason removed: No longer needed 3. Inserted length: 38 cm 4. Removed length: 38 cm 5. A dressing was placed over the site upon removal. No edema or bleeding at the site. Patient denies any discomfort
== END 2023-07-18 16:00 | DRG 380 ==
LOC: HO.ED 11:44 → HO.EDOVER 12:24 → HO.S3 13:50 → HO.IMC 07-16 07:14
PROVIDERS: Family Medicine; Physician Assistant; Student in an Organized Health Care Education/Training Program; Admitting Provider Physician Assistant; Emergency Provider Emergency Medicine; PCP Hospitalist; Referring Provider Hospitalist; Visit Provider Hospitalist
DX: K31.1 Adult hypertrophic pyloric stenosis (principal); I21.4 Non-ST elevation (NSTEMI) myocardial infarction; I69.354 Hemiplegia and hemiparesis following cerebral infarction affecting left non-dominant side; K92.0 Hematemesis; M86.272 Subacute osteomyelitis, left ankle and foot; E11.69 Type 2 diabetes mellitus with other specified complication; K56.41 Fecal impaction; E87.6 Hypokalemia; E11.649 Type 2 diabetes mellitus with hypoglycemia without coma; D64.9 Anemia, unspecified; Z66 Do not resuscitate; I71.40 Abdominal aortic aneurysm, without rupture, unspecified; Z87.891 Personal history of nicotine dependence; Z79.82 Long term (current) use of aspirin; Z79.899 Other long term (current) drug therapy
CPT/HCPCS: 36415; 71045; 74018; 74177; 74240; 80048; 80053; 80076; 81001; 82271; 82272; 82947; 83690; 83735; 84484; 85025; 85027; 85610; 85730; 87086; 92950; 93005; 93306; 99285; C9113; J1642; J1644; J3480; Q9957; Q9967

== ENCOUNTER 2023-07-15 12:08 | Outpatient (BNV) | payer OTHER, MEDICAID, SELFPAY | END 2023-07-17 07:00 | PROVIDERS: Admitting Provider Physician Assistant; Emergency Provider Emergency Medicine; PCP Hospitalist; Visit Provider Internal Medicine Cardiovascular Disease | DX: I35.0 Nonrheumatic aortic (valve) stenosis (principal); I34.81 Nonrheumatic mitral (valve) annulus calcification; I36.1 Nonrheumatic tricuspid (valve) insufficiency | CPT/HCPCS: 93306 ==

== ENCOUNTER 2023-07-15 12:08 | Outpatient (BNV) | payer OTHER, MEDICAID, SELFPAY | END 2023-07-17 08:45 | PROVIDERS: Admitting Provider Physician Assistant; Emergency Provider Emergency Medicine; PCP Hospitalist; Visit Provider Physician Assistant Surgical | DX: R93.3 Abnormal findings on diagnostic imaging of other parts of digestive tract (principal) | CPT/HCPCS: 74240 ==

== ENCOUNTER 2023-07-15 12:08 | Outpatient (BNV) | payer OTHER, MEDICAID, SELFPAY | END 2023-07-16 07:58 | PROVIDERS: Admitting Provider Physician Assistant; Emergency Provider Emergency Medicine; PCP Hospitalist; Visit Provider Internal Medicine Cardiovascular Disease | DX: R94.31 Abnormal electrocardiogram [ECG] [EKG] (principal); R00.0 Tachycardia, unspecified; I21.3 ST elevation (STEMI) myocardial infarction of unspecified site | CPT/HCPCS: 93010 ==

== ENCOUNTER → 2023-07-15 12:08 | Outpatient (BNV) | payer OTHER, MEDICAID, SELFPAY | PROVIDERS: Admitting Provider Physician Assistant; Emergency Provider Emergency Medicine; PCP Hospitalist; Visit Provider Physician Assistant | DX: I21.4 Non-ST elevation (NSTEMI) myocardial infarction (principal); I71.43 Infrarenal abdominal aortic aneurysm, without rupture; K31.1 Adult hypertrophic pyloric stenosis | CPT/HCPCS: 99223; 99233; 99239 ==

== ENCOUNTER → 2023-07-15 12:08 | Outpatient (BNV) | payer OTHER, MEDICAID, SELFPAY | PROVIDERS: Admitting Provider Physician Assistant; Emergency Provider Emergency Medicine; PCP Hospitalist; Visit Provider Internal Medicine Cardiovascular Disease | DX: I21.9 Acute myocardial infarction, unspecified (principal) | CPT/HCPCS: 93010; 99223; 99233 ==

== ENCOUNTER → 2023-07-15 12:08 | Outpatient (BNV) | payer OTHER, MEDICAID, SELFPAY | PROVIDERS: Admitting Provider Physician Assistant; Emergency Provider Emergency Medicine; PCP Hospitalist; Visit Provider Internal Medicine Gastroenterology | DX: K31.1 Adult hypertrophic pyloric stenosis (principal); K56.41 Fecal impaction | CPT/HCPCS: 99223 ==

== ENCOUNTER → 2023-07-15 12:08 | Outpatient (BNV) | payer OTHER, MEDICAID, SELFPAY | PROVIDERS: Admitting Provider Physician Assistant; Emergency Provider Emergency Medicine; PCP Hospitalist; Visit Provider Surgery Vascular Surgery | DX: I71.43 Infrarenal abdominal aortic aneurysm, without rupture (principal) | CPT/HCPCS: 99222 ==

== ENCOUNTER 2023-07-20 22:01 | Inpatient (IN) | payer OTHER, MEDICAID, SELFPAY ==
--- NOTE | ~2023-07-20 | XR_ITS ---
EXAMINATION: XR ABDOMEN KUB CLINICAL INDICATION: Gastric outlet obstruction. COMPARISON: CT abdomen and pelvis dated 07/21/2023; KUB dated 07/16/2023. TECHNIQUE: 2 AP views of the abdomen and pelvis are submitted. FINDINGS: There is a disorganized bowel gas pattern, with multiple gas-filled nondistended small bowel loops. There is stool and contrast within the right hemicolon. No pathologic dilatation of large or small bowel loops is seen. There is gas and stool identified to the level of the rectosigmoid. No definite free intraperitoneal air is seen. No abnormal soft tissue calcification is seen. Previously noted renal calculi are obscured by overlapping bowel contents. There is scoliotic changes. There is no acute osseous abnormality. XR/XR KUB IMPRESSION: There is a disorganized bowel gas pattern, with features favoring a mild adynamic ileus. No navjot obstruction is noted. No free intraperitoneal air is seen.
--- NOTE | ~2023-07-20 | XR_ITS ---
EXAMINATION: XR CHEST CLINICAL INFORMATION: Gastric outlet obstruction. COMPARISON: Chest radiographs dated 07/21/2023 and 07/05/2023. TECHNIQUE: 2 frontal views of the chest were obtained. FINDINGS: The heart, great vessels, pulmonary vasculature and mediastinum are stable. The examination is limited, with the patient's left distal forearm, wrist and hand overlapping the left and mid chest. As well, the right lateral costophrenic angle is excluded from the [id number]. There is plate-like scar/subsegmental atelectasis at the left base. The right lung appears relatively clear. No pleural effusion or pneumothorax seen. There is no acute osseous abnormality. There is a moderate thoracic dextroscoliosis. XR/XR chest 1V IMPRESSION: Significantly limited examination, as detailed. There is moderate left base plate-like scar/subsegmental atelectasis. In the absence of outside comparison radiographs documenting long-term stability, recommend short-term follow-up chest radiographs to ensure regression/resolution and exclude the possibly of underlying obstructive process
--- NOTE | ~2023-07-20 | CT_ITS ---
EXAMINATION: CT ABDOMEN AND PELVIS WITH CONTRAST CLINICAL INFORMATION: Vomiting. Abdominal pain. Recent partial small bowel obstruction. COMPARISON: 07/15/2023 TECHNIQUE: Multidetector volumetric images were obtained from the superior aspect of the liver through the pubic symphysis following administration 85 mL of Omnipaque 350 intravenous contrast. Sagittal and coronal reformatted images were obtained on the technologist's workstation. Oral contrast: No This CT examination was performed using dose optimization techniques as appropriate, variously including the following: *Automated exposure control *Adjustment of mA and/or kV according to patient size (this includes techniques or standardized protocols for targeted exams where dose is matched to indication/reason for exam; i.e. extremities or head) *Use of iterative reconstruction technique DLP: 1121 mGy-cm FINDINGS: LUNG BASES: New patchy tree-in-bud opacities are present within the right lower lobe, potentially corresponding to aspiration pneumonitis or other inflammatory/infectious etiologies. There is mild bronchiectasis in the left lower lobe with additional areas of intraluminal opacification atelectasis. Calcific atherosclerosis is present in the coronary arteries. Multiple calcifications are present on the aortic and mitral valve. LIVER, GALLBLADDER, AND BILIARY TREE: The liver is normal in size, shape, and attenuation. No focal hepatic lesion or biliary ductal dilatation is present. Gallbladder is unremarkable. A few small foci of portal venous gas is suspected within the periphery of the left and right hepatic lobes. PANCREAS: Mildly atrophic. No pancreatic ductal dilatation or surrounding fat stranding. SPLEEN: Unremarkable. ADRENAL GLANDS: Unremarkable. KIDNEYS AND URETERS: Multiple punctate nonobstructing bilateral renal calculi are identified measuring between 1 and 2 mm in diameter, in addition to atelectatic calcifications. No suspicious renal lesions. Focal renal cortical scarring is present in the upper poles of both kidneys. Small subcentimeter foci of cortical hypoattenuation kidneys are too small to characterize, though statistically favored to correspond to simple cysts. No recommended imaging follow-up. Kidneys enhance symmetrically with normal cortical thickness. No hydronephrosis. BLADDER: Unremarkable. GASTROINTESTINAL TRACT: Dense contrast material within the stomach likely corresponds to barium and produces surrounding artifact limits position assessment. There is pneumatosis within the gastric wall which is of uncertain etiology. Stomach is moderately distended and fluid-filled. There is dilatation of the proximal duodenum as well, terminating at the third portion of the duodenum where it crosses the aneurysmal abdominal aorta. The small bowel is otherwise normal in caliber. There is a moderate to large volume of stool in the colon, most notably in the descending colon, sigmoid colon, and rectum. No significant bowel wall thickening. No intraperitoneal free fluid or free air. ABDOMINAL WALL: No significant hernia is appreciated. LYMPH NODES: Normal. VASCULAR: A fusiform abdominal aortic aneurysm measures 5.1 x 4.5 cm in cross-section. No evidence of acute rupture. Calcific atherosclerosis is present in the iliac and femoral arteries. PELVIC VISCERA: Prostate gland is mildly enlarged, measuring 5 cm in diameter. 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 Bones are osteopenic. No acute fractures. Diffuse idiopathic skeletal hyperostosis (DISH) is present in the thoracic spine. CT/CT abdomen pelvis w IV con IMPRESSION: 1. Pneumatosis within the gastric wall with a few small foci of portal venous gas. This is of uncertain etiology, though new as compared to prior. This is most likely due to a benign etiology such as recent mechanical irritation of the mucosa or steroid. Recommend correlation for recent use of a nasogastric or enteric tube. 2. Moderate to large volume of stool in the colon, most notably in the descending colon, sigmoid colon, and rectum. No evidence of obstruction. 3. Distention of the stomach and proximal duodenum with focal caliber transition of the duodenum where it crosses the aneurysmal abdominal aorta, potentially corresponding to the site of focal narrowing due to mass effect. Gastroparesis is also possible. 4. Unchanged 5.1 cm abdominal aortic aneurysm. Based on published guidelines in J Am Cheri Radiol 2013; 10(10):789-794 and J Vasc Surg. 2018; 67:2-77, the recommendation for an abdominal aortic aneurysm with diameter 4.5-5.4 cm is vascular consultation and subsequent follow-up every 6 months. 5. New patchy tree-in-bud opacities in the right lower lobe, potentially due to aspiration pneumonitis or other inflammatory/infectious etiologies. 6. Bilateral nonobstructing nephrolithiasis.
--- NOTE | ~2023-07-20 | XR_ITS ---
EXAMINATION: XR CHEST CLINICAL INFORMATION: Gastric outlet obstruction COMPARISON: CT scan abdomen pelvis July 20, 2023. Upper GI series July 17, 2023 TECHNIQUE: Frontal view of the chest was obtained. 1511 hours FINDINGS: Enteric catheter tip in stomach. Small volume of contrast opacified as the cardia of the stomach. There are distended loops of bowel in the upper abdomen. Lung volume is low. Dependent atelectasis at left lung base. No pulmonary vascular congestion. No significant pleural effusion. XR/XR chest 1V IMPRESSION: 1. Enteric catheter tip in stomach. 2. Low lung volumes. Dependent atelectasis at left lung base.
[2023-07-20 22:12] VITALS: BP 107/67; PULSE 108; O2SAT 94
[2023-07-20 22:13] VITALS: BP 124/78; PULSE 107; RESP 16; TEMP 36.9; O2SAT 93; BMI 17.2
--- NOTE | 2023-07-20 22:38 | ECG_ITS ---
Test Reason : VOMITING Blood Pressure : / mmHG Vent. Rate : 122 BPM Atrial Rate : 122 BPM P-R Int : 162 ms QRS Dur : 078 ms QT Int : 312 ms P-R-T Axes : 032 -37 043 degrees QTc Int : 444 ms Sinus tachycardia Left axis deviation Lateral infarct (cited on or before 03-JAN-2021) Inferior infarct (cited on or before 03-JAN-2021) Abnormal ECG When compared with ECG of 16-JUL-2023 07:58, Vent. rate has increased BY 40 BPM Questionable change in initial forces of Anterolateral leads Referred By: Criselda Jason Electronically Signed By:LANETTE RAMIREZ MD
[2023-07-20 22:48] LABS: GASOB Int Neg Ctl Valid YES; GASOB Int Pos Ctl Valid YES; Occult Blood Gastric NEGATIVE (NEG)
[2023-07-20] MEDS: 0.9 % Sodium Chloride 1,000 ML 999 ML IVCONT (23:10)
[2023-07-20] MEDS: ondansetron HCL 4 MG/2 ML VIAL IVPUSH (23:12)
[2023-07-20 23:14] LABS: MANUAL DIFF FLAG NO
[2023-07-20 23:15] LABS: Basophils Percent Auto 0.3 % (0-2); Eosinophils Absolute Auto 0.1 X10*3/uL (0.0-0.4); Eosinophils Percent Auto 0.5 % (0-4); Hematocrit 43.4 % (42.0-52.0); Hemoglobin 14.4 g/dl (14.0-18.0); Imm Gran Abs Auto 0.02 X10*3/uL (0.00-0.03); Imm Gran Pct Auto 0.2 % (0.0-0.4); Lymphocytes Absolute Auto 0.9 X10*3/uL (1.2-4.9); Lymphocytes Percent Auto 7.8 % (20-40); Mean Corpuscular HGB Conc 33.2 g/dl (31.0-36.0); Mean Corpuscular Hemoglobin 27.9 pg (27.0-33.0); Mean Corpuscular Volume 83.9 fL (80.0-98.0); Mean Platelet Volume 8.7 fL (9.4-12.4); Monocytes Absolute Auto 0.5 X10*3/uL (0.1-1.2); Monocytes Percent Auto 4.8 % (2-11); Neutrophils Absolute Auto 9.7 x10*3/uL (2.0-8.3); Neutrophils Percent Auto 86.4 % (45-73); Platelet Count 297 X10*3/uL (160-400); Red Blood Count 5.17 X10*6/uL (4.60-5.80); Red Cell Distribution Width 12.8 % (11.0-16.0); White Blood Count 11.2 X10*3/uL (4.8-10.8)
[2023-07-20 23:20] LABS: INTERNATIONAL NORM RATIO 1.2 (0.9-1.1); Prothrombin Time 14.4 SEC (11.1-13.3)
[2023-07-20 23:25] LABS: Lactic Acid 1.4 mmol/L (0.5-2.0)
[2023-07-20 23:29] LABS: Alanine Aminotransferase 27 U/L (0-40); Albumin Level 3.4 g/dL (3.5-5.0); Alkaline Phosphatase 127 U/L (39-117); Anion Gap 15 (12-20); Aspartate Amino Transferase 25 U/L (5-37); Bilirubin Direct 0.2 mg/dL (0.0-0.5); Bilirubin Total 0.4 mg/dL (0.0-1.0); Blood Urea Nitrogen 25 mg/dL (9-16); Carbon Dioxide 24 mmol/L (22-29); Chloride 108 mmol/L (96-108); Creatinine Clr Calc Pharmacy 64.9; Estimated Glomerular Filt Rate > 60; Glucose Random 175 mg/dL (60-115); Lipase 44 U/L (8-78); Potassium 3.4 mmol/L (3.3-5.1); Sodium 144 mmol/L (135-145); Total Protein 7.3 g/dL (6.5-8.0)
[2023-07-20 23:36] LABS: Troponin-I High Sensitivity 58.5 ng/L (<3.5-35.0)
[2023-07-21] VITALS (9 sets, daily range): BP systolic 100–182; BP diastolic 48–87; PULSE 83–126; RESP 14–20; TEMP 36.6–38.1; O2SAT 94–98; BMI 21.7
[2023-07-21] MEDS: iohexoL 350 MG/ML 100 ML INFUS..BTL 85 ML IV (00:11)
--- NOTE | 2023-07-21 00:15 | ED_ITS ---
HPI - Nausea/Vomiting/Diarrhea General Chief complaint: Nausea/Vomiting/Diarrhea Stated complaint: vomiting and abd pain Time Seen by Provider: 07/20/23 22:09 Source: EMS Mode of arrival: EMS Limitations: other History of Present Illness HPI Narrative: Patient comes to the emergency room via ambulance from [facility]. According to his health caretakers, patient has been vomiting brown fluid. Patient states that he feels nauseous, no significant abdominal pain. Patient denies fever or chills. -of note, patient was discharged from this hospital 2 days ago, patient was treated for an NSTEMI, patient given with vomiting. EGD was not attempted, flat plan for outpatient. New abdominal aneurysm detected. Related Data Home Medications ?Medication ?Instructions ?Recorded ?Confirmed aspirin 325 mg tablet 325 mg PO DAILY 10/29/21 07/15/23 sennosides 8.6 mg tablet (senna) 8.6 mg PO DAILY PRN Constipation 10/29/21 07/15/23 acetaminophen 325 mg tablet 650 mg PO Q6H PRN Fever Or Pain 05/30/23 07/15/23 ibuprofen 200 mg tablet 800 mg PO Q6H PRN Pain 05/30/23 07/15/23 oxycodone-acetaminophen 5 mg-325 1 tab PO Q6H PRN Severe Pain 05/30/23 07/15/23 mg tablet (Scale Score 7-10) baclofen 5 mg tablet 5 mg PO TID 07/15/23 07/15/23 heparin lock flush (porcine) 10 50 unit IV DAILY 07/15/23 07/15/23 unit/mL intravenous solution heparin lock flush (porcine) 10 50 unit IV DAILY PRN IV use 07/15/23 07/15/23 unit/mL intravenous solution heparin lock flush (porcine) 10 50 unit IV TID 07/15/23 07/15/23 unit/mL intravenous solution sodium chloride 0.9 % (flush) 10 ml IV BID 07/15/23 07/15/23 sodium chloride 0.9 % (flush) 10 ml IV DAILY PRN flush 07/15/23 07/15/23 sodium chloride 0.9 % (flush) 10 ml IV TID 07/15/23 07/15/23 Previous Rx's ?Medication ?Instructions ?Recorded aspirin 81 mg chewable tablet 81 mg PO DAILY #30 tabs 07/18/23 Allergies Allergy/AdvReac Type Severity Reaction Status Date / Time No Known Allergies Allergy Verified 07/20/23 22:14 Review of Systems 2 Review of Systems: Patient poor historian, complaining of nausea and vomiting, denies abdominal pain PMFSH Past Medical History Medical History Abdominal aortic aneurysm without rupture Acute myocardial infarction Hematemesis NSTEMI (non-ST elevated myocardial infarction) Fecal impaction Gastric outlet obstruction Toe ulcer Spastic hemiplegia Cognitive impairment Type 2 diabetes mellitus CVA (cerebral vascular accident) Hemiparesis affecting left side as late effect of cerebrovascular accident 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 Cerebral venous thrombosis Transient cerebral ischemia Social History Social History Household Members: None Housing: Other Housing Other:: [facility] [place] Do you presently have visiting nurse or other home services: No Unable to assess alcohol history related to: Unable to respond Patient Tobacco Use Status: Former Tobacco user Quit Date: 1981 Tobacco use type: Cigarette Smoked in Last 30 Days: No Use of substances other than those prescribed or required for medical reasons: No Advance Directives: Yes Advance Directives on File: Yes Advance Directives Date on File: 11/04/21 service: Yes Current occupational status: disabled Physical Exam 2 Vital Signs: Vital Signs: Last Vital Signs Temp 99.6 F 07/21/23 01:18 Pulse 103 H 07/21/23 01:18 Resp 15 07/21/23 01:18 BP 139/87 07/21/23 01:18 Pulse Ox 98 07/21/23 01:18 O2 Del Method Room Air 07/21/23 01:18 BMI result Body Mass Index 17.2 Const: Other: Appearance: Alert. No acute distress. Eyes: Pupils equal, round and reactive to light. ENT: Pharynx normal. Neck: Normal inspection. Neck supple. No lymph nodes noted. No crepitus CVS: Normal heart rate and rhythm. Pulses normal. Normal S1 and S2 Respiratory: No respiratory distress. Breath sounds normal. No Wheezing. No rales Abdomen: Soft , distended. Patient actively vomiting after pressing on his stomach, actively vomiting Skin: Skin warm and dry. Normal skin color. Normal skin turgor. Extremities: No lower extremity edema. No Lacerations. No Rash Neuro: Oriented X 3. No motor deficit. No sensory deficit. Moving all extremities. No slurred speech. CN 2 through 12 grossly intact Psych: calm, cooperative, normal affect Course Course Course Narrative: Is possible the patient may have a small bowel obstruction. In his prior admission, patient did have a partial SBO. We attempted given to the patient contrast p.o.. Patient vomited it twice. We will go ahead and order it only with IV contrast. Medications Administered Discontinued Medications Generic Name Dose Route Start Last Admin Trade Name Frelisandra PRN Reason Stop Dose Admin Sodium Chloride 1,000 mls @ 999 mls/hr 07/20/23 22:38 07/20/23 23:10 Ns IVCONT 07/20/23 23:38 999 mls/hr .Q1H1M ONE Administration Iohexol 85 ml 07/21/23 00:11 07/21/23 00:11 Iohexol 350 Mg/Ml 100 Ml Infus..Btl IV 07/21/23 00:12 85 ml ONCE ONE Administration Ondansetron HCl 4 mg 07/20/23 22:39 07/20/23 23:12 Ondansetron Hcl 4 Mg/2 Ml Vial IVPUSH 07/20/23 22:40 4 mg ONCE ONE Administration Medical Decision Making Medical Decision Making [facility] Narrative: -my interpretation of labs: White blood cell count 11.2, chronic leukocytosis. Chemistry does not show any significant acute abnormalities, glucose 175. Patient's troponin is 58.5. However, 4 days ago, patient was diagnosed with NSTEMI, previous troponin was 1200. At this time, patient states he has no chest pain. Gastric occult blood test was heme negative. -my interpretation of CT scan of the abdomen: Large amount of stool, possible SBO developing -radiology report the CT scan: Mother to large volume of stool in the colon. No evidence of obstruction. Distention of the stomach likely secondary to gastroparesis. When changed 5.1 cm abdominal aortic aneurism. New patchy infiltrate in right lower lobe, likely secondary to aspiration. -patient was empirically treated with Zosyn. Patient has no respiratory symptoms at this time. Sepsis not suspected -despite multiple doses of IV medication, patient is not able to tolerate p.o.. Also, patient was unable to tolerate p.o. contrast, patient vomited immediately. -I discussed the patient with Dr. Suero, patient being admitted. Differential Diagnosis Differential Diagnoses: The differential diagnosis associated with the presentation includes (Small-bowel obstruction, gastroenteritis, severe constipation) Admission/Observation Consideration of admission/observation: Escalation of care including admission/observation considered Consult Healthcare Provider Management of the patient was discussed with: Hospitalist Lab Data MDM Lab Attestation statement: I reviewed the patient's lab results. 07/20/23 23:07 07/20/23 23:07 Labs: Lab Results 07/20/23 07/20/23 Range/Units 22:41 23:07 WBC 11.2 H (4.8-10.8) X10*3/uL RBC 5.17 D (4.60-5.80) X10*6/uL Hgb 14.4 D (14.0-18.0) g/dl Hct 43.4 D (42.0-52.0) % MCV 83.9 (80.0-98.0) fL MCH 27.9 (27.0-33.0) pg MCHC 33.2 (31.0-36.0) g/dl RDW 12.8 (11.0-16.0) % Plt Count 297 D (160-400) X10*3/uL MPV 8.7 L (9.4-12.4) fL Immature Gran % (Auto) 0.2 (0.0-0.4) % Neut % (Auto) 86.4 H (45-73) % Lymph % (Auto) 7.8 L (20-40) % Mckean % (Auto) 4.8 (2-11) % Eos % (Auto) 0.5 (0-4) % Baso % (Auto) 0.3 (0-2) % Lymph # (Auto) 0.9 L (1.2-4.9) X10*3/uL Mckean # (Auto) 0.5 (0.1-1.2) X10*3/uL Eos # (Auto) 0.1 (0.0-0.4) X10*3/uL Baso # (Auto) 0.0 (0.0-0.2) X10*3/uL Abs Immat Gran (auto) 0.02 (0.00-0.03) X10*3/uL Absolute Neuts (auto) 9.7 H (2.0-8.3) x10*3/uL Absolute Nucleated RBC 0.000 (0.0-0.012) X10*3/uL Nucleated RBC % (auto) 0.0 (0.0-0.2) /100WBC PT 14.4 H (11.1-13.3) SEC INR 1.2 H (0.9-1.1) Sodium 144 (135-145) mmol/L Potassium 3.4 (3.3-5.1) mmol/L Chloride 108 (96-108) mmol/L Carbon Dioxide 24 (22-29) mmol/L Anion Gap 15 (12-20) BUN 25 H (9-16) mg/dL Creatinine 0.79 (0.5-1.4) mg/dL Estim Creat Clear Calc 64.9 Estimated GFR > 60 Random Glucose 175 H (60-115) mg/dL Lactic Acid 1.4 (0.5-2.0) mmol/L Calcium 9.0 (8.4-10.2) mg/dL Magnesium 2.0 (1.6-2.6) mg/dL Total Bilirubin 0.4 (0.0-1.0) mg/dL Direct Bilirubin 0.2 (0.0-0.5) mg/dL AST 25 (5-37) U/L ALT 27 (0-40) U/L Alkaline Phosphatase 127 H (39-117) U/L Troponin I High Sens 58.5 H D (<3.5-35.0) ng/L Total Protein 7.3 (6.5-8.0) g/dL Albumin 3.4 L (3.5-5.0) g/dL Lipase 44 (8-78) U/L Gastric Occult Blood NEGATIVE (NEG) Independent Interpretation I performed an independent interpretation of an: CT Scan Radiology Impression Discussion of test interpretation with radiology: I have reviewed the radiologist's reading. Radiologist Impression: FINDINGS: LUNG BASES: New patchy tree-in-bud opacities are present within the right lower lobe, potentially corresponding to aspiration pneumonitis or other inflammatory/infectious etiologies. There is mild bronchiectasis in the left lower lobe with additional areas of intraluminal opacification atelectasis. Calcific atherosclerosis is present in the coronary arteries. Multiple calcifications are present on the aortic and mitral valve. LIVER, GALLBLADDER, AND BILIARY TREE: The liver is normal in size, shape, and attenuation. No focal hepatic lesion or biliary ductal dilatation is present. Gallbladder is unremarkable. A few small foci of portal venous gas is suspected within the periphery of the left and right hepatic lobes. PANCREAS: Mildly atrophic. No pancreatic ductal dilatation or surrounding fat stranding. SPLEEN: Unremarkable. ADRENAL GLANDS: Unremarkable. KIDNEYS AND URETERS: Multiple punctate nonobstructing bilateral renal calculi are identified measuring between 1 and 2 mm in diameter, in addition to atelectatic calcifications. No suspicious renal lesions. Focal renal cortical scarring is present in the upper poles of both kidneys. Small subcentimeter foci of cortical hypoattenuation kidneys are too small to characterize, though statistically favored to correspond to simple cysts. No recommended imaging follow-up. Kidneys enhance symmetrically with normal cortical thickness. No hydronephrosis. BLADDER: Unremarkable. GASTROINTESTINAL TRACT: Dense contrast material within the stomach likely corresponds to barium and produces surrounding artifact limits position assessment. There is pneumatosis within the gastric wall which is of uncertain etiology. Stomach is moderately distended and fluid-filled. There is dilatation of the proximal duodenum as well, terminating at the third portion of the duodenum where it crosses the aneurysmal abdominal aorta. The small bowel is otherwise normal in caliber. There is a moderate to large volume of stool in the colon, most notably in the descending colon, sigmoid colon, and rectum. No significant bowel wall thickening. No intraperitoneal free fluid or free air. ABDOMINAL WALL: No significant hernia is appreciated. LYMPH NODES: Normal. VASCULAR: A fusiform abdominal aortic aneurysm measures 5.1 x 4.5 cm in cross-section. No evidence of acute rupture. Calcific atherosclerosis is present in the iliac and femoral arteries. PELVIC VISCERA: Prostate gland is mildly enlarged, measuring 5 cm in diameter. 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 Bones are osteopenic. No acute fractures. Diffuse idiopathic skeletal hyperostosis (DISH) is present in the thoracic spine. CT/CT abdomen pelvis w IV con IMPRESSION: 1. Pneumatosis within the gastric wall with a few small foci of portal venous gas. This is of uncertain etiology, though new as compared to prior. This is most likely due to a benign etiology such as recent mechanical irritation of the mucosa or steroid. Recommend correlation for recent use of a nasogastric or enteric tube. 2. Moderate to large volume of stool in the colon, most notably in the descending colon, sigmoid colon, and rectum. No evidence of obstruction. 3. Distention of the stomach and proximal duodenum with focal caliber transition of the duodenum where it crosses the aneurysmal abdominal aorta, potentially corresponding to the site of focal narrowing due to mass effect. Gastroparesis is also possible. 4. Unchanged 5.1 cm abdominal aortic aneurysm. Based on published guidelines in J Am Cheri Radiol 2013; 10(10):789-794 and J Vasc Surg. 2018; 67:2-77, the recommendation for an abdominal aortic aneurysm with diameter 4.5-5.4 cm is vascular consultation and subsequent follow-up every 6 months. 5. New patchy tree-in-bud opacities in the right lower lobe, potentially due to aspiration pneumonitis or other inflammatory/infectious etiologies. 6. Bilateral nonobstructing nephrolithiasis. Critical Care Time Critical Care Time Critical Care Time: Yes Total Critical Care Time: 45 Attestation: I have personally provided critical care time. Time includes review of lab data, radiology results, discussion with consultants, and monitoring for potential decompensation. Intervention performed as documented. Discharge Plan Discharge Clinical Impression: Vomiting, Gastric outlet obstruction Patient Disposition: Admitted As Inpatient Prescriptions: No Action aspirin 325 mg Tablet 325 mg PO DAILY sennosides [senna] 8.6 mg Tablet 8.6 mg PO DAILY PRN (Reason: Constipation) acetaminophen 325 mg Tablet 650 mg PO Q6H PRN (Reason: Fever Or Pain) oxycodone-acetaminophen 5-325 mg Tablet 1 tab PO Q6H PRN (Reason: Severe Pain (Scale Score 7-10)) ibuprofen 200 mg Tablet 800 mg PO Q6H PRN (Reason: Pain) Rx Instructions: moderate - severe pain baclofen 5 mg Tablet 5 mg PO TID heparin lock flush (porcine) 10 unit/mL Solution 50 unit IV DAILY Rx Instructions: administer after IV drug administration as part of [facility] protocol heparin lock flush (porcine) 10 unit/mL Solution 50 unit IV DAILY PRN (Reason: IV use) Rx Instructions: administer after IV drug administration as part of [facility] protocol heparin lock flush (porcine) 10 unit/mL Solution 50 unit IV TID Rx Instructions: administer after IV drug administration as part of [facility] protocol sodium chloride 0.9 % (flush) Syringe 10 ml IV DAILY PRN (Reason: flush) Rx Instructions: administer before and after IV drug administration as part of [facility] protocol sodium chloride 0.9 % (flush) Syringe 10 ml IV TID Rx Instructions: administer before and after IV drug administration as part of [facility] protocol sodium chloride 0.9 % (flush) Syringe 10 ml IV BID Rx Instructions: administer before and after IV drug administration as part of [facility] protocol aspirin 81 mg Tablet,Chewable 81 mg PO DAILY Qty: 30 0RF Print Language: Chilean
--- NOTE | 2023-07-21 00:15 | PC.NURSE ---
pt biba from [facility], alert and oriented. pt noted to have bloody vomit per staff and staff reports pt needs to be disimpacted. pt was seen at [facility] on the for similar episodes and had been admitted. pt denies abdominal pain at this time. 20G placed in right AC, labs obtained and sent to lab.
[2023-07-21] MEDS: Piperacillin Sodium/Tazobactam 3.375 GM in 0.9 % Sodium Chloride 50 ML IV ×4 (02:33→21:32)
[2023-07-21] MEDS: Prochlorperazine Edisylate 10 MG/2 ML VIAL IVPUSH (02:33)
--- NOTE | 2023-07-21 02:37 | PC.NURSE ---
pt noted to have medium episode of incontinent stool, enema held, provider aware. pt bed linens chnaged.
--- NOTE | 2023-07-21 03:35 | PC.NURSE ---
dr. burns aware of pt vital signs, at bedside.
[2023-07-21] MEDS: Acetaminophen Supp 650 MG SUPP.RECT PR (03:55)
--- NOTE | 2023-07-21 03:58 | PM.IMHP ---
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 due to brown vomiting and constipation. It was quite difficult to obtain the HPI directly from the patient. He is currently on acute distress and unable to provide a reliable HPI. However, he was able to say that he has abdominal pain. Patient was recently hospitalized with similar symptoms. He was considered to have gastric outlet obstruction and evaluated by Gastroenterology. He was also diagnosed with NSTEMI and evaluated by Cardiology. Patient was treated for this only medically and conservatively. Patient was also seen by vascular surgery after an abdominal aortic aneurysm was incidentally found in CT scan and recommending follow up as an outpatient as the patient appeared to be stable and not a risk of rupture. In the ED, he was found to have fever and tachycardia. Blood pressure is normal as well as O2 sats. Blood workup showed mild leukocytosis of 11.2. Hemoglobin and platelets are normal. There are no lactic acidosis. Electrolytes are normal. Creatinine is 0.79. LFTs are unremarkable. Troponin is 58.5 (it was 1,234.8 four days ago). Lipase is normal. Viral testing and urinalysis are pending. Gastric fluid is negative for occult blood. Abdomen pelvis CT scan showed pneumatosis within the gastric wall with a few small foci of portal venous gas of uncertain etiology, however suggesting a benign etiology. It also showed [id number] volume of stools in the colon, distention of the stomach and proximal duodenal (possible gastroparesis), unchanged abdominal aortic aneurysm (5 point cm), new patchy tree-in-bud opacities in the right lower lobe potentially due to aspiration pneumonitis and bilateral nonobstructive nephrolithiasis. ED tx: NS 1 L bolus, Zofran 4 mg IV, Zosyn 3.375 g IV, Compazine 10 mg IV, Fleet enema. Review of Systems Review of Systems: Yes Unobtainable due to mental condition [facility] Medical History (Updated 07/21/23 @ 05:12 by Jesu Kahn MD) Abdominal aortic aneurysm without rupture Fecal impaction Acute myocardial infarction Hematemesis NSTEMI (non-ST elevated myocardial infarction) Gastric outlet obstruction Toe ulcer Spastic hemiplegia Cognitive impairment Type 2 diabetes mellitus CVA (cerebral vascular accident) Hemiparesis affecting left side as late effect of cerebrovascular accident Hx of senior care use of blood thinners Cerebral venous thrombosis Transient cerebral ischemia Social History Household Members: None Housing: Other Housing Other:: [facility] [place] Do you presently have visiting nurse or other home services: No Unable to assess alcohol history related to: Unable to respond Patient Tobacco Use Status: Former Tobacco user Quit Date: 1981 Tobacco use type: Cigarette Advance Directives Date on File: 11/04/21 service: Yes Current occupational status: disabled Meds Allergies Allergy/AdvReac Type Severity Reaction Status Date / Time No Known Allergies Allergy Verified 07/20/23 22:14 Active Medications: Current Medications Acetaminophen (Acetaminophen Supp 650 Mg Supp.Rect) 650 mg GA Q6H PRN PRN Reason: Fever Last Admin: 07/21/23 03:55 Dose: 650 mg Heparin Sodium (Porcine) (Heparin Sodium,Porcine 5,000 Unit/Ml Vial) 5,000 unit SUBCUT Q12H [facility] Lactated Ringer's (Lr) 1,000 mls @ 999 mls/hr IV .Q1H1M [facility] Stop: 07/21/23 04:45 Lactated Ringer's (Lr) 1,000 mls @ 100 mls/hr IVCONT .Q10H [facility] Vancomycin HCl 1,500 mg/ (Sodium Chloride) 500 mls @ 333.333 mls/hr IV ONCE ONE Stop: 07/21/23 05:29 Metoclopramide HCl (Metoclopramide Hcl 10 Mg/2 Ml Vial) 5 mg IVPUSH TID [facility] Ondansetron HCl (Ondansetron Hcl 4 Mg/2 Ml Vial) 4 mg IVPUSH Q8H [facility] Pantoprazole Sodium (Pantoprazole Sodium 40 Mg/10 Ml Vial) 40 mg IVPUSH DAILY [facility] Pharmacy Consult (Consult Rx Vancomycin Dosing) 1 each MISCELLANE DAILY PRN PRN Reason: Consult order Sodium Chloride (0.9 % Sodium Chloride Flush 3 Ml Syringe) 3 ml IVFLUSH QSHIFT [facility] Home Medications ?Medication ?Instructions ?Recorded ?Confirmed ?Last Taken ?Type aspirin 325 mg tablet 325 mg PO DAILY 10/29/21 07/15/23 10/29/21 History sennosides 8.6 mg tablet (senna) 8.6 mg PO DAILY PRN Constipation 10/29/21 07/15/23 Unknown History acetaminophen 325 mg tablet 650 mg PO Q6H PRN Fever Or Pain 05/30/23 07/15/23 Unknown History ibuprofen 200 mg tablet 800 mg PO Q6H PRN Pain 05/30/23 07/15/23 Unknown History oxycodone-acetaminophen 5 mg-325 1 tab PO Q6H PRN Severe Pain 05/30/23 07/15/23 Unknown History mg tablet (Scale Score 7-10) baclofen 5 mg tablet 5 mg PO TID 07/15/23 07/15/23 Unknown History heparin lock flush (porcine) 10 50 unit IV DAILY 07/15/23 07/15/23 Unknown History unit/mL intravenous solution heparin lock flush (porcine) 10 50 unit IV DAILY PRN IV use 07/15/23 07/15/23 Unknown History unit/mL intravenous solution heparin lock flush (porcine) 10 50 unit IV TID 07/15/23 07/15/23 Unknown History unit/mL intravenous solution sodium chloride 0.9 % (flush) 10 ml IV BID 07/15/23 07/15/23 Unknown History sodium chloride 0.9 % (flush) 10 ml IV DAILY PRN flush 07/15/23 07/15/23 Unknown History sodium chloride 0.9 % (flush) 10 ml IV TID 07/15/23 07/15/23 Unknown History Physical Exam Vital Signs and Narrative: Vital Signs: Last Vital Signs Temp 100.6 F H 07/21/23 03:34 Pulse 121 H 07/21/23 03:34 Resp 17 07/21/23 03:34 BP 120/71 07/21/23 03:34 Pulse Ox 96 07/21/23 03:34 O2 Del Method Room Air 07/21/23 03:34 BMI result Body Mass Index 17.2 Constitutional - Lethargic. Acutely ill. Febrile. HEENT - Pupils equally round. Normal sclerae. Dry oral mucosa. Heart - Tachycardic, normal rate. No murmurs. Lungs - Normal lung expansion, poor respiratory effort, No respiratory distress. Decreased breath sound at bases. Abdomen l - Distended. Hyperactive bowel sounds. Generalized tenderness to palpation. (+) guarding. No rebound. - No CVA tenderness Extremities - no calf tenderness bilaterally, no swelling Musculoskeletal - Generalized atrophy and spasticity. Skin - Warm/Dry Neurological - Lethargic. Dysarthric speech. Left chronic hemiparesis. Psychological - no agitation. Results Labs 07/20/23 23:07 07/20/23 23:07 Labs: Laboratory Results - last 24 hr 07/20/23 07/20/23 22:41 23:07 MCV 83.9 MCH 27.9 MCHC 33.2 RDW 12.8 Plt Count 297 D MPV 8.7 L Immature Gran % (Auto) 0.2 Neut % (Auto) 86.4 H Lymph % (Auto) 7.8 L [place] % (Auto) 4.8 Eos % (Auto) 0.5 Baso % (Auto) 0.3 Lymph # (Auto) 0.9 L [place] # (Auto) 0.5 Eos # (Auto) 0.1 Baso # (Auto) 0.0 Abs Immat Gran (auto) 0.02 Absolute Neuts (auto) 9.7 H Absolute Nucleated RBC 0.000 Nucleated RBC % (auto) 0.0 PT 14.4 H INR 1.2 H Anion Gap 15 Estim Creat Clear Calc 64.9 Estimated GFR > 60 Random Glucose 175 H Lactic Acid 1.4 Calcium 9.0 Magnesium 2.0 Total Bilirubin 0.4 Direct Bilirubin 0.2 AST 25 ALT 27 Alkaline Phosphatase 127 H Troponin I High Sens 58.5 H D Total Protein 7.3 Albumin 3.4 L Lipase 44 Gastric Occult Blood NEGATIVE Imaging Radiologist's Impressions: Impressions Abdomen/Pelvis CT 07/21/23 00:15 IMPRESSION: 1. Pneumatosis within the gastric wall with a few small foci of portal venous gas. This is of uncertain etiology, though new as compared to prior. This is most likely due to a benign etiology such as recent mechanical irritation of the mucosa or steroid. Recommend correlation for recent use of a nasogastric or enteric tube. 2. Moderate to large volume of stool in the colon, most notably in the descending colon, sigmoid colon, and rectum. No evidence of obstruction. 3. Distention of the stomach and proximal duodenum with focal caliber transition of the duodenum where it crosses the aneurysmal abdominal aorta, potentially corresponding to the site of focal narrowing due to mass effect. Gastroparesis is also possible. 4. Unchanged 5.1 cm abdominal aortic aneurysm. Based on published guidelines in J Am Cheri Radiol 2013; 10(10):789-794 and J Vasc Surg. 2018; 67:2-77, the recommendation for an abdominal aortic aneurysm with diameter 4.5-5.4 cm is vascular consultation and subsequent follow-up every 6 months. 5. New patchy tree-in-bud opacities in the right lower lobe, potentially due to aspiration pneumonitis or other inflammatory/infectious etiologies. 6. Bilateral nonobstructing nephrolithiasis. Assessment and Plan (1) Vomiting: Qualifiers: Vomiting type: unspecified Nausea presence: with nausea Qualified Code(s): R11.2 - Nausea with vomiting, unspecified Status: Acute (2) Hemiparesis affecting left side as late effect of cerebrovascular accident: Status: Acute (3) CVA (cerebral vascular accident): Qualifiers: CVA mechanism: unspecified Qualified Code(s): I63.9 - Cerebral infarction, unspecified Status: Acute (4) Abdominal aortic aneurysm without rupture: Qualifiers: Abdominal aorta location: infrarenal aorta Qualified Code(s): I71.43 - Infrarenal abdominal aortic aneurysm, without rupture Status: Acute (5) Fecal impaction: Status: Acute (6) Spastic hemiplegia: Qualifiers: Hemiplegia etiology: unspecified etiology Hemiplegia laterality: unspecified Qualified Code(s): G81.10 - Spastic hemiplegia affecting unspecified side Status: Acute (7) Toe ulcer: Qualifiers: Laterality: unspecified laterality Non-pressure ulcer stage: unspecified non-pressure ulcer stage Qualified Code(s): L97.509 - Non-pressure chronic ulcer of other part of unspecified foot with unspecified severity Status: Acute (8) Aspiration pneumonia: Qualifiers: Aspiration pneumonia type: unspecified Laterality: unspecified laterality Lung location: unspecified part of lung Qualified Code(s): J69.0 - Pneumonitis due to inhalation of food and vomit Status: Acute Plan Malachi Streeter is a 72 years old man admitted with: Aspiration pneumonia + SIRS criteria. Admit to hospitalist service. Pulse oximetry. Telemetry. Pulse oximetry. Supplemental oxygen to keep O2 sats > 90%. Continue empiric IV antibiotic therapy with Zosyn. Add therapy with vancomycin. Vomiting (GI content is negative for blood) and abdominal distention. Possibly gastroparesis and marked constipation (large stool burden). ? Gastric outlet obstruction. Pneumatosis (NGT placed during last hospitalization). Continue IV fluids. Reglan 5 mg IV t.i.d. Zofran 4 mg every 6 hours IV as needed. Marked constipation, patient started to defecate after Fleet enema given in the emergency department. Avoid opiates. Type 2 diabetes mellitus. Blood glucose monitoring every 6 hours while NPO. Insulin sliding scale. Old CVA and dural venous thrombosis. Aspirin on hold due to NPO status. Spasticity secondary to old CVA. Baclofen hold due to NPO status. Abdominal aortic aneurysm. Recently evaluated by vascular surgery. To follow as an outpatient. Elevated troponin, much lower than prior. Recent non STEMI. Toe ulcer. Completed a course of ertapenem recently. DVT prophylaxis: Heparin GI prophylaxis: Protonix Code status: DNR/DNI Patient will need hospitalization for at least 2 midnights for aspiration pneumonia treatment with supplemental oxygen as needed and empiric IV antibiotic therapy. Patient also will need treatment for acute GI process were antiemetics, IVFs and close monitoring of vital signs. Quality Stroke Does the patient have a stroke diagnosis?: No VTE Prior VTE?: No VTE Risk Level:: Medical - moderate - high VTE Device Contraindication: N/A - Device Ordered VTE Drug Contraindication: N/A - Med Ordered
[2023-07-21] MEDS: Lactated Ringers 1,000 ML 999 ML IV (03:59)
[2023-07-21] MEDS: Metoclopramide HCl 10 MG/2 ML VIAL 5 MG IVPUSH ×4 (04:18→21:32)
[2023-07-21] MEDS: vancomycin HCL 1,500 MG in 0.9 % Sodium Chloride 500 ML 333.33 MG IV (04:18)
[2023-07-21] MEDS: ondansetron HCL 4 MG/2 ML VIAL IVPUSH ×3 (04:18→21:33)
[2023-07-21 04:42] LABS: Influenza A PCR NEGATIVE (Negative); Influenza B PCR NEGATIVE (Negative); Resp Syncy Virus RNA Qual PCR NEGATIVE (Negative); SARS COV2 PCR INHOUSE NEGATIVE (Negative)
--- NOTE | 2023-07-21 04:57 | PC.NURSE ---
temperature sensing thompson catheter placed at this time per provider order, 250ml of dark yellow urine output after insertion, pt tolerated well.
[2023-07-21] MEDS: Lactated Ringers 1,000 ML 100 ML IVCONT ×2 (05:47→15:47)
[2023-07-21] MEDS: Ketorolac Tromethamine 15 MG/ML VIAL IVPUSH (05:59)
--- NOTE | 2023-07-21 06:00 | PC.NURSE ---
aware of pt temperature, pt medciated per jun.
[2023-07-21 06:04] LABS: Appearance Urine Clear; Color Urine Dark Yellow; Glucose Urine UA Negative (Negative); Leukocyte Esterase Urine Negative (Negative); Nitrite Urine Negative (Negative); PH 7.5 (5.0-9.0); Specific Gravity - Urine >= 1.030 (1.005-1.025); UMIC TRIGGER UA YES; Urine Blood Negative (Negative); Urine Ketones 15 mg/dL (Negative); Urine Protein 30 (1+) mg/dL (Neg-Trace)
[2023-07-21 06:11] LABS: Lactic Acid 1.9 mmol/L (0.5-2.0)
[2023-07-21 06:14] LABS: Glucose, Whole Blood 125 mg/dL (60-115)
[2023-07-21 06:15] LABS: Bacteria Urine None Seen (None Seen); Hyaline Casts Urine 0-2 /LPF (0-2); RBC Urine 0-2 /HPF (0-2); Squamous Epithelial Cell Urine 0-2 /HPF (0-2); WBC Urine 0-5 /HPF (0-5)
--- NOTE | 2023-07-21 06:20 | PC.NURSE ---
pt placed in hospital bed for comfort. pt noted to have redness and scab to the left big toe and second toe.
[2023-07-21 07:59] LABS: MANUAL DIFF FLAG NO
[2023-07-21 08:00] LABS: Basophils Percent Auto 0.2 % (0-2); Hemoglobin 12.6 g/dl (14.0-18.0); Imm Gran Abs Auto 0.05 X10*3/uL (0.00-0.03); Imm Gran Pct Auto 0.4 % (0.0-0.4); Lymphocytes Absolute Auto 1.1 X10*3/uL (1.2-4.9); Lymphocytes Percent Auto 9.1 % (20-40); Mean Corpuscular HGB Conc 33.2 g/dl (31.0-36.0); Mean Corpuscular Volume 84.4 fL (80.0-98.0); Mean Platelet Volume 8.6 fL (9.4-12.4); Monocytes Absolute Auto 1.1 X10*3/uL (0.1-1.2); Monocytes Percent Auto 8.9 % (2-11); Neutrophils Absolute Auto 9.8 x10*3/uL (2.0-8.3); Neutrophils Percent Auto 81.4 % (45-73); Platelet Count 228 X10*3/uL (160-400); White Blood Count 12.1 X10*3/uL (4.8-10.8)
[2023-07-21 08:30] LABS: Anion Gap 13 (12-20); Blood Urea Nitrogen 28 mg/dL (9-16); Carbon Dioxide 23 mmol/L (22-29); Chloride 111 mmol/L (96-108); Creatinine Clr Calc Pharmacy 75.4; Estimated Glomerular Filt Rate > 60; Glucose Random 137 mg/dL (60-115); Potassium 3.5 mmol/L (3.3-5.1); Sodium 143 mmol/L (135-145)
[2023-07-21] MEDS: Pantoprazole Sodium 40 MG/10 ML VIAL IVPUSH ×2 (08:38→16:55)
[2023-07-21] MEDS: 0.9 % Sodium Chloride Flush 3 ML SYRINGE IVFLUSH ×2 (08:41→21:33)
[2023-07-21] MEDS: Heparin Sodium,Porcine 5,000 UNIT/ML VIAL 5000 UNIT SUBCUT ×2 (08:42→21:32)
[2023-07-21 08:46] LABS: Calcium 8.3 mg/dL (8.4-10.2)
--- NOTE | 2023-07-21 09:26 | PHA.PROG ---
Admission Date/Time: July 21, 2023 03:44 Indication: Sepsis Weight in k kg Adjusted body weight in K.58 Serum Creatinine - Last 168 Hours 07/20/23 07/21/23 07/21/23 23:07 07:55 07:55 Creatinine 0.79 0.68 Cancelled Estimated CrCl and GFR - Last 168 Hours 07/20/23 07/21/23 07/21/23 23:07 07:55 07:55 Estim Creat Clear Calc 64.9 75.4 Cancelled Estimated GFR > 60 > 60 07/21/23 07:55 Estim Creat Clear Calc Estimated GFR Cancelled Vancomycin Loading Dose: 1500 mg Current Vancomycin Dosing Regimen: 750 mg Q12H Vancomycin Monitoring using AUC goal of 400 - 600 range with trough as surrogate marker:480 Date and Time for next Vancomycin Level to be drawn: 07/21 @1400 Pharmacist Comments on Vancomycin Plan: Vancomycin dosing will take advantage of [employer] as a clinical decision support tool that uses Bayesian modeling to calculate individual patient's pharmacokinetic parameters and forecast the patient's drug concentration time course with the target goal AUC 24 range of 400 - 600 mg/L/hr.
--- NOTE | 2023-07-21 10:39 | PHA.MEDREC ---
Pharmacy Consult ? Medication Reconciliation Pharmacy has completed the medication reconciliation using med list from [facility].
--- NOTE | 2023-07-21 11:57 | MHC.CLN ---
PT WITH BMI <19 CURRENT WT 56KG (07/20/23) PREVIOUS WT 71KG (07/16/23) REQUESTING RE-WEIGHT TO VERIFY POSSIBLE WT LOSS FOLLOWING
--- NOTE | 2023-07-21 12:14 | PM.GICN ---
History of Present Illness Data of Consult Service Date: 07/21/23 Primary Care Provider: Unknown Physician HPI This is a 72-year-old gentleman with past medical history of CVA with left-sided hemiparesis, and cognitive impairment, type 2 diabetes, who was coming from the facility for recurrent episode of brown emesis. This is his 2nd admission for similar complaint. To recall, patient was admitted last week as well, however at that time hospital course was complicated by SD and therefore EGD at that time was felt to be high risk. Upper GI series were performed to look for gastric outlet obstruction, which were nondiagnostic as the contrast did not clear the stomach. In terms of SD, this was managed conservatively owing to medical comorbidities and question of GIB at that time. Currently, at the time of bedside evaluation, patient is somnolent, not able to give much history, and therefore only collateral history from the chart was obtained. Labs were significant for white count and hemoconcentration. Chem 7 with normal renal function. He has also had fevers last night and this morning likely secondary to aspiration pneumonia as noted on CT abdomen pelvis. On my review of the imaging, appears that the duodenuml is dilated upstream to level of AAA. Review of Systems Review of Systems: Yes Unobtainable due to mental condition PMFSH Past Medical History Medical History (Updated 07/21/23 @ 15:58 by Makenna Mckinney MD) Abdominal aortic aneurysm without rupture Fecal impaction Acute myocardial infarction Hematemesis NSTEMI (non-ST elevated myocardial infarction) Gastric outlet obstruction Toe ulcer Spastic hemiplegia Cognitive impairment Type 2 diabetes mellitus CVA (cerebral vascular accident) Hemiparesis affecting left side as late effect of cerebrovascular accident Hx of technician terminal and repeater use of blood thinners Cerebral venous thrombosis Transient cerebral ischemia Social History Social History Household Members: None Housing: Other Housing Other:: [facility] [place] Do you presently have visiting nurse or other home services: No Unable to assess alcohol history related to: Unable to respond Patient Tobacco Use Status: Former Tobacco user Quit Date: 1981 Tobacco use type: Cigarette Advance Directives Date on File: 11/04/21 service: No Current occupational status: disabled Meds Allergies Allergy/AdvReac Type Severity Reaction Status Date / Time No Known Allergies Allergy Verified 07/20/23 22:14 Active Medications: Current Medications Acetaminophen (Acetaminophen Supp 650 Mg Supp.Rect) 650 mg SC Q6H PRN PRN Reason: Fever Last Admin: 07/21/23 03:55 Dose: 650 mg Dextrose (Dextrose 50 % 25 Gm/50 Ml Syringe) 25 gm IVPUSH Q15M PRN; Protocol PRN Reason: per Hypoglycemia Standing Ord. Glucose (Glucose Gel 15 Gm Gel..Gram.) 15 gm PO Q15M PRN; Protocol PRN Reason: per Hypoglycemia Standing Ord. Heparin Sodium (Porcine) (Heparin Sodium,Porcine 5,000 Unit/Ml Vial) 5,000 unit SUBCUT Q12H [facility] Last Admin: 07/21/23 08:42 Dose: 5,000 unit Lactated Ringer's (Lr) 1,000 mls @ 100 mls/hr IVCONT .Q10H [facility] Last Admin: 07/21/23 05:47 Dose: 100 mls/hr Piperacillin Sod/Tazobactam (Sod 3.375 gm/ Sodium Chloride) 50 mls @ 100 mls/hr IV Q6H [facility] Stop: 07/28/23 08:59 Last Infusion: 07/21/23 09:14 Dose: Infused Vancomycin HCl 750 mg/ Sodium (Chloride) 265 mls @ 265 mls/hr IV Q12H [facility] Insulin Human Lispro (Insulin Lispro 100 Unit/Ml 3 Ml Vial) 0 unit SUBCUT Q6H [facility]; Protocol Last Admin: 07/21/23 06:06 Dose: Not Given Metoclopramide HCl (Metoclopramide Hcl 10 Mg/2 Ml Vial) 5 mg IVPUSH TID [facility] Last Admin: 07/21/23 08:41 Dose: 5 mg Mineral Oil (Mineral Oil Enema 133 Ml Enema) 133 ml SC ONCE PRN PRN Reason: Constipation Ondansetron HCl (Ondansetron Hcl 4 Mg/2 Ml Vial) 4 mg IVPUSH Q8H [facility] Last Admin: 07/21/23 04:18 Dose: 4 mg Pantoprazole Sodium (Pantoprazole Sodium 40 Mg/10 Ml Vial) 40 mg IVPUSH DAILY [facility] Last Admin: 07/21/23 08:38 Dose: 40 mg Pharmacy Consult (Consult Rx Vancomycin Dosing) 1 each MISCELLANE DAILY PRN PRN Reason: Consult order Sodium Chloride (0.9 % Sodium Chloride Flush 3 Ml Syringe) 3 ml IVFLUSH QSHIFT [facility] Last Admin: 07/21/23 08:41 Dose: 3 ml Home Medications ?Medication ?Instructions ?Recorded ?Confirmed ?Last Taken ?Type sennosides 8.6 mg tablet (senna) 8.6 mg PO DAILY PRN Constipation 10/29/21 07/21/23 Unknown History acetaminophen 325 mg tablet 650 mg PO Q6H PRN Fever Or Pain 05/30/23 07/21/23 Unknown History ibuprofen 200 mg tablet 800 mg PO Q6H PRN Pain, Moderate 05/30/23 07/21/23 Unknown History oxycodone-acetaminophen 5 mg-325 1 tab PO Q6H PRN Severe Pain 05/30/23 07/21/23 Unknown History mg tablet (Scale Score 7-10) baclofen 5 mg tablet 5 mg PO TID 07/15/23 07/21/23 Unknown History naloxone 4 mg/actuation nasal spray 4 mg intranasal Q3M PRN Opioid 07/21/23 07/21/23 Unknown History Overdose omeprazole 20 mg capsule,delayed 40 mg PO DAILY@0630 07/21/23 07/21/23 Unknown History release sodium phosphates 19 gram-7 118 ml SC DAILY PRN Constipation 07/21/23 07/21/23 Unknown History gram/118 mL enema (Fleet Enema) Physical Exam Vital Signs: Vital Signs: Last Vital Signs Temp 98.2 F 07/21/23 08:35 Pulse 126 H 07/21/23 08:35 Resp 20 07/21/23 08:35 BP 110/70 07/21/23 08:35 Pulse Ox 96 07/21/23 08:35 O2 Del Method Room Air 07/21/23 08:35 BMI result Body Mass Index 17.2 NAD Somnolent L side weakness abd distended but no wincing on palpation Results Labs 07/21/23 07:55 07/21/23 07:55 Labs: Short CBC 07/20/23 07/21/23 Range/Units 23:07 07:55 WBC 11.2 H 12.1 H (4.8-10.8) X10*3/uL Hgb 14.4 D 12.6 L (14.0-18.0) g/dl Hct 43.4 D 38.0 L (42.0-52.0) % Plt Count 297 D 228 (160-400) X10*3/uL BMP 07/20/23 07/21/23 07/21/23 23:07 07:55 07:55 Sodium 144 143 Potassium 3.4 3.5 Chloride 108 111 H Carbon Dioxide 24 23 BUN 25 H 28 H Creatinine 0.79 0.68 Cancelled Calcium 9.0 8.3 L D Liver Function 07/20/23 Range/Units 23:07 Total Bilirubin 0.4 (0.0-1.0) mg/dL Direct Bilirubin 0.2 (0.0-0.5) mg/dL AST 25 (5-37) U/L ALT 27 (0-40) U/L Alkaline Phosphatase 127 H (39-117) U/L Albumin 3.4 L (3.5-5.0) g/dL Urine 07/21/23 Range/Units 05:51 Urine Color Dark Yellow Urine Appearance Clear Urine pH 7.5 (5.0-9.0) Ur Specific [place] >= 1.030 H (1.005-1.025) Urine Protein 30 (1+) H (Neg-Trace) mg/dL Urine Glucose (UA) Negative (Negative) mg/dL Imaging CT scan - abdomen: My impression: Assessment and Plan (1) Aspiration pneumonia: Qualifiers: Aspiration pneumonia type: unspecified Laterality: unspecified laterality Lung location: unspecified part of lung Qualified Code(s): J69.0 - Pneumonitis due to inhalation of food and vomit Status: Acute (2) CVA (cerebral vascular accident): Qualifiers: CVA mechanism: unspecified Qualified Code(s): I63.9 - Cerebral infarction, unspecified Status: Acute (3) Gastric outlet obstruction: Status: Acute (4) Vomiting: Qualifiers: Nausea presence: with nausea Vomiting type: unspecified Qualified Code(s): R11.2 - Nausea with vomiting, unspecified Status: Acute (5) History of non-ST elevation myocardial infarction (NSTEMI): Status: Acute Plan Based on CT imaging, partial duodenal obstruction seems to 2/2 AAA from extrinsic compression however luminal abnormality not ruled out. Decision to proceed with EGD is complicated by recent SD which places him at significant MACE risk for a diagnostic procedure within 30 days of the NSTEMI. However since echo does not seem to suggest poor cardiac function will request cardiology for risk assessment. This is pt's second admission for similar complaint within a week and this time complicated by aspiration PNA. Egd may aid in further management if risk vs benefit ratio is permissive. Plan: - If at low to mod risk can proceed wtih EGD early next week with caution and after thorough discussion of risk vs benefit assessment with his guardian - If at high risk, best to defer till he is at least 30 days out from NSTEMI. - Consider NGT placement - Cont protonix Thank you for allowing me to participate in his care. Please do not hesitate to reach out for questions or concerns. Procedures Date of Service Date of Service: 07/21/23
[2023-07-21 13:25] LABS: Glucose, Whole Blood 96 mg/dL (60-115)
--- NOTE | 2023-07-21 13:30 | MHC.CM.PN ---
Pt returned to ED from [facility], he had just returned from Hosp stay. He has a guardian, Saba Anna. DC plan will be for him to return to [facility] via BLS at [place].
[2023-07-21] MEDS: OLANZapine 10 MG VIAL IM (13:57)
--- NOTE | 2023-07-21 14:14 | PC.NURSE ---
assumed care of this patient at 1100, patient intermittently restless in bed, occasionally swatting at staff attempting to give care. BALBIR [place] informed patient will need NG tube, requested medication to assist in insertion of NG tube, IM zyprexa given as ordered, patient cleaned up after incontinent of large soft BM.
--- NOTE | 2023-07-21 15:19 | PC.NURSE ---
NG tube inserted in R nare, x-ray to confirm placement taken, dark coffee ground drainage noted.
--- NOTE | 2023-07-21 16:16 | PM.EVENT ---
Event Note Date of Service: 07/21/23 Event Note: Chart reviewed patient examined. Agree with H&P and plan as outlined. Patient well known to me from [facility]. Recently discharged with question of gastric outlet obstruction. Given cardiac status ... Conservative were undertaken. Return to [facility] and after 1 day of diet vomited coffee-ground emesis. Discussed with GI who feels this is likely related to the AAA creating pressure and the gastric outlet however mass can not be excluded. Spoke with Dr. North who will see the patient and stratify risk. If acceptable risk, EGD on Monday. NG tube was placed to decompress stomach. Unfortunately patient required restraints and will likely need same. Medicated with Zyprexa prior to insertion with affect Time Spent With Patient Time: Total time managing care of this patient today ____ minutes.
[2023-07-21] MEDS: vancomycin HCL 750 MG in 0.9 % Sodium Chloride 250 ML 265 MG IV (16:55)
[2023-07-21 19:02] LABS: Glucose, Whole Blood 77 mg/dL (60-115)
[2023-07-21] MEDS: Throat Spray, Medicated 177 ML BOTTLE 1 SPRAY MUCOUS MEM (23:48)
[2023-07-21] MEDS: Acetaminophen 1,000 MG/100 ML PIGGYBACK 400 MG IV (23:48)
[2023-07-22] VITALS (7 sets, daily range): BP systolic 123–153; BP diastolic 48–77; PULSE 67–108; RESP 16–20; TEMP 36.3–36.9; O2SAT 96–99
[2023-07-22] MEDS: Dextrose 10 % 250 ML 750 ML IV ×4 (00:43→18:49)
[2023-07-22 00:44] LABS: Glucose, Whole Blood 63 mg/dL (60-115)
[2023-07-22] MEDS: Lactated Ringers 1,000 ML 100 ML IVCONT ×2 (01:11→12:10)
[2023-07-22 01:13] LABS: Glucose, Whole Blood 167 mg/dL (60-115)
[2023-07-22] MEDS: vancomycin HCL 750 MG in 0.9 % Sodium Chloride 250 ML 265 MG IV (04:06)
[2023-07-22] MEDS: ondansetron HCL 4 MG/2 ML VIAL IVPUSH ×3 (04:06→22:20)
[2023-07-22] MEDS: Piperacillin Sodium/Tazobactam 3.375 GM in 0.9 % Sodium Chloride 50 ML IV ×4 (04:07→22:20)
[2023-07-22 05:42] LABS: Glucose, Whole Blood 77 mg/dL (60-115)
[2023-07-22] MEDS: Pantoprazole Sodium 40 MG/10 ML VIAL IVPUSH ×2 (06:49→17:38)
[2023-07-22 07:32] LABS: Glucose, Whole Blood 107 mg/dL (60-115)
[2023-07-22] MEDS: Metoclopramide HCl 10 MG/2 ML VIAL 5 MG IVPUSH ×3 (09:59→22:19)
[2023-07-22] MEDS: Heparin Sodium,Porcine 5,000 UNIT/ML VIAL 5000 UNIT SUBCUT ×2 (09:59→22:20)
[2023-07-22 12:00] LABS: Glucose, Whole Blood 61 mg/dL (60-115)
[2023-07-22 12:56] LABS: Glucose, Whole Blood 133 mg/dL (60-115)
--- NOTE | 2023-07-22 15:25 | HO.PM.IMPN ---
Subjective Subjective Date of Service: 07/22/23 Interval History: no complaints, NGT in place Review of Systems Review of Systems: Yes all other systems are reviewed and are negative Physical Exam Vital Signs: Vital Signs: Last Vital Signs Temp 97.8 F 07/22/23 11:01 Pulse 97 07/22/23 11:01 Resp 18 07/22/23 11:01 BP 139/77 07/22/23 11:01 Pulse Ox 97 07/22/23 11:01 O2 Del Method Room Air 07/22/23 11:01 BMI result Body Mass Index 21.7 Gen: in no acute distress HEENT: sclera anicteric, moist mucus membranes Neck: supple Lungs: clear to auscultation bilaterally Heart: regular rate and rhythm, no murmurs Abd: soft, non-tender, non-distended, NGT with yellow fluid Ext: no edema Skin: warm/well-perfused Neuro: alert and oriented x3, L hemiparesis Psych: appropriate affect Objective Data Active Medications Acetaminophen (Acetaminophen Supp 650 Mg Supp.Rect) 650 mg [place] Q6H PRN PRN Reason: Fever Last Admin: 07/21/23 03:55 Dose: 650 mg Documented By: BRICE Glucose (Glucose Gel 15 Gm Gel..Gram.) 15 gm PO Q15M PRN; Protocol PRN Reason: per Hypoglycemia Standing Ord. Heparin Sodium (Porcine) (Heparin Sodium,Porcine 5,000 Unit/Ml Vial) 5,000 unit SUBCUT Q12H [facility] Last Admin: 07/22/23 09:59 Dose: 5,000 unit Documented By: DAREK Lactated Ringer's (Lr) 1,000 mls @ 100 mls/hr IVCONT .Q10H [facility] Last Admin: 07/22/23 12:10 Dose: 100 mls/hr Documented By: DAREK Piperacillin Sod/Tazobactam (Sod 3.375 gm/ Sodium Chloride) 50 mls @ 100 mls/hr IV Q6H [facility] Stop: 07/28/23 08:59 Last Infusion: 07/22/23 10:35 Dose: Infused Documented By: DAREK Dextrose (D10) 250 mls @ 750 mls/hr IV Q15M PRN PRN Reason: per Hypoglycemia Standing Ord. Last Infusion: 07/22/23 12:30 Dose: Infused Documented By: DAREK Insulin Human Lispro (Insulin Lispro 100 Unit/Ml 3 Ml Vial) 0 unit SUBCUT Q6H [facility]; Protocol Last Admin: 07/22/23 13:04 Dose: Not Given Documented By: DAREK Non-Admin Reason: No Insulin Coverage Metoclopramide HCl (Metoclopramide Hcl 10 Mg/2 Ml Vial) 5 mg IVPUSH TID [facility] Last Admin: 07/22/23 09:59 Dose: 5 mg Documented By: DAREK Mineral Oil (Mineral Oil Enema 133 Ml Enema) 133 ml [place] ONCE PRN PRN Reason: Constipation Multi-Ingred Medicated Throat [place] (Throat [place], Medicated 177 Ml Bottle) 1 spray MUCOUS MEM Q2H PRN PRN Reason: Sore Throat Last Admin: 07/21/23 23:48 Dose: 1 spray Documented By: AMANDA Ondansetron HCl (Ondansetron Hcl 4 Mg/2 Ml Vial) 4 mg IVPUSH Q8H [facility] Last Admin: 07/22/23 12:51 Dose: 4 mg Documented By: DAREK Pantoprazole Sodium (Pantoprazole Sodium 40 Mg/10 Ml Vial) 40 mg IVPUSH BID@0630,1630 [facility] Last Admin: 07/22/23 06:49 Dose: 40 mg Documented By: NUBIA Sodium Chloride (0.9 % Sodium Chloride Flush 3 Ml Syringe) 3 ml IVFLUSH QSHIFT [facility] Last Admin: 07/22/23 09:45 Dose: Not Given Documented By: DAREK Non-Admin Reason: IV Running Labs 07/21/23 07:55 07/21/23 07:55 Labs: Laboratory Results - last 24 hr 07/21/23 07/22/23 07/22/23 18:24 00:40 01:08 POC Glucose 77 63 167 H 07/22/23 07/22/23 07/22/23 05:08 07:25 11:45 POC Glucose 77 107 61 07/22/23 12:51 POC Glucose 133 H Microbiology Microbiology Results: Microbiology 07/20/23 23:08 Blood Culture - Preliminary Blood - Venous No growth after 24 hours. 07/20/23 23:09 Blood Culture - Preliminary Blood - Venous No growth after 24 hours. Assessment and Plan (1) NSTEMI (non-ST elevated myocardial infarction): Status: Inactive (2) Abdominal aortic aneurysm without rupture: Status: Acute (3) Gastric outlet obstruction: Status: Inactive Plan d2 72yo M LTC resident of [facility] with hx CVA with L-sided hemiparesis/spastic hemiplegia, cerebral venous thrombosis, mood disorder with hx SI, repeated falls, DM2, cognitive impairment s/p CVA, osteomyelitis of L toe [recently completed ertapenem], recent admission for gastric outlet obstruction + NSTEMI re-admission for aspiration pneumonia, recurrent vomiting and found to have pneumatosis partial duodenal obstruction seems to 2/2 AAA from extrinsic compression recurrent gastric outlet obstruction - GI consulted, EGD planned but needs Cardiology evaluation prior. Keep NPO, NGT in palce aspiration PNA - 4/5- pip/nereida, follow BCx, trend PCT recent NSTEMI - Cardiology consultation for risk stratification pre-EGD hx CVA - ASA on hold spasticity - baclofen on hold DM2 - demetrius-dose lispro VTE ppx - UFH dispo - LTC In my clinical judgment, the patient requires continued inpatient hospitalization for the following reasons: endoscopy, IV ABX Total time managing care of this patient today: 45 minutes. Quality Stroke Does the patient have a stroke diagnosis?: No VTE Prior VTE?: No VTE Risk Level:: Medical - moderate - high VTE Device Contraindication: N/A - Device Ordered VTE Drug Contraindication: N/A - Med Ordered
[2023-07-22 16:33] LABS: Glucose, Whole Blood 78 mg/dL (60-115)
[2023-07-22] MEDS: 0.9 % Sodium Chloride Flush 3 ML SYRINGE IVFLUSH ×2 (17:04→22:20)
[2023-07-22 18:47] LABS: Glucose, Whole Blood 66 mg/dL (60-115)
[2023-07-22] MEDS: Dextrose 5 % and Lactated Ring 1,000 ML 100 ML IVCONT (20:02)
[2023-07-22 23:41] LABS: Glucose, Whole Blood 100 mg/dL (60-115)
[2023-07-23 03:35] VITALS: BP 149/64; PULSE 112; RESP 18; TEMP 36.7; O2SAT 98
[2023-07-23] MEDS: ondansetron HCL 4 MG/2 ML VIAL IVPUSH ×2 (03:58→12:13)
[2023-07-23] MEDS: Piperacillin Sodium/Tazobactam 3.375 GM in 0.9 % Sodium Chloride 50 ML IV ×3 (03:58→15:37)
[2023-07-23] MEDS: Pantoprazole Sodium 40 MG/10 ML VIAL IVPUSH ×2 (03:58→16:46)
[2023-07-23] MEDS: Dextrose 5 % and Lactated Ring 1,000 ML 100 ML IVCONT ×2 (03:58→15:38)
[2023-07-23 06:54] LABS: Glucose, Whole Blood 124 mg/dL (60-115)
[2023-07-23 08:00] VITALS: BP 146/67; PULSE 80; RESP 16; TEMP 36.8; O2SAT 95
--- NOTE | 2023-07-23 08:57 | P.CONCA_ITS ---
History of Present Illness History of Present Illness Date of Service: 07/23/23 Requesting physician: Blas Hudson Consult reason: pre-op evaluation Chief complaint: Aspiration Pneumonia Narrative: I was consulted to see Malachi in cardiology consultation for preop cardiovascular risk stratification prior to upper endoscopy. Patient brought in with possible aspiration pneumonia and vomiting with constipation. The suspected gastric outlet obstruction or possibility of gastroparesis. This is unclear. Need to undergo diagnostic/therapeutic upper endoscopy. Patient recently admitted to the hospital and at that time had NSTEMI. Patient was managed medically. LV ejection fraction at that time was 55-60% with mild aortic stenosis. He has prior history of CVA with spasticity and dysarthria. Difficult to obtain history from him. He also has abdominal aortic aneurysm 5 cm. He has currently a shelter resident with limited functionality. Management has been conservative. He has a guardian. Patient brought in with difficulty in breathing and vomiting. Noticed to have possible aspiration pneumonitis. He has NG-tube now with biliary drainage in the canister. He said he is hungry he has not been fed for 5 days. He denies any chest pain or shortness of breath. Review of Systems 2 Review of Systems: Yes Unobtainable due to mental status PMFSH Past Medical History Medical History Abdominal aortic aneurysm without rupture Fecal impaction Acute myocardial infarction Hematemesis NSTEMI (non-ST elevated myocardial infarction) Gastric outlet obstruction Toe ulcer Spastic hemiplegia Cognitive impairment Type 2 diabetes mellitus CVA (cerebral vascular accident) Hemiparesis affecting left side as late effect of cerebrovascular accident Hx of ledger poster use of blood thinners Cerebral venous thrombosis Transient cerebral ischemia Social History Social History Household Members: Other Housing: Shelter Housing Other:: [facility] [place] Do you presently have visiting nurse or other home services: No Unable to assess alcohol history related to: Unable to respond Patient Tobacco Use Status: Former Tobacco user Quit Date: 1981 Tobacco use type: Cigarette Advance Directives Date on File: 11/04/21 service: No Current occupational status: disabled Meds Allergies Allergy/AdvReac Type Severity Reaction Status Date / Time No Known Allergies Allergy Verified 07/20/23 22:14 Active Medications: Current Medications Acetaminophen (Acetaminophen Supp 650 Mg Supp.Rect) 650 mg [place] Q6H PRN PRN Reason: Fever Last Admin: 07/21/23 03:55 Dose: 650 mg Glucose (Glucose Gel 15 Gm Gel..Gram.) 15 gm PO Q15M PRN; Protocol PRN Reason: per Hypoglycemia Standing Ord. Heparin Sodium (Porcine) (Heparin Sodium,Porcine 5,000 Unit/Ml Vial) 5,000 unit SUBCUT Q12H [facility] Last Admin: 07/22/23 22:20 Dose: 5,000 unit Piperacillin Sod/Tazobactam (Sod 3.375 gm/ Sodium Chloride) 50 mls @ 100 mls/hr IV Q6H [facility] Stop: 07/28/23 08:59 Last Infusion: 07/23/23 04:39 Dose: Infused Dextrose (D10) 250 mls @ 750 mls/hr IV Q15M PRN PRN Reason: per Hypoglycemia Standing Ord. Last Infusion: 07/22/23 19:21 Dose: Infused Dextrose/Lactated Ringer's (D5lr) 1,000 mls @ 100 mls/hr IVCONT .Q10H [facility] Last Admin: 07/23/23 03:58 Dose: 100 mls/hr Insulin Human Lispro (Insulin Lispro 100 Unit/Ml 3 Ml Vial) 0 unit SUBCUT Q6H [facility]; Protocol Last Admin: 07/23/23 07:58 Dose: Not Given Metoclopramide HCl (Metoclopramide Hcl 10 Mg/2 Ml Vial) 5 mg IVPUSH TID [facility] Last Admin: 07/22/23 22:19 Dose: 5 mg Mineral Oil (Mineral Oil Enema 133 Ml Enema) 133 ml [place] ONCE PRN PRN Reason: Constipation Multi-Ingred Medicated Throat [place] (Throat [place], Medicated 177 Ml Bottle) 1 spray MUCOUS MEM Q2H PRN PRN Reason: Sore Throat Last Admin: 07/21/23 23:48 Dose: 1 spray Ondansetron HCl (Ondansetron Hcl 4 Mg/2 Ml Vial) 4 mg IVPUSH Q8H [facility] Last Admin: 07/23/23 03:58 Dose: 4 mg Pantoprazole Sodium (Pantoprazole Sodium 40 Mg/10 Ml Vial) 40 mg IVPUSH BID@0630,1630 [facility] Last Admin: 07/23/23 03:58 Dose: 40 mg Sodium Chloride (0.9 % Sodium Chloride Flush 3 Ml Syringe) 3 ml IVFLUSH QSHIFT [facility] Last Admin: 07/22/23 22:20 Dose: 3 ml Home Medications ?Medication ?Instructions ?Recorded ?Confirmed ?Last Taken ?Type sennosides 8.6 mg tablet (senna) 8.6 mg PO DAILY PRN Constipation 10/29/21 07/21/23 Unknown History acetaminophen 325 mg tablet 650 mg PO Q6H PRN Fever Or Pain 05/30/23 07/21/23 Unknown History ibuprofen 200 mg tablet 800 mg PO Q6H PRN Pain, Moderate 05/30/23 07/21/23 Unknown History oxycodone-acetaminophen 5 mg-325 1 tab PO Q6H PRN Severe Pain 05/30/23 07/21/23 Unknown History mg tablet (Scale Score 7-10) baclofen 5 mg tablet 5 mg PO TID 07/15/23 07/21/23 Unknown History naloxone 4 mg/actuation nasal spray 4 mg intranasal Q3M PRN Opioid 07/21/23 07/21/23 Unknown History Overdose omeprazole 20 mg capsule,delayed 40 mg PO DAILY@0630 07/21/23 07/21/23 Unknown History release sodium phosphates 19 gram-7 118 ml [place] DAILY PRN Constipation 07/21/23 07/21/23 Unknown History gram/118 mL enema (Fleet Enema) Physical Exam 2 Vital Signs: Vital Signs: Last Vital Signs Temp 98.2 F 07/23/23 08:00 Pulse 80 07/23/23 08:00 Resp 16 07/23/23 08:00 BP 146/67 H 07/23/23 08:00 Pulse Ox 95 07/23/23 08:00 O2 Del Method Room Air 07/23/23 08:00 BMI result Body Mass Index 21.7 Const: General: cooperative, no acute distress, alert and awake Nutritional Appearance: malnourished and thin HEENT: Head: Yes normocephalic and Yes atraumatic Neck: Neck: Yes trachea midline, Yes supple and Yes no JVD Resp: Effort & Inspection: decreased respiratory effort Auscultation: c rackles (Coarse crackles at left base), no wheezes and diminished lung sounds Cardio: Jugular venous distension: no JVD Rate: regular rate Rhythm: r egular rhythm Heart sounds: S1 normal heart sound present, S2 normal heart sound present, no click, no gallops and Murmur heart sound present systolic early, decrescendo and crescendo GI: Auscultation: normal bowel sounds Extrem: General: Yes no clubbing, cyanosis or edema and Yes other (Gangrenous changes in the left toes) Objective Labs and Meds 07/21/23 07:55 07/21/23 07:55 Lab results: Laboratory Results - last 24 hr 07/22/23 07/22/23 07/22/23 11:45 12:51 16:28 POC Glucose 61 133 H 78 07/22/23 07/22/23 07/23/23 18:44 23:36 06:51 POC Glucose 66 100 124 H EKG shows sinus tachycardia with inferior as well as lateral Q-waves. Assessment and Plan (1) Preoperative cardiovascular examination: Status: Acute Preoperative cardiovascular risk stratification this elderly gentleman with recent myocardial infarction with normal LV ejection fraction without any obvious current chest pain or signs of heart failure came in with gastric distention and possible obstruction to undergo upper endoscopy which is medically required procedure. Given his recent myocardial infarction as well as unknown underlying coronary status with prior CV and abdominal aortic aneurysm he is high risk for perioperative cardiovascular morbidity mortality under general anesthesia although upper endoscopy is considered low risk procedure. Patient should be treated with metoprolol IV [id number] to reduce myocardial oxygen demand. Treat hypertension aggressively. Treat fluid loss as well as blood loss aggressively. Please consult us in the perioperative time if need be. Once patient is able to tolerate oral medications restart high- intensity statin, aspirin as well as metoprolol therapy. Will sign of the case. Thank you for allowing me to partake in his care Procedures Date of Service Date of Service: 07/23/23
[2023-07-23] MEDS: Metoclopramide HCl 10 MG/2 ML VIAL 5 MG IVPUSH ×2 (09:32→15:34)
[2023-07-23] MEDS: Heparin Sodium,Porcine 5,000 UNIT/ML VIAL 5000 UNIT SUBCUT (09:32)
[2023-07-23] MEDS: 0.9 % Sodium Chloride Flush 3 ML SYRINGE IVFLUSH ×2 (09:32→16:46)
--- NOTE | 2023-07-23 10:37 | HO.PM.IMPN ---
Subjective Subjective Date of Service: 07/23/23 Interval History: upset about not being able to eat NGT with bilious liquid no chest pain Review of Systems Review of Systems: Yes all other systems are reviewed and are negative Physical Exam Vital Signs: Vital Signs: Last Vital Signs Temp 98.2 F 07/23/23 08:00 Pulse 80 07/23/23 08:00 Resp 16 07/23/23 08:00 BP 146/67 H 07/23/23 08:00 Pulse Ox 95 07/23/23 08:00 O2 Del Method Room Air 07/23/23 08:00 BMI result Body Mass Index 21.7 Gen: in no acute distress HEENT: sclera anicteric, moist mucus membranes Neck: supple Lungs: clear to auscultation bilaterally Heart: regular rate and rhythm, no murmurs Abd: soft, non-tender, non-distended, NGT with bilious fluid Ext: no edema Skin: warm/well-perfused Neuro: alert and oriented x3, L hemiparesis Psych: appropriate affect Objective Data Active Medications Acetaminophen (Acetaminophen Supp 650 Mg Supp.Rect) 650 mg [place] Q6H PRN PRN Reason: Fever Last Admin: 07/21/23 03:55 Dose: 650 mg Documented By: BRICE Glucose (Glucose Gel 15 Gm Gel..Gram.) 15 gm PO Q15M PRN; Protocol PRN Reason: per Hypoglycemia Standing Ord. Heparin Sodium (Porcine) (Heparin Sodium,Porcine 5,000 Unit/Ml Vial) 5,000 unit SUBCUT Q12H [facility] Last Admin: 07/23/23 09:32 Dose: 5,000 unit Documented By: DAREK Piperacillin Sod/Tazobactam (Sod 3.375 gm/ Sodium Chloride) 50 mls @ 100 mls/hr IV Q6H [facility] Stop: 07/28/23 08:59 Last Infusion: 07/23/23 10:16 Dose: Infused Documented By: DAREK Dextrose (D10) 250 mls @ 750 mls/hr IV Q15M PRN PRN Reason: per Hypoglycemia Standing Ord. Last Infusion: 07/22/23 19:21 Dose: Infused Documented By: DAREK Dextrose/Lactated Ringer's (D5lr) 1,000 mls @ 100 mls/hr IVCONT .Q10H [facility] Last Admin: 07/23/23 03:58 Dose: 100 mls/hr Documented By: NUBIA Insulin Human Lispro (Insulin Lispro 100 Unit/Ml 3 Ml Vial) 0 unit SUBCUT Q6H [facility]; Protocol Last Admin: 07/23/23 07:58 Dose: Not Given Documented By: DAREK Non-Admin Reason: No Insulin Coverage Metoclopramide HCl (Metoclopramide Hcl 10 Mg/2 Ml Vial) 5 mg IVPUSH TID [facility] Last Admin: 07/23/23 09:32 Dose: 5 mg Documented By: DAREK Mineral Oil (Mineral Oil Enema 133 Ml Enema) 133 ml [place] ONCE PRN PRN Reason: Constipation Multi-Ingred Medicated Throat [place] (Throat [place], Medicated 177 Ml Bottle) 1 spray MUCOUS MEM Q2H PRN PRN Reason: Sore Throat Last Admin: 07/21/23 23:48 Dose: 1 spray Documented By: AMANDA Ondansetron HCl (Ondansetron Hcl 4 Mg/2 Ml Vial) 4 mg IVPUSH Q8H [facility] Last Admin: 07/23/23 03:58 Dose: 4 mg Documented By: NUBIA Pantoprazole Sodium (Pantoprazole Sodium 40 Mg/10 Ml Vial) 40 mg IVPUSH BID@0630,1630 [facility] Last Admin: 07/23/23 03:58 Dose: 40 mg Documented By: NUBIA Sodium Chloride (0.9 % Sodium Chloride Flush 3 Ml Syringe) 3 ml IVFLUSH QSHIFT [facility] Last Admin: 07/23/23 09:32 Dose: 3 ml Documented By: DAREK Labs 07/21/23 07:55 07/21/23 07:55 Labs: Laboratory Results - last 24 hr 07/22/23 07/22/23 07/22/23 11:45 12:51 16:28 POC Glucose 61 133 H 78 07/22/23 07/22/23 07/23/23 18:44 23:36 06:51 POC Glucose 66 100 124 H Microbiology Microbiology Results: Microbiology 07/20/23 23:08 Blood Culture - Preliminary Blood - Venous No growth after 48 hours. 07/20/23 23:09 Blood Culture - Preliminary Blood - Venous No growth after 48 hours. Assessment and Plan (1) NSTEMI (non-ST elevated myocardial infarction): Status: Inactive (2) Abdominal aortic aneurysm without rupture: Status: Acute (3) Gastric outlet obstruction: Status: Inactive Plan d3 72yo M LTC resident of [facility] with hx CVA with L-sided hemiparesis/spastic hemiplegia, cerebral venous thrombosis, mood disorder with hx SI, repeated falls, DM2, cognitive impairment s/p CVA, osteomyelitis of L toe [recently completed ertapenem], recent admission for gastric outlet obstruction + NSTEMI re-admission for aspiration pneumonia, recurrent vomiting and found to have pneumatosis though could be from recent NGT placement partial duodenal obstruction possibly due to AAA from extrinsic compression recurrent gastric outlet obstruction - GI consulted, EGD planned. Keep NPO, NGT in place. Cardiology consulted. aspiration PNA - 4/5- pip/nereida, BCx negative to date, trend PCT recent NSTEMI - Cardiology consulted for risk stratification pre-EGD. Pt is high-risk. Will start IV metoprolol. hx CVA - ASA on hold spasticity - baclofen on hold DM2 - demetrius-dose lispro VTE ppx - UFH dispo - LTC In my clinical judgment, the patient requires continued inpatient hospitalization for the following reasons: endoscopy, IV ABX Total time managing care of this patient today: 35 minutes. Quality Stroke Does the patient have a stroke diagnosis?: No VTE Prior VTE?: No VTE Risk Level:: Medical - moderate - high VTE Device Contraindication: N/A - Device Ordered VTE Drug Contraindication: N/A - Med Ordered
[2023-07-23 11:06] VITALS: BP 154/55; PULSE 84; RESP 18; TEMP 36.7; O2SAT 93
[2023-07-23 11:21] LABS: Glucose, Whole Blood 132 mg/dL (60-115)
[2023-07-23] MEDS: Metoprolol Tartrate 5 MG/5 ML VIAL IVPUSH ×2 (12:13→16:46)
[2023-07-23 15:50] VITALS: BP 141/70; PULSE 101; RESP 18; TEMP 36.7; O2SAT 96
[2023-07-23 18:30] LABS: Glucose, Whole Blood 120 mg/dL (60-115)
[2023-07-23 19:15] VITALS: BP 132/58; PULSE 77; RESP 18; TEMP 36.8; O2SAT 96
[2023-07-24] VITALS (7 sets, daily range): BP systolic 111–175; BP diastolic 61–85; PULSE 75–118; RESP 18–20; TEMP 36–36.9; O2SAT 92–98; BMI 21.7
[2023-07-24 00:32] LABS: Glucose, Whole Blood 84 mg/dL (60-115)
[2023-07-24] MEDS: Heparin Sodium,Porcine 5,000 UNIT/ML VIAL 5000 UNIT SUBCUT ×3 (00:32→21:26)
[2023-07-24] MEDS: Piperacillin Sodium/Tazobactam 3.375 GM in 0.9 % Sodium Chloride 50 ML IV ×5 (00:32→21:27)
[2023-07-24] MEDS: ondansetron HCL 4 MG/2 ML VIAL IVPUSH ×4 (00:32→21:27)
[2023-07-24] MEDS: Metoprolol Tartrate 5 MG/5 ML VIAL IVPUSH ×4 (00:32→16:28)
[2023-07-24] MEDS: Metoclopramide HCl 10 MG/2 ML VIAL 5 MG IVPUSH ×4 (00:33→21:26)
[2023-07-24] MEDS: 0.9 % Sodium Chloride Flush 3 ML SYRINGE IVFLUSH ×3 (00:38→16:28)
[2023-07-24] MEDS: Dextrose 5 % and Lactated Ring 1,000 ML 100 ML IVCONT ×2 (05:31→16:28)
[2023-07-24 06:09] LABS: Glucose, Whole Blood 107 mg/dL (60-115)
[2023-07-24] MEDS: Pantoprazole Sodium 40 MG/10 ML VIAL IVPUSH ×2 (07:10→16:28)
--- NOTE | 2023-07-24 08:23 | PC.NURSE ---
Pt stated he sneezed and his NG tube came out at approx 2300. MD Pio Kahn made aware and plan to replace. Pt stated not right now but would allow in am. NG tube attempted to be placed and met no physical resistance. Pt moving tongue/mouth causing tube to slow. This RN as well as Nurse educator attempted to work with patient to pass tube which seemed to be going well until tube inserted in R nare came out L nare folded. Tube pressed back in L nare and gently pulled from R nare to remove. Tube removed until no longer felt in L nare but was stuck and not able to be removed. leno sewer Tara to bedside to assist and tube was able to be removed, Pt denied pain, no blood or other signs of trauma noted. MD Yadav made aware and instructed to leave out as pt going for EGD today.
--- NOTE | 2023-07-24 10:15 | MHC.CM.PN ---
Per ROUNDS discussion, Patient is not yet medically cleared for dc (NGT,EGD today, IV ABT); returning to lTC is the plan and CM will continue to follow.
[2023-07-24 11:11] LABS: Glucose, Whole Blood 109 mg/dL (60-115)
--- NOTE | 2023-07-24 11:21 | HO.PM.IMPN ---
Subjective Subjective Date of Service: 07/24/23 Interval History: sneezed out NGT last night; replacement unsuccessful [cane out other nostril] NPO for EGD hungry; denies abd pain/N/V Review of Systems Review of Systems: Yes all other systems are reviewed and are negative Physical Exam Vital Signs: Vital Signs: Last Vital Signs Temp 97.7 F 07/24/23 11:01 Pulse 100 07/24/23 11:01 Resp 20 07/24/23 11:01 BP 143/76 H 07/24/23 11:01 Pulse Ox 98 07/24/23 11:01 O2 Del Method Room Air 07/24/23 11:01 BMI result Body Mass Index 21.7 Gen: in no acute distress HEENT: sclera anicteric, moist mucus membranes Neck: supple Lungs: clear to auscultation bilaterally Heart: regular rate and rhythm, no murmurs Abd: soft, non-tender, non-distended Ext: no edema Skin: warm/well-perfused Neuro: alert and oriented x3, L hemiparesis Psych: appropriate affect Objective Data Active Medications Acetaminophen (Acetaminophen Supp 650 Mg Supp.Rect) 650 mg [place] Q6H PRN PRN Reason: Fever Last Admin: 07/21/23 03:55 Dose: 650 mg Documented By: BRICE Glucose (Glucose Gel 15 Gm Gel..Gram.) 15 gm PO Q15M PRN; Protocol PRN Reason: per Hypoglycemia Standing Ord. Heparin Sodium (Porcine) (Heparin Sodium,Porcine 5,000 Unit/Ml Vial) 5,000 unit SUBCUT Q12H [facility] Last Admin: 07/24/23 09:19 Dose: 5,000 unit Documented By: SMILEY Piperacillin Sod/Tazobactam (Sod 3.375 gm/ Sodium Chloride) 50 mls @ 100 mls/hr IV Q6H [facility] Stop: 07/28/23 08:59 Last Admin: 07/24/23 10:32 Dose: 100 mls/hr Documented By: SMILEY Dextrose (D10) 250 mls @ 750 mls/hr IV Q15M PRN PRN Reason: per Hypoglycemia Standing Ord. Last Infusion: 07/22/23 19:21 Dose: Infused Documented By: DAREK Dextrose/Lactated Ringer's (D5lr) 1,000 mls @ 100 mls/hr IVCONT .Q10H [facility] Last Admin: 07/24/23 05:31 Dose: 100 mls/hr Documented By: LIV Insulin Human Lispro (Insulin Lispro 100 Unit/Ml 3 Ml Vial) 0 unit SUBCUT Q6H [facility]; Protocol Last Admin: 07/24/23 06:29 Dose: Not Given Documented By: LIV Non-Admin Reason: No Insulin Coverage Metoclopramide HCl (Metoclopramide Hcl 10 Mg/2 Ml Vial) 5 mg IVPUSH TID [facility] Last Admin: 07/24/23 10:35 Dose: 5 mg Documented By: SMILEY Metoprolol Tartrate (Metoprolol Tartrate 5 Mg/5 Ml Vial) 5 mg IVPUSH Q6H [facility] Last Admin: 07/24/23 10:33 Dose: 5 mg Documented By: SMILEY Mineral Oil (Mineral Oil Enema 133 Ml Enema) 133 ml [place] ONCE PRN PRN Reason: Constipation Multi-Ingred Medicated Throat [place] (Throat [place], Medicated 177 Ml Bottle) 1 spray MUCOUS MEM Q2H PRN PRN Reason: Sore Throat Last Admin: 07/21/23 23:48 Dose: 1 spray Documented By: AMANDA Ondansetron HCl (Ondansetron Hcl 4 Mg/2 Ml Vial) 4 mg IVPUSH Q8H [facility] Last Admin: 07/24/23 10:33 Dose: 4 mg Documented By: SMILEY Pantoprazole Sodium (Pantoprazole Sodium 40 Mg/10 Ml Vial) 40 mg IVPUSH BID@0630,1630 [facility] Last Admin: 07/24/23 07:10 Dose: 40 mg Documented By: HEMALATHA Sodium Chloride (0.9 % Sodium Chloride Flush 3 Ml Syringe) 3 ml IVFLUSH QSHIFT [facility] Last Admin: 07/24/23 09:18 Dose: 3 ml Documented By: SMILEY Labs 07/21/23 07:55 07/21/23 07:55 Labs: Laboratory Results - last 24 hr 07/23/23 07/23/23 07/24/23 11:10 18:24 00:22 POC Glucose 132 H 120 H 84 07/24/23 07/24/23 06:03 11:04 POC Glucose 107 109 Assessment and Plan (1) NSTEMI (non-ST elevated myocardial infarction): Status: Inactive (2) Abdominal aortic aneurysm without rupture: Status: Acute (3) Gastric outlet obstruction: Status: Inactive Plan d4 72yo M LTC resident of [facility] with hx CVA with L-sided hemiparesis/spastic hemiplegia, cerebral venous thrombosis, mood disorder with hx SI, repeated falls, DM2, cognitive impairment s/p CVA, osteomyelitis of L toe [recently completed ertapenem], recent admission for gastric outlet obstruction + NSTEMI re-admission for aspiration pneumonia, recurrent vomiting and found to have pneumatosis though could be from recent NGT placement partial duodenal obstruction possibly due to AAA from extrinsic compression recurrent gastric outlet obstruction - GI consulted, EGD planned for today. Keep NPO. Cardiology consulted- high risk [due to recent NSTEMI] for medically necessary procedure; started on beta-yomaira. aspiration PNA - pip/nereida 4/5-, BCx negative, trend PCT recent NSTEMI - Cardiology consulted for risk stratification pre-EGD. Pt is high-risk. On IV metoprolol hx CVA - ASA on hold [NPO] spasticity - baclofen on hold [NPO] DM2 - demetrius-dose lispro VTE ppx - UFH dispo - LTC In my clinical judgment, the patient requires continued inpatient hospitalization for the following reasons: endoscopy, IV ABX Total time managing care of this patient today: 35 minutes. Quality Stroke Does the patient have a stroke diagnosis?: No VTE Prior VTE?: No VTE Risk Level:: Medical - moderate - high VTE Device Contraindication: N/A - Device Ordered VTE Drug Contraindication: N/A - Med Ordered
[2023-07-24 18:10] LABS: Glucose, Whole Blood 113 mg/dL (60-115)
[2023-07-25] VITALS (7 sets, daily range): BP systolic 92–137; BP diastolic 47–65; PULSE 67–110; RESP 16–20; TEMP 36.1–37.1; O2SAT 96–99
[2023-07-25 00:29] LABS: Glucose, Whole Blood 83 mg/dL (60-115)
[2023-07-25] MEDS: Metoprolol Tartrate 5 MG/5 ML VIAL IVPUSH ×3 (01:39→12:29)
[2023-07-25] MEDS: Piperacillin Sodium/Tazobactam 3.375 GM in 0.9 % Sodium Chloride 50 ML IV ×4 (05:13→21:42)
[2023-07-25] MEDS: ondansetron HCL 4 MG/2 ML VIAL IVPUSH ×3 (05:13→21:45)
[2023-07-25 05:49] LABS: Glucose, Whole Blood 85 mg/dL (60-115)
[2023-07-25] MEDS: Dextrose 5 % and Lactated Ring 1,000 ML 100 ML IVCONT ×2 (06:13→16:44)
[2023-07-25] MEDS: Heparin Sodium,Porcine 5,000 UNIT/ML VIAL 5000 UNIT SUBCUT ×2 (09:07→21:45)
[2023-07-25] MEDS: Metoclopramide HCl 10 MG/2 ML VIAL 5 MG IVPUSH ×3 (09:07→21:45)
[2023-07-25] MEDS: 0.9 % Sodium Chloride Flush 3 ML SYRINGE IVFLUSH ×2 (09:08→14:46)
[2023-07-25 09:30] LABS: Hematocrit 37.5 % (42.0-52.0); Hemoglobin 12.5 g/dl (14.0-18.0); Mean Corpuscular HGB Conc 33.3 g/dl (31.0-36.0); Mean Corpuscular Hemoglobin 28.1 pg (27.0-33.0); Mean Corpuscular Volume 84.3 fL (80.0-98.0); Mean Platelet Volume 8.3 fL (9.4-12.4); Platelet Count 278 X10*3/uL (160-400); Red Blood Count 4.45 X10*6/uL (4.60-5.80); Red Cell Distribution Width 13.1 % (11.0-16.0); White Blood Count 9.1 X10*3/uL (4.8-10.8)
[2023-07-25 09:39] LABS: Anion Gap 12 (12-20); Blood Urea Nitrogen 7 mg/dL (9-16); Calcium 8.8 mg/dL (8.4-10.2); Carbon Dioxide 27 mmol/L (22-29); Chloride 109 mmol/L (96-108); Estimated Glomerular Filt Rate > 60; Glucose Random 86 mg/dL (60-115); Potassium 3.2 mmol/L (3.3-5.1); Sodium 145 mmol/L (135-145)
--- NOTE | 2023-07-25 11:39 | PC.NURSE ---
pt expressing wishes to NOT have the procedure. very clear and understands reprecussions on not proceding with this care. anesthesia and dr tamayo speaking with guardian. dr tamayo made guardian aware that he's not able to eat. questioning if a discussion has to be had to deem his competency on whether he can make his own decisions. cancelling procedure today until further investigation into his competency and whether he may have to be palliative care.
[2023-07-25 12:29] LABS: Glucose, Whole Blood 89 mg/dL (60-115)
--- NOTE | 2023-07-25 13:41 | PM.GIPN ---
Subjective Subjective Date of Service: 07/25/23 Interval History: Patient seen and evaluated. Reports that he does not wish to undergo procedure primarily due to anesthesia. Appears to be alert, oriented and appropriate at the time of encounter today. Able to recount previous medical history. Able to verbalize that he has a stomach problem because of which he keeps throwing up. Tells me that has a daughter and a son, neither of whom are local one is in [place] the other one is in [place]. Does not want them involved in his care regardless. Also does not have any other family member or friend nearby who is aware of his medical conditions, does not want us to call anyone either. Wishes to be fed even if it means he may pass away from complications of aspiration. He expressed this to multiple HCW apart from me, including the anesthesiologist as well as the RN. Guardian was called and updated. She agrees to not proceed with EGD in light of above, will review his chart on her end and contact the hospitalist to review goals of care going forward. EGD therefore canceled. Above discussed with Hospitalist. Critical Care Time (minutes): 0 Physical Exam Vital Signs: Vital Signs: Last Vital Signs Temp 98.7 F 07/25/23 12:00 Pulse 72 07/25/23 12:00 Resp 16 07/25/23 12:00 BP 107/58 L 07/25/23 12:00 Pulse Ox 98 07/25/23 12:00 O2 Del Method Room Air 07/25/23 12:00 BMI result Body Mass Index 21.7 Objective Data Labs 07/25/23 09:10 07/25/23 09:10 Labs: Laboratory Results - last 24 hr 07/24/23 07/25/23 07/25/23 18:06 00:17 05:39 WBC RBC Hgb Hct MCV MCH MCHC RDW Plt Count MPV Absolute Nucleated RBC Nucleated RBC % (auto) Sodium Potassium Chloride Carbon Dioxide Anion Gap BUN Creatinine Estim Creat Clear Calc Estimated GFR POC Glucose 113 83 85 Random Glucose Calcium 07/25/23 07/25/23 09:10 12:25 WBC 9.1 RBC 4.45 L Hgb 12.5 L Hct 37.5 L MCV 84.3 MCH 28.1 MCHC 33.3 RDW 13.1 Plt Count 278 MPV 8.3 L Absolute Nucleated RBC 0.000 Nucleated RBC % (auto) 0.0 Sodium 145 Potassium 3.2 L Chloride 109 H Carbon Dioxide 27 Anion Gap 12 BUN 7 L Creatinine 0.66 Estim Creat Clear Calc 98.0 Estimated GFR > 60 POC Glucose 89 Random Glucose 86 Calcium 8.8 D Microbiology Microbiology Results: Microbiology 07/20/23 23:08 Blood - Venous Blood Culture - Preliminary No growth after 48 hours. 07/20/23 23:09 Blood - Venous Blood Culture - Preliminary No growth after 48 hours. Procedures Date of Service Date of Service: 07/25/23 Progress Note: A&P Time Spent With Patient Time: Total time managing care of this patient today ____ minutes. Quality Stroke Does the patient have a stroke diagnosis?: No VTE Prior VTE?: No VTE Risk Level:: Medical - moderate - high VTE Device Contraindication: N/A - Device Ordered VTE Drug Contraindication: N/A - Med Ordered
--- NOTE | 2023-07-25 14:16 | P.PNIM_ITS ---
Subjective Subjective Date of Service: 07/25/23 Interval History: declined EGD despite recognition of risks of aspiration/untreated gastric outlet obstruction Review of Systems Review of Systems: Yes all other systems are reviewed and are negative Physical Exam 2 Vital Signs: Vital Signs: Last Vital Signs Temp 98.7 F 07/25/23 12:00 Pulse 72 07/25/23 12:00 Resp 16 07/25/23 12:00 BP 107/58 L 07/25/23 12:00 Pulse Ox 98 07/25/23 12:00 O2 Del Method Room Air 07/25/23 12:00 BMI result Body Mass Index 21.7 Gen: in no acute distress HEENT: sclera anicteric, moist mucus membranes Neck: supple Lungs: clear to auscultation bilaterally Heart: regular rate and rhythm, no murmurs Abd: soft, non-tender, non-distended Ext: no edema Skin: warm/well-perfused Neuro: alert and oriented x3, L hemiparesis Psych: appropriate affect Objective Data Active Medications Acetaminophen (Acetaminophen Supp 650 Mg Supp.Rect) 650 mg [place] Q6H PRN PRN Reason: Fever Last Admin: 07/21/23 03:55 Dose: 650 mg Documented By: BRICE Glucose (Glucose Gel 15 Gm Gel..Gram.) 15 gm PO Q15M PRN; Protocol PRN Reason: per Hypoglycemia Standing Ord. Heparin Sodium (Porcine) (Heparin Sodium,Porcine 5,000 Unit/Ml Vial) 5,000 unit SUBCUT Q12H [facility] Last Admin: 07/25/23 09:07 Dose: 5,000 unit Documented By: ALONSO Piperacillin Sod/Tazobactam (Sod 3.375 gm/ Sodium Chloride) 50 mls @ 100 mls/hr IV Q6H [facility] Stop: 07/28/23 08:59 Last Infusion: 07/25/23 09:38 Dose: Infused Documented By: ALONSO Dextrose (D10) 250 mls @ 750 mls/hr IV Q15M PRN PRN Reason: per Hypoglycemia Standing Ord. Last Infusion: 07/22/23 19:21 Dose: Infused Documented By: DAREK Dextrose/Lactated Ringer's ([id number]) 1,000 mls @ 100 mls/hr IVCONT .Q10H [facility] Last Admin: 07/25/23 06:13 Dose: 100 mls/hr Documented By: LIV Insulin Human Lispro (Insulin Lispro 100 Unit/Ml 3 Ml Vial) 0 unit SUBCUT Q6H [facility]; Protocol Last Admin: 07/25/23 12:29 Dose: Not Given Documented By: ALONSO Non-Admin Reason: No Insulin Coverage Metoclopramide HCl (Metoclopramide Hcl 10 Mg/2 Ml Vial) 5 mg IVPUSH TID [facility] Last Admin: 07/25/23 09:07 Dose: 5 mg Documented By: ALONSO Metoprolol Tartrate (Metoprolol Tartrate 5 Mg/5 Ml Vial) 5 mg IVPUSH Q6H [facility] Last Admin: 07/25/23 12:29 Dose: 5 mg Documented By: ALONSO Mineral Oil (Mineral Oil Enema 133 Ml Enema) 133 ml OH ONCE PRN PRN Reason: Constipation Multi-Ingred Medicated Throat [place] (Throat [place], Medicated 177 Ml Bottle) 1 spray MUCOUS MEM Q2H PRN PRN Reason: Sore Throat Last Admin: 07/21/23 23:48 Dose: 1 spray Documented By: AMANDA Ondansetron HCl (Ondansetron Hcl 4 Mg/2 Ml Vial) 4 mg IVPUSH Q8H [facility] Last Admin: 07/25/23 12:29 Dose: 4 mg Documented By: ALONSO Sodium Chloride (0.9 % Sodium Chloride Flush 3 Ml Syringe) 3 ml IVFLUSH QSHIFT [facility] Last Admin: 07/25/23 09:08 Dose: 3 ml Documented By: ALONSO Labs 07/25/23 09:10 07/25/23 09:10 Labs: Laboratory Results - last 24 hr 07/24/23 07/25/23 07/25/23 18:06 00:17 05:39 MCV MCH MCHC RDW Plt Count MPV Absolute Nucleated RBC Nucleated RBC % (auto) Anion Gap Estim Creat Clear Calc Estimated GFR POC Glucose 113 83 85 Random Glucose Calcium 07/25/23 07/25/23 09:10 12:25 MCV 84.3 MCH 28.1 MCHC 33.3 RDW 13.1 Plt Count 278 MPV 8.3 L Absolute Nucleated RBC 0.000 Nucleated RBC % (auto) 0.0 Anion Gap 12 Estim Creat Clear Calc 98.0 Estimated GFR > 60 POC Glucose 89 Random Glucose 86 Calcium 8.8 D Impressions Chest X-Ray 07/24/23 14:22 IMPRESSION: Significantly limited examination, as detailed. There is moderate left base plate-like scar/subsegmental atelectasis. In the absence of outside comparison radiographs documenting long-term stability, recommend short-term follow-up chest radiographs to ensure regression/resolution and exclude the possibly of underlying obstructive process KUB X-Ray 07/24/23 14:22 IMPRESSION: There is a disorganized bowel gas pattern, with features favoring a mild adynamic ileus. No navjot obstruction is noted. No free intraperitoneal air is seen. Assessment and Plan (1) NSTEMI (non-ST elevated myocardial infarction): Status: Inactive (2) Abdominal aortic aneurysm without rupture: Status: Acute (3) Gastric outlet obstruction: Status: Inactive Plan d5 72yo M LTC resident of [facility] with hx CVA with L-sided hemiparesis/spastic hemiplegia, cerebral venous thrombosis, mood disorder with hx SI, repeated falls, DM2, cognitive impairment s/p CVA, osteomyelitis of L toe [recently completed ertapenem], recent admission for gastric outlet obstruction + NSTEMI re-admission for aspiration pneumonia, recurrent vomiting and found to have pneumatosis though could be from recent NGT placement partial duodenal obstruction possibly due to AAA from extrinsic compression recurrent gastric outlet obstruction - NGT placed 07/20, out 07/23 - Planned EGD today but pt declined. Per GI: Wishes to be fed even if it means he may pass away from complications of aspiration. He expressed this to multiple HCW apart from me, including the anesthesiologist as well as the RN. Guardian was called and updated. She agrees to not proceed with EGD in light of above, will review his chart on her end and contact the hospitalist to review goals of care going forward. - Last KUB shows likely adynamic ileus. Will proceed with liquid diet then advance as tolerated. aspiration PNA - pip/nereida 4/5-, BCx negative recent NSTEMI - Cardiology consulted for risk stratification pre-EGD. Pt is high-risk. Procedure canceled due to pt refusal. Change IV to PO metoprolol. hx CVA - resume ASA spasticity - resume baclofen DM2 - demetrius-dose lispro VTE ppx - UFH dispo - LTC In my clinical judgment, the patient requires continued inpatient hospitalization for the following reasons: advance diet Total time managing care of this patient today: 35 minutes. Quality Stroke Does the patient have a stroke diagnosis?: No VTE Prior VTE?: No VTE Risk Level:: Medical - moderate - high VTE Device Contraindication: N/A - Device Ordered VTE Drug Contraindication: N/A - Med Ordered
[2023-07-25] MEDS: Baclofen 10 MG TABLET 5 MG PO ×2 (15:25→21:40)
[2023-07-25 16:30] LABS: Glucose, Whole Blood 83 mg/dL (60-115)
[2023-07-25 20:45] LABS: Glucose, Whole Blood 125 mg/dL (60-115)
[2023-07-26] LABS: Glucose, Whole Blood 124 mg/dL (60-115)
--- NOTE | 2023-07-26 01:56 | PC.NURSE ---
notified of BP 100/49 , metoprolol held per provider's order.
[2023-07-26 03:39] VITALS: BP 106/59; PULSE 71; RESP 16; TEMP 36.4; O2SAT 96
[2023-07-26] MEDS: Piperacillin Sodium/Tazobactam 3.375 GM in 0.9 % Sodium Chloride 50 ML IV ×3 (03:41→15:49)
[2023-07-26] MEDS: ondansetron HCL 4 MG/2 ML VIAL IVPUSH ×2 (03:41→12:08)
[2023-07-26] MEDS: Dextrose 5 % and Lactated Ring 1,000 ML 100 ML IVCONT (03:41)
[2023-07-26] MEDS: 0.9 % Sodium Chloride Flush 3 ML SYRINGE IVFLUSH (03:42)
[2023-07-26 07:05] LABS: Glucose, Whole Blood 109 mg/dL (60-115)
[2023-07-26 07:08] VITALS: BP 137/71; PULSE 77; RESP 20; TEMP 36.6; O2SAT 97
[2023-07-26] MEDS: Omeprazole 40 MG CAPSULE.DR PO (07:27)
[2023-07-26] MEDS: Baclofen 10 MG TABLET 5 MG PO ×2 (07:27→15:48)
[2023-07-26] MEDS: Heparin Sodium,Porcine 5,000 UNIT/ML VIAL 5000 UNIT SUBCUT (07:28)
[2023-07-26] MEDS: Metoprolol Tartrate 50 MG TABLET PO (07:28)
[2023-07-26] MEDS: Aspirin 81 MG TAB.CHEW PO (07:28)
[2023-07-26] MEDS: Metoclopramide HCl 10 MG/2 ML VIAL 5 MG IVPUSH ×2 (07:29→15:48)
[2023-07-26] MEDS: Potassium Chloride Packet 20 MEQ PACKET 40 MEQ PO (09:55)
[2023-07-26 10:18] LABS: Anion Gap 13 (12-20); Blood Urea Nitrogen 6 mg/dL (9-16); Calcium 8.7 mg/dL (8.4-10.2); Carbon Dioxide 26 mmol/L (22-29); Chloride 108 mmol/L (96-108); Creatinine Clr Calc Pharmacy 92.4; Estimated Glomerular Filt Rate > 60; Glucose Random 112 mg/dL (60-115); Potassium 3.3 mmol/L (3.3-5.1); Sodium 144 mmol/L (135-145)
--- NOTE | 2023-07-26 10:36 | MHC.CM.PN ---
Per ROUNDS discussion, will start solids today and possible dc back to LTC later today. CM will follow.
[2023-07-26 10:57] VITALS: BP 92/62; PULSE 95; RESP 20; TEMP 36.7; O2SAT 97
[2023-07-26 11:21] LABS: Glucose, Whole Blood 137 mg/dL (60-115)
--- NOTE | 2023-07-26 11:34 | MHC.CLN ---
F/U PT'S DIET ADVANCED TO REGULAR NO RECORDED PO INTAKE PT REFUSED EGD PER MD MONITOR PO INTAKE RD TO FOLLOW WEEKLY
--- NOTE | 2023-07-26 13:15 | PM.DS ---
DS: Providers Provider Date of Service: 07/26/23 Date of admission: 07/21/23 03:44 Date of discharge: 07/26/23 Primary care physician: Fabrice Marino DO Consults: 07/21/23 08:06 Consult to Gastroenterology Routine Consulting Provider: Ted Garsia Reason for consultation: Hematemesis ? gastric outlet obstruction Has provider been notified: Yes 07/22/23 15:30 Consult to Cardiology [place]ine [place]ing [place] [facility] [place] [facility] Reason for consultation: pre EGD risk stratify, recent NSTEMi DS: Diagnosis Discharge Diagnosis (1) NSTEMI (non-ST elevated myocardial infarction): Status: Inactive (2) Abdominal aortic aneurysm without rupture: Status: Acute (3) Gastric outlet obstruction: Status: Inactive (4) Aspiration pneumonia: Status: Acute DS: Summary Hospital Course Hospital Course: From the history and physical by the admitting hospitalist, Jesu Arango MD, 07/21/23: Malachi Streeter is a 72 years old man with past medical history significant for old CVA with residual left hemiparesis with spasticity, cerebral venous thrombosis and type 2 diabetes mellitus was brought to the emergency department from [facility] due to brown vomiting and constipation. It was quite difficult to obtain the HPI directly from the patient. He is currently on acute distress and unable to provide a reliable HPI. However, he was able to say that he has abdominal pain. Patient was recently hospitalized with similar symptoms. He was considered to have gastric outlet obstruction and evaluated by Gastroenterology. He was also diagnosed with NSTEMI and evaluated by Cardiology. Patient was treated for this only medically and conservatively. Patient was also seen by vascular surgery after an abdominal aortic aneurysm was incidentally found in CT scan and recommending follow up as an outpatient as the patient appeared to be stable and not a risk of rupture. In the ED, he was found to have fever and tachycardia. Blood pressure is normal as well as O2 sats. Blood workup showed mild leukocytosis of 11.2. Hemoglobin and platelets are normal. There are no lactic acidosis. Electrolytes are normal. Creatinine is 0.79. LFTs are unremarkable. Troponin is 58.5 (it was 1,234.8 four days ago). Lipase is normal. Viral testing and urinalysis are pending. Gastric fluid is negative for occult blood. Abdomen pelvis CT scan showed pneumatosis within the gastric wall with a few small foci of portal venous gas of uncertain etiology, however suggesting a benign etiology. It also showed [id number] volume of stools in the colon, distention of the stomach and proximal duodenal (possible gastroparesis), unchanged abdominal aortic aneurysm (5 point cm), new patchy tree-in-bud opacities in the right lower lobe potentially due to aspiration pneumonitis and bilateral nonobstructive nephrolithiasis. ED tx: NS 1 L bolus, Zofran 4 mg IV, Zosyn 3.375 g IV, Compazine 10 mg IV, Fleet enema. 72yo M LTC resident of [facility] with hx CVA with L-sided hemiparesis/spastic hemiplegia, cerebral venous thrombosis, mood disorder with hx SI, repeated falls, DM2, cognitive impairment s/p CVA, osteomyelitis of L toe [recently completed ertapenem], and recent admission for gastric outlet obstruction + NSTEMI. Sent in for brown-colored vomiting. This was [place] [facility] [place] due to recurrent vomiting. CT showed partial duodenal obstruction possibly due to AAA from extrinsic compression. Gastroparesis also possible. He was found to have pneumatosis though, this could have been from recent NGT placement. Hospital course by problem: recurrent gastric outlet obstruction - NGT placed 4/, sneezed out 4 and could not be replaced. Placed on IV fluids while made NPO. GI consulted and planned EGD for diagnosis of etiology of obstruction. When he was taken for the EGD, he ended up declining. Per the shipping room helper: Wishes to be fed even if it means he may pass away from complications of aspiration. He expressed this to multiple HCW apart from me, including the anesthesiologist as well as the RN. Guardian was called and updated. She agrees to not proceed with EGD in light of above, will review his chart on her end and contact the hospitalist to review goals of care going forward. - His diet was advanced to liquid then solids without issues. He is aware of the risks of recurrent obstruction and aspiration. PRN Reglan prescribed upon discharge in case this is indeed gastroparesis. aspiration PNA - Treated with 5 days of piperacillin-tazobactam. Blood cultures negative. Not hypoxic. recent NSTEMI - Cardiology consulted for risk stratification pre-EGD. Pt is high-risk but initially planned to proceed after discussion with patient and guardian. In the end, procedure canceled due to patient refusal as above. He was started on metoprolol to reduce myocardial oxygen demand along with atorvastatin for secondary prevention; aspirin was resumed. He was discharged back to [facility] for long-term care. Time Attestation Discharge Coordination Time (in mins): 40 Quality: Safe Use of Opioids Does Pt have an Active Cancer Diagnosis on the Problem List?: No Quality: Stroke Does the patient have a stroke diagnosis?: No Physical Exam Vital Signs: Vital Signs: Last Vital Signs Temp 98.1 F 07/26/23 10:57 Pulse 95 07/26/23 10:57 Resp 20 07/26/23 10:57 BP 92/62 07/26/23 10:57 Pulse Ox 97 07/26/23 10:57 O2 Del Method Room Air 07/26/23 10:57 BMI result Body Mass Index 21.7 Gen: in no acute distress HEENT: sclera anicteric, moist mucus membranes Neck: supple Lungs: clear to auscultation bilaterally Heart: regular rate and rhythm, no murmurs Abd: soft, non-tender, non-distended Ext: no edema Skin: warm/well-perfused Neuro: alert and oriented x3, L hemiparesis Psych: appropriate affect DS: Data Data Completed and Pending Completed studies during hospitalization [Text1]: Laboratory Results WBC 9.1 X10*3/uL (4.8-10.8) 07/25/23 09:10 RBC 4.45 X10*6/uL (4.60-5.80) L 07/25/23 09:10 Hgb 12.5 g/dl (14.0-18.0) L 07/25/23 09:10 Hct 37.5 % (42.0-52.0) L 07/25/23 09:10 MCV 84.3 fL (80.0-98.0) 07/25/23 09:10 MCH 28.1 pg (27.0-33.0) 07/25/23 09:10 MCHC 33.3 g/dl (31.0-36.0) 07/25/23 09:10 RDW 13.1 % (11.0-16.0) 07/25/23 09:10 Plt Count 278 X10*3/uL (160-400) 07/25/23 09:10 MPV 8.3 fL (9.4-12.4) L 07/25/23 09:10 Immature Gran % (Auto) 0.4 % (0.0-0.4) 07/21/23 07:55 Neut % (Auto) 81.4 % (45-73) H 07/21/23 07:55 Lymph % (Auto) 9.1 % (20-40) L 07/21/23 07:55 [place] % (Auto) 8.9 % (2-11) 07/21/23 07:55 Eos % (Auto) 0.0 % (0-4) 07/21/23 07:55 Baso % (Auto) 0.2 % (0-2) 07/21/23 07:55 Lymph # (Auto) 1.1 X10*3/uL (1.2-4.9) L 07/21/23 07:55 [place]le # (Auto) 1.1 X10*3/uL (0.1-1.2) 07/21/23 07:55 Eos # (Auto) 0.0 X10*3/uL (0.0-0.4) 07/21/23 07:55 Baso # (Auto) 0.0 X10*3/uL (0.0-0.2) 07/21/23 07:55 Abs Immat Gran (auto) 0.05 X10*3/uL (0.00-0.03) H 07/21/23 07:55 Absolute Neuts (auto) 9.8 x10*3/uL (2.0-8.3) H 07/21/23 07:55 Absolute Nucleated RBC 0.000 X10*3/uL (0.0-0.012) 07/25/23 09:10 Nucleated RBC % (auto) 0.0 /100WBC (0.0-0.2) 07/25/23 09:10 Hold Purple Top SEE NOTE 07/26/23 09:04 PT 14.4 SEC (11.1-13.3) H 07/20/23 23:07 INR 1.2 (0.9-1.1) H 07/20/23 23:07 Sodium 144 mmol/L (135-145) 07/26/23 09:04 Potassium 3.3 mmol/L (3.3-5.1) 07/26/23 09:04 Chloride 108 mmol/L (96-108) 07/26/23 09:04 Carbon Dioxide 26 mmol/L (22-29) 07/26/23 09:04 Anion Gap 13 (12-20) 07/26/23 09:04 BUN 6 mg/dL (9-16) L 07/26/23 09:04 Creatinine 0.70 mg/dL (0.5-1.4) 07/26/23 09:04 Estim Creat Clear Calc 92.4 07/26/23 09:04 Estimated GFR > 60 07/26/23 09:04 POC Glucose 137 mg/dL (60-115) H 07/26/23 11:01 Random Glucose 112 mg/dL (60-115) 07/26/23 09:04 Lactic Acid 1.9 mmol/L (0.5-2.0) 07/21/23 05:57 Calcium 8.7 mg/dL (8.4-10.2) 07/26/23 09:04 Magnesium 2.0 mg/dL (1.6-2.6) 07/20/23 23:07 Total Bilirubin 0.4 mg/dL (0.0-1.0) 07/20/23 23:07 Direct Bilirubin 0.2 mg/dL (0.0-0.5) 07/20/23 23:07 AST 25 U/L (5-37) 07/20/23 23:07 ALT 27 U/L (0-40) 07/20/23 23:07 Alkaline Phosphatase 127 U/L (39-117) H 07/20/23 23:07 Troponin I High Sens 58.5 ng/L (<3.5-35.0) H D 07/20/23 23:07 Total Protein 7.3 g/dL (6.5-8.0) 07/20/23 23:07 Albumin 3.4 g/dL (3.5-5.0) L 07/20/23 23:07 Lipase 44 U/L (8-78) 07/20/23 23:07 Urine Color Dark Yellow 07/21/23 05:51 Urine Appearance Clear 07/21/23 05:51 Urine pH 7.5 (5.0-9.0) 07/21/23 05:51 Ur Specific [place] >= 1.030 (1.005-1.025) H 07/21/23 05:51 Urine Protein 30 (1+) mg/dL (Neg-Trace) H 07/21/23 05:51 Urine Glucose (UA) Negative mg/dL (Negative) 07/21/23 05:51 Urine Ketones 15 mg/dL (Negative) 07/21/23 05:51 Urine Blood Negative (Negative) 07/21/23 05:51 Urine Nitrite Negative (Negative) 07/21/23 05:51 Ur Leukocyte Esterase Negative (Negative) 07/21/23 05:51 Urine RBC 0-2 /HPF (0-2) 07/21/23 05:51 Urine WBC 0-5 /HPF (0-5) 07/21/23 05:51 Ur Squamous Epith Cells 0-2 /HPF (0-2) 07/21/23 05:51 Urine Bacteria None Seen (None Seen) 07/21/23 05:51 Hyaline Casts 0-2 /LPF (0-2) 07/21/23 05:51 Gastric Occult Blood NEGATIVE (NEG) 07/20/23 22:41 Influenza Type A (PCR) NEGATIVE (Negative) 07/21/23 04:02 Influenza Type B (PCR) NEGATIVE (Negative) 07/21/23 04:02 RSV RNA Qual (PCR) NEGATIVE (Negative) 07/21/23 04:02 SARS-CoV-2 RNA (RT-PCR) NEGATIVE (Negative) 07/21/23 04:02 Impressions Abdomen/Pelvis CT 07/21/23 00:15 IMPRESSION: 1. Pneumatosis within the gastric wall with a few small foci of portal venous gas. This is of uncertain etiology, though new as compared to prior. This is most likely due to a benign etiology such as recent mechanical irritation of the mucosa or steroid. Recommend correlation for recent use of a nasogastric or enteric tube. 2. Moderate to large volume of stool in the colon, most notably in the descending colon, sigmoid colon, and rectum. No evidence of obstruction. 3. Distention of the stomach and proximal duodenum with focal caliber transition of the duodenum where it crosses the aneurysmal abdominal aorta, potentially corresponding to the site of focal narrowing due to mass effect. Gastroparesis is also possible. 4. Unchanged 5.1 cm abdominal aortic aneurysm. Based on published guidelines in J Am Cheri Radiol 2013; 10(10):789-794 and J Vasc Surg. 2018; 67:2-77, the recommendation for an abdominal aortic aneurysm with diameter 4.5-5.4 cm is vascular consultation and subsequent follow-up every 6 months. 5. New patchy tree-in-bud opacities in the right lower lobe, potentially due to aspiration pneumonitis or other inflammatory/infectious etiologies. 6. Bilateral nonobstructing nephrolithiasis. Chest X-Ray 07/24/23 14:22 IMPRESSION: Significantly limited examination, as detailed. There is moderate left base plate-like scar/subsegmental atelectasis. In the absence of outside comparison radiographs documenting long-term stability, recommend short-term follow-up chest radiographs to ensure regression/resolution and exclude the possibly of underlying obstructive process KUB X-Ray 07/24/23 14:22 IMPRESSION: There is a disorganized bowel gas pattern, with features favoring a mild adynamic ileus. No navjot obstruction is noted. No free intraperitoneal air is seen. Discharge Plan Discharge Patient Disposition: er [facility] Discharge Diagnosis: recurrent gastric outlet obstruction aspiration pneumonia recent NSTEMI Referrals: [facility] [Outside] - 1 Week Fabrice Marino DO [Primary Care Provider] - 1 Week Discharge Medications: New metoprolol tartrate 50 mg Tablet 50 mg PO BID Qty: 60 0RF Protocol: Hold for SBP/HR < HOLD for SBP < : 90 HOLD for HR < : 60 atorvastatin 40 mg tablet 40 mg PO BEDTIME Qty: 30 0RF metoclopramide HCl 5 mg tablet 5 mg PO Q6H PRN (Reason: nausea and vomiting) Qty: 30 0RF Continued sennosides [senna] 8.6 mg Tablet 8.6 mg PO DAILY PRN (Reason: Constipation) acetaminophen 325 mg Tablet 650 mg PO Q6H PRN (Reason: Fever Or Pain) oxycodone-acetaminophen 5-325 mg Tablet 1 tab PO Q6H PRN (Reason: Severe Pain (Scale Score 7-10)) ibuprofen 200 mg Tablet 800 mg PO Q6H PRN (Reason: Pain, Moderate) Rx Instructions: moderate - severe pain baclofen 5 mg Tablet 5 mg PO TID aspirin 81 mg Tablet,Chewable 81 mg PO DAILY Qty: 30 0RF Fleet Enema 19-7 gram/118 mL Enema 118 ml NE DAILY PRN (Reason: Constipation) omeprazole 20 mg Capsule,Delayed Release(Dr/Ec) 40 mg PO DAILY@0630 naloxone 4 mg/actuation [place],Non-Aerosol 4 mg INTRANASAL Q3M PRN (Reason: Opioid Overdose) Rx Instructions: spray 1 dose into ONE nostril; alternate nostrils w each dose until help arrives Discharge Orders: Discharge Order (Routine); Ordered 07/26/23 Ordered By: Blas Hudson Diet: Advance to usual diet Activity on Discharge: As tolerated Stand Alone Forms: Patient Portal Discharge page Print Language: Vietnamese Care Plan Goals: patient preference/comfort Health Concerns: recurrent gastric outlet obstruction aspiration pneumonia recent NSTEMI Plan of Treatment: Completed antibiotics Risk of recurrent gastric outlet obstruction and aspiration Please follow up with your primary care doctor within 1 week. Return to the hospital if you experience recurrent or worsening symptoms. Assessment: See Discharge Summary.
--- NOTE | 2023-07-26 15:06 | MHC.CM.PN ---
Patient has been medically cleared for dc to LTC today. Patient will return to LTC @ [place] today at 5:30 PM, via [facility]. CM left a detailed message for Breana/Saba @ [phone], informing her of the dc plan.
[2023-07-26 15:26] VITALS: BP 124/58; PULSE 76; RESP 16; TEMP 36.4; O2SAT 99
[2023-07-26 16:14] LABS: Glucose, Whole Blood 120 mg/dL (60-115)
== END 2023-07-26 19:17 | DRG 380 ==
LOC: HO.ED 07-21 01:55 → HO.EDOVER 07-21 03:54 → HO.IMC 07-21 19:22
PROVIDERS: Admitting Provider Internal Medicine; Emergency Provider Emergency Medicine; PCP Hospitalist; Visit Provider Family Medicine
DX: K31.1 Adult hypertrophic pyloric stenosis (principal); J69.0 Pneumonitis due to inhalation of food and vomit; I69.354 Hemiplegia and hemiparesis following cerebral infarction affecting left non-dominant side; I69.322 Dysarthria following cerebral infarction; I69.319 Unspecified symptoms and signs involving cognitive functions following cerebral infarction; I35.0 Nonrheumatic aortic (valve) stenosis; I25.2 Old myocardial infarction; E11.43 Type 2 diabetes mellitus with diabetic autonomic (poly)neuropathy; K31.84 Gastroparesis; E11.621 Type 2 diabetes mellitus with foot ulcer; K59.00 Constipation, unspecified; L97.519 Non-pressure chronic ulcer of other part of right foot with unspecified severity; L97.529 Non-pressure chronic ulcer of other part of left foot with unspecified severity; I71.43 Infrarenal abdominal aortic aneurysm, without rupture; Z20.822 Contact with and (suspected) exposure to COVID-19; Z87.891 Personal history of nicotine dependence; Z79.82 Long term (current) use of aspirin; Z79.899 Other long term (current) drug therapy
CPT/HCPCS: 0241U; 36415; 71045; 74018; 74177; 80048; 80076; 81001; 82271; 82947; 83605; 83690; 83735; 84484; 85025; 85027; 85610; 87040; 93005; 99285; C9113; J0131; J0737; J1644; J1885; J2359; J2405; J2543; J2765; J3370; J3371; J7120; Q9967

== ENCOUNTER → 2023-07-20 22:38 | Outpatient (BNV) | payer OTHER, MEDICAID, SELFPAY | PROVIDERS: Admitting Provider Internal Medicine; Emergency Provider Emergency Medicine; Visit Provider Internal Medicine Cardiovascular Disease | DX: R00.0 Tachycardia, unspecified (principal) | CPT/HCPCS: 93010 ==

== ENCOUNTER → 2023-07-21 03:44 | Outpatient (BNV) | payer OTHER, MEDICAID, SELFPAY | PROVIDERS: Admitting Provider Internal Medicine; Emergency Provider Emergency Medicine; Visit Provider Internal Medicine | DX: R11.2 Nausea with vomiting, unspecified (principal); I69.354 Hemiplegia and hemiparesis following cerebral infarction affecting left non-dominant side; I63.9 Cerebral infarction, unspecified; I71.43 Infrarenal abdominal aortic aneurysm, without rupture; K56.41 Fecal impaction; G81.10 Spastic hemiplegia affecting unspecified side; L97.509 Non-pressure chronic ulcer of other part of unspecified foot with unspecified severity; J69.0 Pneumonitis due to inhalation of food and vomit; I21.4 Non-ST elevation (NSTEMI) myocardial infarction; K31.1 Adult hypertrophic pyloric stenosis | CPT/HCPCS: 99223; 99232; 99239; 99499 ==

== ENCOUNTER → 2023-07-21 03:44 | Outpatient (BNV) | payer OTHER, MEDICAID, SELFPAY | PROVIDERS: Admitting Provider Internal Medicine; Emergency Provider Emergency Medicine; Visit Provider Internal Medicine Cardiovascular Disease | DX: Z01.810 Encounter for preprocedural cardiovascular examination (principal) | CPT/HCPCS: 99222 ==

== ENCOUNTER → 2023-07-21 03:44 | Outpatient (BNV) | payer OTHER, MEDICAID, SELFPAY | PROVIDERS: Admitting Provider Internal Medicine; Emergency Provider Emergency Medicine; Visit Provider Internal Medicine | DX: J69.0 Pneumonitis due to inhalation of food and vomit (principal); K31.1 Adult hypertrophic pyloric stenosis; R11.2 Nausea with vomiting, unspecified; I25.2 Old myocardial infarction | CPT/HCPCS: 99223; 99232 ==